=== PATIENT | female | born 1935 | race Caucasian/White ===

== ENCOUNTER → 2017-10-12 19:10 | Outpatient (REF) | payer MEDICARE, OTHER, SELFPAY | LOC: LAB 19:10 | PROVIDERS: Family Provider Family Medicine; PCP Family Medicine; Visit Provider Dermatology MOHS-Micrographic Surgery | DX: Z48.817 Encounter for surgical aftercare following surgery on the skin and subcutaneous tissue (principal) | CPT/HCPCS: 87070; 87075; 87077; 87147; 87186; 87205 ==

== ENCOUNTER 2017-10-25 18:10 | Emergency (ER) | payer MEDICARE, OTHER, SELFPAY ==
--- NOTE | 2017-10-25 18:13 | DI.RAD.S_ITS ---
PROCEDURE: XR CHEST 1V INDICATIONS: chest pain TECHNIQUE: One view of the chest was acquired. COMPARISON: [facility], CHEST 1 VIEW, 07/30/2017, 18:30. [facility], CHEST 1 VIEW, 07/03/2017, 9:40. FINDINGS: Surgical changes and devices: None. Lungs and pleura: No pleural effusions or pneumothorax. Lungs are clear. Mediastinum: Mediastinal contours appear normal. Heart size is normal. Bones and chest wall: No suspicious bony lesions. Overlying soft tissues appear unremarkable. IMPRESSION: No radiographic evidence of acute cardiopulmonary pathology. Dictated by: Burak Posey M.D. on 10/25/2017 at 18:32 Approved by: Burak Posey M.D. on 10/25/2017 at 18:33
[2017-10-25 18:16] VITALS: BP 207/81; PULSE 68; RESP 18; TEMP 36.6; O2SAT 96
[2017-10-25 18:20] VITALS: BP 193/100; PULSE 70; RESP 14; O2SAT 96
[2017-10-25 18:25] LABS: Add Manual Diff / Slide Review NO; Eosinophils Percent Auto 3.4 % (2-4); Lymphocytes Percent Auto 28.8 % (25-40); Mean Corpuscular HGB Conc 33.2 % (30-36); Mean Corpuscular Hemoglobin 30.2 PG (26-34); Mean Corpuscular Volume 90.8 fL (80-100); Monocytes Percent Auto 8.4 % (3-14); Neutrophils Absolute Auto 4400 /uL (3000-5900); Neutrophils Percent Auto 58.4 % (50-75); Platelet Count 254 X10^3/uL (150-400); Red Blood Cell Count 4.63 X10^6/uL (4.0-5.2); Red Cell Distribution Width 14.5 % (11.6-14.8); White Blood Cell Count 7.6 X10^3/uL (4.5-11.0)
[2017-10-25 18:26] LABS: INR 1.6 (0.9-1.3); Prothrombin Time 17.8 SECONDS (10.1-12.7)
[2017-10-25 18:29] LABS: PTT Partial Thromboplastin Tim 35 SECONDS (26.4-36.2)
[2017-10-25 18:30] LABS: Alanine Aminotransferase 36 IU/L (9-52); Albumin 4.2 g/dL (3.5-5.0); Albumin Globulin Ratio 1.2 (1.0-2.8); Alkaline Phosphatase 71 U/L (38-126); Aspartate Aminotransferase 39 IU/L (14-36); Bilirubin Total 0.4 mg/dL (0.2-1.3); Blood Urea Nitrogen 33 mg/dL (7-17); Calcium 8.8 mg/dL (8.4-10.2); Carbon Dioxide 27 mmol/L (22-32); Creatine Kinase 88 U/L (30-135); Estimated Glomerular Filt Rate 33.4 mL/min (>60); Globulin 3.6 g/dL (1.7-4.1); Glucose 106 mg/dL (80-110); HEMOLYSIS 42 (0-50); Lipase 135 U/L (23-300); Total Protein 7.8 g/dL (6.3-8.2)
--- NOTE | 2017-10-25 18:37 | ED.CHESTPAIN ---
HPI - Chest Pain General Chief Complaint: Chest Pain Stated Complaint: Chest Pain Time Seen by Provider: 10/25/17 18:20 Source: patient Mode of arrival: ambulatory Limitations: no limitations History of Present Illness HPI narrative: About 1 hr prior to arrival the patient developed very severe midsternal chest pain. She had associated dyspnea. The pain did not radiate. She felt no weakness or dizziness. She has no history of CAD or DC. She describes what may be an event of Broken Heart Syndrome. She is treated for hypertension and hyperlipidemia. She has no diabetes. She has never been a smoker. She is not actually been treated for any kind of cardiac conditions. She has no recent respiratory illness. Symptoms resolved after 20 min, she is now asymptomatic other than a bit anxious. Related Data Home Medications Medication Instructions Recorded Confirmed acetaminophen [Tylenol Extra 500 mg PO PRN PRN #0 04/19/16 10/25/17 Strength] amiodarone 200 mg PO QDAY #0 01/03/17 10/25/17 diphenhydramine HCl [Benadryl 1 tab PO BEDTIME PRN #0 02/15/17 10/25/17 Allergy] lisinopril 10 mg PO BID #0 04/15/17 10/25/17 sertraline 50 mg PO QDAY #0 04/15/17 10/25/17 Previous Rx's Medication Instructions Recorded metoprolol succinate [Toprol XL] 1.5 tab PO QDAY #270 ter 08/02/17 warfarin 2 mg tablet 2 mg PO SEE INSTRUCTIONS #90 tab 10/19/17 Allergies Allergy/AdvReac Type Severity Reaction Status Date / Time latex Allergy Severe THROAT Verified 10/25/17 18:14 SWELLING prednisone [PREDNISONE] Allergy Intermediate rash Verified 10/25/17 18:14 amoxicillin Allergy Mild ITCH Verified 10/25/17 18:14 ciprofloxacin Allergy Mild ITCH Verified 10/25/17 18:14 clavulanic acid Allergy Mild RASH Verified 10/25/17 18:14 hydromorphone Allergy Mild ITCHING Verified 10/25/17 18:14 nitrofurantoin Allergy Mild ABD Verified 10/25/17 18:14 PAIN/SEVERE ITCHING oxycodone Allergy Mild ITCH Verified 10/25/17 18:14 Penicillins Allergy Mild BLISTERS Verified 10/25/17 18:14 Sulfa (Sulfonamide Allergy Mild ITCH Verified 10/25/17 18:14 Antibiotics) levofloxacin [From LEVAQUIN] AdvReac Severe DISTURBING Verified 10/25/17 18:14 HALLUCINATIONS lorazepam [From ATIVAN] AdvReac Intermediate Verified 10/25/17 18:14 morphine AdvReac Mild HALLUCINATI Verified 10/25/17 18:14 ONS Review of Systems Review of Systems All systems reviewed & are unremarkable except as noted in HPI and below Constitutional Denies chills, Denies fever(s), Denies lethargy and Denies weakness ENT Ears, Nose, Mouth, and Throat: Denies change in voice, Denies neck pain and Denies sore throat Cardiovascular Reports as per HPI, Reports chest pain, Denies irregular heart rhythm, Denies lightheadedness, Denies palpitations, Reports dyspnea and Denies orthopnea Respiratory Denies chest congestion, Denies cough and Reports dyspnea Gastrointestinal Gastrointestinal: Denies abdominal pain, Denies change in bowel habits, Denies diarrhea, Denies nausea and Denies vomiting Genitourinary Denies hematuria, Denies flank pain, Denies urinary incontinence and Denies urinary urgency Musculoskeletal Denies neck pain Integumentary/Breasts Denies pruritus, Denies erythema, Denies rash and Denies wounds Neurologic Denies weakness Endocrine Denies palpitations PFSH Medical History Hyperlipidemia (Acute) Hypertension (Acute) Surgical History History of nephrectomy History of spinal fusion Status post hysterectomy with oophorectomy Family History Brother CAD (coronary artery disease) Hyperlipidemia High cholesterol Brother Cancer High cholesterol Father Colon cancer CAD (coronary artery disease) High cholesterol Mother CVA (cerebral vascular accident) Hyperlipidemia Sister Age: 82 CAD (coronary artery disease) Hyperlipidemia Ulcer Essential hypertension High cholesterol Social History Smoking Status: Never smoker Exam Initial Vital Signs Initial Vital Signs: Vital Signs Temperature 97.8 F 10/25/17 18:16 Pulse Rate 68 10/25/17 18:16 Respiratory Rate 18 10/25/17 18:16 Blood Pressure 207/81 H 10/25/17 18:16 Pulse Oximetry 96 10/25/17 18:16 Const General: cooperative and well developed Nutritional Appearance: well nourished Orientation: alert, awake, oriented x3 and not confused HENNC Head: normocephalic and atraumatic Ears: external ears normal and TM's normal bilaterally Nose: external nose normal and No nasal discharge Face and sinus: sinuses nontender, face symmetric, no sinus tenderness and No dry mucous membranes Mouth: oral mucosae normal and moist mucous membranes Teeth and gingiva: dentition normal Throat: tonsils normal and uvula midline Eyes General: appearance normal, both eyes and all related structures Eyelids: eyelids normal Conjunctivae: conjunctivae normal Sclera: sclerae normal Pupils: PERRL EOM: EOM intact bilaterally Neck Neck: normal visual inspection, No lymphadenopathy and No JVD Lymphatic: No lymphedema Resp Effort & Inspection: normal respiratory effort, able to speak in complete sentences, no respiratory distress and no use of accessory muscles Auscultation: clear to auscultation bilaterally, no rales, no rhonchi and no wheezes Cardio Rate: regular rate Rhythm: regular rhythm Heart Sounds: no click, no gallops, no murmurs and no rubs Pulses: normal peripheral pulses GI Inspection: non-distended Palpation: soft, no hepatosplenomegaly, No guarding, No pulsatile mass and No tender Auscultation: normal bowel sounds Back/Spine/Pelvis Back: No CVA tenderness Cervical Spine: cervical ROM normal and No pain with cervical ROM Thoracic/Lumbar Spine: thoracic and lumbar spine normal to inspection Skin General: no rashes or lesions noted and No petechiae Neuro General: alert, oriented x3, gait normal and no focal motor deficits Speech: speech normal Extrem General: full ROM, no clubbing, cyanosis or edema, no pedal edema and no calf tenderness Course Hospital Course: The patient has been asymptomatic since prior to arrival. Symptoms are concerning, but the ER evaluation is benign. She has been asymptomatic since arrival here. She will be referred to her PCM with warnings to return if symptoms return. Orders Ordered: ED Orders 10/25/17 18:13 XR chest 1V Stat EKG-12 Lead Stat 10/25/17 18:16 Complete Blood Count AUTO DIFF Stat Comprehensive Metabolic Panel Stat Lipase Stat Partial Thromboplastin Time Stat Prothrombin Time INR Stat Troponin with CK Cardiac Panel Stat Discontinued Medications Aspirin (Aspirin Chew) 324 mg PO NOW ONE Stop: 10/25/17 18:41 Last Admin: 10/25/17 18:53 Dose: 324 mg Vital Signs - 8 hr 10/25/17 18:16 10/25/17 18:20 10/25/17 18:57 Temperature 97.8 F Pulse Rate 68 70 75 Respiratory Rate 18 14 14 Blood Pressure 207/81 H Blood Pressure [Left Arm] 193/100 H 154/60 H Pulse Oximetry 96 96 MDM - Chest Pain Medical Records Data Attestation: I reviewed the patient's medical records. Lab Data Attestation: I reviewed the patient's lab results. Result diagrams: 10/25/17 18:16 10/25/17 18:16 Lab Results 10/25/17 10/25/17 10/25/17 Range/Units 18:16 18:16 18:16 WBC 7.6 (4.5-11.0) X10^3/uL RBC 4.63 (4.0-5.2) X10^6/uL Hgb 14.0 (12.0-16.0) g/dL Hct 42.0 (36-46) % MCV 90.8 (80-100) fL MCH 30.2 (26-34) PG MCHC 33.2 (30-36) % RDW 14.5 (11.6-14.8) % Plt Count 254 (150-400) X10^3/uL Neut % (Auto) 58.4 (50-75) % Lymph % (Auto) 28.8 (25-40) % Crawford % (Auto) 8.4 (3-14) % Eos % (Auto) 3.4 (2-4) % Baso % (Auto) 1.0 (0-2) % Neut # (Auto) 4400 (5968-0453) /uL PT 17.8 H (10.1-12.7) SECONDS INR 1.6 H (0.9-1.3) APTT 35 (26.4-36.2) SECONDS Sodium 140 (137-145) mmol/L Potassium 4.5 (3.4-5.1) mmol/L Chloride 102 (98-107) mmol/L Carbon Dioxide 27 (22-32) mmol/L BUN 33 H (7-17) mg/dL Creatinine 1.50 H (0.52-1.04) mg/dL Estimated GFR 33.4 L (>60) mL/min BUN/Creatinine Ratio 22.0 (6-22) Glucose 106 (80-110) mg/dL Calcium 8.8 (8.4-10.2) mg/dL Total Bilirubin 0.4 (0.2-1.3) mg/dL AST 39 H (14-36) IU/L ALT 36 (9-52) IU/L Alkaline Phosphatase 71 (38-126) U/L Total Creatine Kinase 88 (30-135) U/L CK-MB (CK-2) TNP Troponin I < 0.012 (0.01-0.034) ng/mL Total Protein 7.8 (6.3-8.2) g/dL Albumin 4.2 (3.5-5.0) g/dL Globulin 3.6 (1.7-4.1) g/dL Albumin/Globulin Ratio 1.2 (1.0-2.8) Lipase 135 (23-300) U/L Imaging Data Chest x-ray: Radiologist's impression: Normal ECG Data Attestation: I personally reviewed and interpreted this ECG as follows: (Normal sinus rhythm rate [address] T wave changes. No acute ST elevations. PVCs. Normal intervals.) Discharge Plan Departure Patient Disposition: Home, Self-Care Clinical Impression: Chest pain Discharge Date/Time: 10/25/17 19:55 Interventions: ED Discharge Assessment Last Done: 10/25/17 19:55 Instructions: DI for Chest Pain Activity Restrictions/Additional Instructions: Continue your current medications. Call your doctor tomorrow to arrange followup, return here or go directly to the nearest ER if the pain returns. Prescriptions: No Action acetaminophen [Tylenol Extra Strength] 500 MG tablet 500 mg PO PRN PRN (Reason: Pain, Mild) Qty: 0 RF: 0 amiodarone 200 MG tablet 200 mg PO QDAY Qty: 0 RF: 0 diphenhydramine HCl [Benadryl Allergy] 25 MG tablet 1 tab PO BEDTIME PRN (Reason: Insomnia) Qty: 0 RF: 0 lisinopril 10 MG tablet 10 mg PO BID Qty: 0 RF: 0 sertraline 50 MG tablet 50 mg PO QDAY Qty: 0 RF: 0 metoprolol succinate [Toprol XL] 25 MG tablet extended release 24 hr 1.5 tab PO QDAY Qty: 270 RF: 3 warfarin [Coumadin] 2 mg tablet 2 mg PO SEE INSTRUCTIONS Qty: 90 RF: 3
[2017-10-25 18:41] LABS: Chloride 102 mmol/L (98-107); Potassium 4.5 mmol/L (3.4-5.1); Sodium 140 mmol/L (137-145)
[2017-10-25 18:46] LABS: Troponin I < 0.012 ng/mL (0.01-0.034)
[2017-10-25] MEDS: ASPIRIN 81 MG TAB 324 MG PO (18:53)
[2017-10-25 18:57] VITALS: BP 154/60; PULSE 75; RESP 14
== END 2017-10-25 19:55 | disposition home or self-care (01) ==
PROVIDERS: Emergency Provider Emergency Medicine; Family Provider Family Medicine; PCP Family Medicine
DX: R07.9 Chest pain, unspecified (principal)
CPT/HCPCS: 36591; 71045; 80053; 82550; 83690; 84484; 85025; 85610; 85730; 93005; 99283; 99285

== ENCOUNTER → 2017-11-16 14:03 | Outpatient (CLI) | payer MEDICARE, OTHER, SELFPAY ==
[2017-11-16 16:05] LABS: Thyroid Stimulating Hormone 0.63 uIU/mL (0.47-4.68)
== END ==
PROVIDERS: Family Provider Family Medicine; PCP Family Medicine; Visit Provider Physician Assistant
DX: I48.0 Paroxysmal atrial fibrillation (principal); I10 Essential (primary) hypertension
CPT/HCPCS: 36415; 84443

== ENCOUNTER → 2017-12-25 11:26 | Outpatient (CLI) | payer MEDICARE, OTHER, SELFPAY ==
[2017-12-25 12:46] LABS: Hemoglobin A1C% w Est Avg Glu 5.6 % (4.0-6.0)
[2017-12-25 13:58] LABS: Alanine Aminotransferase 30 IU/L (9-52); Albumin 3.7 g/dL (3.5-5.0); Albumin Globulin Ratio 1.2 (1.0-2.8); Alkaline Phosphatase 65 U/L (38-126); Aspartate Aminotransferase 28 IU/L (14-36); BUN Creatinine Ratio 24.6 (6-22); Bilirubin Total 0.5 mg/dL (0.2-1.3); Blood Urea Nitrogen 32 mg/dL (7-17); Carbon Dioxide 25 mmol/L (22-32); Chloride 106 mmol/L (98-107); Cholesterol 243 mg/dL (140-199); Estimated Glomerular Filt Rate 39.4 mL/min (>60); Globulin 3.2 g/dL (1.7-4.1); Glucose 98 mg/dL (80-110); HDL Cholesterol 66 mg/dL (40-60); HEMOLYSIS < 15 (0-50); LDL Cholesterol Calculated 156 mg/dL (<100); Potassium 4.9 mmol/L (3.4-5.1); Sodium 139 mmol/L (137-145); Total Protein 6.9 g/dL (6.3-8.2); Triglycerides 104 mg/dL (35-150)
== END ==
PROVIDERS: Visit Provider Specialist
DX: I10 Essential (primary) hypertension (principal); E78.2 Mixed hyperlipidemia; R73.09 Other abnormal glucose; I48.0 Paroxysmal atrial fibrillation
CPT/HCPCS: 36415; 80053; 80061; 83036; 83735

== ENCOUNTER 2018-01-10 18:28 | Emergency (ER) | payer MEDICARE, OTHER, SELFPAY ==
[2018-01-10] VITALS (8 sets, daily range): BP systolic 155–199; BP diastolic 73–82; PULSE 68–78; RESP 17–23; TEMP 37; O2SAT 95–99; BMI 26.5
--- NOTE | 2018-01-10 18:47 | ED.FALL ---
HPI - Fall General Chief Complaint: Fall Stated Complaint: FALL Time Seen by Provider: 01/10/18 18:46 Source: patient and family Mode of arrival: ambulatory Limitations: no limitations History of Present Illness HPI Narrative: 82-year-old female with history of hypertension presents to the emergency department for evaluation of a fall in which she struck her head and injured her chest with the fall. She denies loss of consciousness nor nausea or vomiting. She denies any focal neurologic findings. She does have anterior chest pain which is worse with motion and breathing. She denies any shortness of breath or hemoptysis. She does take Coumadin. She was activated as a modified trauma given her fall with head injury on Coumadin complaint: fall Onset (ago): minute(s) Fall from: standing Fall witnessed: yes, by family Place fall occurred: home Loss of consciousness: none Symptoms prior to fall: none Context: tripped/slipped Location of injury: head Severity: moderate Related Data Home Medications Medication Instructions Recorded Confirmed acetaminophen [Tylenol Extra 500 mg PO PRN PRN #0 04/19/16 10/25/17 Strength] amiodarone 200 mg PO QDAY #0 01/03/17 10/25/17 diphenhydramine HCl [Benadryl 1 tab PO BEDTIME PRN #0 02/15/17 10/25/17 Allergy] lisinopril 10 mg PO BID #0 04/15/17 10/25/17 sertraline 50 mg PO QDAY #0 04/15/17 10/25/17 Previous Rx's Medication Instructions Recorded metoprolol succinate [Toprol XL] 1.5 tab PO QDAY #270 ter 08/02/17 warfarin 2 mg tablet 2 mg PO SEE INSTRUCTIONS #90 tab 10/19/17 acetaminophen-codeine 1 tab PO Q4-6H PRN #14 tab 01/10/18 [Tylenol-Codeine #3] Allergies Allergy/AdvReac Type Severity Reaction Status Date / Time latex Allergy Severe THROAT Verified 10/25/17 18:14 SWELLING prednisone [PREDNISONE] Allergy Intermediate rash Verified 10/25/17 18:14 amoxicillin Allergy Mild ITCH Verified 10/25/17 18:14 ciprofloxacin Allergy Mild ITCH Verified 10/25/17 18:14 clavulanic acid Allergy Mild RASH Verified 10/25/17 18:14 hydromorphone Allergy Mild ITCHING Verified 10/25/17 18:14 nitrofurantoin Allergy Mild ABD Verified 10/25/17 18:14 PAIN/SEVERE ITCHING oxycodone Allergy Mild ITCH Verified 10/25/17 18:14 Penicillins Allergy Mild BLISTERS Verified 10/25/17 18:14 Sulfa (Sulfonamide Allergy Mild ITCH Verified 10/25/17 18:14 Antibiotics) levofloxacin [From LEVAQUIN] AdvReac Severe DISTURBING Verified 10/25/17 18:14 HALLUCINATIONS lorazepam [From ATIVAN] AdvReac Intermediate Verified 10/25/17 18:14 morphine AdvReac Mild HALLUCINATI Verified 10/25/17 18:14 ONS Review of Systems Review of Systems All systems reviewed & are unremarkable except as noted in HPI and below Constitutional Denies chills, Denies fever(s), Denies lethargy and Denies weakness Eyes Denies change in vision, Denies eye discharge, Denies irritation and Denies loss of vision ENT Ears, Nose, Mouth, and Throat: Denies change in voice, Denies neck pain and Denies sore throat Cardiovascular Reports chest pain, Denies irregular heart rhythm, Denies lightheadedness, Denies palpitations, Denies dyspnea, Denies dyspnea on exertion and Denies orthopnea Respiratory Denies cough, Denies dyspnea, Denies dyspnea on exertion and Denies wheezing Gastrointestinal Gastrointestinal: Denies abdominal pain, Denies change in bowel habits, Denies diarrhea, Denies nausea and Denies vomiting Genitourinary Denies hematuria, Denies flank pain, Denies urinary incontinence and Denies urinary urgency Musculoskeletal Denies neck pain Integumentary/Breasts Denies pruritus, Denies erythema, Denies rash and Denies wounds Neurologic Denies confusion, Denies loss of vision and Denies weakness Psychiatric Denies anxiety, Denies confusion, Denies depression, Denies homicidal ideation and Denies suicidal ideation Endocrine Denies palpitations Hematologic/Lymphatic Denies easy bruising Allergic/Immunologic Denies wheezing Exam Narrative Exam Narrative: 82-year-old female in mild distress, complaining of anterior chest pain Initial Vital Signs Initial Vital Signs: Vital Signs Temperature 98.6 F 01/10/18 18:41 Pulse Rate 78 01/10/18 18:41 Respiratory Rate 20 01/10/18 18:41 Blood Pressure 155/82 H 01/10/18 18:41 Pulse Oximetry 95 01/10/18 18:41 Const General: cooperative, well developed and in distress Nutritional Appearance: well nourished Orientation: alert, awake, oriented x3 and not confused [facility] Head: contusion (Over left brow) Ears: external ears normal and TM's normal bilaterally Nose: external nose normal and No nasal discharge Face and sinus: sinuses nontender, face symmetric, no sinus tenderness and No dry mucous membranes Mouth: oral mucosae normal and moist mucous membranes Teeth and gingiva: dentition normal Throat: tonsils normal and uvula midline Eyes General: appearance normal, both eyes and all related structures Eyelids: eyelids normal Conjunctivae: conjunctivae normal Sclera: sclerae normal Pupils: PERRL EOM: EOM intact bilaterally Neck Neck: normal visual inspection, trachea midline, No lymphadenopathy, No midline deformity and No JVD Lymphatic: No lymphedema Chest Chest: abnormal inspection of the chest and tenderness (Anterior chest tender to palpation, no crepitance no hematoma) Resp Effort & Inspection: normal respiratory effort, able to speak in complete sentences, no respiratory distress and no use of accessory muscles Auscultation: clear to auscultation bilaterally, no rales, no rhonchi and no wheezes Cardio Rate: regular rate Rhythm: regular rhythm Heart Sounds: no click, no gallops, no murmurs and no rubs Pulses: normal peripheral pulses GI Inspection: non-distended Palpation: soft, no hepatosplenomegaly, No guarding, No pulsatile mass and No tender Auscultation: normal bowel sounds Back/Spine/Pelvis Back: No CVA tenderness Cervical Spine: cervical ROM normal and No pain with cervical ROM Thoracic/Lumbar Spine: thoracic and lumbar spine normal to inspection Skin General: no rashes or lesions noted, No jaundice and No petechiae Neuro General: alert, oriented x3, gait normal and no focal motor deficits Speech: speech normal [facility] Medical History Hyperlipidemia (Acute) Hypertension (Acute) Surgical History History of nephrectomy History of spinal fusion Status post hysterectomy with oophorectomy Family History Brother CAD (coronary artery disease) Hyperlipidemia High cholesterol Brother Cancer High cholesterol Father Colon cancer CAD (coronary artery disease) High cholesterol Mother CVA (cerebral vascular accident) Hyperlipidemia Sister Age: 82 CAD (coronary artery disease) Hyperlipidemia Ulcer Essential hypertension High cholesterol Social History Smoking Status: Never smoker Course Orders Ordered: ED Orders 01/10/18 18:50 CT head/brain wo con Stat 01/10/18 19:19 EKG-12 Lead Stat 01/10/18 19:23 XR chest 2V Stat 01/10/18 19:32 BMP [Basic Metabolic Panel] Stat Complete Blood Count AUTO DIFF Stat Prothrombin Time INR Stat Troponin I Stat 01/10/18 20:20 CT chest w con Stat Discontinued Medications Acetaminophen (Tylenol) 650 mg PO NOW ONE Stop: 01/10/18 20:26 Last Admin: 01/10/18 20:52 Dose: 650 mg Acetaminophen/Codeine Phosphate (Tylenol #3 Prepack) 1 bottle MISC SEEINSTR ONE Stop: 01/10/18 22:01 Last Admin: 01/10/18 22:03 Dose: 1 bottle Vital Signs - 8 hr 01/10/18 19:30 01/10/18 19:35 01/10/18 20:05 Pulse Rate 72 70 Respiratory Rate 17 17 Blood Pressure Blood Pressure [Left Arm] 199/76 H 188/73 H Pulse Oximetry 98 99 01/10/18 20:35 01/10/18 21:16 01/10/18 21:42 Pulse Rate 71 68 Respiratory Rate 20 21 Blood Pressure Blood Pressure [Left Arm] 199/74 H 192/78 H 195/82 H Pulse Oximetry 95 96 01/10/18 22:15 Pulse Rate 75 Respiratory Rate 23 Blood Pressure 195/82 H Blood Pressure [Left Arm] Pulse Oximetry 96 MDM - Fall Lab Data Result diagrams: 01/10/18 19:32 01/10/18 19:32 Lab Results 01/10/18 01/10/18 01/10/18 Range/Units 19:32 19:32 19:32 WBC 8.1 (4.5-11.0) X10^3/uL RBC 4.13 (4.0-5.2) X10^6/uL Hgb 12.4 (12.0-16.0) g/dL Hct 36.9 (36-46) % MCV 89.2 (80-100) fL MCH 30.0 (26-34) PG MCHC 33.6 (30-36) % RDW 13.9 (11.6-14.8) % Plt Count 231 (150-400) X10^3/uL Neut % (Auto) 65.4 (50-75) % Lymph % (Auto) 22.3 L (25-40) % [place] % (Auto) 9.4 (3-14) % Eos % (Auto) 1.9 L (2-4) % Baso % (Auto) 1.0 (0-2) % Neut # (Auto) 5300 (1379-4683) /uL PT 24.3 H (10.1-12.7) SECONDS INR 2.2 H (0.9-1.3) Sodium (137-145) mmol/L Potassium (3.4-5.1) mmol/L Chloride (98-107) mmol/L Carbon Dioxide (22-32) mmol/L BUN (7-17) mg/dL Creatinine (0.52-1.04) mg/dL Estimated GFR (>60) mL/min BUN/Creatinine Ratio (6-22) Glucose (80-110) mg/dL Calcium (8.4-10.2) mg/dL Troponin I < 0.012 (0.01-0.034) ng/mL 01/10/18 Range/Units 19:32 WBC (4.5-11.0) X10^3/uL RBC (4.0-5.2) X10^6/uL Hgb (12.0-16.0) g/dL Hct (36-46) % MCV (80-100) fL MCH (26-34) PG MCHC (30-36) % RDW (11.6-14.8) % Plt Count (150-400) X10^3/uL Neut % (Auto) (50-75) % Lymph % (Auto) (25-40) % [place] % (Auto) (3-14) % Eos % (Auto) (2-4) % Baso % (Auto) (0-2) % Neut # (Auto) (5693-5572) /uL PT (10.1-12.7) SECONDS INR (0.9-1.3) Sodium 141 (137-145) mmol/L Potassium 4.8 (3.4-5.1) mmol/L Chloride 104 (98-107) mmol/L Carbon Dioxide 30 (22-32) mmol/L BUN 37 H (7-17) mg/dL Creatinine 1.70 H (0.52-1.04) mg/dL Estimated GFR 28.9 L (>60) mL/min BUN/Creatinine Ratio 21.8 (6-22) Glucose 104 (80-110) mg/dL Calcium 9.0 (8.4-10.2) mg/dL Troponin I (0.01-0.034) ng/mL Imaging Data CT scan - chest: Radiologist's impression: [address] [address] [address] Scan Report Signed Patient: Valery Yeh EMR#: [id number] : 8Acct:[id number] Age/Sex: 82 / FDate of Service: 01/10/18 Loc: ED Accession Number: [id number] Procedure: CT chest w con Ordering Provider: Dave Marie D.O. PROCEDURE: CT CHEST W CON INDICATIONS: severe chest wall pain TECHNIQUE: After the administration of intravenous contrast, 5 mm thick sections acquired from the pulmonary apices to the posterior costophrenic angles. 7 mm thick coronal and sagittal MIP reformats were acquired. For radiation dose reduction, the following was used: automated exposure control, adjustment of mA and/or kV according to patient size. COMPARISON: [facility], CT, ABDOMEN/PELVIS WITH CONTRAST, 01/29/2016, 10:12. [facility], CT, ABDOMEN/PELVIS WITH CONTRAST, 11/05/2016, 11:17. [facility], CT, PE STUDY (CTA CHEST), 06/26/2012, 13:18. [facility], CR, XR CHEST 1V, 10/25/2017, 18:18. [facility], CR, XR CHEST 2V, 01/10/2018, 19:00. FINDINGS: Image quality: Excellent. Lungs and pleura: No acute consolidation. Within the posterior right lower lobe in the costophrenic angle, there is a small bony nodule measuring up to approximately 7 mm with irregular margins. This appears new compared to the prior studies. Mild dependent atelectasis is demonstrated bilaterally. No pleural effusions or pneumothorax. Central and peripheral airways are patent and normal in caliber. Mediastinum: Heart size is mildly enlarged with prominent left atrial enlargement. No pericardial effusion. No mediastinal or hilar adenopathy by size criteria. There is mild enlargement of the pulmonary arteries suggestive of pulmonary arterial hypertension. Thoracic aorta is normal in size. Esophagus is normal in caliber. There is a small to moderate sized hiatal hernia. Bones and chest wall: No suspicious bony lesions. No rib fractures identified. No vertebral body compression fractures. No axillary or supraclavicular adenopathy by size criteria. Abdomen: Visualized upper abdomen demonstrates mild fatty atrophy of the visualized pancreas. No pancreatic duct dilatation visualized. The gallbladder is surgically absent. IMPRESSION: 1. No rib fractures identified. 2. Small subpleural irregular nodule posteriorly in the right lower lobe measuring up to 7 mm. Recommend followup in 6-12 months to demonstrate stability if clinically indicated. 3. Small to moderate-sized hiatal hernia. Dictated by: Surya Carpenter M.D. on 01/10/2018 at 21:13 Approved by: Surya Carpenter M.D. on 01/10/2018 at 21:19 CT scan - head: Radiologist's impression: [place] [address] CT Scan Report Signed Patient: Valery Yeh EMR#: [id number] : 8Acct:[id number] Age/Sex: 82 / FDate of Service: 01/10/18 Loc: ED Accession Number: [id number] Procedure: CT head/brain wo con Ordering Provider: Dave Marie D.O. PROCEDURE: CT HEAD/BRAIN WO CON INDICATIONS: FELL ON COUMADIN TECHNIQUE: Noncontrast 4.5 mm thick angled axial sections acquired from the foramen magnum to the vertex, with coronal and sagittal reformats. For radiation dose reduction, the following was used: automated exposure control, adjustment of mA and/or kV according to patient size. COMPARISON: [facility], CT, HEAD WITHOUT CONTRAST, 07/30/2017, 18:43. FINDINGS: Image quality: Excellent. CSF spaces: Basal cisterns are patent. No extra-axial fluid collections. The ventricles are symmetric in size and shape. There is mild cerebral volume loss, with resultant ventricular and sulcal prominence. Brain: No intracranial hemorrhage, mass, or mass effect. There are subcortical, periventricular and deep white matter hypodensities consistent with c mild hronic small vessel ischemic changes. There is intracranial internal carotid artery atherosclerosis. Skull and face: Calvarium and visualized facial bones appear intact, without suspicious lesions. Sinuses: Visualized sinuses and mastoids are clear. IMPRESSION: 1. No acute intracranial abnormality. 2. Mild chronic white matter small vessel ischemic changes and cerebral volume loss. Dictated by: Surya Carpenter M.D. on 01/10/2018 at 19:20 Approved by: Surya Carpenter M.D. on 01/10/2018 at 19:21 Discharge Plan Departure Patient Disposition: Home Clinical Impression: Contusion of face, Chest wall contusion Discharge Date/Time: 01/10/18 22:17 Interventions: ED Discharge Assessment Last Done: 01/10/18 22:15 Instructions: DI for Contusion Activity Restrictions/Additional Instructions: *You have been diagnosed with [ facial contusion, chest wall contusion ] *What to do: *Continue to take medications as directed *Follow up with your primary care provider in 2-3 days, call for an appointment. Let them know you were seen in the Emergency Department and that we ask that you be seen in follow up *Return to ER if you should have any new, worsening or concerning symptoms Prescriptions: New acetaminophen-codeine [Tylenol-Codeine #3] 300-30 mg tablet 1 tab PO Q4-6H PRN (Reason: pain) Qty: 14 RF: 0 No Action acetaminophen [Tylenol Extra Strength] 500 MG tablet 500 mg PO PRN PRN (Reason: Pain, Mild) Qty: 0 RF: 0 amiodarone 200 MG tablet 200 mg PO QDAY Qty: 0 RF: 0 diphenhydramine HCl [Benadryl Allergy] 25 MG tablet 1 tab PO BEDTIME PRN (Reason: Insomnia) Qty: 0 RF: 0 lisinopril 10 MG tablet 10 mg PO BID Qty: 0 RF: 0 sertraline 50 MG tablet 50 mg PO QDAY Qty: 0 RF: 0 metoprolol succinate [Toprol XL] 25 MG tablet extended release 24 hr 1.5 tab PO QDAY Qty: 270 RF: 3 warfarin [Coumadin] 2 mg tablet 2 mg PO SEE INSTRUCTIONS Qty: 90 RF: 3 Referrals: Cousins,Shannon, MD [Primary Care Provider] -
--- NOTE | 2018-01-10 18:50 | DI.CT.S_ITS ---
PROCEDURE: CT HEAD/BRAIN WO CON INDICATIONS: FELL ON COUMADIN TECHNIQUE: Noncontrast 4.5 mm thick angled axial sections acquired from the foramen magnum to the vertex, with coronal and sagittal reformats. For radiation dose reduction, the following was used: automated exposure control, adjustment of mA and/or kV according to patient size. COMPARISON: [facility], CT, HEAD WITHOUT CONTRAST, 07/30/2017, 18:43. FINDINGS: Image quality: Excellent. CSF spaces: Basal cisterns are patent. No extra-axial fluid collections. The ventricles are symmetric in size and shape. There is mild cerebral volume loss, with resultant ventricular and sulcal prominence. Brain: No intracranial hemorrhage, mass, or mass effect. There are subcortical, periventricular and deep white matter hypodensities consistent with c mild hronic small vessel ischemic changes. There is intracranial internal carotid artery atherosclerosis. Skull and face: Calvarium and visualized facial bones appear intact, without suspicious lesions. Sinuses: Visualized sinuses and mastoids are clear. IMPRESSION: 1. No acute intracranial abnormality. 2. Mild chronic white matter small vessel ischemic changes and cerebral volume loss. Dictated by: Surya Carpenter M.D. on 01/10/2018 at 19:20 Approved by: Surya Carpenter M.D. on 01/10/2018 at 19:21
--- NOTE | 2018-01-10 19:01 | PC.NURSE ---
Patient to CT and returned to room after completion.
--- NOTE | 2018-01-10 19:23 | DI.RAD.S_ITS ---
PROCEDURE: XR CHEST 2V INDICATIONS: shortness of breath with upper left side pain TECHNIQUE: 2 views of the chest were acquired. COMPARISON: [facility], CR, XR CHEST 1V, 10/25/2017, 18:18. FINDINGS: Surgical changes and devices: There is an external device suggestive of a pacemaker redemonstrated. Lungs and pleura: No pleural effusions or pneumothorax. There is hyperinflation of the lungs with flattening of the hemidiaphragms compatible with COPD. no acute consolidation. Mediastinum: Mediastinal contours are normal. Heart size is normal. Bones and chest wall: No suspicious bony abnormalities. Soft tissues appear unremarkable. IMPRESSION: 1. Findings suggestive of COPD. 2. No definite acute cardiopulmonary disease. Dictated by: Surya Carpenter M.D. on 01/10/2018 at 19:46 Approved by: Surya Carpenter M.D. on 01/10/2018 at 19:54
[2018-01-10 19:38] LABS: Add Manual Diff / Slide Review NO; Eosinophils Percent Auto 1.9 % (2-4); Hematocrit 36.9 % (36-46); Hemoglobin 12.4 g/dL (12.0-16.0); Lymphocytes Percent Auto 22.3 % (25-40); Mean Corpuscular HGB Conc 33.6 % (30-36); Mean Corpuscular Volume 89.2 fL (80-100); Monocytes Percent Auto 9.4 % (3-14); Neutrophils Absolute Auto 5300 /uL (3000-5900); Neutrophils Percent Auto 65.4 % (50-75); Platelet Count 231 X10^3/uL (150-400); Red Blood Cell Count 4.13 X10^6/uL (4.0-5.2); Red Cell Distribution Width 13.9 % (11.6-14.8); White Blood Cell Count 8.1 X10^3/uL (4.5-11.0)
[2018-01-10 19:44] LABS: INR 2.2 (0.9-1.3); Prothrombin Time 24.3 SECONDS (10.1-12.7)
[2018-01-10 20:15] LABS: Troponin I < 0.012 ng/mL (0.01-0.034)
--- NOTE | 2018-01-10 20:20 | DI.CT.S_ITS ---
PROCEDURE: CT CHEST W CON INDICATIONS: severe chest wall pain TECHNIQUE: After the administration of intravenous contrast, 5 mm thick sections acquired from the pulmonary apices to the posterior costophrenic angles. 7 mm thick coronal and sagittal MIP reformats were acquired. For radiation dose reduction, the following was used: automated exposure control, adjustment of mA and/or kV according to patient size. COMPARISON: [facility], CT, ABDOMEN/PELVIS WITH CONTRAST, 01/29/2016, 10:12. [facility], CT, ABDOMEN/PELVIS WITH CONTRAST, 11/05/2016, 11:17. [facility], CT, PE STUDY (CTA CHEST), 06/26/2012, 13:18. [facility], CR, XR CHEST 1V, 10/25/2017, 18:18. [facility], CR, XR CHEST 2V, 01/10/2018, 19:00. FINDINGS: Image quality: Excellent. Lungs and pleura: No acute consolidation. Within the posterior right lower lobe in the costophrenic angle, there is a small bony nodule measuring up to approximately 7 mm with irregular margins. This appears new compared to the prior studies. Mild dependent atelectasis is demonstrated bilaterally. No pleural effusions or pneumothorax. Central and peripheral airways are patent and normal in caliber. Mediastinum: Heart size is mildly enlarged with prominent left atrial enlargement. No pericardial effusion. No mediastinal or hilar adenopathy by size criteria. There is mild enlargement of the pulmonary arteries suggestive of pulmonary arterial hypertension. Thoracic aorta is normal in size. Esophagus is normal in caliber. There is a small to moderate sized hiatal hernia. Bones and chest wall: No suspicious bony lesions. No rib fractures identified. No vertebral body compression fractures. No axillary or supraclavicular adenopathy by size criteria. Abdomen: Visualized upper abdomen demonstrates mild fatty atrophy of the visualized pancreas. No pancreatic duct dilatation visualized. The gallbladder is surgically absent. IMPRESSION: 1. No rib fractures identified. 2. Small subpleural irregular nodule posteriorly in the right lower lobe measuring up to 7 mm. Recommend followup in 6-12 months to demonstrate stability if clinically indicated. 3. Small to moderate-sized hiatal hernia. Dictated by: Surya Carpenter M.D. on 01/10/2018 at 21:13 Approved by: Surya Carpenter M.D. on 01/10/2018 at 21:19
[2018-01-10 20:41] LABS: BUN Creatinine Ratio 21.8 (6-22); Blood Urea Nitrogen 37 mg/dL (7-17); Carbon Dioxide 30 mmol/L (22-32); Chloride 104 mmol/L (98-107); Estimated Glomerular Filt Rate 28.9 mL/min (>60); Glucose 104 mg/dL (80-110); HEMOLYSIS < 15 (0-50); Potassium 4.8 mmol/L (3.4-5.1); Sodium 141 mmol/L (137-145)
--- NOTE | 2018-01-10 20:47 | PC.NURSE ---
Patient appears flushed. Reports ice is helping her facial pain. To CT at this time with the civil geotechnical engineer.
[2018-01-10] MEDS: ACETAMINOPHEN 325 MG TABLET 650 MG PO (20:52)
[2018-01-10] MEDS: CODEINE/APAP 30/300 PREPACK 1 BOTTLE MISC (22:03)
--- NOTE | 2018-01-11 03:28 | ED_ITS ---
HPI - Fall General Chief Complaint: Fall Stated Complaint: FALL Time Seen by Provider: 01/10/18 18:46 Source: patient and family Mode of arrival: ambulatory Limitations: no limitations History of Present Illness HPI Narrative: 82-year-old female with history of hypertension presents to the emergency department for evaluation of a fall in which she struck her head and injured her chest with the fall. She denies loss of consciousness nor nausea or vomiting. She denies any focal neurologic findings. She does have anterior chest pain which is worse with motion and breathing. She denies any shortness of breath or hemoptysis. She does take Coumadin. She was activated as a modified trauma given her fall with head injury on Coumadin complaint: fall Onset (ago): minute(s) Fall from: standing Fall witnessed: yes, by family Place fall occurred: home Loss of consciousness: none Symptoms prior to fall: none Context: tripped/slipped Location of injury: head Severity: moderate Related Data Home Medications Medication Instructions Recorded Confirmed acetaminophen [Tylenol Extra 500 mg PO PRN PRN #0 04/19/16 10/25/17 Strength] amiodarone 200 mg PO QDAY #0 01/03/17 10/25/17 diphenhydramine HCl [Benadryl 1 tab PO BEDTIME PRN #0 02/15/17 10/25/17 Allergy] lisinopril 10 mg PO BID #0 04/15/17 10/25/17 sertraline 50 mg PO QDAY #0 04/15/17 10/25/17 Previous Rx's Medication Instructions Recorded metoprolol succinate [Toprol XL] 1.5 tab PO QDAY #270 ter 08/02/17 warfarin 2 mg tablet 2 mg PO SEE INSTRUCTIONS #90 tab 10/19/17 acetaminophen-codeine 1 tab PO Q4-6H PRN #14 tab 01/10/18 [Tylenol-Codeine #3] Allergies Allergy/AdvReac Type Severity Reaction Status Date / Time latex Allergy Severe THROAT Verified 10/25/17 18:14 SWELLING prednisone [PREDNISONE] Allergy Intermediate rash Verified 10/25/17 18:14 amoxicillin Allergy Mild ITCH Verified 10/25/17 18:14 ciprofloxacin Allergy Mild ITCH Verified 10/25/17 18:14 clavulanic acid Allergy Mild RASH Verified 10/25/17 18:14 hydromorphone Allergy Mild ITCHING Verified 10/25/17 18:14 nitrofurantoin Allergy Mild ABD Verified 10/25/17 18:14 PAIN/SEVERE ITCHING oxycodone Allergy Mild ITCH Verified 10/25/17 18:14 Penicillins Allergy Mild BLISTERS Verified 10/25/17 18:14 Sulfa (Sulfonamide Allergy Mild ITCH Verified 10/25/17 18:14 Antibiotics) levofloxacin [From LEVAQUIN] AdvReac Severe DISTURBING Verified 10/25/17 18:14 HALLUCINATIONS lorazepam [From ATIVAN] AdvReac Intermediate Verified 10/25/17 18:14 morphine AdvReac Mild HALLUCINATI Verified 10/25/17 18:14 ONS Review of Systems Review of Systems All systems reviewed & are unremarkable except as noted in HPI and below Constitutional Denies chills, Denies fever(s), Denies lethargy and Denies weakness Eyes Denies change in vision, Denies eye discharge, Denies irritation and Denies loss of vision ENT Ears, Nose, Mouth, and Throat: Denies change in voice, Denies neck pain and Denies sore throat Cardiovascular Reports chest pain, Denies irregular heart rhythm, Denies lightheadedness, Denies palpitations, Denies dyspnea, Denies dyspnea on exertion and Denies orthopnea Respiratory Denies cough, Denies dyspnea, Denies dyspnea on exertion and Denies wheezing Gastrointestinal Gastrointestinal: Denies abdominal pain, Denies change in bowel habits, Denies diarrhea, Denies nausea and Denies vomiting Genitourinary Denies hematuria, Denies flank pain, Denies urinary incontinence and Denies urinary urgency Musculoskeletal Denies neck pain Integumentary/Breasts Denies pruritus, Denies erythema, Denies rash and Denies wounds Neurologic Denies confusion, Denies loss of vision and Denies weakness Psychiatric Denies anxiety, Denies confusion, Denies depression, Denies homicidal ideation and Denies suicidal ideation Endocrine Denies palpitations Hematologic/Lymphatic Denies easy bruising Allergic/Immunologic Denies wheezing Exam Narrative Exam Narrative: 82-year-old female in mild distress, complaining of anterior chest pain Initial Vital Signs Initial Vital Signs: Vital Signs Temperature 98.6 F 01/10/18 18:41 Pulse Rate 78 01/10/18 18:41 Respiratory Rate 20 01/10/18 18:41 Blood Pressure 155/82 H 01/10/18 18:41 Pulse Oximetry 95 01/10/18 18:41 Const General: cooperative, well developed and in distress Nutritional Appearance: well nourished Orientation: alert, awake, oriented x3 and not confused [facility] Head: contusion (Over left brow) Ears: external ears normal and TM's normal bilaterally Nose: external nose normal and No nasal discharge Face and sinus: sinuses nontender, face symmetric, no sinus tenderness and No dry mucous membranes Mouth: oral mucosae normal and moist mucous membranes Teeth and gingiva: dentition normal Throat: tonsils normal and uvula midline Eyes General: appearance normal, both eyes and all related structures Eyelids: eyelids normal Conjunctivae: conjunctivae normal Sclera: sclerae normal Pupils: PERRL EOM: EOM intact bilaterally Neck Neck: normal visual inspection, trachea midline, No lymphadenopathy, No midline deformity and No JVD Lymphatic: No lymphedema Chest Chest: abnormal inspection of the chest and tenderness (Anterior chest tender to palpation, no crepitance no hematoma) Resp Effort & Inspection: normal respiratory effort, able to speak in complete sentences, no respiratory distress and no use of accessory muscles Auscultation: clear to auscultation bilaterally, no rales, no rhonchi and no wheezes Cardio Rate: regular rate Rhythm: regular rhythm Heart Sounds: no click, no gallops, no murmurs and no rubs Pulses: normal peripheral pulses GI Inspection: non-distended Palpation: soft, no hepatosplenomegaly, No guarding, No pulsatile mass and No tender Auscultation: normal bowel sounds Back/Spine/Pelvis Back: No CVA tenderness Cervical Spine: cervical ROM normal and No pain with cervical ROM Thoracic/Lumbar Spine: thoracic and lumbar spine normal to inspection Skin General: no rashes or lesions noted, No jaundice and No petechiae Neuro General: alert, oriented x3, gait normal and no focal motor deficits Speech: speech normal [facility] Medical History Hyperlipidemia (Acute) Hypertension (Acute) Surgical History History of nephrectomy History of spinal fusion Status post hysterectomy with oophorectomy Family History Brother CAD (coronary artery disease) Hyperlipidemia High cholesterol Brother Cancer High cholesterol Father Colon cancer CAD (coronary artery disease) High cholesterol Mother CVA (cerebral vascular accident) Hyperlipidemia Sister Age: 82 CAD (coronary artery disease) Hyperlipidemia Ulcer Essential hypertension High cholesterol Social History Smoking Status: Never smoker Course Orders Ordered: ED Orders 01/10/18 18:50 CT head/brain wo con Stat 01/10/18 19:19 EKG-12 Lead Stat 01/10/18 19:23 XR chest 2V Stat 01/10/18 19:32 BMP [Basic Metabolic Panel] Stat Complete Blood Count AUTO DIFF Stat Prothrombin Time INR Stat Troponin I Stat 01/10/18 20:20 CT chest w con Stat Discontinued Medications Acetaminophen (Tylenol) 650 mg PO NOW ONE Stop: 01/10/18 20:26 Last Admin: 01/10/18 20:52 Dose: 650 mg Acetaminophen/Codeine Phosphate (Tylenol #3 Prepack) 1 bottle MISC SEEINSTR ONE Stop: 01/10/18 22:01 Last Admin: 01/10/18 22:03 Dose: 1 bottle Vital Signs - 8 hr 01/10/18 19:30 01/10/18 19:35 01/10/18 20:05 Pulse Rate 72 70 Respiratory Rate 17 17 Blood Pressure Blood Pressure [Left Arm] 199/76 H 188/73 H Pulse Oximetry 98 99 01/10/18 20:35 01/10/18 21:16 01/10/18 21:42 Pulse Rate 71 68 Respiratory Rate 20 21 Blood Pressure Blood Pressure [Left Arm] 199/74 H 192/78 H 195/82 H Pulse Oximetry 95 96 01/10/18 22:15 Pulse Rate 75 Respiratory Rate 23 Blood Pressure 195/82 H Blood Pressure [Left Arm] Pulse Oximetry 96 MDM - Fall Lab Data Result diagrams: 01/10/18 19:32 01/10/18 19:32 Lab Results 01/10/18 01/10/18 01/10/18 Range/Units 19:32 19:32 19:32 WBC 8.1 (4.5-11.0) X10^3/uL RBC 4.13 (4.0-5.2) X10^6/uL Hgb 12.4 (12.0-16.0) g/dL Hct 36.9 (36-46) % MCV 89.2 (80-100) fL MCH 30.0 (26-34) PG MCHC 33.6 (30-36) % RDW 13.9 (11.6-14.8) % Plt Count 231 (150-400) X10^3/uL Neut % (Auto) 65.4 (50-75) % Lymph % (Auto) 22.3 L (25-40) % Luce % (Auto) 9.4 (3-14) % Eos % (Auto) 1.9 L (2-4) % Baso % (Auto) 1.0 (0-2) % Neut # (Auto) 5300 (6061-6060) /uL PT 24.3 H (10.1-12.7) SECONDS INR 2.2 H (0.9-1.3) Sodium (137-145) mmol/L Potassium (3.4-5.1) mmol/L Chloride (98-107) mmol/L Carbon Dioxide (22-32) mmol/L BUN (7-17) mg/dL Creatinine (0.52-1.04) mg/dL Estimated GFR (>60) mL/min BUN/Creatinine Ratio (6-22) Glucose (80-110) mg/dL Calcium (8.4-10.2) mg/dL Troponin I < 0.012 (0.01-0.034) ng/mL 01/10/18 Range/Units 19:32 WBC (4.5-11.0) X10^3/uL RBC (4.0-5.2) X10^6/uL Hgb (12.0-16.0) g/dL Hct (36-46) % MCV (80-100) fL MCH (26-34) PG MCHC (30-36) % RDW (11.6-14.8) % Plt Count (150-400) X10^3/uL Neut % (Auto) (50-75) % Lymph % (Auto) (25-40) % Luce % (Auto) (3-14) % Eos % (Auto) (2-4) % Baso % (Auto) (0-2) % Neut # (Auto) (0779-4831) /uL PT (10.1-12.7) SECONDS INR (0.9-1.3) Sodium 141 (137-145) mmol/L Potassium 4.8 (3.4-5.1) mmol/L Chloride 104 (98-107) mmol/L Carbon Dioxide 30 (22-32) mmol/L BUN 37 H (7-17) mg/dL Creatinine 1.70 H (0.52-1.04) mg/dL Estimated GFR 28.9 L (>60) mL/min BUN/Creatinine Ratio 21.8 (6-22) Glucose 104 (80-110) mg/dL Calcium 9.0 (8.4-10.2) mg/dL Troponin I (0.01-0.034) ng/mL Imaging Data CT scan - chest: Radiologist's impression: [address] [address] [address] Scan Report Signed Patient: Valery Yeh EMR#: [id number] : 8Acct:[id number] Age/Sex: 82 / FDate of Service: 01/10/18 Loc: ED Accession Number: [id number] Procedure: CT chest w con Ordering Provider: Dave Marie D.O. PROCEDURE: CT CHEST W CON INDICATIONS: severe chest wall pain TECHNIQUE: After the administration of intravenous contrast, 5 mm thick sections acquired from the pulmonary apices to the posterior costophrenic angles. 7 mm thick coronal and sagittal MIP reformats were acquired. For radiation dose reduction, the following was used: automated exposure control, adjustment of mA and/or kV according to patient size. COMPARISON: [facility], CT, ABDOMEN/PELVIS WITH CONTRAST, 01/29/2016, 10: 12. [facility], CT, ABDOMEN/PELVIS WITH CONTRAST, 11/05/2016, 11:17. [facility], CT, PE STUDY (CTA CHEST), 06/26/2012, 13:18. [facility], CR, XR CHEST 1V, 2017, 18:18. [facility], CR, XR CHEST 2V, 01/10/2018, 19:00. FINDINGS: Image quality: Excellent. Lungs and pleura: No acute consolidation. Within the posterior right lower lobe in the costophrenic angle, there is a small bony nodule measuring up to approximately 7 mm with irregular margins. This appears new compared to the prior studies. Mild dependent atelectasis is demonstrated bilaterally. No pleural effusions or pneumothorax. Central and peripheral airways are patent and normal in caliber. Mediastinum: Heart size is mildly enlarged with prominent left atrial enlargement. No pericardial effusion. No mediastinal or hilar adenopathy by size criteria. There is mild enlargement of the pulmonary arteries suggestive of pulmonary arterial hypertension. Thoracic aorta is normal in size. Esophagus is normal in caliber. There is a small to moderate sized hiatal hernia. Bones and chest wall: No suspicious bony lesions. No rib fractures identified. No vertebral body compression fractures. No axillary or supraclavicular adenopathy by size criteria. Abdomen: Visualized upper abdomen demonstrates mild fatty atrophy of the visualized pancreas. No pancreatic duct dilatation visualized. The gallbladder is surgically absent. IMPRESSION: 1. No rib fractures identified. 2. Small subpleural irregular nodule posteriorly in the right lower lobe measuring up to 7 mm. Recommend followup in 6-12 months to demonstrate stability if clinically indicated. 3. Small to moderate-sized hiatal hernia. Dictated by: Surya Carpenter M.D. on 01/10/2018 at 21:13 Approved by: Surya Carpenter M.D. on 01/10/2018 at 21:19 CT scan - head: Radiologist's impression: [place] [address] CT Scan Report Signed Patient: Valery Yeh EMR#: [id number] : 8Acct:[id number] Age/Sex: 82 / FDate of Service: 01/10/18 Loc: ED Accession Number: [id number] Procedure: CT head/brain wo con Ordering Provider: Dave Marie D.O. PROCEDURE: CT HEAD/BRAIN WO CON INDICATIONS: FELL ON COUMADIN TECHNIQUE: Noncontrast 4.5 mm thick angled axial sections acquired from the foramen magnum to the vertex, with coronal and sagittal reformats. For radiation dose reduction, the following was used: automated exposure control, adjustment of mA and/or kV according to patient size. COMPARISON: [facility], CT, HEAD WITHOUT CONTRAST, 07/30/2017, 18:43. FINDINGS: Image quality: Excellent. CSF spaces: Basal cisterns are patent. No extra-axial fluid collections. The ventricles are symmetric in size and shape. There is mild cerebral volume loss , with resultant ventricular and sulcal prominence. Brain: No intracranial hemorrhage, mass, or mass effect. There are subcortical , periventricular and deep white matter hypodensities consistent with c mild hronic small vessel ischemic changes. There is intracranial internal carotid artery atherosclerosis. Skull and face: Calvarium and visualized facial bones appear intact, without suspicious lesions. Sinuses: Visualized sinuses and mastoids are clear. IMPRESSION: 1. No acute intracranial abnormality. 2. Mild chronic white matter small vessel ischemic changes and cerebral volume loss. Dictated by: Surya Carpenter M.D. on 01/10/2018 at 19:20 Approved by: Surya Carpenter M.D. on 01/10/2018 at 19:21 Discharge Plan Departure Patient Disposition: Home Clinical Impression: Contusion of face, Chest wall contusion Discharge Date/Time: 01/10/18 22:17 Interventions: ED Discharge Assessment Last Done: 01/10/18 22:15 Instructions: DI for Contusion Activity Restrictions/Additional Instructions: *You have been diagnosed with [ facial contusion, chest wall contusion ] *What to do: *Continue to take medications as directed *Follow up with your primary care provider in 2-3 days, call for an appointment. Let them know you were seen in the Emergency Department and that we ask that you be seen in follow up *Return to ER if you should have any new, worsening or concerning symptoms Prescriptions: New acetaminophen-codeine [Tylenol-Codeine #3] 300-30 mg tablet 1 tab PO Q4-6H PRN (Reason: pain) Qty: 14 RF: 0 No Action acetaminophen [Tylenol Extra Strength] 500 MG tablet 500 mg PO PRN PRN (Reason: Pain, Mild) Qty: 0 RF: 0 amiodarone 200 MG tablet 200 mg PO QDAY Qty: 0 RF: 0 diphenhydramine HCl [Benadryl Allergy] 25 MG tablet 1 tab PO BEDTIME PRN (Reason: Insomnia) Qty: 0 RF: 0 lisinopril 10 MG tablet 10 mg PO BID Qty: 0 RF: 0 sertraline 50 MG tablet 50 mg PO QDAY Qty: 0 RF: 0 metoprolol succinate [Toprol XL] 25 MG tablet extended release 24 hr 1.5 tab PO QDAY Qty: 270 RF: 3 warfarin [Coumadin] 2 mg tablet 2 mg PO SEE INSTRUCTIONS Qty: 90 RF: 3 Referrals: Cousins,Shannon, MD [Primary Care Provider] -
== END 2018-01-10 22:17 | disposition home or self-care (01) ==
PROVIDERS: Emergency Provider Emergency Medicine; Family Provider Family Medicine; PCP Family Medicine
DX: S00.83XA Contusion of other part of head, initial encounter (principal); S20.219A Contusion of unspecified front wall of thorax, initial encounter; W18.30XA Fall on same level, unspecified, initial encounter; I10 Essential (primary) hypertension; R73.9 Hyperglycemia, unspecified
CPT/HCPCS: 36415; 70450; 71046; 71260; 80048; 84484; 85025; 85610; 93005; 93010; 99283; 99285; Q9967

== ENCOUNTER 2018-01-13 09:37 | Observation (INO) | payer MEDICARE, OTHER, SELFPAY ==
[2018-01-13] VITALS (16 sets, daily range): BP systolic 129–226; BP diastolic 57–122; PULSE 59–119; RESP 12–94; TEMP 36.3–37.7; O2SAT 94–96; BMI 28.0
--- NOTE | 2018-01-13 09:49 | DI.CT.S_ITS ---
PROCEDURE: CT HEAD/BRAIN WO CON INDICATIONS: fall on coumadin 3 days ago, leans to the left now TECHNIQUE: Noncontrast 4.5 mm thick angled axial sections acquired from the foramen magnum to the vertex, with coronal and sagittal reformats. For radiation dose reduction, the following was used: automated exposure control, adjustment of mA and/or kV according to patient size. COMPARISON: [facility], CT, CT HEAD/BRAIN WO CON, 01/10/2018, 18:51. FINDINGS: Image quality: Excellent. CSF spaces: Basal cisterns are patent. No extra-axial fluid collections. The ventricles are symmetric in size and shape. Brain: No intracranial bleeds or masses. There is moderate cerebral volume loss for age, with resultant ventricular and sulcal prominence. There are periventricular and deep white matter chronic small vessel ischemic changes. There is intracranial internal carotid artery atherosclerosis. Skull and face: Calvarium and visualized facial bones appear intact, without suspicious lesions. Sinuses: Visualized sinuses and mastoids are clear. IMPRESSION: 1. No acute intracranial findings. 2. Findings likely associated with chronic microvascular ischemic change. Dictated by: Kathryn Coronado M.D. on 01/13/2018 at 10:01 Approved by: Kathryn Coronado M.D. on 01/13/2018 at 10:04
[2018-01-13 09:56] LABS: Add Manual Diff / Slide Review NO; Basophils Percent Auto 1.1 % (0-2); Eosinophils Percent Auto 2.4 % (2-4); Hematocrit 39.8 % (36-46); Hemoglobin 13.4 g/dL (12.0-16.0); Mean Corpuscular HGB Conc 33.6 % (30-36); Mean Corpuscular Hemoglobin 30.1 PG (26-34); Mean Corpuscular Volume 89.6 fL (80-100); Monocytes Percent Auto 7.5 % (3-14); Neutrophils Absolute Auto 5300 /uL (3000-5900); Platelet Count 230 X10^3/uL (150-400); Red Blood Cell Count 4.44 X10^6/uL (4.0-5.2); Red Cell Distribution Width 13.8 % (11.6-14.8); White Blood Cell Count 7.6 X10^3/uL (4.5-11.0)
[2018-01-13 10:02] LABS: INR 1.9 (0.9-1.3); Prothrombin Time 20.5 SECONDS (10.1-12.7)
[2018-01-13 10:04] LABS: PTT Partial Thromboplastin Tim 36 SECONDS (26.4-36.2)
[2018-01-13 10:06] LABS: Alanine Aminotransferase 34 IU/L (9-52); Albumin 4.1 g/dL (3.5-5.0); Albumin Globulin Ratio 1.2 (1.0-2.8); Alkaline Phosphatase 75 U/L (38-126); Aspartate Aminotransferase 31 IU/L (14-36); BUN Creatinine Ratio 24.6 (6-22); Bilirubin Total 0.5 mg/dL (0.2-1.3); Blood Urea Nitrogen 32 mg/dL (7-17); Calcium 9.2 mg/dL (8.4-10.2); Carbon Dioxide 29 mmol/L (22-32); Chloride 106 mmol/L (98-107); Creatine Kinase 69 U/L (30-135); Estimated Glomerular Filt Rate 39.4 mL/min (>60); Globulin 3.4 g/dL (1.7-4.1); Glucose 122 mg/dL (80-110); HEMOLYSIS < 15 (0-50); Potassium 4.6 mmol/L (3.4-5.1); Sodium 144 mmol/L (137-145); Total Protein 7.5 g/dL (6.3-8.2)
[2018-01-13 10:20] LABS: Troponin I < 0.012 ng/mL (0.01-0.034)
--- NOTE | 2018-01-13 11:48 | ED.NEUROSD ---
HPI - Neuro Symptoms/Deficit General Chief Complaint: Neuro Symptoms/Deficit Stated Complaint: thinks having a stroke Time Seen by Provider: 01/13/18 09:49 Source: patient Mode of arrival: ambulatory Limitations: no limitations History of Present Illness HPI Narrative: Patient is an 82-year-old female who presents with left-sided facial numbness and difficulty walking knee or the left. She actually fell 3 days ago and is on Coumadin. She had a workup done at that time a negative head CT. Discharged home. She has been feeling well last evening she noticed some numbness in her face. She has not had any slurring of speech facial drooping or weakness. When she walks she is noted to walk towards the left. Related Data Home Medications Medication Instructions Recorded Confirmed acetaminophen [Tylenol Extra 500 mg PO PRN PRN #0 04/19/16 01/13/18 Strength] amiodarone 100 mg PO QDAY #0 01/03/17 01/13/18 diphenhydramine HCl [Benadryl 1 tab PO BEDTIME PRN #0 02/15/17 01/13/18 Allergy] sertraline 50 mg PO QDAY #0 04/15/17 01/13/18 lisinopril 5 mg PO BID 01/13/18 01/13/18 Previous Rx's Medication Instructions Recorded warfarin 2 mg tablet 2 mg PO SEE INSTRUCTIONS #90 tab 10/19/17 Allergies Allergy/AdvReac Type Severity Reaction Status Date / Time latex Allergy Severe THROAT Verified 01/13/18 14:05 SWELLING prednisone [PREDNISONE] Allergy Intermediate rash Verified 01/13/18 14:05 amoxicillin Allergy Mild ITCH Verified 01/13/18 14:05 ciprofloxacin Allergy Mild ITCH Verified 01/13/18 14:05 clavulanic acid Allergy Mild RASH Verified 01/13/18 14:05 hydromorphone Allergy Mild ITCHING Verified 01/13/18 14:05 nitrofurantoin Allergy Mild ABD Verified 01/13/18 14:05 PAIN/SEVERE ITCHING oxycodone Allergy Mild ITCH Verified 01/13/18 14:05 Penicillins Allergy Mild BLISTERS Verified 01/13/18 14:05 Sulfa (Sulfonamide Allergy Mild ITCH Verified 01/13/18 14:05 Antibiotics) levofloxacin [From LEVAQUIN] AdvReac Severe DISTURBING Verified 01/13/18 14:05 HALLUCINATIONS lorazepam [From ATIVAN] AdvReac Intermediate Verified 01/13/18 14:05 morphine AdvReac Mild HALLUCINATI Verified 01/13/18 14:05 ONS Review of Systems Review of Systems All systems reviewed & are unremarkable except as noted in HPI and below Constitutional Denies chills, Denies fever(s), Denies lethargy and Denies weakness Cardiovascular Denies chest pain, Denies irregular heart rhythm, Denies lightheadedness, Denies palpitations, Denies dyspnea, Denies dyspnea on exertion and Denies orthopnea Respiratory Denies cough, Denies dyspnea, Denies dyspnea on exertion and Denies wheezing Gastrointestinal Gastrointestinal: Denies abdominal pain, Denies change in bowel habits, Denies diarrhea, Denies nausea and Denies vomiting Genitourinary Denies hematuria, Denies flank pain, Denies urinary incontinence and Denies urinary urgency Musculoskeletal Denies back pain, Denies muscle weakness, Denies numbness and Denies tingling Integumentary/Breasts Denies pruritus, Denies erythema, Denies rash and Denies wounds Neurologic Denies numbness, Denies tingling and Denies weakness Endocrine Denies palpitations Allergic/Immunologic Denies wheezing [facility] Medical History Paroxysmal atrial fibrillation (Chronic 04/19/16) Essential hypertension (Chronic) Cerebral microvascular disease (Chronic) Anxiety (Chronic 12/08/15) 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) Second degree AV block, Mobitz type I (Chronic) Osteoporosis, unspecified (Chronic 03/22/11) Diverticulosis of colon (Inactive 03/22/11) Atypical chest pain (Chronic) History of PSVT (paroxysmal supraventricular tachycardia) (Inactive) Hyperlipidemia (Chronic) Surgical History History of nephrectomy History of spinal fusion Status post hysterectomy with oophorectomy Family History: Reviewed 01/13/18 by Carols Monzon MD Social History household members: spouse Smoking Status: Never smoker Exam Initial Vital Signs Initial Vital Signs: Vital Signs Pulse Rate 64 01/13/18 10:05 Respiratory Rate 15 01/13/18 10:05 Blood Pressure 226/83 H 01/13/18 10:05 Pulse Oximetry 95 01/13/18 10:05 GENERAL: Well-appearing, well-nourished and in no acute distress. HEENT: Head atraumatic,EOMI, pupils reactive, face symmetric CARDIOVASCULAR: Regular rate and rhythm without murmurs, rubs or gallops. RESPIRATORY: Breath sounds equal bilaterally, no wheezes rales or rhonchi. ABDOMEN: Soft, nontender. Normoactive bowel sounds all 4 quadrants. No guarding or rebound. EXTREMITIES: Normal range of motion, no clubbing or edema. Neurovascularly intact NEUROLOGICAL: Alert and oriented x4.Normal gait and speech. Cranial nerves II through XII grossly intact. Good [id number], good [id number], strength equal bilaterally, no dysarthria or aphasia, sensation in tact to soft touch bilaterally, no visual changes, no facial droop SKIN: Warm, dry, no laceration, no petechiae, no rashes or lesions. Scores NIH Stroke Scale Level of Conciousness: Alert, keenly responsive Ask month/age: Answers both questions correctly. Open/close eyes, close hand: Performs both tasks correctly Best gaze horizontal: Normal Visual alas: No visual loss Facial palsy: Normal symetrical movement Left arm drift: No drift for full 10 sec Right arm drift: No drift for full 10 sec Left leg drift: No drift for full 10 sec Right leg drift: No drift for full 10 sec Limb ataxia: Absent Sensory on face/arms/legs: Normal, no sensory loss Best language: No aphasia, normal Dysarthria: Normal Extinction or inattention: No abnormality Total NIH Stroke scale score: 0 Course Orders Ordered: ED Orders 01/13/18 09:48 Complete Blood Count AUTO DIFF Stat Comprehensive Metabolic Panel Stat Partial Thromboplastin Time Stat Prothrombin Time INR Stat Troponin & CK Cardiac Panel Stat 01/13/18 09:49 CT head/brain wo con Stat 01/13/18 14:42 Consult to Discharge Planning Routine Consult to Occupational Therapy Evaluate & Treat Consult to Physical Therapy Evaluate & Treat US carotid doppler BI Urgent Education, smoking cessation ONGOING Education, smoking cessation ONGOING 01/14/18 05:00 Basic Metabolic Panel Routine Prothrombin Time INR Routine Acetaminophen (Tylenol) 650 mg PO Q6HR PRN PRN Reason: As Needed for Fever/Mild Pain Hydrocodone Bitart/Acetaminophen ([place] 5/325) 1 tab PO Q4HR PRN PRN Reason: Pain, Moderate (4-6) Amiodarone HCl (Cordarone) 200 mg PO DAILY [facility] Last Admin: 01/13/18 15:54 Dose: 200 mg Atorvastatin Calcium (Lipitor) 20 mg PO BEDTIME [facility] Diphenhydramine HCl (Benadryl) 25 mg PO BEDTIME PRN PRN Reason: Insomnia Lisinopril (Zestril) 10 mg PO BID [facility] Lorazepam (Ativan) 1 mg IV Q4HR PRN PRN Reason: Anxiety Magnesium Hydroxide (Milk Of Magnesia) 30 ml PO DAILY PRN PRN Reason: Constipation Nitroglycerin (Nitro-Bid) 1 inch TOP Q4H [facility] Last Admin: 01/13/18 17:16 Dose: 1 inch Admin: 01/13/18 15:57 Dose: Pantoprazole Sodium (Protonix) 20 mg PO 0700,2100 [facility] Sertraline HCl (Zoloft) 50 mg PO DAILY [facility] Last Admin: 01/13/18 15:54 Dose: 50 mg Warfarin Sodium (Coumadin) 1 mg PO 1700 [facility] Warfarin Sodium (Coumadin) 2 mg PO NOW ONE Stop: 01/13/18 17:30 Discontinued Medications Acetaminophen (Tylenol) 650 mg PO NOW ONE Stop: 01/13/18 14:33 Last Admin: 01/13/18 14:37 Dose: 650 mg Labetalol HCl (Normodyne) 10 mg IV NOW ONE Stop: 01/13/18 13:23 Lisinopril (Zestril) 20 mg PO BID [facility] Metoprolol Succinate (Toprol Xl) 37.5 mg PO DAILY [facility] Last Admin: 01/13/18 15:55 Dose: 37.5 mg Vital Signs - 8 hr 01/13/18 10:05 01/13/18 11:14 01/13/18 12:00 Temperature Pulse Rate 64 62 65 Respiratory Rate 15 15 18 Blood Pressure Blood Pressure [Right Arm] 226/83 H 187/79 H 162/79 H Pulse Oximetry 95 94 94 01/13/18 12:30 01/13/18 12:59 01/13/18 13:32 Temperature Pulse Rate 69 70 67 Respiratory Rate 19 14 12 Blood Pressure Blood Pressure [Right Arm] 184/78 H 209/84 H 144/96 H Pulse Oximetry 95 96 09/01/18 14:30 01/13/18 15:05 01/13/18 15:55 Temperature 97.9 F Pulse Rate 72 65 Respiratory Rate 16 Blood Pressure 159/122 H 186/77 H Blood Pressure [Right Arm] Pulse Oximetry 96 96 01/13/18 16:11 01/13/18 17:12 01/13/18 17:16 Temperature 97.4 F L Pulse Rate 67 62 62 Respiratory Rate 16 Blood Pressure 190/77 H 193/105 H 193/105 H Blood Pressure [Right Arm] Pulse Oximetry 95 MDM - Neuro Symptoms/Deficit Medical Records Attestation: I reviewed the patient's medical records. Lab Data Attestation: I reviewed the patient's lab results. Result diagrams: 01/13/18 09:48 01/13/18 09:48 Lab Results 01/13/18 01/13/18 01/13/18 Range/Units 09:48 09:48 09:48 WBC 7.6 (4.5-11.0) X10^3/uL RBC 4.44 (4.0-5.2) X10^6/uL Hgb 13.4 (12.0-16.0) g/dL Hct 39.8 (36-46) % MCV 89.6 (80-100) fL MCH 30.1 (26-34) PG MCHC 33.6 (30-36) % RDW 13.8 (11.6-14.8) % Plt Count 230 (150-400) X10^3/uL Neut % (Auto) 69.0 (50-75) % Lymph % (Auto) 20.0 L (25-40) % [place] % (Auto) 7.5 (3-14) % Eos % (Auto) 2.4 (2-4) % Baso % (Auto) 1.1 (0-2) % Neut # (Auto) 5300 (7983-2068) /uL PT 20.5 H (10.1-12.7) SECONDS INR 1.9 H (0.9-1.3) APTT 36 (26.4-36.2) SECONDS Sodium 144 (137-145) mmol/L Potassium 4.6 (3.4-5.1) mmol/L Chloride 106 (98-107) mmol/L Carbon Dioxide 29 (22-32) mmol/L BUN 32 H (7-17) mg/dL Creatinine 1.30 H (0.52-1.04) mg/dL Estimated GFR 39.4 L (>60) mL/min BUN/Creatinine Ratio 24.6 H (6-22) Glucose 122 H (80-110) mg/dL Calcium 9.2 (8.4-10.2) mg/dL Total Bilirubin 0.5 (0.2-1.3) mg/dL AST 31 (14-36) IU/L ALT 34 (9-52) IU/L Alkaline Phosphatase 75 (38-126) U/L Total Creatine Kinase 69 (30-135) U/L Troponin I < 0.012 (0.01-0.034) ng/mL Total Protein 7.5 (6.3-8.2) g/dL Albumin 4.1 (3.5-5.0) g/dL Globulin 3.4 (1.7-4.1) g/dL Albumin/Globulin Ratio 1.2 (1.0-2.8) Point of Care Testing Glucose POC 142 Urine Dip Bedside Urine Glucose Negative Bedside Urine Bilirubin - Negative Bedside Urine Ketone - Negative Urine Specific [place] 1.015 Bedside Urine Occult Blood - Negative Bedside Urine pH 7.0 Bedside Urine Protein - Negative Bedside Urine Urobilinogen - Negative Bedside Urine Nitrite - Negative Bedside Urine Leukocytes - Negative Esterase Imaging Data CT scan - head: Radiologist's impression: PROCEDURE: CT HEAD/BRAIN WO CON INDICATIONS: fall on coumadin 3 days ago, leans to the left now TECHNIQUE: Noncontrast 4.5 mm thick angled axial sections acquired from the foramen magnum to the vertex, with coronal and sagittal reformats. For radiation dose reduction, the following was used: automated exposure control, adjustment of mA and/or kV according to patient size. COMPARISON: [facility], CT, CT HEAD/BRAIN WO CON, 01/10/2018, 18:51. FINDINGS: Image quality: Excellent. CSF spaces: Basal cisterns are patent. No extra-axial fluid collections. The ventricles are symmetric in size and shape. Brain: No intracranial bleeds or masses. There is moderate cerebral volume loss for age, with resultant ventricular and sulcal prominence. There are periventricular and deep white matter chronic small vessel ischemic changes. There is intracranial internal carotid artery atherosclerosis. Skull and face: Calvarium and visualized facial bones appear intact, without suspicious lesions. Sinuses: Visualized sinuses and mastoids are clear. IMPRESSION: 1. No acute intracranial findings. 2. Findings likely associated with chronic microvascular ischemic change. Dictated by: Kathryn Coronado M.D. on 01/13/2018 at 10:01 Approved by: Kathryn Coronado M.D. on 01/13/2018 at 10:04 ECG Data Attestation: I personally reviewed and interpreted this ECG as follows: Prior ECG tracings: available for review Interpretation: Normal sinus rhythm rate [address] changes no T-wave inversion MDM Narrative Medical decision making narrative: Patient continues to have numbness on the left side of her face but her face is symmetric. She says that she really a left total walking. Ambulation trial did show that she was still not walking quite right. Head CT is negative. Discussed case with Dr. Monzon who happily accepts for observation. Discharge Plan Departure Patient Disposition: Admitted as Observation Clinical Impression: Brain TIA Discharge Date/Time: 01/13/18 14:17 Interventions: ED Discharge Assessment Last Done: 01/13/18 14:14 Admit Date/Time: 01/13/18 13:26 Admit Provider: Carlos Monzon
--- NOTE | 2018-01-13 11:51 | ED_ITS ---
HPI - Neuro Symptoms/Deficit General Chief Complaint: Neuro Symptoms/Deficit Stated Complaint: thinks having a stroke Time Seen by Provider: 01/13/18 09:49 Source: patient Mode of arrival: ambulatory Limitations: no limitations History of Present Illness HPI Narrative: Patient is an 82-year-old female who presents with left-sided facial numbness and difficulty walking knee or the left. She actually fell 3 days ago and is on Coumadin. She had a workup done at that time a negative head CT. Discharged home. She has been feeling well last evening she noticed some numbness in her face. She has not had any slurring of speech facial drooping or weakness. When she walks she is noted to walk towards the left. Related Data Home Medications Medication Instructions Recorded Confirmed acetaminophen [Tylenol Extra 500 mg PO PRN PRN #0 04/19/16 01/13/18 Strength] amiodarone 100 mg PO QDAY #0 01/03/17 01/13/18 diphenhydramine HCl [Benadryl 1 tab PO BEDTIME PRN #0 02/15/17 01/13/18 Allergy] sertraline 50 mg PO QDAY #0 04/15/17 01/13/18 lisinopril 5 mg PO BID 01/13/18 01/13/18 Previous Rx's Medication Instructions Recorded warfarin 2 mg tablet 2 mg PO SEE INSTRUCTIONS #90 tab 10/19/17 Allergies Allergy/AdvReac Type Severity Reaction Status Date / Time latex Allergy Severe THROAT Verified 01/13/18 14:05 SWELLING prednisone [PREDNISONE] Allergy Intermediate rash Verified 01/13/18 14:05 amoxicillin Allergy Mild ITCH Verified 01/13/18 14:05 ciprofloxacin Allergy Mild ITCH Verified 01/13/18 14:05 clavulanic acid Allergy Mild RASH Verified 01/13/18 14:05 hydromorphone Allergy Mild ITCHING Verified 01/13/18 14:05 nitrofurantoin Allergy Mild ABD Verified 01/13/18 14:05 PAIN/SEVERE ITCHING oxycodone Allergy Mild ITCH Verified 01/13/18 14:05 Penicillins Allergy Mild BLISTERS Verified 01/13/18 14:05 Sulfa (Sulfonamide Allergy Mild ITCH Verified 01/13/18 14:05 Antibiotics) levofloxacin [From LEVAQUIN] AdvReac Severe DISTURBING Verified 01/13/18 14:05 HALLUCINATIONS lorazepam [From ATIVAN] AdvReac Intermediate Verified 01/13/18 14:05 morphine AdvReac Mild HALLUCINATI Verified 01/13/18 14:05 ONS Review of Systems Review of Systems All systems reviewed & are unremarkable except as noted in HPI and below Constitutional Denies chills, Denies fever(s), Denies lethargy and Denies weakness Cardiovascular Denies chest pain, Denies irregular heart rhythm, Denies lightheadedness, Denies palpitations, Denies dyspnea, Denies dyspnea on exertion and Denies orthopnea Respiratory Denies cough, Denies dyspnea, Denies dyspnea on exertion and Denies wheezing Gastrointestinal Gastrointestinal: Denies abdominal pain, Denies change in bowel habits, Denies diarrhea, Denies nausea and Denies vomiting Genitourinary Denies hematuria, Denies flank pain, Denies urinary incontinence and Denies urinary urgency Musculoskeletal Denies back pain, Denies muscle weakness, Denies numbness and Denies tingling Integumentary/Breasts Denies pruritus, Denies erythema, Denies rash and Denies wounds Neurologic Denies numbness, Denies tingling and Denies weakness Endocrine Denies palpitations Allergic/Immunologic Denies wheezing [facility] Medical History Paroxysmal atrial fibrillation (Chronic 04/19/16) Essential hypertension (Chronic) Cerebral microvascular disease (Chronic) Anxiety (Chronic 12/08/15) 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) Second degree AV block, Mobitz type I (Chronic) Osteoporosis, unspecified (Chronic 03/22/11) Diverticulosis of colon (Inactive 03/22/11) Atypical chest pain (Chronic) History of PSVT (paroxysmal supraventricular tachycardia) (Inactive) Hyperlipidemia (Chronic) Surgical History History of nephrectomy History of spinal fusion Status post hysterectomy with oophorectomy Family History: Reviewed 01/13/18 by Carlos Monzon MD Social History household members: spouse Smoking Status: Never smoker Exam Initial Vital Signs Initial Vital Signs: Vital Signs Pulse Rate 64 01/13/18 10:05 Respiratory Rate 15 01/13/18 10:05 Blood Pressure 226/83 H 01/13/18 10:05 Pulse Oximetry 95 01/13/18 10:05 GENERAL: Well-appearing, well-nourished and in no acute distress. HEENT: Head atraumatic,EOMI, pupils reactive, face symmetric CARDIOVASCULAR: Regular rate and rhythm without murmurs, rubs or gallops. RESPIRATORY: Breath sounds equal bilaterally, no wheezes rales or rhonchi. ABDOMEN: Soft, nontender. Normoactive bowel sounds all 4 quadrants. No guarding or rebound. EXTREMITIES: Normal range of motion, no clubbing or edema. Neurovascularly intact NEUROLOGICAL: Alert and oriented x4.Normal gait and speech. Cranial nerves II through XII grossly intact. Good [id number], good [id number], strength equal bilaterally, no dysarthria or aphasia, sensation in tact to soft touch bilaterally, no visual changes, no facial droop SKIN: Warm, dry, no laceration, no petechiae, no rashes or lesions. Scores NIH Stroke Scale Level of Conciousness: Alert, keenly responsive Ask month/age: Answers both questions correctly. Open/close eyes, close hand: Performs both tasks correctly Best gaze horizontal: Normal Visual alas: No visual loss Facial palsy: Normal symetrical movement Left arm drift: No drift for full 10 sec Right arm drift: No drift for full 10 sec Left leg drift: No drift for full 10 sec Right leg drift: No drift for full 10 sec Limb ataxia: Absent Sensory on face/arms/legs: Normal, no sensory loss Best language: No aphasia, normal Dysarthria: Normal Extinction or inattention: No abnormality Total NIH Stroke scale score: 0 Course Orders Ordered: ED Orders 01/13/18 09:48 Complete Blood Count AUTO DIFF Stat Comprehensive Metabolic Panel Stat Partial Thromboplastin Time Stat Prothrombin Time INR Stat Troponin & CK Cardiac Panel Stat 01/13/18 09:49 CT head/brain wo con Stat 01/13/18 14:42 Consult to Discharge Planning Routine Consult to Occupational Therapy Evaluate & Treat Consult to Physical Therapy Evaluate & Treat US carotid doppler BI Urgent Education, smoking cessation ONGOING Education, smoking cessation ONGOING 01/14/18 05:00 Basic Metabolic Panel Routine Prothrombin Time INR Routine Acetaminophen (Tylenol) 650 mg PO Q6HR PRN PRN Reason: As Needed for Fever/Mild Pain Hydrocodone Bitart/Acetaminophen ([place] 5/325) 1 tab PO Q4HR PRN PRN Reason: Pain, Moderate (4-6) Amiodarone HCl (Cordarone) 200 mg PO DAILY [facility] Last Admin: 01/13/18 15:54 Dose: 200 mg Atorvastatin Calcium (Lipitor) 20 mg PO BEDTIME [facility] Diphenhydramine HCl (Benadryl) 25 mg PO BEDTIME PRN PRN Reason: Insomnia Lisinopril (Zestril) 10 mg PO BID [facility] Lorazepam (Ativan) 1 mg IV Q4HR PRN PRN Reason: Anxiety Magnesium Hydroxide (Milk Of Magnesia) 30 ml PO DAILY PRN PRN Reason: Constipation Nitroglycerin (Nitro-Bid) 1 inch TOP Q4H [facility] Last Admin: 01/13/18 17:16 Dose: 1 inch Admin: 01/13/18 15:57 Dose: Pantoprazole Sodium (Protonix) 20 mg PO 0700,2100 [facility] Sertraline HCl (Zoloft) 50 mg PO DAILY [facility] Last Admin: 01/13/18 15:54 Dose: 50 mg Warfarin Sodium (Coumadin) 1 mg PO 1700 [facility] Warfarin Sodium (Coumadin) 2 mg PO NOW ONE Stop: 01/13/18 17:30 Discontinued Medications Acetaminophen (Tylenol) 650 mg PO NOW ONE Stop: 01/13/18 14:33 Last Admin: 01/13/18 14:37 Dose: 650 mg Labetalol HCl (Normodyne) 10 mg IV NOW ONE Stop: 01/13/18 13:23 Lisinopril (Zestril) 20 mg PO BID [facility] Metoprolol Succinate (Toprol Xl) 37.5 mg PO DAILY [facility] Last Admin: 01/13/18 15:55 Dose: 37.5 mg Vital Signs - 8 hr 01/13/18 10:05 01/13/18 11:14 01/13/18 12:00 Temperature Pulse Rate 64 62 65 Respiratory Rate 15 15 18 Blood Pressure Blood Pressure [Right Arm] 226/83 H 187/79 H 162/79 H Pulse Oximetry 95 94 94 01/13/18 12:30 01/13/18 12:59 01/13/18 13:32 Temperature Pulse Rate 69 70 67 Respiratory Rate 19 14 12 Blood Pressure Blood Pressure [Right Arm] 184/78 H 209/84 H 144/96 H Pulse Oximetry 95 96 09/01/18 14:30 01/13/18 15:05 01/13/18 15:55 Temperature 97.9 F Pulse Rate 72 65 Respiratory Rate 16 Blood Pressure 159/122 H 186/77 H Blood Pressure [Right Arm] Pulse Oximetry 96 96 01/13/18 16:11 01/13/18 17:12 01/13/18 17:16 Temperature 97.4 F L Pulse Rate 67 62 62 Respiratory Rate 16 Blood Pressure 190/77 H 193/105 H 193/105 H Blood Pressure [Right Arm] Pulse Oximetry 95 MDM - Neuro Symptoms/Deficit Medical Records Attestation: I reviewed the patient's medical records. Lab Data Attestation: I reviewed the patient's lab results. Result diagrams: 01/13/18 09:48 01/13/18 09:48 Lab Results 01/13/18 01/13/18 01/13/18 Range/Units 09:48 09:48 09:48 WBC 7.6 (4.5-11.0) X10^3/uL RBC 4.44 (4.0-5.2) X10^6/uL Hgb 13.4 (12.0-16.0) g/dL Hct 39.8 (36-46) % MCV 89.6 (80-100) fL MCH 30.1 (26-34) PG MCHC 33.6 (30-36) % RDW 13.8 (11.6-14.8) % Plt Count 230 (150-400) X10^3/uL Neut % (Auto) 69.0 (50-75) % Lymph % (Auto) 20.0 L (25-40) % [place] % (Auto) 7.5 (3-14) % Eos % (Auto) 2.4 (2-4) % Baso % (Auto) 1.1 (0-2) % Neut # (Auto) 5300 (4413-5036) /uL PT 20.5 H (10.1-12.7) SECONDS INR 1.9 H (0.9-1.3) APTT 36 (26.4-36.2) SECONDS Sodium 144 (137-145) mmol/L Potassium 4.6 (3.4-5.1) mmol/L Chloride 106 (98-107) mmol/L Carbon Dioxide 29 (22-32) mmol/L BUN 32 H (7-17) mg/dL Creatinine 1.30 H (0.52-1.04) mg/dL Estimated GFR 39.4 L (>60) mL/min BUN/Creatinine Ratio 24.6 H (6-22) Glucose 122 H (80-110) mg/dL Calcium 9.2 (8.4-10.2) mg/dL Total Bilirubin 0.5 (0.2-1.3) mg/dL AST 31 (14-36) IU/L ALT 34 (9-52) IU/L Alkaline Phosphatase 75 (38-126) U/L Total Creatine Kinase 69 (30-135) U/L Troponin I < 0.012 (0.01-0.034) ng/mL Total Protein 7.5 (6.3-8.2) g/dL Albumin 4.1 (3.5-5.0) g/dL Globulin 3.4 (1.7-4.1) g/dL Albumin/Globulin Ratio 1.2 (1.0-2.8) Point of Care Testing Glucose POC 142 Urine Dip Bedside Urine Glucose Negative Bedside Urine Bilirubin - Negative Bedside Urine Ketone - Negative Urine Specific [place] 1.015 Bedside Urine Occult Blood - Negative Bedside Urine pH 7.0 Bedside Urine Protein - Negative Bedside Urine Urobilinogen - Negative Bedside Urine Nitrite - Negative Bedside Urine Leukocytes - Negative Esterase Imaging Data CT scan - head: Radiologist's impression: PROCEDURE: CT HEAD/BRAIN WO CON INDICATIONS: fall on coumadin 3 days ago, leans to the left now TECHNIQUE: Noncontrast 4.5 mm thick angled axial sections acquired from the foramen magnum to the vertex, with coronal and sagittal reformats. For radiation dose reduction, the following was used: automated exposure control, adjustment of mA and/or kV according to patient size. COMPARISON: [facility], CT, CT HEAD/BRAIN WO CON, 01/10/2018, 18:51. FINDINGS: Image quality: Excellent. CSF spaces: Basal cisterns are patent. No extra-axial fluid collections. The ventricles are symmetric in size and shape. Brain: No intracranial bleeds or masses. There is moderate cerebral volume loss for age, with resultant ventricular and sulcal prominence. There are periventricular and deep white matter chronic small vessel ischemic changes. There is intracranial internal carotid artery atherosclerosis. Skull and face: Calvarium and visualized facial bones appear intact, without suspicious lesions. Sinuses: Visualized sinuses and mastoids are clear. IMPRESSION: 1. No acute intracranial findings. 2. Findings likely associated with chronic microvascular ischemic change. Dictated by: Kathryn Coronado M.D. on 01/13/2018 at 10:01 Approved by: Kathryn Coronado M.D. on 01/13/2018 at 10:04 ECG Data Attestation: I personally reviewed and interpreted this ECG as follows: Prior ECG tracings: available for review Interpretation: Normal sinus rhythm rate [address] changes no T-wave inversion MDM Narrative Medical decision making narrative: Patient continues to have numbness on the left side of her face but her face is symmetric. She says that she really a left total walking. Ambulation trial did show that she was still not walking quite right. Head CT is negative. Discussed case with Dr. Monzon who happily accepts for observation. Discharge Plan Departure Patient Disposition: Admitted as Observation Clinical Impression: Brain TIA Discharge Date/Time: 01/13/18 14:17 Interventions: ED Discharge Assessment Last Done: 01/13/18 14:14 Admit Date/Time: 01/13/18 13:26 Admit Provider: Carlos Monzon
--- NOTE | 2018-01-13 13:35 | PC.NURSE ---
upon assessment of patient blood pressure prior to administration of labetalol blood pressure significantly lower. Provider Judy aware, holding labetalol at this time.
--- NOTE | 2018-01-13 13:47 | P.HP_ITS ---
History of Present Illness Date Patient Seen: 01/13/18 Time Patient Seen: 16:36 Chief complaint: thinks having a stroke Narrative: Patient presented to the [facility] Emergency Department on day of admission with symptoms of left-sided facial numbness and difficulty walking. She actually fell 3 days ago was seen in the emergency department after that as she is on warfarin I was concerned about some inter cerebral issues. Nothing was found that she was discharged home. She actually began with what she calls dizziness the night before admission. She does have chronic dizziness but said this was somewhat different in that it did not resolve overnight like he usually does and she was finding it difficult to walk in a straight line she always seem to drift off to the left. She checked her blood pressure which was much higher than usual and finally decided to come to the hospital since she was not improving. She had been feeling better after her fall that resulted in her other ER visit until the onset of the dizziness as above. Her ER workup on day of admission was equally unremarkable although she did seem to show some unsteadiness on her feet when she was attempting to ambulate. She was also quite hypertensive. Patient with a history of severe and labile hypertension thought to be secondary to anxiety as well as known chronic hypertension. Her antihypertensives have been increased and decreased and then increased and then decreased again over and over again because of documented hypotension with symptoms as well as documented severe hypertension similar to today's numbers. Patient is admitted for further evaluation and monitoring. She also has a history of paroxysmal atrial fibrillation is chronically anticoagulated because of that. Her INR upon admission was 1.9. In addition she has a history of PSVT and other ventricular dysrhythmias. She has an implanted loop recorder which has been helpful in sorting out her various cardiac dysrhythmias eventually helping with the diagnosis of the paroxysmal atrial fibrillation. She is followed closely and carefully by Dr. 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) Second degree AV block, Mobitz type I (Chronic) Osteoporosis, unspecified (Chronic 03/22/11) Diverticulosis of colon (Inactive 03/22/11) Atypical chest pain (Chronic) History of PSVT (paroxysmal supraventricular tachycardia) (Inactive) Hyperlipidemia (Chronic) Surgical History History of nephrectomy History of spinal fusion Status post hysterectomy with oophorectomy Family & Social History Family History: Reviewed 01/13/18 by Carlos Monzon MD Tobacco & Substance use: Smoking Status Never smoker Meds Home Medications Medication Instructions Recorded Confirmed Type acetaminophen [Tylenol Extra 500 mg PO PRN PRN #0 04/19/16 01/13/18 History Strength] amiodarone 100 mg PO QDAY #0 01/03/17 01/13/18 History diphenhydramine HCl [Benadryl 1 tab PO BEDTIME PRN #0 02/15/17 01/13/18 History Allergy] sertraline 50 mg PO QDAY #0 04/15/17 01/13/18 History warfarin 2 mg tablet 2 mg PO SEE INSTRUCTIONS #90 tab 10/19/17 01/13/18 Rx lisinopril 5 mg PO BID 01/13/18 01/13/18 History Allergies Allergy/AdvReac Type Severity Reaction Status Date / Time latex Allergy Severe THROAT Verified 01/13/18 14:05 SWELLING prednisone [PREDNISONE] Allergy Intermediate rash Verified 01/13/18 14:05 amoxicillin Allergy Mild ITCH Verified 01/13/18 14:05 ciprofloxacin Allergy Mild ITCH Verified 01/13/18 14:05 clavulanic acid Allergy Mild RASH Verified 01/13/18 14:05 hydromorphone Allergy Mild ITCHING Verified 01/13/18 14:05 nitrofurantoin Allergy Mild ABD Verified 01/13/18 14:05 PAIN/SEVERE ITCHING oxycodone Allergy Mild ITCH Verified 01/13/18 14:05 Penicillins Allergy Mild BLISTERS Verified 01/13/18 14:05 Sulfa (Sulfonamide Allergy Mild ITCH Verified 01/13/18 14:05 Antibiotics) levofloxacin [From LEVAQUIN] AdvReac Severe DISTURBING Verified 01/13/18 14:05 HALLUCINATIONS lorazepam [From ATIVAN] AdvReac Intermediate Verified 01/13/18 14:05 morphine AdvReac Mild HALLUCINATI Verified 01/13/18 14:05 ONS Review of Systems Constitutional Constitutional: Denies excessive sweating, Denies fever(s), Denies headache(s), Denies weakness, Denies weight gain and Denies weight loss Eyes Eyes: Denies change in vision, Denies itchy eyes, Denies loss of vision and Denies other visual disturbances ENT Ears, Nose, Mouth, and Throat: No difficulty swallowing, No headache(s) and No neck pain Cardiovascular Cardiovascular: Denies chest pain, Denies fainting, Denies fast heart rate, Denies irregular heart rhythm, Denies rapid, pounding, or irregular heartbeat, Denies shortness of breath, Denies shortness of breath with activity and Denies slow heart rate Respiratory Respiratory: Denies dyspnea and Denies dyspnea on exertion Gastrointestinal Gastrointestinal: Denies abdominal pain, Denies bloating, Denies change in bowel habits, Denies change in stool character, Denies dysphagia, Denies nausea , Denies vomiting and Denies hematemesis Genitourinary Genitourinary: Denies hematuria, Denies urinary frequency and Denies difficulty voiding Musculoskeletal Musculoskeletal: Reports abnormal gait (Leads to left), Denies myalgias, Denies arthralgias, Denies limited range of motion and Denies neck pain Integumentary/Breasts Skin/Breast: Denies bleeding lesions, Denies change in pigmentation, Denies changing lesions, Denies new lesions, Denies rash, Denies skin swelling, Denies sores and Denies jaundice Neurologic Neurologic: Reports abnormal gait (Leads to left), Denies behavioral changes, Denies confusion, Denies syncope, Denies headache(s), Denies loss of vision, Denies memory loss and Denies weakness Psychiatric Psychiatric: Denies behavioral changes, Denies change in appetite, Denies confusion, Denies difficulty concentrating, Denies auditory hallucinations, Denies memory loss, Denies mood swings and Denies suicidal ideation Endocrine Endocrine: Denies excessive sweating and Denies palpitations Hematologic/Lymphatic Hematologic/Lymphatic: Denies easy bleeding, Denies easy bruising and Denies lymphadenopathy Allergic/Immunologic Allergic/Immunologic: Denies itchy eyes Exam Vital Signs (past 8 hours): - 01/13/18 10:05 01/13/18 11:14 01/13/18 12:59 Pulse Rate 64 62 70 Respiratory Rate 15 15 14 Blood Pressure [Right Arm] 226/83 H 187/79 H 209/84 H Pulse Oximetry 95 94 96 01/13/18 13:32 Pulse Rate 67 Respiratory Rate 12 Blood Pressure [Right Arm] 144/96 H Pulse Oximetry Oxygen Delivery Method Room Air Const General: cooperative, healthy appearing, comfortable, well developed and well groomed Nutritional Appearance: well nourished Orientation: alert, awake and oriented x3 [facility] Head: normocephalic, atraumatic, No cyanosis of lips/distal nose, No raccoon eyes and No periorbital ecchymosis Ears: hearing grossly normal bilaterally and external ears normal Nose: external nose normal and nares normal Face and sinus: normal facial exam and face symmetric Mouth: oral mucosae normal, lip normal and tongue normal Eyes Alignment and Position: alignment normal Periorbital: periorbital findings normal Eyelids: eyelids normal Conjunctivae: conjunctivae normal Sclera: sclerae normal Cornea: corneas normal Pupils: PERRL EOM: EOM intact bilaterally Neck Neck: normal visual inspection, full ROM, trachea midline and No anterior neck swelling Thyroid: not diffusely enlarged Carotids: normal carotid upstroke Lymphatic: No lymphadenopathy Chest Chest: normal inspection of the chest, No crepitus and No tenderness Breast inspection: normal inspection of the breasts Resp Effort & Inspection: normal respiratory effort, able to speak in complete sentences, no audible wheezes, no cough, no retractions and not tachypneic Auscultation: clear to auscultation bilaterally, no rales, no rhonchi, no wheezes and no rubs Percussion: percussion normal Tactile Fremitus: tactile fremitus absent Cardio Palpation: normal PMI Rate: regular rate Rhythm: regular rhythm Heart Sounds: S1 normal, S2 normal and normal, physiologic split S2 Bruits: no carotid bruits Pulses: brachial pulses present and radial pulses present GI Inspection: normal to inspection Palpation: soft and no hepatosplenomegaly Percussion: normal to percussion Auscultation: normal bowel sounds Back/Spine/Pelvis Back: No CVA tenderness Cervical Spine: normal cervical lordosis Thoracic/Lumbar Spine: thoracic and lumbar spine normal to inspection Skin General: no rashes or lesions noted, No excoriations, No induration, No jaundice , No mottling and No petechiae Lesions: no lesions (no worrisome/abl lesions) Rashes: no rashes Trauma: no lacerations or abrasions Wounds: no wounds Hair: normal Neuro General: alert, awake, oriented x3, tone normal and normal light touch, pain and propioception Cranial Nerves: CN's II-XI intact bilaterally Cognition: normal cognition Speech: speech normal Motor: muscle tone normal throughout Sensory Exam: no sensory deficits noted DTR's: Rt Biceps: 2+, Lt Biceps: 2+, Rt Brachioradialis: 2+, Lt Brachioradialis : 2+, Rt Patellar: 2+ and Lt Patellar: 2+ Other: Gait not tested Extrem General: normal to inspection, no clubbing, cyanosis or edema and No calf tenderness Right upper extremity: normal to inspection Left upper extremity: normal to inspection Right lower extremity: normal to inspection Left lower extremity: normal to inspection Psych Appearance: grossly normal Mental Status: mental status grossly normal Speech and Movement: speech and movement normal and speech clear Mood: congruent mood Affect: normal affect Attitude: cooperative Thought Process: normal Thought Content: normal Judgment: judgment good Objective Labs Result Diagrams: 01/13/18 09:48 01/13/18 09:48 Labs: Laboratory Results - last 24 hr 01/13/18 01/13/18 01/13/18 09:48 09:48 09:48 WBC 7.6 RBC 4.44 Hgb 13.4 Hct 39.8 MCV 89.6 MCH 30.1 MCHC 33.6 RDW 13.8 Plt Count 230 Neut % (Auto) 69.0 Lymph % (Auto) 20.0 L [place] % (Auto) 7.5 Eos % (Auto) 2.4 Baso % (Auto) 1.1 Neut # (Auto) 5300 PT 20.5 H INR 1.9 H APTT 36 Sodium 144 Potassium 4.6 Chloride 106 Carbon Dioxide 29 BUN 32 H Creatinine 1.30 H Estimated GFR 39.4 L BUN/Creatinine Ratio 24.6 H Glucose 122 H Calcium 9.2 Total Bilirubin 0.5 AST 31 ALT 34 Alkaline Phosphatase 75 Total Creatine Kinase 69 Troponin I < 0.012 Total Protein 7.5 Albumin 4.1 Globulin 3.4 Albumin/Globulin Ratio 1.2 Assessment & Plan Plan: Assessment/Plan Narrative: 1. Neurologic symptoms with altered gait and maybe numbness of the face. Patient also quite hypertensive. Patient is chronically anticoagulated and therapeutic. I doubt very much whether this is a large vessel vascular issue. If this is truly some new neurologic finding or presentation most likely related to small vessel disease and/or her hypertension. Patient has an implanted loop recorder because of her issue with various cardiac dysrhythmias. This will make an MRI inappropriate and in addition is not likely to provide meaningful results given the above. I will check a carotid ultrasound however. Will need to be seen by Physical therapy and Occupational therapy for evaluation of her status and ability to return to her previous living environment For now will try and bring blood pressure down slightly although certainly do not want to cause hypotension which has been a significant issue in this particular patient 2. History atrial fibrillation-currently in sinus rhythm. Continue on monitor for now. She recently had amiodarone dose reduced will watch carefully. Continue usual warfarin dosing. 3. Hypertension-patient with severe hypertension. Her pattern has been severe hypertension likely at least contributed to by anxiety. She also been clearly demonstrable E hypotensive with symptoms at times. I have upped her lisinopril dose from the 5 mg twice daily a was and will make it 10 mg twice daily for now. Continue to monitor carefully. I have added topical nitrates to help control blood pressure which can be quickly discontinued if hypotension were to develop. Aiming for systolic blood pressure between 170 and 190. 4. Anxiety-patient was severe and significant anxiety. Clearly will need to be medicated prior to MRI and would be helpful to have medication available if need be in an effort to help prevent severe spikes of hypertension which she is certainly shown her ability to do in the past. 5. Code status-patient would want to have CPR and cardioversion if necessary but had her brother on a ventilator for a long time and is clear that she would not want to be intubated or be on a ventilator herself even if it was felt to be reversible and or she would without that.
[2018-01-13] MEDS: ACETAMINOPHEN 325 MG TABLET 650 MG PO ×2 (14:37→22:32)
--- NOTE | 2018-01-13 15:25 | PC.NURSE ---
ER ARRIVAL - via [facility], able stand outside room, with assist from ER nurse ambul to br and voided, noted some unsteadiness with gait, denies dizziness, does have headache discomfort and was given 650mg tylenol by ER nurse just prior to transfer, speech is clear and answers questions appropriately, no facial droop hr 84, ra 97%, ret bed w/bed alarm set.
[2018-01-13] MEDS: AMIODARONE 200 MG TABLET PO (15:54)
[2018-01-13] MEDS: SERTRALINE 50 MG TABLET PO (15:54)
[2018-01-13] MEDS: METOPROLOL ER 25 MG TABLET 37.5 MG PO (15:55)
--- NOTE | 2018-01-13 16:45 | PT.IIE ---
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) Second degree AV block, Mobitz type I (Chronic) Osteoporosis, unspecified (Chronic 03/22/11) Diverticulosis of colon (Inactive 03/22/11) Atypical chest pain (Chronic) History of PSVT (paroxysmal supraventricular tachycardia) (Inactive) Hyperlipidemia (Chronic) Physical Therapy Inpatient Evaluation/Re-Eval M1 PT/OT-IP Prior Functional Status Start: 01/13/18 17:14 Freq: Status: Active Protocol: Document 01/13/18 16:45 [facility] (Rec: 01/13/18 17:33 [facility] [id number]) Medical Review Prior Functional Status Medical History Reviewed Yes Diet/Fluid Consistency Regular Communication WNL Mobility and Gait indep. community gait without device Activities of Daily Living and IADL's indep. 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 Social History Household Members spouse Living Arrangements House Number of Floors (Floors) One Floor Number of Stairs To Enter/Railing? 1 SE no rail Additional Social History Comment does not use or own an assistive device for herself. She does not know who can assist her long-term if she is not able to. Pt with L facial numbness and difficulty walking, fell 3 days ago (presented to ER and CT was negative so d/c home). Again, noticed numbness in face last evening 01/12/18, presented back to the ER today . M2 PT-IP Current Condition Start: 01/13/18 17:14 Freq: Status: Active Protocol: Document 01/13/18 16:45 [facility] (Rec: 01/13/18 17:33 [facility] [id number]) Physical Therapy Current Condition Current Condition Evaluation Date 01/13/18 Treatment Diagnosis possible stroke, impaired gait and strength Onset Date 01/13/18 M3 PT-IP Subjective Start: 01/13/18 17:14 Freq: Status: Active Protocol: Document 01/13/18 16:45 [facility] (Rec: 01/13/18 17:33 [facility] [id number]) Subjective Physical Therapy Visit Type Type Initial Evaluation Visit Start Time 16:15 Visit Stop Time 16:45 Total Visit Minutes 30 Number of CRIMINAL INVE[employer]IGATOR [employer]UST[employer] Visits 0 Physical Therapy Visit Comments Patient Comments Pt notes that her L leg feels weak, buckling with gait. Short Term Goals figure out what is going on. M4 PT-IP Mobility and Gait Start: 01/13/18 17:14 Freq: Status: Active Protocol: Document 01/13/18 16:45 [facility] (Rec: 01/13/18 17:33 [facility] [id number]) PT-Bed Mobility Assessment Supine to Sit Supine to Sit Standby Assistance Sit to Supine Sit to Supine Contact Guard Assistance Scooting Scooting to Edge of Bed Standby Assistance Scooting Up and Down in Bed Minimal Assistance PT-Transfer Assessment Sit to and From Stand Sit to and from Stand Standby Assistance Equipment Transfer Assistive Device Gait Belt Front Wheeled Walker Transfers Transfer Destination Bed Transfer Technique Stand Step Pivot Transfer Ability Level of Assist Contact Guard Assistance Comments Mobility Comments Mild buckling LLE. Gait Assessment Gait Gait Assistance Required: Contact Guard Assist Distance (Feet) (feet) 100 Assistive Devices Assistive Device Gait Belt Front Wheeled Walker Gait Deviations General Gait Pattern Decreased Stride Length Decreased Feet Clearance Factors Limiting Gait Function Factors Limiting Gait Function Decreased Activity Tolerance Decreased Sensation Decreased Strength Incoordination Poor Balance Comments Gait Comments LLE mild buckling occasionally with gait, able to use UE on FWW to maintain balance. BP supoine 186/77, sitting 190 /98, standing 151/103, after gait 207/95 (RN notified of high BP) PT-Balance Assessment Sitting Balance and Reactions Static Sitting Balance Ability Good Dynamic Sitting Balance Ability Good Standing Balance and Reactions Static Standing Balance Ability Good Dynamic Standing Balance Ability Fair Device Used FWW M5 PT-IP Objective Assessments Start: 01/13/18 17:14 Freq: Status: Active Protocol: Document 01/13/18 16:45 [facility] (Rec: 01/13/18 17:33 [facility] [id number]) Orientation Orientation/Cognition Level of Alertness Alert Orientation Name Age Birthday Month Date Year Day of Week Place Situation Gross Range of Motion Upper Extremity ROM Assessment Within Functional Limits Lower Extremity ROM Assessment Within Functional Limits Strength Upper Extremity Strength Assessment Left Impaired Shoulder flex 3+/5 L 4/5 R, ER 3+/5 L and 4/5 R Elbow flex and extension 4/5 Lower Extremity Strength Assessment Left Impaired Hip flexion 3+/5 L and 4/5 R Knee flexion 3+/5 L and 5/5 R, extension 4/5 L and 5/5 R Ankle DF 4/5 L and 5/5 R Coordination Assessment Gross Coordination Gross Coordination Impaired Assessment Finger to Nose Test Moderate Impairment Pronation/Supination Test Normal Performance Heel on Alfaro Test Moderate Impairment Coordination Comments L UE and LE incoordination Sensation Assessment Sensation Gross Sensation Left UE Impaired Comments Sensation Comments impaired light touch @ L1, L2, L3, L4 dermatomes on the LLE M6 PT-IP Treatment Start: 01/13/18 17:14 Freq: Status: Active Protocol: Document 01/13/18 16:45 [facility] (Rec: 01/13/18 17:33 [facility] [id number]) Physical Therapy Treatment Education Education Provided Precautions Safety M7 PT-IP Assessment and Plan Start: 01/13/18 17:14 Freq: Status: Active Protocol: Document 01/13/18 16:45 [facility] (Rec: 01/13/18 17:33 [facility] [id number]) PT Summary Assessment and Plan Potential Rehabilitation Potential Good Status of Condition at Evaluation Evolving Summary Impairments Strength Balance Sensation Bed Mobility Transfers Gait Activity Tolerance Assessment Summary Pt presents with LUE and LE weakness, impaired sensation L1-4 dermatome on the L, and incoordination of the L UE and LE. Pt with mild L knee buckling with gait, but able to manage using increased UE assistance on FWW. Pt significantly hypertensive, RN notified. No c/o dizziness. Overall, pt presents with neurological signs and symptoms, and translates to impaired gait and safety with mobility. Pt is not safe to return home at this time, and would not be able to care for her or perform her normal ADLs. Pt is not safe to return home at this point, and if neurological impairments do not improve she may benefit from inpatient rehabilitation vs. SNF rehabilitation depending on activity tolerance as this episode of care continues. Goals Bed Mobility Goal Independent Transfer Goal Independent Gait Goal Independent Cane Gait Distance 150 Other Goals up/down 1 step with SPC and CGA Days to Meet Goals 3 Frequency of Treatment Frequency Of Treatment Once a Day Treatment Plan Physical Therapy Treatment Plan Transfer Training Gait Training Therapeutic Exercise Balance Retraining Discharge Planning Neuromuscular Re-ed Recommendations To Nursing Amount of Assist Needed 1 Person Assist Discharge Recommendations PT Discharge Recommendations SNF Rehab Acute Rehab Other Discharge Recommendations inpatient rehab vs. SNF
[2018-01-13] MEDS: NITROGLYCERIN OINT 1 INCH/GM OINT...G. TOP ×2 (17:16→20:50)
[2018-01-13] MEDS: WARFARIN 2 MG TABLET PO (18:44)
[2018-01-13] MEDS: LISINOPRIL 20 MG TABLET 10 MG PO (20:48)
[2018-01-13] MEDS: PANTOPRAZOLE 20 MG TABLET PO (20:48)
[2018-01-13] MEDS: ATORVASTATIN 20 MG TABLET PO (20:57)
[2018-01-13] MEDS: HYDROCODONE/ACET 5/325 TABLET 1 TAB PO (23:56)
[2018-01-14] VITALS (9 sets, daily range): BP systolic 120–192; BP diastolic 60–91; PULSE 59–63; RESP 16; TEMP 36.6–36.7; O2SAT 94–95
[2018-01-14 06:39] LABS: INR 2.3 (0.9-1.3); Prothrombin Time 25.4 SECONDS (10.1-12.7)
[2018-01-14 06:46] LABS: BUN Creatinine Ratio 22.3 (6-22); Blood Urea Nitrogen 29 mg/dL (7-17); Calcium 8.8 mg/dL (8.4-10.2); Carbon Dioxide 30 mmol/L (22-32); Chloride 106 mmol/L (98-107); Estimated Glomerular Filt Rate 39.4 mL/min (>60); Glucose 85 mg/dL (80-110); HEMOLYSIS < 15 (0-50); Potassium 4.4 mmol/L (3.4-5.1); Sodium 141 mmol/L (137-145)
[2018-01-14] MEDS: PANTOPRAZOLE 20 MG TABLET PO (06:49)
[2018-01-14] MEDS: LISINOPRIL 10 MG TABLET PO (09:35)
[2018-01-14] MEDS: AMIODARONE 200 MG TABLET PO (09:36)
[2018-01-14] MEDS: SERTRALINE 50 MG TABLET PO (09:36)
--- NOTE | 2018-01-14 10:39 | PC.NURSE ---
Addendum entered by Melba Mcdowell R.N. 01/14/18 13:16: dc - pt remains anxious to dc and iv heplock dc'd, tele dc'd, Kamryn from in to speak to pt prior to her leaving hospital, reviewed the dc instructions, per scripts sent electronically to her pharmacy, belongings gathered, including black handbag, wallet, cell phone and tablet, no city distribution clerk, cleaning and washing equipment operator assisted with clothing and tsf to wc and escorted pt to er entrance. 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
--- NOTE | 2018-01-14 11:01 | P.DS_ITS ---
History of Present Illness Date Patient Seen: 01/14/18 Time Patient Seen: 10:54 Chief complaint: thinks having a stroke Narrative: Patient presented to the [facility] Emergency Department on day of admission with symptoms of left-sided facial numbness and difficulty walking. She actually fell 3 days ago was seen in the emergency department after that as she is on warfarin I was concerned about some inter cerebral issues. Nothing was found that she was discharged home. She actually began with what she calls dizziness the night before admission. She does have chronic dizziness but said this was somewhat different in that it did not resolve overnight like he usually does and she was finding it difficult to walk in a straight line she always seem to drift off to the left. She checked her blood pressure which was much higher than usual and finally decided to come to the hospital since she was not improving. She had been feeling better after her fall that resulted in her other ER visit until the onset of the dizziness as above. Her ER workup on day of admission was equally unremarkable although she did seem to show some unsteadiness on her feet when she was attempting to ambulate. She was also quite hypertensive. Patient with a history of severe and labile hypertension thought to be secondary to anxiety as well as known chronic hypertension. Her antihypertensives have been increased and decreased and then increased and then decreased again over and over again because of documented hypotension with symptoms as well as documented severe hypertension similar to today's numbers. Patient is admitted for further evaluation and monitoring. She also has a history of paroxysmal atrial fibrillation is chronically anticoagulated because of that. Her INR upon admission was 1.9. In addition she has a history of PSVT and other ventricular dysrhythmias. She has an implanted loop recorder which has been helpful in sorting out her various cardiac dysrhythmias eventually helping with the diagnosis of the paroxysmal atrial fibrillation. She is followed closely and carefully by Dr. Juan Villarreal of [facility] Discharge Providers Date of admission: 01/13/18 13:26 Primary care physician: Shannon Bee MD Consults: 01/13/18 14:42 Consult to Discharge Planning Routine Comment: Discharge provider: Carlos Monzon MD Discharge Date: 01/14/18 Summary Discharge Diagnosis: 1. Hypertensive urgency 2. Hypertension 3. Paresthesia face 4. Possible TIA 5. Anxiety 6. Gait disorder/imbalance 7. Cerebral microvascular disease 8. Paroxysmal atrial fibrillation 9. Contusion of chest wall 10. Contusion of face Hospital Course: Patient presented to the [facility] Emergency room with symptoms of imbalance on her feet which she has had previously although this episode was not resolving like previous episodes. She was also noted to be severely hypertensive both at home and in the emergency department. She also reported a day or more of altered sensation on the left side of her face. She was felt to have either a TIA or potential hypertensive urgency/emergency ongoing. She was admitted for further evaluation monitoring. She was placed on topical nitrates and had her doses of antihypertensives increased because of her severe hypertension. This brought her blood pressure down into much more normal range and with this patient felt improved. The numbness on the face did not change but her balance on her feet she said was much better. She was up in the room with a walker able to ambulate to restroom facility and within the room without any real difficulty Patient had been set to have carotid ultrasound and formal physical and occupational therapy evaluations but she was very anxious about returning home. Her has end-stage Alzheimer's and there issues with his care at home and she basically said she needed to leave him be with him and was going to do so 1 way or another. Therefore given her marked improvement with the reduction of blood pressure (even though she had not yet returned to baseline) it is felt as though she more likely than not was okay to be discharged home. She will need to continue on a higher dose of her lisinopril for blood pressure control. I discussed with her at great length the possibility that if she goes home and has further difficulty with her gait and falls again (she had fallen once) and actually break something such as a fractured hip she will definitely need to be in the hospital and in a senior care facility for an extended period of time which will make the social issues with care of her with Alzheimer's much more complicated. She has a walker at home she will be using, and at this point this seems like the best option for care this patient is to discharge her from the hospital with the presumption that she will be using walker at home and extraordinarily cautious. Otherwise she will go home without additional support etc. In ideal situation I would certainly keep her here and complete the evaluation and testing as originally outlined but that does not seem to be possible in this case for reasons as above. Patient's protime was a bit subtherapeutic upon admission and her overall weekly dose was increased slightly and should be followed carefully as an outpatient Patient also started on a statin given her presentation with possible neurologic event in an effort to reduce risk of future events, even though I do not feel like this was a large vessel vascular presentation. Patient will need to be seen in the outpatient clinic at [facility] within the next week or 10 days. Her primary care provider Dr. Bee has left the area and she will need to be seeking a new PCP. We should be able to get her in to see either Dr. Fregoso who is covering for Dr. Bee temporarily and or 1 of the nurse practitioners at [facility]. Status at Discharge Cognitive/behavioral status at discharge: Normal Functional status at discharge: uses cane/walker Overall status at discharge: patient is not back to baseline Time Spent with Patient Greater than 30 minutes Exam Vital Signs (past 8 hours): - 01/14/18 03:31 01/14/18 06:34 01/14/18 06:49 Temperature 97.9 F Pulse Rate 60 59 L Respiratory Rate 16 Blood Pressure 155/66 H 120/60 120/60 Pulse Oximetry 94 01/14/18 08:33 Temperature 98.1 F Pulse Rate 63 Respiratory Rate 16 Blood Pressure 148/84 H Pulse Oximetry 95 Oxygen Delivery Method Room Air Const General: cooperative, comfortable, well developed and well hydrated Nutritional Appearance: well nourished Orientation: alert, awake and oriented x3 HENMT Head: normal to inspection Ears: hearing grossly normal bilaterally Nose: external nose normal Eyes General: appearance normal, both eyes and all related structures Neck Neck: normal visual inspection Chest Chest: normal inspection of the chest Breast inspection: normal inspection of the breasts Resp Effort & Inspection: normal respiratory effort, able to speak in complete sentences and symmetric chest movement Auscultation: clear to auscultation bilaterally and no rubs Percussion: percussion normal Tactile Fremitus: tactile fremitus absent Cardio Palpation: normal PMI Rate: regular rate Rhythm: regular rhythm Heart Sounds: S1 normal and S2 normal Pulses: brachial pulses present GI Inspection: normal to inspection Palpation: soft and no hepatosplenomegaly Percussion: normal to percussion Auscultation: normal bowel sounds Neuro General: alert, awake, oriented x3, gait normal, tone normal, moves all extremities, normal light touch, pain and propioception and no focal motor deficits Cranial Nerves: CN's II-XI intact bilaterally Other: Gait not tested by myself Extrem General: normal to inspection Psych Appearance: grossly normal Mental Status: mental status grossly normal Speech and Movement: speech and movement normal Mood: congruent mood Affect: normal affect Attitude: cooperative Thought Process: normal Thought Content: normal Judgment: judgment good Objective Labs Result Diagrams: 01/13/18 09:48 01/14/18 06:02 Labs: Laboratory Results - last 24 hr 01/14/18 01/14/18 06:02 06:02 PT 25.4 H INR 2.3 H Sodium 141 Potassium 4.4 Chloride 106 Carbon Dioxide 30 BUN 29 H Creatinine 1.30 H Estimated GFR 39.4 L BUN/Creatinine Ratio 22.3 H Glucose 85 Calcium 8.8 Discharge Plan Discharge Plan Patient Disposition: Home Discharge comment: PATIENT ESSENTIALLY DEMANDING TO LEAVE, ISSUES AT HOME WITH SPOUSE SHE NEEDS TO DEAL WITH, WILL GO AMA IF NOT DISCHARGED Provider Discharge Instructions Diet: Diet as Tolerated Discharge Data Primary Care Provider: Shannon Bee Attending Provider: Carlos Monzon Admit Date/Time: 01/13/18 13:26 Quality VTE Deep Vein Thrombosis/Pulmonary Embolism Present on Admission: No
== END 2018-01-14 13:00 | disposition home or self-care (01) ==
LOC: ED 13:22 → AC 13:28
PROVIDERS: Admitting Provider Internal Medicine; Emergency Provider Emergency Medicine; PCP Family Medicine; Visit Provider Internal Medicine
DX: R20.0 Anesthesia of skin (principal); R26.2 Difficulty in walking, not elsewhere classified; I48.0 Paroxysmal atrial fibrillation; Z79.01 Long term (current) use of anticoagulants; I10 Essential (primary) hypertension; F41.9 Anxiety disorder, unspecified; R26.81 Unsteadiness on feet
CPT/HCPCS: 36415; 36591; 70450; 80048; 80053; 81003; 82550; 82553; 82962; 84484; 85025; 85610; 85730; 93005; 93010; 97162; 99217; 99219; 99282; 99285; G0378

== ENCOUNTER 2018-02-07 07:33 | Emergency (ER) | payer MEDICARE, OTHER, SELFPAY ==
[2018-01-13 14:43] VITALS: BMI 28.0
[2018-02-07] VITALS (9 sets, daily range): BP systolic 159–202; BP diastolic 53–72; PULSE 67–75; RESP 13–21; TEMP 36.9; O2SAT 92–97; BMI 27.2
--- NOTE | 2018-02-07 07:37 | ED.DIZZY ---
HPI - Dizziness General Chief Complaint: Dizziness Stated Complaint: Nausea/Dizziness Time Seen by Provider: 02/07/18 07:33 Source: patient Mode of arrival: EMS Limitations: no limitations History of Present Illness HPI Narrative: Patient is an 82-year-old female here for evaluation of headache, dizziness, vomiting. Patient states that she woke this morning at approximately 6:45. She states she was sitting on her chair when she states that she started to feel like she was dizzy. She describes it as a unsteady feeling. She states she felt like she was falling off to her left. Patient started to stand up and shortly afterwards developed a headache and blurry vision and also multiple episodes of vomiting. She states she has never had anything like this before. No numbness or tingling in arms and legs. No weakness or arms and legs. No falls. No headache. Related Data Home Medications Medication Instructions Recorded Confirmed acetaminophen [Tylenol Extra 500 mg PO PRN PRN #0 04/19/16 02/07/18 Strength] amiodarone 200 mg PO QDAY #0 01/03/17 02/07/18 lisinopril 5 mg PO BID 02/07/18 02/07/18 sertraline 100 mg PO DAILY 02/07/18 02/07/18 warfarin 1 mg PO SUMOWEFRSA 02/07/18 02/07/18 warfarin 1 tab PO TUTH 02/07/18 02/07/18 Previous Rx's Medication Instructions Recorded meclizine 25 mg PO BID-TID PRN #10 tab 02/07/18 Allergies Allergy/AdvReac Type Severity Reaction Status Date / Time latex Allergy Severe THROAT Verified 02/07/18 07:38 SWELLING prednisone [PREDNISONE] Allergy Intermediate rash Verified 02/07/18 07:38 amoxicillin Allergy Mild ITCH Verified 02/07/18 07:38 ciprofloxacin Allergy Mild ITCH Verified 02/07/18 07:38 clavulanic acid Allergy Mild RASH Verified 02/07/18 07:38 hydromorphone Allergy Mild ITCHING Verified 02/07/18 07:38 nitrofurantoin Allergy Mild ABD Verified 02/07/18 07:38 PAIN/SEVERE ITCHING oxycodone Allergy Mild ITCH Verified 02/07/18 07:38 Penicillins Allergy Mild BLISTERS Verified 02/07/18 07:38 Sulfa (Sulfonamide Allergy Mild ITCH Verified 02/07/18 07:38 Antibiotics) levofloxacin [From LEVAQUIN] AdvReac Severe DISTURBING Verified 02/07/18 07:38 HALLUCINATIONS lorazepam [From ATIVAN] AdvReac Intermediate Verified 02/07/18 07:38 morphine AdvReac Mild HALLUCINATI Verified 02/07/18 07:38 ONS Review of Systems Constitutional Denies fatigue, Denies fever(s), Reports headache(s) and Denies malaise Eyes Reports blurry vision, Reports change in vision, Denies diplopia, Denies loss of vision and Reports photophobia ENT Ears, Nose, Mouth, and Throat: Reports vertigo, Reports dizziness, Reports headache(s) and Reports disequilibrium Cardiovascular Denies chest pain, Denies syncope and Denies dyspnea Respiratory Denies dyspnea Gastrointestinal Gastrointestinal: Denies abdominal pain, Denies change in bowel habits, Reports nausea and Reports vomiting Musculoskeletal Denies myalgias, Denies arthralgias and Denies tingling Integumentary/Breasts Denies rash and Denies wounds Neurologic Denies behavioral changes, Denies confusion, Reports vertigo, Reports dizziness, Denies syncope, Reports headache(s), Denies lack of coordination, Denies focal weakness, Denies loss of vision, Denies convulsions, Denies seizure-like activity, Denies sensory deficit, Denies tingling, Denies paresthesias and Reports disequilibrium Psychiatric Denies behavioral changes and Denies confusion Endocrine Denies fatigue Hematologic/Lymphatic Denies easy bleeding and Denies easy bruising [facility] Medical History Paroxysmal atrial fibrillation (Chronic ~2013) Essential hypertension (Chronic) Cerebral microvascular disease (Chronic) Anxiety (Chronic 12/08/15) 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 difficile colitis (Resolved 07/2015) C. difficile colitis (Resolved 11/2011) Chicken pox (Resolved ~1939) Measles (Resolved ~1939) Mumps (Resolved ~1939) Paraesophageal hernia (Resolved) Skin cancer (Resolved 2009) History of PSVT (paroxysmal supraventricular tachycardia) (Inactive) Surgical History Anesthesia (Resolved) History of bladder surgery (Resolved ~1967) History of cholecystectomy (Resolved) History of nephrectomy (Resolved) History of spinal fusion (Resolved 2005) S/P repair of paraesophageal hernia (Resolved) Status post hysterectomy with oophorectomy (Resolved) Family History Brother CAD (coronary artery disease) Hyperlipidemia High cholesterol Lung cancer Colon cancer Brother Cancer High cholesterol Lung disease Father Colon cancer CAD (coronary artery disease) High cholesterol Mother CVA (cerebral vascular accident) Hyperlipidemia Sister Age: 82 CAD (coronary artery disease) Hyperlipidemia Ulcer Essential hypertension High cholesterol Heart attack Grandfather Throat cancer Grandmother Heart disease Family/Other Lung disease Social History household members: spouse Smoking Status: Never smoker Exam Initial Vital Signs Initial Vital Signs: Vital Signs Pulse Rate 72 02/07/18 07:30 Respiratory Rate 15 02/07/18 07:30 Blood Pressure 202/72 H 02/07/18 07:30 Pulse Oximetry 93 02/07/18 07:30 Const General: cooperative, No comfortable (Uncomfortable appearing), well developed, well groomed and No acute distress Orientation: alert, awake and oriented x3 HENMT Head: normal to inspection and normocephalic Nose: external nose normal Face and sinus: normal facial exam Resp Effort & Inspection: normal respiratory effort Auscultation: clear to auscultation bilaterally Cardio Rate: regular rate Rhythm: regular rhythm Pulses: radial pulses present GI Inspection: normal to inspection, abdominal wall ecchymosis and non-distended Palpation: soft Skin Lesions: no lesions Rashes: no rashes Neuro General: alert, awake and oriented x3 Cranial Nerves: CN's II-XI intact bilaterally Cognition: normal cognition Speech: speech normal Motor: muscle tone normal throughout Sensory Exam: no sensory deficits noted Extrem General: normal to inspection and capillary refill normal Psych Appearance: grossly normal and well kempt Course Orders Ordered: Discontinued Medications Diphenhydramine HCl (Benadryl) 25 mg IV NOW ONE Stop: 02/07/18 07:56 Last Admin: 02/07/18 08:01 Dose: 25 mg Sodium Chloride (Normal Saline 0.9%) 1,000 mls @ 500 mls/hr IV BOLUS ONE Stop: 02/07/18 09:54 Last Infusion: 02/07/18 12:59 Dose: 0 mls/hr Admin: 02/07/18 08:01 Dose: 500 mls/hr Meclizine HCl (Antivert) 25 mg PO NOW ONE Stop: 02/07/18 10:13 Last Admin: 02/07/18 10:13 Dose: 25 mg Metoclopramide HCl (Reglan) 10 mg IV NOW ONE Stop: 02/07/18 07:56 Last Admin: 02/07/18 08:01 Dose: 10 mg Vital Signs - 8 hr 02/07/18 11:27 02/07/18 11:30 Pulse Rate 75 71 Respiratory Rate 15 21 Blood Pressure [Left Arm] 162/66 H 163/70 H Pulse Oximetry 97 94 MDM - Dizziness Lab Data Attestation: I reviewed the patient's lab results. Result diagrams: 02/07/18 07:40 02/07/18 07:40 Lab Results 02/07/18 02/07/18 02/07/18 Range/Units 07:40 07:40 07:40 WBC 7.5 (4.5-11.0) X10^3/uL RBC 4.16 (4.0-5.2) X10^6/uL Hgb 12.2 (12.0-16.0) g/dL Hct 36.6 (36-46) % MCV 88.1 (80-100) fL MCH 29.2 (26-34) PG MCHC 33.2 (30-36) % RDW 14.2 (11.6-14.8) % Plt Count 270 (150-400) X10^3/uL Neut % (Auto) 60.3 (50-75) % Lymph % (Auto) 28.2 (25-40) % [place] % (Auto) 8.3 (3-14) % Eos % (Auto) 2.3 (2-4) % Baso % (Auto) 0.9 (0-2) % Neut # (Auto) 4500 (8569-2163) /uL PT 20.8 H (10.1-12.7) SECONDS INR 1.9 H (0.9-1.3) APTT 32 D (26.4-36.2) SECONDS Sodium 142 (137-145) mmol/L Potassium 4.7 (3.4-5.1) mmol/L Chloride 105 (98-107) mmol/L Carbon Dioxide 29 (22-32) mmol/L BUN 38 H (7-17) mg/dL Creatinine 1.40 H (0.52-1.04) mg/dL Estimated GFR 36.2 L (>60) mL/min BUN/Creatinine Ratio 27.1 H (6-22) Glucose 131 H (80-110) mg/dL Calcium 8.9 (8.4-10.2) mg/dL Total Bilirubin 0.5 (0.2-1.3) mg/dL AST 27 (14-36) IU/L ALT 27 (9-52) IU/L Alkaline Phosphatase 93 (38-126) U/L Troponin I < 0.012 (0.01-0.034) ng/mL Total Protein 7.0 (6.3-8.2) g/dL Albumin 3.8 (3.5-5.0) g/dL Globulin 3.2 (1.7-4.1) g/dL Albumin/Globulin Ratio 1.2 (1.0-2.8) Lipase 80 (23-300) U/L Imaging Data CT scan - head: Radiologist's impression: PROCEDURE: CT HEAD/BRAIN WO CON INDICATIONS: headache, vertigo on anticoagulation TECHNIQUE: Noncontrast 4.5 mm thick angled axial sections acquired from the foramen magnum to the vertex, with coronal and sagittal reformats. For radiation dose reduction, the following was used: automated exposure control, adjustment of mA and/or kV according to patient size. COMPARISON: [facility], CT, CT HEAD/BRAIN WO CON, 01/13/2018, 9:47. [facility], CT, CT HEAD/BRAIN WO CON, 01/10/2018, 18:51. [facility], CT, HEAD WITHOUT CONTRAST, 07/30/2017, 18:43. FINDINGS: Image quality: Excellent. CSF spaces: Basal cisterns are patent. No extra-axial fluid collections. The ventricles are symmetric in size and shape. Brain: No intracranial bleeds or masses. There is cerebral volume loss for age, with resultant ventricular and sulcal prominence. There are periventricular and deep white matter chronic small vessel ischemic changes. There is intracranial internal carotid artery atherosclerosis. Skull and face: Calvarium and visualized facial bones appear intact, without suspicious lesions. Sinuses: Visualized sinuses and mastoids are clear. IMPRESSION: No acute intracranial abnormality. Dictated by: Sheri De Leon M.D. on 02/07/2018 at 8:25 Approved by: Sheri De Leon M.D. on 02/07/2018 at 8:25 ECG Data Attestation: I personally reviewed and interpreted this ECG as follows: Prior ECG tracings: not available for review Interpretation: Sinus rhythm Ventricular rate is 71 Normal axis Normal QRS Normal QTC No ST T wave changes MDM Narrative Medical decision making narrative: Patient arrived with a headache and history of physical exam that is consistent with vertigo. She had a normal neurologic exam otherwise. Her headache almost completely resolved with Reglan and Benadryl. Her head CT was unremarkable. Her EKG was unremarkable. She does have a history of atrial fibrillation however it does not seem like that was the cause of her symptoms today. She did get much better after her headache improved. She did somewhat feel like she was falling to the left however was able to sit at the edge of the bed and able to stand. She was given meclizine which she states improved her symptoms even more. She was able to ambulate however did need some help with nursing staff patient's daughter was at bedside. She states that the patient has been under lot of stress recently she lost her within the past couple days and there is a scheduled for this weekend. The daughter thinks that the patient is ?just exhausted ?we did discuss other possibilities such as subarachnoid hemorrhage. The head CT was completed within 6 hr of the onset of the pain was unremarkable however we did discuss the possibility of a lumbar puncture. She is on Coumadin which does raise the risk of complications such as bleeding. After this discussion the patient and the daughter both opted not to have the lumbar puncture. We also discussed other etiologies such as stroke. I did offer to admit the patient to the hospital for further evaluation and also an MRI however the patient was concerned that since it would most likely be under an observation status that her insurance would not pay for it and so she did not want to be admitted to the hospital. She also states she did not want to miss her 's . We discussed the risks of being discharged home to include falling and injury sustained from that. Both the daughter and the patient expressed understanding of this. The patient to get stated that she did not want to be admitted to the hospital. The daughter agreed with this. The patient was given return precautions. They were instructed they could come back to the emergency department at any point they felt like they needed to. They both expressed understanding and agreement with plan. Discharge Plan Departure Patient Disposition: Home Clinical Impression: Vertigo, Nausea & vomiting, Headache Discharge Date/Time: 02/07/18 13:00 Interventions: ED Discharge Assessment Last Done: 02/07/18 12:59 Instructions: Vertigo (Alternative Therapy), Vertigo Activity Restrictions/Additional Instructions: Recommend that you keep all of your scheduled medical appointments. Take the anti vertigo medication that you were given a prescription for here in the emergency department as directed. Return to the emergency department for any new or worsening symptoms Prescriptions: New meclizine 25 mg tablet 25 mg PO BID-TID PRN (Reason: motion sickness) Qty: 10 RF: 0 No Action acetaminophen [Tylenol Extra Strength] 500 MG tablet 500 mg PO PRN PRN (Reason: Pain, Mild) Qty: 0 RF: 0 amiodarone 200 MG tablet 200 mg PO QDAY Qty: 0 RF: 0 sertraline 100 mg tablet 100 mg PO DAILY RF: 0 warfarin 2 mg tablet 1 mg PO SUMOWEFRSA RF: 0 warfarin 2 mg tablet 1 tab PO TUTH RF: 0 lisinopril 5 mg tablet 5 mg PO BID RF: 0
[2018-02-07 07:59] LABS: Add Manual Diff / Slide Review NO; Basophils Percent Auto 0.9 % (0-2); Eosinophils Percent Auto 2.3 % (2-4); HEMOLYSIS < 15 (0-50); Hematocrit 36.6 % (36-46); Hemoglobin 12.2 g/dL (12.0-16.0); Lymphocytes Percent Auto 28.2 % (25-40); Mean Corpuscular HGB Conc 33.2 % (30-36); Mean Corpuscular Hemoglobin 29.2 PG (26-34); Mean Corpuscular Volume 88.1 fL (80-100); Monocytes Percent Auto 8.3 % (3-14); Neutrophils Absolute Auto 4500 /uL (3000-5900); Neutrophils Percent Auto 60.3 % (50-75); Platelet Count 270 X10^3/uL (150-400); Red Blood Cell Count 4.16 X10^6/uL (4.0-5.2); Red Cell Distribution Width 14.2 % (11.6-14.8); White Blood Cell Count 7.5 X10^3/uL (4.5-11.0)
[2018-02-07 08:00] LABS: INR 1.9 (0.9-1.3); Prothrombin Time 20.8 SECONDS (10.1-12.7)
[2018-02-07] MEDS: METOCLOPRAMIDE 10 MG/2 ML INJ IV (08:01)
[2018-02-07] MEDS: SODIUM CHLORIDE 0.9% 1,000 ML 500 ML IV (08:01)
[2018-02-07] MEDS: diphenhydrAMINE 50 MG/ML VIAL 25 MG IV (08:01)
[2018-02-07 08:03] LABS: PTT Partial Thromboplastin Tim 32 SECONDS (26.4-36.2)
[2018-02-07 08:05] LABS: Alanine Aminotransferase 27 IU/L (9-52); Albumin 3.8 g/dL (3.5-5.0); Albumin Globulin Ratio 1.2 (1.0-2.8); Alkaline Phosphatase 93 U/L (38-126); Aspartate Aminotransferase 27 IU/L (14-36); BUN Creatinine Ratio 27.1 (6-22); Bilirubin Total 0.5 mg/dL (0.2-1.3); Blood Urea Nitrogen 38 mg/dL (7-17); Calcium 8.9 mg/dL (8.4-10.2); Carbon Dioxide 29 mmol/L (22-32); Chloride 105 mmol/L (98-107); Estimated Glomerular Filt Rate 36.2 mL/min (>60); Globulin 3.2 g/dL (1.7-4.1); Glucose 131 mg/dL (80-110); Lipase 80 U/L (23-300); Potassium 4.7 mmol/L (3.4-5.1); Sodium 142 mmol/L (137-145)
--- NOTE | 2018-02-07 08:14 | DI.CT.S_ITS ---
PROCEDURE: CT HEAD/BRAIN WO CON INDICATIONS: headache, vertigo on anticoagulation TECHNIQUE: Noncontrast 4.5 mm thick angled axial sections acquired from the foramen magnum to the vertex, with coronal and sagittal reformats. For radiation dose reduction, the following was used: automated exposure control, adjustment of mA and/or kV according to patient size. COMPARISON: [facility], CT, CT HEAD/BRAIN WO CON, 01/13/2018, 9:47. [facility], CT, CT HEAD/BRAIN WO CON, 01/10/2018, 18:51. [facility], CT, HEAD WITHOUT CONTRAST, 07/30/2017, 18:43. FINDINGS: Image quality: Excellent. CSF spaces: Basal cisterns are patent. No extra-axial fluid collections. The ventricles are symmetric in size and shape. Brain: No intracranial bleeds or masses. There is cerebral volume loss for age, with resultant ventricular and sulcal prominence. There are periventricular and deep white matter chronic small vessel ischemic changes. There is intracranial internal carotid artery atherosclerosis. Skull and face: Calvarium and visualized facial bones appear intact, without suspicious lesions. Sinuses: Visualized sinuses and mastoids are clear. IMPRESSION: No acute intracranial abnormality. Dictated by: Sheri De Leon M.D. on 02/07/2018 at 8:25 Approved by: Sheri De Leon M.D. on 02/07/2018 at 8:25
[2018-02-07 08:18] LABS: Troponin I < 0.012 ng/mL (0.01-0.034)
[2018-02-07] MEDS: MECLIZINE HCL 12.5 MG TABLET 25 MG PO (10:13)
--- NOTE | 2018-02-07 11:59 | PC.NURSE ---
pt requires stand by assist. is able to walk without assist, leaning to the left. does feel comfortable to go home, daughter will be there for assistance.
== END 2018-02-07 13:00 | disposition home or self-care (01) ==
PROVIDERS: Emergency Provider Emergency Medicine; PCP Family Medicine
DX: R42 Dizziness and giddiness (principal); R11.2 Nausea with vomiting, unspecified; R51 Headache
CPT/HCPCS: 36591; 70450; 80053; 83690; 84484; 85025; 85610; 85730; 93005; 96361; 96374; 96375; 99283; 99285; J1200; J2765

== ENCOUNTER → 2018-03-01 10:40 | Outpatient (CLI) | payer MEDICARE, OTHER, SELFPAY ==
[2018-01-13 14:43] VITALS: BMI 28.0
[2018-02-19 14:03] VITALS: BMI 28.0
--- NOTE | 2018-03-01 10:42 | DI.US.S_ITS ---
PROCEDURE: US CAROTID DOPPLER BI INDICATIONS: TRANSIENT CEREBRAL ISCHEMIA TECHNIQUE: Color and pulse Doppler interrogation was performed of both carotid systems, with image documentation and velocity measurements. COMPARISON: [facility], US, US CAROTID DPLX DOPPLER BILAT, 02/05/2015, 16:58. FINDINGS: Stenosis calculations are based on SRU (Society of Radiologists in Ultrasound) criteria. Right side: Brachial blood pressure: 141/72 mm Hg. Common carotid artery peak systolic velocity: 1:30 cm/sec. Internal carotid artery peak systolic velocity: 90 cm/sec. Internal carotid artery end diastolic velocity: 26 cm/sec. External carotid artery peak systolic velocity: 108 cm/sec. ICA/CCA peak systolic ratio: 0.7. Estrada scale imaging description: Mild scattered plaque. Percent internal carotid artery stenosis: Less than 50%. Vertebral artery: Flow direction is antegrade. Left side: Brachial blood pressure: 140/75 mm Hg. Common carotid artery peak systolic velocity: 103 cm/sec. Internal carotid artery peak systolic velocity: 58 cm/sec. Internal carotid artery end diastolic velocity: 16 cm/sec. External carotid artery peak systolic velocity: 81 cm/sec. ICA/CCA peak systolic ratio: 0.6. Estrada scale imaging description: Minimal scattered plaque Percent internal carotid artery stenosis: Less than 50%. Vertebral artery: Flow direction is antegrade. IMPRESSION: Stable less than 50% bilateral internal carotid artery stenosis. Dictated by: Aditya Giron [facility] Interpreted: Rochelle Wilson MD on 03/01/2018 at 13:10 Approved by: Rochelle Wilson MD, PhD on 03/01/2018 at 16:38
== END ==
PROVIDERS: PCP Internal Medicine; Visit Provider Internal Medicine
DX: G45.9 Transient cerebral ischemic attack, unspecified (principal)
CPT/HCPCS: 93880

== ENCOUNTER → 2018-03-10 11:45 | Outpatient (CLI) | payer MEDICARE, OTHER, SELFPAY ==
[2018-02-19 14:03] VITALS: BMI 28.0
--- NOTE | 2018-03-10 | DI.MG.S_ITS ---
BILATERAL DIGITAL SCREENING MAMMOGRAM 3D/2D WITH CAD: 03/10/2018 CLINICAL: Routine screening. Comparison is made to exams dated: 01/27/2017 mammogram, 01/15/2016 mammogram, and 11/18/2014 mammogram - [facility]. The tissue of both breasts is heterogeneously dense. This may lower the sensitivity of mammography. Current study was also evaluated with a Computer Aided Detection (CAD) system. No significant masses, calcifications, or other findings are seen in either breast. There has been no significant interval change. IMPRESSION: NEGATIVE There is no mammographic evidence of malignancy. A 1 year screening mammogram is recommended. NOTE: For mammograms, a report in lay terms will be sent to the patient. Approximately 15% of breast malignancies will not be visualized mammographically. In the management of a palpable breast mass, a negative mammogram must not discourage biopsy of a clinically suspicious lesion. Electronically Signed By: Surya fuller/jayshree:03/12/2018 15:30:14 letter sent: Normal Exam ACR BI-RADS Category 1: Negative [id number]
== END ==
PROVIDERS: PCP Internal Medicine; Visit Provider Student in an Organized Health Care Education/Training Program
DX: Z12.31 Encounter for screening mammogram for malignant neoplasm of breast (principal)
CPT/HCPCS: 77063; 77067

== ENCOUNTER → 2018-05-02 13:29 | Outpatient (CLI) | payer MEDICARE, OTHER, SELFPAY ==
[2018-02-19 14:03] VITALS: BMI 28.0
[2018-05-02 14:38] LABS: BUN Creatinine Ratio 25.8 (6-22); Blood Urea Nitrogen 49 mg/dL (7-17); Estimated Glomerular Filt Rate 25.4 mL/min (>60)
== END ==
PROVIDERS: PCP Student in an Organized Health Care Education/Training Program; Visit Provider Student in an Organized Health Care Education/Training Program
DX: I67.9 Cerebrovascular disease, unspecified (principal)
CPT/HCPCS: 36415; 82565; 84520

== ENCOUNTER → 2018-05-22 08:19 | Outpatient (CLI) | payer MEDICARE, OTHER, SELFPAY ==
[2018-02-19 14:03] VITALS: BMI 28.0
--- NOTE | 2018-05-22 | DI.ECHO.S_ITS ---
[facility] +---------+ [facility] +---------+ : : [address] : : : : [id number] : : : : Phone: [phone] Echocardiogram Report + + :Name: PARVEEN CABALLERO Study Date: 05/22/2018 Height: 62 in : :[facility] Exam Location: [facility] Weight: 145 lb : : Gender: Female BSA: 1.7 m2 : :: 1935 Age: 82 yrs BP: 118/64 mmHg: :Reason For Study: Mitral Valve Insufficiency : :Ordering Physician: Juan : :Phil Performed By: Delma Wong : :Referring: Juan Villarreal : + + Interpretation Summary Left ventricular systolic function is normal without focal wall motion abnormalities with the ejection fraction visually estimated to be 60-65% and appears more dynamic compared to the previous study. There is mild concentric left ventricular hypertrophy that is more prominent compared to the previous study. Diastolic parameters suggest probable normal left ventricular diastolic function and normal filling pressures. The right ventricle is mildly dilated and right ventricular systolic function is normal and appears unchanged compared to the previous study. The right ventricular systolic pressure is estimated to be at least 40 mmHg based on an estimated right atrial pressure of 3 mm Hg, and is likely lower compared to the previous study. The left atrium is severely dilated and unchanged compared to the previous study. Right atrial size is normal and measures significantly smaller compared to the previous study. There is mild mitral regurgitation and mild tricuspid regurgitation. Both are less prominent compared to the previous study. The aortic valve is slightly calcified with mild aortic regurgitation that is unchanged compared to the previous study. There is no other significant valvular heart disease. The ascending aorta and aortic arch are mildly enlarged but unchanged compared to the previous study. Procedure: A two-dimensional transthoracic echocardiogram with color flow and Doppler was performed. The study quality was technically adequate. Comparison is made with the echocardiogram of 09/19/2016. The patient was in normal sinus rhythm during the exam. Left Ventricle: The left ventricle is normal in size. There is mild concentric left ventricular hypertrophy. This is more prominent compared to the previous study. Left ventricular systolic function is normal without focal wall motion abnormalities. The ejection fraction is estimated to be 60-65%. This is more dynamic compared to the previous study. Diastolic parameters suggest probable normal left ventricular diastolic function and normal filling pressures. Right Ventricle: The right ventricle is mildly dilated. The right ventricular systolic function is normal. This is unchanged compared to the previous study. Atria: The left atrium is severely dilated. This is unchanged compared to the previous study. Right atrial size is normal. This is significantly smaller compared to the previous study. Mitral Valve: The mitral valve leaflets appear mildly thickened, but open well. There is mild mitral regurgitation. This is less prominent compared to the previous study. Aortic Valve: The aortic valve is trileaflet. The aortic valve is slightly calcified. The aortic valve opens well. There is mild aortic regurgitation. This is unchanged compared to the previous study. Tricuspid Valve: The tricuspid valve is normal in structure and function. There is mild tricuspid regurgitation. This is less prominent compared to the previous study. The right ventricular systolic pressure is estimated to be at least 40 mmHg based on an estimated right atrial pressure of 3 mm Hg. This is likely lower compared to the previous study. Pulmonic Valve: The pulmonic valve is normal in structure and function. There is trace pulmonic regurgitation. There is no other significant valvular heart disease. Great Vessels: The ascending aorta is mildly enlarged. The aortic arch is mildly enlarged. This is unchanged compared to the previous study. The IVC is of normal diameter and collapses greater than 50% with a sniff. This suggests a low right atrial pressure of 3 mm Hg. Pericardium/ Pleura There is no pericardial effusion. There is no pleural effusion. MMode/2D Measurements & Calculations LVIDd: 4.4 cm LVOT diam: 2.2 cm LVIDs: 3.0 cm asc Aorta Diam: 3.6 cm FS: 31.5 % Ao Arch Diam (Prox Trans): 3.5 cm EPSS: 0.64 cm IVSd: 1.1 cm LVPWd: 1.2 cm LV green. diameter/BSA (cm/m^2): 2.6 LV sys. diameter/BSA (cm/m^2): 1.8 LA A2 area: 27.5 cm2 RA long axis: 4.1 cm LA A4 area: 26.1 cm2 RA area: 14.7 cm2 LA length (vol): 5.5 cm RA vol: 45.0 ml LA vol: 110.8 ml RA : 27.0 ml/m2 LA vol index: 66.4 ml/m2 RVD1 (basal): 4.3 cm TAPSE: 2.3 cm Doppler Measurements & Calculations Ao V2 max: 130.2 cm/sec LVOT Max Trevin: 72.5 cm/sec Ao V2 mean: 91.0 cm/sec LV V1 max P.1 mmHg Ao max P.8 mmHg LV V1 VTI: 16.6 cm Ao mean P.6 mmHg JACKLYN(I,D): 2.1 cm2 Ao V2 VTI: 29.8 cm JACKLYN(V,D): 2.1 cm2 sev ratio: 0.56 JACKLYN indexed to BSA (cm^2/m^2): 1.3 AI P1/2t: 612.8 msec AI dec slope: 218.3 cm/sec2 MV E max trevin: 74.7 cm/sec TR max trevin: 305.3 cm/sec MV A max trevin: 53.0 cm/sec TR max P.3 mmHg MV E/A: 1.4 Med Peak E' Trevin: 4.1 cm/sec E/E' med: 18.2 Lat Peak E' Trevin: 7.5 cm/sec E/E' lat: 10.0 E/e' average: 14.1 MV dec time: 0.14 sec SV(LVOT): 63.1 ml Reading Physician:PM
== END ==
PROVIDERS: PCP Student in an Organized Health Care Education/Training Program; Visit Provider Physician Assistant Medical
DX: I08.3 Combined rheumatic disorders of mitral, aortic and tricuspid valves (principal)
CPT/HCPCS: 93306

== ENCOUNTER → 2018-05-22 10:05 | Outpatient (CLI) | payer MEDICARE, OTHER, SELFPAY ==
[2018-02-19 14:03] VITALS: BMI 28.0
[2018-05-22 11:13] LABS: BUN Creatinine Ratio 18.8 (6-22); Blood Urea Nitrogen 32 mg/dL (7-17); Estimated Glomerular Filt Rate 28.9 mL/min (>60)
[2018-05-22 12:16] LABS: Thyroid Stimulating Hormone 1.11 uIU/mL (0.47-4.68)
== END ==
PROVIDERS: Specialist; PCP Student in an Organized Health Care Education/Training Program; Visit Provider Internal Medicine
DX: N14.1 Nephropathy induced by other drugs, medicaments and biological substances (principal); T50.8X5A Adverse effect of diagnostic agents, initial encounter; Z79.899 Other long term (current) drug therapy
CPT/HCPCS: 36415; 82565; 84443; 84520

== ENCOUNTER 2018-05-24 05:44 | Emergency (ER) | payer MEDICARE, OTHER, SELFPAY ==
[2018-02-19 14:03] VITALS: BMI 28.0
[2018-05-24 05:53] VITALS: BP 227/92; PULSE 76; RESP 18; TEMP 36.7; O2SAT 100; BMI 25.6
[2018-05-24 05:55] VITALS: BP 227/92; PULSE 70; RESP 18; TEMP 37; O2SAT 99
[2018-05-24 06:00] VITALS: BP 124/68; PULSE 66; RESP 18; O2SAT 97
--- NOTE | 2018-05-24 06:12 | PC.NURSE ---
Pt states left facial numbness onset 0515, pt noticed when awoke to use bathroom. Reports MRI scheduled for this week for hx of intermittent unsteady gait. Pt speaking in clear full sentences, able to ambulate and transfer self independently to stretcher. Hx Afib, on Coumadin.
[2018-05-24 06:54] VITALS: BP 182/150; PULSE 66; RESP 15; O2SAT 100
--- NOTE | 2018-05-24 07:21 | ED.NEUROSD ---
HPI - Neuro Symptoms/Deficit General Chief Complaint: Neuro Symptoms/Deficit Stated Complaint: possible stroke, numbness on left side Time Seen by Provider: 05/24/18 06:12 Source: patient Mode of arrival: ambulatory Limitations: no limitations History of Present Illness HPI Narrative: Patient presents the emergency department complaining of left face still numbness that started around 5:00 a.m. this morning. Patient states she awoke and noticed some palpitations checked her blood pressure, which she found to be elevated at approximately 200/100. She states that she began to feel the left facial numbness and also, felt somewhat off balance, as though she was listing to the left. Patient states she has had multiple episodes like this over the last several months, especially since her of 65 years in January. She states that she has seen her environmental emergencies planner, Dr. Villarreal, for this and she has had both carotid Doppler and an echocardiogram very recently. Patient states that she has a headache this time, which has happened with other episodes, as well, but does not happen every time. She has not had any nausea or vomiting. No chest pain or shortness breath. She denies focal weakness. She states she has a burning sensation in her left leg, which she has been noticing on and off for the past several months, as well. Patient states that prior to this episode she has been well, although she does note that she is still in the throes of grief over her , and that she has also had some other life stresses recently. Patient's daughter is here from [place], staying with her. Patient and daughter note that her environmental emergencies planner had recommended neurology follow-up, but that the primary care physician wanted to postpone this and have the patient get an MR study of the head and neck 1st. It is not clear whether this will be just an MRI or will include an MRA also. On Anticoagulants: Yes Related Data Home Medications Medication Instructions Recorded Confirmed acetaminophen [Tylenol Extra 500 mg PO PRN PRN #0 04/19/16 03/15/18 Strength] lisinopril 5 mg PO BID 02/07/18 03/15/18 warfarin 1 mg PO SUMOWEFRSA 02/07/18 03/15/18 warfarin 1 tab PO TUTH 02/07/18 03/15/18 amiodarone 200 mg tablet 100 mg PO QDAY #0 tab 03/15/18 03/15/18 sertraline 100 mg tablet 50 mg PO DAILY tab 03/15/18 03/15/18 Allergies Allergy/AdvReac Type Severity Reaction Status Date / Time latex Allergy Severe THROAT Verified 03/15/18 14:39 SWELLING prednisone [PREDNISONE] Allergy Intermediate rash Verified 03/15/18 14:39 amoxicillin Allergy Mild ITCH Verified 03/15/18 14:39 ciprofloxacin Allergy Mild ITCH Verified 03/15/18 14:39 clavulanic acid Allergy Mild RASH Verified 03/15/18 14:39 hydromorphone Allergy Mild ITCHING Verified 03/15/18 14:39 nitrofurantoin Allergy Mild ABD Verified 03/15/18 14:39 PAIN/SEVERE ITCHING oxycodone Allergy Mild ITCH Verified 03/15/18 14:39 Penicillins Allergy Mild BLISTERS Verified 03/15/18 14:39 Sulfa (Sulfonamide Allergy Mild ITCH Verified 03/15/18 14:39 Antibiotics) levofloxacin [From LEVAQUIN] AdvReac Severe DISTURBING Verified 03/15/18 14:39 HALLUCINATIONS lorazepam [From ATIVAN] AdvReac Intermediate Verified 03/15/18 14:39 morphine AdvReac Mild HALLUCINATI Verified 03/15/18 14:39 ONS Review of Systems Constitutional Denies chills, Denies fever(s), Denies lethargy and Denies weakness Eyes Denies change in vision, Denies eye discharge, Denies irritation and Denies loss of vision ENT Ears, Nose, Mouth, and Throat: Denies change in voice, Denies neck pain and Denies sore throat Cardiovascular Denies chest pain, Denies irregular heart rhythm, Denies lightheadedness, Reports palpitations, Denies dyspnea, Denies dyspnea on exertion and Denies orthopnea Respiratory Denies cough, Denies dyspnea, Denies dyspnea on exertion and Denies wheezing Gastrointestinal Gastrointestinal: Denies abdominal pain, Denies change in bowel habits, Denies diarrhea, Denies nausea and Denies vomiting Genitourinary Denies hematuria, Denies flank pain, Denies urinary incontinence and Denies urinary urgency Musculoskeletal Denies neck pain Integumentary/Breasts Denies pruritus, Denies erythema, Denies rash and Denies wounds Neurologic Denies confusion, Denies loss of vision, Reports paresthesias and Denies weakness Psychiatric Denies anxiety, Denies confusion, Denies depression, Denies homicidal ideation and Denies suicidal ideation Endocrine Reports palpitations Hematologic/Lymphatic Denies easy bruising Allergic/Immunologic Denies wheezing [facility] Medical History Paroxysmal atrial fibrillation (Chronic ~2013) Essential hypertension (Chronic) Cerebral microvascular disease (Chronic) Anxiety (Chronic 12/08/15) 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 difficile colitis (Resolved 07/2015) C. difficile colitis (Resolved 11/2011) Chicken pox (Resolved ~1940) Measles (Resolved ~194) Mumps (Resolved ~194) Paraesophageal hernia (Resolved) Skin cancer (Resolved 2009) History of PSVT (paroxysmal supraventricular tachycardia) (Inactive) Surgical History Anesthesia (Resolved) History of bladder surgery (Resolved ~1967) History of cholecystectomy (Resolved) History of nephrectomy (Resolved) History of spinal fusion (Resolved 2005) S/P repair of paraesophageal hernia (Resolved) Status post hysterectomy with oophorectomy (Resolved) Family History Brother CAD (coronary artery disease) Hyperlipidemia High cholesterol Lung cancer Colon cancer Brother Cancer High cholesterol Lung disease Father Colon cancer CAD (coronary artery disease) High cholesterol Mother CVA (cerebral vascular accident) Hyperlipidemia Sister Age: 83 CAD (coronary artery disease) Hyperlipidemia Ulcer Essential hypertension High cholesterol Heart attack Grandfather Throat cancer Grandmother Heart disease Family/Other Lung disease Social History household members: spouse Smoking Status: Never smoker Exam Initial Vital Signs Initial Vital Signs: Vital Signs Temperature 98.1 F 05/24/18 05:53 Pulse Rate 76 05/24/18 05:53 Respiratory Rate 18 05/24/18 05:53 Blood Pressure 227/92 H 05/24/18 05:53 Pulse Oximetry 100 05/24/18 05:53 Const General: cooperative and well developed Nutritional Appearance: well nourished Orientation: alert, awake, oriented x3 and not confused [facility] Head: normocephalic and atraumatic Ears: external ears normal and TM's normal bilaterally Nose: external nose normal and No nasal discharge Face and sinus: sinuses nontender, face symmetric, no sinus tenderness and No dry mucous membranes Mouth: oral mucosae normal and moist mucous membranes Teeth and gingiva: dentition normal Throat: tonsils normal and uvula midline Eyes General: appearance normal, both eyes and all related structures Eyelids: eyelids normal Conjunctivae: conjunctivae normal Sclera: sclerae normal Pupils: PERRL EOM: EOM intact bilaterally Neck Neck: normal visual inspection, trachea midline, No lymphadenopathy, No midline deformity and No JVD Lymphatic: No lymphedema Chest Chest: normal inspection of the chest Resp Effort & Inspection: normal respiratory effort, able to speak in complete sentences, no respiratory distress and no use of accessory muscles Auscultation: clear to auscultation bilaterally, no rales, no rhonchi and no wheezes Cardio Rate: regular rate Rhythm: regular rhythm Heart Sounds: no click, no gallops, no murmurs and no rubs Pulses: normal peripheral pulses GI Inspection: non-distended Palpation: soft, no hepatosplenomegaly, No guarding, No pulsatile mass and No tender Auscultation: normal bowel sounds Back/Spine/Pelvis Back: No CVA tenderness Cervical Spine: cervical ROM normal and No pain with cervical ROM Thoracic/Lumbar Spine: thoracic and lumbar spine normal to inspection Skin General: no rashes or lesions noted, No jaundice and No petechiae Neuro General: alert, oriented x3, gait normal and no focal motor deficits Cranial Nerves: CN's II-XI intact bilaterally Speech: speech normal Motor: muscle tone normal throughout and strength 5/5 throughout Sensory Exam: other (Patient has intact and equal sensation to both sharp and light touch on her face. She has slightly decreased sharp and light touch sensation on the left lower extremity versus the right. The upper extremities are equal.) Extrem General: full ROM, no clubbing, cyanosis or edema, no pedal edema and no calf tenderness Psych Appearance: well kempt Mental Status: mental status grossly normal Attitude: cooperative Thought Content: normal and suicidality Judgment: judgment good Course Course Narrative: I reviewed the patient's carotid Doppler, which was performed in February, and her echocardiogram, which was performed 2 days ago. Both studies are reassuring at this point, though patient was found to have less than 50% stenosis of her bilateral carotid arteries. I have discussed at quite a length with the patient and her daughter that the patient symptoms may be due to TIA or may not represent cerebral ischemia. At this point, she has had the follow-up studies for TIA, as noted above, and she is also anticoagulated. We will check her INR today. EKG has been performed, and is normal. She is scheduled for an MR study tomorrow of her head and neck, which has been ordered by her primary doctor, and she is also planning to follow up with Neurology. The patient is signed out to Dr. Flor Coburn, pending her INR results. Orders Ordered: ED Orders 05/24/18 EKG-12 Lead Routine 05/24/18 07:12 Prothrombin Time INR Stat Vital Signs - 8 hr 05/24/18 05:53 05/24/18 05:55 05/24/18 06:00 Temperature 98.1 F 98.6 F Pulse Rate 76 70 66 Respiratory Rate 18 18 18 Blood Pressure 227/92 H Blood Pressure [Right Arm] 227/92 H 124/68 Pulse Oximetry 100 99 97 05/24/18 06:54 Temperature Pulse Rate 66 Respiratory Rate 15 Blood Pressure Blood Pressure [Right Arm] 182/150 H Pulse Oximetry 100 Discharge Plan Departure Prescriptions: No Action acetaminophen [Tylenol Extra Strength] 500 MG tablet 500 mg PO PRN PRN (Reason: Pain, Mild) Qty: 0 RF: 0 amiodarone 200 mg tablet 100 mg PO QDAY Qty: 0 RF: 0 warfarin 2 mg tablet 1 mg PO SUMOWEFRSA RF: 0 warfarin 2 mg tablet 1 tab PO TUTH RF: 0 lisinopril 5 mg tablet 5 mg PO BID RF: 0 sertraline 100 mg tablet 50 mg PO DAILY RF: 0 ED Cosign/Signout Sign Out Provider Sign Out Attestation: Pending INR. On Coumadin for paroxysmal a. fib. C/o facial numbness, listing to left and HBP. Exam essentially normal.
[2018-05-24 07:24] LABS: INR 1.3 (0.9-1.3); Prothrombin Time 14.7 SECONDS (10.1-12.7)
[2018-05-24 08:51] VITALS: BP 155/61; PULSE 64; RESP 18; O2SAT 96
== END 2018-05-24 09:13 | disposition home or self-care (01) ==
PROVIDERS: Emergency Medicine; Emergency Provider Emergency Medicine; PCP Student in an Organized Health Care Education/Training Program
DX: I48.91 Unspecified atrial fibrillation (principal)
CPT/HCPCS: 85610; 93005; 99283

== ENCOUNTER → 2018-05-25 15:46 | Outpatient (CLI) | payer MEDICARE, OTHER, SELFPAY ==
[2018-02-19 14:03] VITALS: BMI 28.0
--- NOTE | 2018-05-25 15:47 | DI.MRI.S_ITS ---
PROCEDURE: MR ANGIO NECK W CON INDICATIONS: uncoordinated movements; f/u previous aneurysm TECHNIQUE: Axial and sagittal TruFISP through the neck. Coronal dynamic MRA after the administration of contrast in the arterial and venous phases, with rotating 3-dimensional maximum intensity projection (MIP) reformats constructed from subtraction images. COMPARISON: [facility], MR, STROKE PROTOCOL, 12/02/2014, 13:04. [facility], MR, MR ANGIO HEAD WO CON, 05/25/2018, 16:02. FINDINGS: Image quality: Excellent. Carotid system: Great vessels demonstrate a conventional anatomy as they arise from the aortic arch. The origins of the common carotid arteries appear normal. The calibers of the common carotid arteries are likewise normal. The proximal common carotid arteries are tortuous. The carotid bifurcations demonstrate atherosclerotic irregularity. There is an approximately 50% stenosis involving the left proximal internal carotid artery. No definite stenosis can be seen on the left. Posterior circulation: The origins of the vertebral arteries are unremarkable. The more superior portions of the vertebral arteries demonstrate normal caliber. The vertebral arteries are relatively tortuous. The vertebral arteries join to form a normal appearing basilar artery. Miscellaneous: Subclavian arteries are patent throughout. Pre-contrast images through the neck demonstrate no soft tissue abnormalities. IMPRESSION: Approximately 50% stenosis involving the right proximal internal carotid artery. Tortuous proximal common carotid arteries and tortuous vertebral arteries incidentally noted. Any quantitative measurements of stenosis were performed using NASCET criteria. Dictated by: Santi Lerma M.D. on 05/25/2018 at 16:15 Approved by: Santi Lerma M.D. on 05/25/2018 at 16:17
--- NOTE | 2018-05-25 15:47 | DI.MRI.S_ITS ---
PROCEDURE: MR ANGIO HEAD WO CON INDICATIONS: uncoordinated movements: f/u previous aneurysm TECHNIQUE: Noncontrast axial 3-D [id number] MR angiogram, with 3-dimensional maximum intensity projection (MIP) reformats of the internal carotid arteries and posterior circulation then performed. COMPARISON: [facility], MR, STROKE PROTOCOL, 12/02/2014, 13:04. [facility], CT, CT HEAD/BRAIN WO CON, 02/07/2018, 8:05. [facility], MR, MR ANGIO NECK W CON, 05/25/2018, 16:13. FINDINGS: Image quality: Excellent. Anterior circulation: Intracranial internal carotid arteries demonstrate normal size and intraluminal flow signal. The flow within the paired anterior cerebral arteries is normal and symmetric. The flow within the middle cerebral arteries is normal and symmetric. Along the left aspect of the anterior communicating artery, there is an apparent aneurysm seen. No stenoses or occlusions. Posterior circulation: Visualized portions of the vertebral arteries demonstrate normal caliber, and join to form a normal appearing basilar artery. There is a prominent right posterior communicating artery seen, with an accompanying diminutive right P1 segment. This is attributed to a type origin of the right posterior cerebral artery, which is considered to be a normal developmental variant of typically no clinical consequence. The flow within the posterior cerebral arteries is normal and symmetric. No stenoses, occlusions, or aneurysms. 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 Please correlate with known patient history and any relevant outside imaging. Dictated by: Santi Lerma M.D. on 05/25/2018 at 16:11 Approved by: Santi Lerma M.D. on 05/25/2018 at 16:15
== END ==
PROVIDERS: PCP Student in an Organized Health Care Education/Training Program; Visit Provider Student in an Organized Health Care Education/Training Program
DX: I72.8 Aneurysm of other specified arteries (principal); I65.21 Occlusion and stenosis of right carotid artery; I67.9 Cerebrovascular disease, unspecified
CPT/HCPCS: 70544; 70548; A9579

== ENCOUNTER → 2018-06-11 12:59 | Outpatient (CLI) | payer MEDICARE, OTHER, SELFPAY ==
[2018-02-19 14:03] VITALS: BMI 28.0
[2018-06-11 14:06] LABS: INR 1.6 (0.9-1.3); Prothrombin Time 18.7 SECONDS (10.1-12.7)
== END ==
PROVIDERS: PCP Student in an Organized Health Care Education/Training Program; Visit Provider Student in an Organized Health Care Education/Training Program
DX: I48.0 Paroxysmal atrial fibrillation (principal); Z79.01 Long term (current) use of anticoagulants; Z51.81 Encounter for therapeutic drug level monitoring
CPT/HCPCS: 36415; 85610

== ENCOUNTER → 2018-06-15 10:38 | Outpatient (CLI) | payer MEDICARE, OTHER, SELFPAY ==
[2018-02-19 14:03] VITALS: BMI 28.0
[2018-06-15 11:15] LABS: Lactate (Lactic Acid) 0.6 mmol/L (0.7-2.1)
[2018-06-15 11:40] LABS: Add Manual Diff / Slide Review NO; Basophils Absolute Auto 0 /uL (0-100); Basophils Percent Auto 0.9 % (0-2); Eosinophils Absolute Auto 100 /uL (0-450); Hematocrit 36.1 % (36-46); Hemoglobin 11.3 g/dL (12.0-16.0); Lymphocytes Absolute Auto 1500 /uL (1100-4500); Lymphocytes Percent Auto 26.9 % (25-40); Mean Corpuscular HGB Conc 31.4 % (30-36); Mean Corpuscular Hemoglobin 25.4 PG (26-34); Mean Corpuscular Volume 80.7 fL (80-100); Monocytes Absolute Auto 400 /uL (0-900); Monocytes Percent Auto 7.3 % (3-14); Neutrophils Absolute Auto 3500 /uL (1500-7000); Neutrophils Percent Auto 62.9 % (50-75); Platelet Count 277 X10^3/uL (150-400); Red Blood Cell Count 4.47 X10^6/uL (4.0-5.2); White Blood Cell Count 5.5 X10^3/uL (4.5-11.0)
[2018-06-15 12:09] LABS: Erythrocyte Sedimentation Rate 20 MM/HR (0-20)
[2018-06-15 12:13] LABS: Alanine Aminotransferase 28 IU/L (9-52); Albumin Globulin Ratio 1.2 (1.0-2.8); Alkaline Phosphatase 69 U/L (38-126); Aspartate Aminotransferase 32 IU/L (14-36); Bilirubin Direct 0.2 mg/dL (0.0-0.4); Bilirubin Total 0.4 mg/dL (0.2-1.3); Blood Urea Nitrogen 30 mg/dL (7-17); Carbon Dioxide 27 mmol/L (22-32); Chloride 104 mmol/L (98-107); Estimated Glomerular Filt Rate 33.4 mL/min (>60); Gamma Glutamyl Transpeptidase 16 U/L (12-43); Globulin 3.4 g/dL (1.7-4.1); Glucose 116 mg/dL (80-110); HEMOLYSIS < 15 (0-50); Potassium 4.5 mmol/L (3.4-5.1); Sodium 138 mmol/L (137-145); Total Protein 7.4 g/dL (6.3-8.2)
== END ==
PROVIDERS: PCP Student in an Organized Health Care Education/Training Program; Visit Provider Student in an Organized Health Care Education/Training Program
DX: K92.1 Melena (principal); R10.9 Unspecified abdominal pain
CPT/HCPCS: 36415; 80053; 82248; 82977; 83605; 85025; 85651

== ENCOUNTER → 2018-06-19 12:01 | Outpatient (CLI) | payer MEDICARE, OTHER, SELFPAY ==
[2018-02-19 14:03] VITALS: BMI 28.0
--- NOTE | 2018-06-19 12:17 | DI.CT.S_ITS ---
PROCEDURE: CT ABDOMEN PELVIS WO CON INDICATIONS: Abdominal pain TECHNIQUE: After the administration of oral contrast, 5 mm thick sections acquired from the diaphragms to the symphysis. 5 mm coronal and sagittal reformats were performed. For radiation dose reduction, the following was used: automated exposure control, adjustment of mA and/or kV according to patient size. COMPARISON: [facility], CT, ABDOMEN/PELVIS WITH CONTRAST, 11/05/2016, 11:17. [facility], CT, ABDOMEN/PELVIS WITH CONTRAST, 01/29/2016, 10:12. [facility], CT, ABDOMEN/PELVIS WITH CONTRAST, 10/04/2013, 10:25. FINDINGS: Image quality: Diagnostic. ABDOMEN: Lung bases: Lung bases are clear. Heart size is normal. Solid organs: The patient has had a prior cholecystectomy. The liver is otherwise unremarkable. The spleen is unremarkable.. There is prominent atrophy of the pancreas. Patient is status post right nephrectomy and apparent adrenalectomy. The left adrenal and left kidney are within normal limits. There is no left-sided hydronephrosis. No renal or ureteral calculi are evident. Peritoneum and bowel: There is a [id number] sized hiatal hernia. Mild prominence of the wall of the stomach is not well characterized. There is also slight prominence of the wall of the duodenum. The small bowel loops are nondilated. Moderate residual stool is identified within the colon. Distal colonic diverticulosis is noted. There is soft tissue prominence identified at the ileocecal valve involving the cecum, which is not well characterized. No mesenteric inflammation is appreciated. There is no free fluid or loculated fluid collection. No free air is evident. Nodes and vessels: No retroperitoneal or mesenteric adenopathy by size criteria. Aorta and inferior vena cava are normal in size. Bones: No displaced fractures or dislocations are evident. No suspicious osseous lesions are identified. Postoperative changes are present related to an L4-5 laminectomy and fusion. Hardware is intact and the alignment through this region is well-maintained. Moderate multilevel degenerative changes of the lumbar spine have not significantly progressed in the interim.. PELVIS: Genitourinary: Bladder wall thickness is normal. The uterus is surgically absent. There appears to be a prominent vein adjacent to the right lateral wall of the urinary bladder, which which tracks to the level of the confluence between the internal and external iliac veins. Miscellaneous: No inguinal hernias or adenopathy. No free fluid or loculated fluid collection is appreciated. Bones: No suspicious bony lesions. No acute pelvic fractures are evident. No degenerative changes of the sacroiliac joints and pubis symphysis are present. There is slight joint space narrowing of the bilateral hips. IMPRESSION: 1. Mild prominence of the wall of the stomach and duodenum may represent gastroduodenitis and clinical correlation is recommended. 2. Soft tissue prominence of the colon at the level of the ileocecal valve is nonspecific. The adherent stool or potentially a colonic polyp/neoplasm is difficult to exclude. Colonoscopy would be helpful for better characterization. 3. Distal colonic diverticulosis without diverticulitis. 4. Status post right nephrectomy and adrenalectomy. There is no hydronephrosis of the left kidney. Dictated by: Clay Crenshaw M.D. on 06/19/2018 at 15:15 Approved by: Clay Crenshaw M.D. on 06/19/2018 at 15:22
== END ==
PROVIDERS: PCP Student in an Organized Health Care Education/Training Program; Visit Provider Student in an Organized Health Care Education/Training Program
DX: R10.9 Unspecified abdominal pain (principal); K92.1 Melena; K57.90 Diverticulosis of intestine, part unspecified, without perforation or abscess without bleeding; Z90.5 Acquired absence of kidney
CPT/HCPCS: 74176

== ENCOUNTER → 2018-06-27 13:03 | Outpatient (CLI) | payer MEDICARE, OTHER, SELFPAY ==
[2018-02-19 14:03] VITALS: BMI 28.0
[2018-06-27 14:25] LABS: Alanine Aminotransferase 33 IU/L (9-52); Albumin Globulin Ratio 1.3 (1.0-2.8); Alkaline Phosphatase 61 U/L (38-126); Aspartate Aminotransferase 28 IU/L (14-36); Bilirubin Total 0.3 mg/dL (0.2-1.3); Blood Urea Nitrogen 34 mg/dL (7-17); Calcium 8.8 mg/dL (8.4-10.2); Carbon Dioxide 26 mmol/L (22-32); Chloride 103 mmol/L (98-107); Cholesterol 258 mg/dL (140-199); Estimated Glomerular Filt Rate 28.9 mL/min (>60); Globulin 3.1 g/dL (1.7-4.1); Glucose 91 mg/dL (80-110); HDL Cholesterol 68 mg/dL (40-60); HEMOLYSIS < 15 (0-50); LDL Cholesterol Calculated 162 mg/dL (<100); Magnesium 2.2 mg/dL (1.6-2.3); Potassium 4.6 mmol/L (3.4-5.1); Sodium 138 mmol/L (137-145); Total Protein 7.1 g/dL (6.3-8.2); Triglycerides 138 mg/dL (35-150)
[2018-06-27 14:54] LABS: Thyroid Stimulating Hormone 0.87 uIU/mL (0.47-4.68)
== END ==
PROVIDERS: PCP Student in an Organized Health Care Education/Training Program; Visit Provider Physician Assistant Medical
DX: E78.2 Mixed hyperlipidemia (principal); I48.0 Paroxysmal atrial fibrillation; Z79.899 Other long term (current) drug therapy
CPT/HCPCS: 36415; 80053; 80061; 83735; 84443

== ENCOUNTER → 2018-07-03 16:26 | Outpatient (CLI) | payer MEDICARE, OTHER, SELFPAY ==
[2018-07-03 15:42] VITALS: BMI 28.0
--- NOTE | 2018-07-03 17:07 | DI.RAD.S_ITS ---
PROCEDURE: XR CHEST 2V INDICATIONS: Cough TECHNIQUE: 2 views of the chest were acquired. COMPARISON: [facility], CR, XR CHEST 1V, 10/25/2017, 18:18. [facility], CR, XR CHEST 2V, 01/10/2018, 19:00. FINDINGS: Surgical changes and devices: Lead-less pacer again noted Lungs and pleura: No acute consolidation however a 5 mm nodular opacity projects in the right midlung. No pleural effusions or pneumothorax. Mediastinum: Mediastinal contours are normal. Heart size is normal. Bones and chest wall: No suspicious bony abnormalities. Scoliosis and multilevel spondylosis Soft tissues appear unremarkable. IMPRESSION: No acute disease. 5 mm nodular opacity projecting in the right midlung. Technically, metastatic or early malignant pulmonary nodule cannot be excluded. Recommend PA and lateral chest radiographs in 6 months for further assessment. Dictated by: Lorenzo Paul M.D. on 07/03/2018 at 17:31 Approved by: Lorenzo Paul M.D. on 07/03/2018 at 17:45
== END ==
PROVIDERS: PCP Student in an Organized Health Care Education/Training Program; Visit Provider Physician Assistant
DX: R05 Cough (principal); R91.1 Solitary pulmonary nodule; M41.9 Scoliosis, unspecified; Z95.0 Presence of cardiac pacemaker
CPT/HCPCS: 71046

== ENCOUNTER 2018-07-04 14:09 | Outpatient (RCR) | payer MEDICARE, OTHER, SELFPAY ==
[2018-07-03 15:42] VITALS: BMI 28.0
--- NOTE | 2018-07-04 17:41 | PT.OIE ---
Current Diagnoses Pain in right shoulder (07/04/18) Stiffness of right shoulder, not elsewhere classified (07/04/18) Unspecified rotator cuff tear or rupture of unspecified shoulder, not specified as traumatic (07/04/18) Other abnormalities of gait and mobility (07/04/18) Strain of muscle(s) and tendon(s) of the rotator cuff of right shoulder, subsequent encounter (07/04/18) Past Medical History (Last Reviewed 05/24/18 @ 07:30 by Delores Stevenson MD) Paroxysmal atrial fibrillation (Chronic ~2013) Essential hypertension (Chronic) Cerebral microvascular disease (Chronic) Anxiety (Chronic 12/08/15) 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 difficile colitis (Resolved 07/2015) C. difficile colitis (Resolved 11/2011) Chicken pox (Resolved ~1940) Measles (Resolved ~1940) Mumps (Resolved ~1940) Paraesophageal hernia (Resolved) Skin cancer (Resolved 2009) History of PSVT (paroxysmal supraventricular tachycardia) (Inactive) Past Surgical History (Last Reviewed 05/24/18 @ 07:30 by Delores Stevenson MD) Anesthesia (Resolved) History of bladder surgery (Resolved ~1967) History of cholecystectomy (Resolved) History of nephrectomy (Resolved) History of spinal fusion (Resolved 2005) S/P repair of paraesophageal hernia (Resolved) Status post hysterectomy with oophorectomy (Resolved) Provider Visit Care Team Role Provider Type Scooter Salgado MD Attending Provider Physician Primary Care Provider Specialty: Internal Medicine Address: [address] [place] [address], [facility] Email: Physical Therapy Initial Evaluation PT-OP-A Visit Information Start: 07/04/18 16:17 Freq: Status: Active Protocol: Document 07/04/18 14:30 DCW (Rec: 07/04/18 17:40 [facility] [id number]) Out-Patient Physical Therapy Visit Information Visit Information Visit Type Initial Evaluation Visit Start Time 14:30 Visit Stop Time 15:15 Total Visit Minutes 45 Visit Number 1 Number of PRINTER HELPER Visits 0 Evaluation Information Evaluation Date 07/04/18 PT-OP-B Current Condition Start: 07/04/18 16:17 Freq: Status: Active Protocol: Document 07/04/18 14:30 DCW (Rec: 07/04/18 17:40 [facility] [id number]) Current Condition History of Current Condition Onset Date 3 months Current Complaints R shoulder pain/decreased ROM, ?functional mobility, occasional imbalance History of Current Condition Pt reports that she began having a sudden, insidious onset of right shoulder pain in March. Shortly thereafter, she left the state for a month, and upon her return, opened her door, felt a pop in her shoulder, and had a sudden and severe increase in pain. Since that time, she has not been able to move her shoulder much, and has had constant, limiting pain. Pt reports she has recently been unable to do things like carry groceries, pour herself coffee, or reach above waist height. Pt reports that she was diagnosed with a probable R/C tear. Additionally, pt was referred to skilled therapy for recent balance issues, however at this time, pt is much more concerned and limited by her shoulder, and would like to hold off on the balance for now to focus on her shoulder. Treatment Goals Patient/Caregiver Goals I just want to be able to use my arm again. I'm right handed, so I can barely do anything. PT-OP-C Subjective Start: 07/04/18 16:17 Freq: Status: Active Protocol: Document 07/04/18 14:30 DCW (Rec: 07/04/18 17:40 [facility] [id number]) OP-PT Subjective Patient Comments Patient Comments I've kind of been trying not to even use it. Patient Reported Progress Same Patient Questionnaires Quick Dash- Upper Extremity Quick Dash UE Score 59.09% Quick Dash UE Impairment 40 to 59% Impaired (Score 40- 59) OP-PT Pain Assessment Pain Assessment Grid Paper Pain Assessment Grid Completed Yes Location Right Shoulder Pain Location Details Superior shoulder down lateral upper arm Intensity 6 Scale Used Numeric (1 - 10) Description Sharp Spasm Stabbing PT-OP-E Functional Tests Start: 07/04/18 16:17 Freq: Status: Active Protocol: Document 07/04/18 14:30 DCW (Rec: 07/04/18 17:40 [facility] [id number]) Functional Tests Apley's Scratch Test Action 1: The subject is instructed to touch the opposite shoulder with his/her hand. This motion checks Glenohumeral adduction, internal rotation , horizontal adduction and scapular protraction Action 2: The subject is instructed to place his/her arm overhead and reach behind the neck to touch his/her upper back. This motion checks Glenohumeral abduction, external rotation and scapular upward rotation and elevation. Action 3: The subject puts his/her hand on the lower back and reaches upward as far as possible. This motion checks glenohumeral adduction, internal rotation and scapular retraction with downward rotation Action 1- Left Anterior opposite shoulder Action 2- Left Unable to reach head Action 3- Left T8 PT-OP-F Manual Assessment Start: 07/04/18 16:17 Freq: Status: Active Protocol: Document 07/04/18 14:30 DCW (Rec: 07/04/18 17:40 [facility] [id number]) Manual Assessments Soft Tissue Assessment Soft Tissue Mobility Assessment Moderate tone and tenderness to palpation 3/4 - Wincing and withdraw along Supraspinatus muscle body. PT-OP-K Range of Motion Start: 07/04/18 16:17 Freq: Status: Active Protocol: Document 07/04/18 14:30 DCW (Rec: 07/04/18 17:40 [facility] [id number]) Shoulder Goniometric Range of Motion Shoulder Measured in Degrees Right Passive Flexion 120 Abduction 92 Right Active Flexion 35 Abduction 28 Shoulder ROM Limitations Shoulder ROM Limitations Muscle Weakness Pain PT-OP-L Special Tests Start: 07/04/18 16:17 Freq: Status: Active Protocol: Document 07/04/18 14:30 DCW (Rec: 07/04/18 17:40 [facility] [id number]) Special Tests Shoulder Special Tests Painful Arc Test Results Positive Empty Can Test Results Positive Lift-Off Rotator Cuff Test Results Negative Passive ER Rotator Cuff Test Results Negative Drop Arm Rotator Cuff Test Results Positive Belly Press Test Results Negative PT-OP-M Strength Start: 07/04/18 16:17 Freq: Status: Active Protocol: Document 07/04/18 14:30 DCW (Rec: 07/04/18 17:40 [facility] [id number]) Shoulder Strength Shoulder Manual Muscle Testing Right Flexion 2 Poor Abduction (C5) 2 Poor Adduction 4- Good- External Rotation 4 Good Internal Rotation 4 Good PT-OP-Q Treatments Start: 07/04/18 16:17 Freq: Status: Active Protocol: Document 07/04/18 14:30 DCW (Rec: 07/04/18 17:40 [facility] [id number]) Therapeutic Exercises Sitting Exercises Table Slides Sitting Exercise Name Table slides - Flexion and Abduction Side right Standing Exercises Pendulums Standing Exercise Name Pendulums Side right PT-OP-T Assessment and Plan Start: 07/04/18 16:17 Freq: Status: Active Protocol: Document 07/04/18 14:30 DCW (Rec: 07/04/18 17:40 [facility] [id number]) Physical Therapy Assessment Rehab Potential Rehabilitation Potential Good Evaluation Complexity Number of Personal Factors/Comorbidities 1-2 Number of Body Systems Impaired 3 Clinical Presentation at Evaluation Unstable Impairments Impairments Functional Activities Functional Mobility Pain Posture ROM Soft Tissue Mobility Strength Other Impairments Imbalance, Hx skin Ca on face and R hand Goals Four Impairment Positive special tests Nursing Home Goal (LTG) Drop arm and painful arc tests negative LTG Duration 09/01/18 Three Impairment Limited ROM Short Term Goal (STG) Active right shoulder flexion to 90? Active right shoulder abduction to 90? STG Duration 08/01/18 [employer] Goal (LTG) Active right shoulder flexion to 120? Active right shoulder abduction to 120? LTG Duration 09/01/18 Two Impairment Pt unable to perform normal functional activities Short Term Goal (STG) Pt to pour coffee using right hand with no increased pain STG Duration 08/01/18 Nursing Home Goal (LTG) Pt to carry groceries from car with no increased symptoms LTG Duration 09/01/18 One Impairment Pt does not have an appropriate home exercise program Short Term Goal (STG) Pt to be independent and complaint with an appropriate HEP STG Duration 08/01/18 Assessment Summary Assessment Pt presents with signs and symptoms of a moderate supraspinatus tear. Drop arm and painful arc tests are both indicitive of supraspinatus involvement, and other R/C muscles do not seem to involved, as at this time, she has normal function and mobility with internal and external rotation. Pt should benefit from skilled therapy focusing on generalized strengthening, ROM/flexibility to decrease likelihood of adhesive capsulitis, e-stim for pain-control, and training to decrease over-compensation of upper trap as shoulder heals. If pt does not demonstrate improvement over the course of rehab, she may benefit from an MRI to determine full extent of injury. Pt's reports of imbalance will be assessed at a later date, after her shoulder pain has been better controlled. Physical Therapy Plan Frequency and Duration Frequency of Treatment 2x/Week Duration of Treatment 3 months Plan of Care Start Date 07/04/18 Plan of Care End Date 10/01/18 Therapeutic Interventions Therapeutic Interventions Aquatic Therapy Balance Training Home Exercise Program Joint Mobilizations Manual Therapy Patient/Caregiver Education Self-Care/Home Management Soft Tissue Mobilization Therapeutic Activities Therapeutic Exercises Modalities Cold Pack/Ice Massage Electric Stimulation Hot Packs Next Visit Focus/Plan Next Note Type Treatment Note Next Visit Plan Shoulder ROM, STM, gentle strengthening
--- NOTE | 2018-09-04 13:54 | PT.OPDS ---
Current Diagnoses Pain in right shoulder (07/04/18) Stiffness of right shoulder, not elsewhere classified (07/04/18) Unspecified rotator cuff tear or rupture of unspecified shoulder, not specified as traumatic (07/04/18) Other abnormalities of gait and mobility (07/04/18) Strain of muscle(s) and tendon(s) of the rotator cuff of right shoulder, subsequent encounter (07/04/18) Provider Visit Care Team Role Provider Type Scooter Salgado MD Attending Provider Physician Primary Care Provider Specialty: Internal Medicine Address: [address] [place] [address] Email: Visit Number Visit Number 1 Discharge Summary PT-OP-B Current Condition Start: 07/04/18 16:17 Freq: Status: Active Protocol: Document 07/04/18 14:30 DCW (Rec: 07/04/18 17:40 DCW [id number]) Current Condition History of Current Condition Onset Date 3 months Current Complaints R shoulder pain/decreased ROM, ?functional mobility, occasional imbalance History of Current Condition Pt reports that she began having a sudden, insidious onset of right shoulder pain in March. Shortly thereafter, she left the state for a month, and upon her return, opened her door, felt a pop in her shoulder, and had a sudden and severe increase in pain. Since that time, she has not been able to move her shoulder much, and has had constant, limiting pain. Pt reports she has recently been unable to do things like carry groceries, pour herself coffee, or reach above waist height. Pt reports that she was diagnosed with a probable R/C tear. Additionally, pt was referred to skilled therapy for recent balance issues, however at this time, pt is much more concerned and limited by her shoulder, and would like to hold off on the balance for now to focus on her shoulder. Treatment Goals Patient/Caregiver Goals I just want to be able to use my arm again. I'm right handed, so I can barely do anything. PT-OP-C Subjective Start: 07/04/18 16:17 Freq: Status: Active Protocol: Document 07/04/18 14:30 DCW (Rec: 07/04/18 17:40 DCW [id number]) OP-PT Subjective Patient Comments Patient Comments I've kind of been trying not to even use it. Patient Reported Progress Same Patient Questionnaires Quick Dash- Upper Extremity Quick Dash UE Score 59.09% Quick Dash UE Impairment 40 to 59% Impaired (Score 40- 59) OP-PT Pain Assessment Pain Assessment Grid Paper Pain Assessment Grid Completed Yes Location Right Shoulder Pain Location Details Superior shoulder down lateral upper arm Intensity 6 Scale Used Numeric (1 - 10) Description Sharp Spasm Stabbing PT-OP-E Functional Tests Start: 07/04/18 16:17 Freq: Status: Active Protocol: Document 07/04/18 14:30 DCW (Rec: 07/04/18 17:40 DCW [id number]) Functional Tests Apley's Scratch Test Action 1: The subject is instructed to touch the opposite shoulder with his/her hand. This motion checks Glenohumeral adduction, internal rotation , horizontal adduction and scapular protraction Action 2: The subject is instructed to place his/her arm overhead and reach behind the neck to touch his/her upper back. This motion checks Glenohumeral abduction, external rotation and scapular upward rotation and elevation. Action 3: The subject puts his/her hand on the lower back and reaches upward as far as possible. This motion checks glenohumeral adduction, internal rotation and scapular retraction with downward rotation Action 1- Left Anterior opposite shoulder Action 2- Left Unable to reach head Action 3- Left T8 PT-OP-F Manual Assessment Start: 07/04/18 16:17 Freq: Status: Active Protocol: Document 07/04/18 14:30 DCW (Rec: 07/04/18 17:40 DCW [id number]) Manual Assessments Soft Tissue Assessment Soft Tissue Mobility Assessment Moderate tone and tenderness to palpation 3/4 - Wincing and withdraw along Supraspinatus muscle body. PT-OP-K Range of Motion Start: 07/04/18 16:17 Freq: Status: Active Protocol: Document 07/04/18 14:30 DCW (Rec: 07/04/18 17:40 DCW [id number]) Shoulder Goniometric Range of Motion Shoulder Measured in Degrees Right Passive Flexion 120 Abduction 92 Right Active Flexion 35 Abduction 28 Shoulder ROM Limitations Shoulder ROM Limitations Muscle Weakness Pain PT-OP-L Special Tests Start: 02/20/19 16:17 Freq: Status: Active Protocol: Document 07/04/18 14:30 DCW (Rec: 07/04/18 17:40 DCW [id number]) Special Tests Shoulder Special Tests Painful Arc Test Results Positive Empty Can Test Results Positive Lift-Off Rotator Cuff Test Results Negative Passive ER Rotator Cuff Test Results Negative Drop Arm Rotator Cuff Test Results Positive Belly Press Test Results Negative PT-OP-M Strength Start: 07/04/18 16:17 Freq: Status: Active Protocol: Document 07/04/18 14:30 DCW (Rec: 07/04/18 17:40 DCW [id number]) Shoulder Strength Shoulder Manual Muscle Testing Right Flexion 2 Poor Abduction (C5) 2 Poor Adduction 4- Good- External Rotation 4 Good Internal Rotation 4 Good PT-OP-T Assessment and Plan Start: 07/04/18 16:17 Freq: Status: Active Protocol: Document 09/04/18 13:53 DCW (Rec: 09/04/18 13:54 DCW [id number]) Physical Therapy Assessment Goals Four Impairment Positive special tests Nursing Home Goal (LTG) Drop arm and painful arc tests negative LTG Duration 09/01/18 Three Impairment Limited ROM Short Term Goal (STG) Active right shoulder flexion to 90? Active right shoulder abduction to 90? STG Duration 08/01/18 Nursing Home Goal (LTG) Active right shoulder flexion to 120? Active right shoulder abduction to 120? 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 Pt has now not been seen in two months, and has not further visits. Pt will be discharged from skilled therapy at this time, and will require a new referral in order to return. Physical Therapy Plan Discharge Physical Therapy Discharge Reasons No Longer Attending PT Next Visit Focus/Plan Next Note Type Discharge Summary
== END 2018-07-04 16:38 ==
LOC: PHYS 14:09
PROVIDERS: PCP Student in an Organized Health Care Education/Training Program; Visit Provider Student in an Organized Health Care Education/Training Program
DX: R26.89 Other abnormalities of gait and mobility (principal); M75.100 Unspecified rotator cuff tear or rupture of unspecified shoulder, not specified as traumatic; M25.511 Pain in right shoulder; M25.611 Stiffness of right shoulder, not elsewhere classified
CPT/HCPCS: 97110; 97162

== ENCOUNTER → 2018-07-20 16:54 | Outpatient (CLI) | payer MEDICARE, OTHER, SELFPAY ==
[2018-07-03 15:42] VITALS: BMI 28.0
--- NOTE | 2018-07-27 14:51 | PM.PFT.1 ---
Pulmonary Function Test Referral & Results Date Patient Seen: 07/20/18 Requesting provider: Scooter Salgado Indication: Lung nodule Results: The spirometry demonstrates an FVC of 1.70 L which is 71% of predicted. The FEV1 was measured at 1.29 L which is 73% of predicted. The FEV1/FVC ratio was 76 which is 100 to percent of predicted. Following the administration of bronchodilator there was no appreciable change. Lung volumes show an SVC of 1.60 L which is 63% of predicted. The diffusing capacity was measured at 11.64 which is 52% of predicted. No hemoglobin value was provided, so no correction for potential anemia could be made, if appropriate. The maximum voluntary ventilation was reduced Interpretation: This study demonstrates mild obstructive lung disease without evidence of benefit following bronchodilator, based on reduction FEV1 There is moderate reduction in lung volumes suggesting moderate restrictive lung disease There is also more significant reduction in diffusing capacity suggesting disease of the capillary alveolar level Compared to PFTs performed in July 2012, current study shows slight decline in FEV1 but stability compared to age matched controls. Lung volumes have also decreased Diffusing capacity is also slightly decreased
== END ==
PROVIDERS: PCP Student in an Organized Health Care Education/Training Program; Visit Provider Student in an Organized Health Care Education/Training Program
DX: R91.1 Solitary pulmonary nodule (principal)
CPT/HCPCS: 94060; 94726; 94729

== ENCOUNTER 2018-08-27 07:49 | Emergency (ER) | payer MEDICARE, OTHER, SELFPAY ==
[2018-07-03 15:42] VITALS: BMI 28.0
[2018-08-27 08:01] VITALS: BP 217/87; PULSE 82; RESP 20; TEMP 36.7; O2SAT 98; BMI 25.5
--- NOTE | 2018-08-27 08:19 | ED.GENADULT ---
HPI - General Adult General Chief complaint: Hypertension Stated complaint: high bp, can hardly walk Time Seen by Provider: 08/27/18 08:19 Source: patient, family () and old records reviewed Mode of arrival: ambulatory Limitations: no limitations History of Present Illness HPI narrative: An 83-year-old female who states that she woke up about midnight with vertigo symptoms. She states she went back to sleep when she woke up this morning and had increased. She states that she does have a headache this morning. She has had vertigo in the past and she states this is her typical sort of pattern of symptoms. She did use to be on warfarin but they stopped that because she has been having some suspected rectal or GI bleeding and is set up to follow up with Gastroenterology on Monday to get scoped. She states that she does not have any meclizine at she did not take any today. She denies any chest pain or pressure, no shortness of breath, she has had some nausea but no vomiting. she denies any new GI symptoms currently or any black or bloody stools. She has had some frequency with urination she states she also felt like she could hear the pulsing in her ear a lot easier. She tried some Tylenol at home without any improvement. She has a history of atrial fibrillation, possible MS, she had a small bowel obstruction as well as C diff in the past and is treated for hypertension. She did not take her usual blood pressure medications this morning which include lisinopril and amiodarone. She denies any tobacco or alcohol. Related Data Home Medications Medication Instructions Recorded Confirmed acetaminophen [Tylenol Extra 500 mg PO PRN PRN #0 04/19/16 07/03/18 Strength] lisinopril 5 mg PO BID 02/07/18 08/27/18 amiodarone 200 mg tablet 200 mg PO DAILY #0 tab 03/15/18 08/27/18 rosuvastatin 5 mg PO DAILY 08/27/18 08/27/18 warfarin 08/27/18 Previous Rx's Medication Instructions Recorded sertraline 100 mg tablet 50 mg PO DAILY #90 tab 06/13/18 fosfomycin tromethamine 1 packet PO .once #1 each 08/27/18 meclizine 50 mg PO TID-QID PRN #14 tab 08/27/18 Allergies Allergy/AdvReac Type Severity Reaction Status Date / Time latex Allergy Severe THROAT Verified 07/03/18 16:31 SWELLING prednisone [PREDNISONE] Allergy Intermediate rash Verified 07/03/18 16:31 amoxicillin Allergy Mild ITCH Verified 07/03/18 16:31 ciprofloxacin Allergy Mild ITCH Verified 07/03/18 16:31 clavulanic acid Allergy Mild RASH Verified 07/03/18 16:31 hydromorphone Allergy Mild ITCHING Verified 07/03/18 16:31 nitrofurantoin Allergy Mild ABD Verified 07/03/18 16:31 PAIN/SEVERE ITCHING oxycodone Allergy Mild ITCH Verified 07/03/18 16:31 Penicillins Allergy Mild BLISTERS Verified 07/03/18 16:31 Sulfa (Sulfonamide Allergy Mild ITCH Verified 07/03/18 16:31 Antibiotics) levofloxacin [From LEVAQUIN] AdvReac Severe DISTURBING Verified 07/03/18 16:31 HALLUCINATIONS lorazepam [From ATIVAN] AdvReac Intermediate Verified 07/03/18 16:31 morphine AdvReac Mild HALLUCINATI Verified 07/03/18 16:31 ONS Review of Systems Review of Systems ROS Unobtainable: All systems reviewed & are unremarkable except as noted in HPI and below Constitutional Denies chills, Denies fever(s), Reports headache(s), Denies lethargy and Denies weakness Eyes Denies blurry vision and Denies change in vision ENT Ears, Nose, Mouth, and Throat: Reports vertigo, Denies ear discharge, Denies otalgia, Reports headache(s), Denies hearing loss, Denies nasal congestion, Denies neck pain and Denies other (Facial droop) Cardiovascular Denies chest pain, Denies diaphoresis, Denies syncope, Denies rapid heart rate, Denies edema, Denies irregular heart rhythm, Denies leg edema, Denies radiating jaw, neck or arm pain, Denies palpitations, Denies dyspnea and Denies dyspnea on exertion Respiratory Denies change in phlegm color, Denies chest congestion, Denies cough, Denies dyspnea, Denies dyspnea on exertion and Denies wheezing Gastrointestinal Gastrointestinal: Denies abdominal pain, Denies melena, Denies hematochezia, Denies change in bowel habits, Denies diarrhea, Denies nausea, Denies vomiting and Reports other (Suspected GI bleed) Genitourinary Denies hematuria, Reports urinary frequency, Denies dysuria, Denies flank pain, Denies urinary incontinence and Denies urinary urgency Musculoskeletal Denies neck pain Neurologic Denies abnormal movements, Denies abnormal speech, Reports vertigo, Denies syncope, Reports headache(s), Denies focal weakness, Denies sensory deficit and Denies weakness Endocrine Denies palpitations Allergic/Immunologic Denies wheezing FORMERLY [facility], 1928–1983 Medical History Paroxysmal atrial fibrillation (Chronic ~2013) Essential hypertension (Chronic) Cerebral microvascular disease (Chronic) Anxiety (Chronic 12/08/15) 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 difficile colitis (Resolved 07/2015) C. difficile colitis (Resolved 11/2011) Chicken pox (Resolved ~1940) Measles (Resolved ~194) Mumps (Resolved ~194) Paraesophageal hernia (Resolved) Skin cancer (Resolved 2009) History of PSVT (paroxysmal supraventricular tachycardia) (Inactive) Surgical History Anesthesia (Resolved) History of bladder surgery (Resolved ~1967) History of cholecystectomy (Resolved) History of nephrectomy (Resolved) History of spinal fusion (Resolved 2005) S/P repair of paraesophageal hernia (Resolved) Status post hysterectomy with oophorectomy (Resolved) Family History Brother CAD (coronary artery disease) Hyperlipidemia High cholesterol Lung cancer Colon cancer Brother Cancer High cholesterol Lung disease Father Colon cancer CAD (coronary artery disease) High cholesterol Mother CVA (cerebral vascular accident) Hyperlipidemia Sister Age: 83 CAD (coronary artery disease) Hyperlipidemia Ulcer Essential hypertension High cholesterol Heart attack Grandfather Throat cancer Grandmother Heart disease Family/Other Lung disease Social History household members: spouse Smoking Status: Never smoker Family History Brother CAD (coronary artery disease) Hyperlipidemia High cholesterol Lung cancer Colon cancer Brother Cancer High cholesterol Lung disease Father Colon cancer CAD (coronary artery disease) High cholesterol Mother CVA (cerebral vascular accident) Hyperlipidemia Sister Age: 83 CAD (coronary artery disease) Hyperlipidemia Ulcer Essential hypertension High cholesterol Heart attack Grandfather Throat cancer Grandmother Heart disease Family/Other Lung disease Social History household members: spouse Smoking Status: Never smoker Exam Narrative Exam Narrative: GEN: well nourished, well appearing female, alert and oriented x 3, patient appears to be in mild distress. HEENT: Atraumatic, pupils are equal round reactive to light, extraocular movements are intact, no nystagmus, nares are clear, TMs are clear, with scant fluid right greater than left, there is no erythema, there is some slight bulge but light reflex is intact., there is no conjunctival pallor. Throat is clear without any exudates, erythema, tonsillar enlargement or uvular deviation HEART: Regular rate and rhythm without murmur, clicks, rubs. pulses equal in upper and lower extremities. LUNGS:Lungs clear to auscultation, no wheezes, rales, crackles, chest moves symmetrically ABD:bowel sounds normal, soft, non-tender, no guarding, rebound, rigidity, no masses noted, no hepatosplenomegaly CVA;: No flank tenderness. MSCL: Non-tender, no muscle atrophy, muscles strength 5/5 upper and lower extremities, full range of motion, normal gait NEURO:CN 2-12 intact, sensation normal. finger nose finger test normal, heel hudson test normal Initial Vital Signs Initial Vital Signs: Vital Signs Temperature 98.1 F 08/27/18 08:01 Pulse Rate 82 08/27/18 08:01 Respiratory Rate 20 08/27/18 08:01 Blood Pressure 217/87 H 08/27/18 08:01 Pulse Oximetry 98 08/27/18 08:01 Scores NIH Stroke Scale Level of Conciousness: Alert, keenly responsive Ask month/age: Answers both questions correctly. Open/close eyes, close hand: Performs both tasks correctly Best gaze horizontal: Normal Facial palsy: Normal symetrical movement Left arm drift: No drift for full 10 sec Right arm drift: No drift for full 10 sec Left leg drift: No drift for full 10 sec Right leg drift: No drift for full 10 sec Limb ataxia: Absent Sensory on face/arms/legs: Normal, no sensory loss Best language: No aphasia, normal Dysarthria: Normal Extinction or inattention: No abnormality Course Orders Ordered: Discontinued Medications Amiodarone HCl (Cordarone) 200 mg PO NOW ONE Stop: 08/27/18 08:38 Last Admin: 08/27/18 08:50 Dose: 200 mg Sodium Chloride (Normal Saline 0.9%) 1,000 mls @ 150 mls/hr IV CONT ROME Last Admin: 08/27/18 10:26 Dose: Not Given Sodium Chloride (Normal Saline 0.9%) 1,000 mls @ 1,000 mls/hr IV BOLUS ONE Stop: 08/27/18 09:35 Last Infusion: 08/27/18 09:30 Dose: 0 mls/hr Admin: 08/27/18 08:40 Dose: 1,000 mls/hr Lisinopril (Zestril) 5 mg PO NOW ONE Stop: 08/27/18 08:38 Last Admin: 08/27/18 08:50 Dose: 5 mg Meclizine HCl (Antivert) 25 mg PO NOW ONE Stop: 08/27/18 08:37 Last Admin: 08/27/18 08:41 Dose: 25 mg Metoclopramide HCl (Reglan) 10 mg IV NOW ONE Stop: 08/27/18 08:37 Last Admin: 08/27/18 08:40 Dose: 10 mg Vital Signs - 8 hr 08/27/18 08:01 08/27/18 08:50 Temperature 98.1 F Pulse Rate 82 63 Respiratory Rate 20 Blood Pressure 217/87 H 179/144 H Pulse Oximetry 98 Medical Decision Making Lab Data Lab results reviewed: Yes I reviewed the patient's lab results. Result diagrams: 08/27/18 08:08 08/27/18 08:08 Lab Results 08/27/18 08/27/18 08/27/18 Range/Units 08:08 08:08 08:37 WBC 6.0 (4.5-11.0) X10^3/uL RBC 3.94 L (4.0-5.2) X10^6/uL Hgb 10.3 L (12.0-16.0) g/dL Hct 31.3 L (36-46) % MCV 79.5 L (80-100) fL MCH 26.2 (26-34) PG MCHC 32.9 (30-36) % RDW 16.2 H (11.6-14.8) % Plt Count 234 (150-400) X10^3/uL Neut % (Auto) 57.7 (50-75) % Lymph % (Auto) 30.9 (25-40) % Beaver % (Auto) 8.9 (3-14) % Eos % (Auto) 2.3 (2-4) % Baso % (Auto) 0.2 (0-2) % Neut # (Auto) 3500 (8076-3674) /uL Lymph # (Auto) 1900 (1850-0546) /uL Beaver # (Auto) 500 (0-900) /uL Eos # (Auto) 100 (0-450) /uL Baso # (Auto) 0 (0-100) /uL Sodium 142 Cancelled (137-145) mmol/L Potassium 4.5 Cancelled (3.4-5.1) mmol/L Chloride 108 H Cancelled (98-107) mmol/L Carbon Dioxide 29 Cancelled (22-32) mmol/L BUN 31 H Cancelled (7-17) mg/dL Creatinine 1.40 H Cancelled (0.52-1.04) mg/dL Estimated GFR 36.1 L Cancelled (>60) mL/min BUN/Creatinine Ratio 22.1 H Cancelled (6-22) Glucose 101 Cancelled (80-110) mg/dL Calcium 8.9 Cancelled (8.4-10.2) mg/dL Total Bilirubin 0.2 Cancelled (0.2-1.3) mg/dL AST 24 Cancelled (14-36) IU/L ALT 25 Cancelled (9-52) IU/L Alkaline Phosphatase 60 Cancelled (38-126) U/L Troponin I < 0.012 (0.01-0.034) ng/mL Total Protein 6.9 Cancelled (6.3-8.2) g/dL Albumin 3.7 Cancelled (3.5-5.0) g/dL Globulin 3.2 Cancelled (1.7-4.1) g/dL Albumin/Globulin Ratio 1.2 Cancelled (1.0-2.8) Urine RBC (0-5/HPF) Urine WBC (0-5/HPF) Urine Bacteria (None) Ur Culture Indicated? 08/27/18 Range/Units 09:35 WBC (4.5-11.0) X10^3/uL RBC (4.0-5.2) X10^6/uL Hgb (12.0-16.0) g/dL Hct (36-46) % MCV (80-100) fL MCH (26-34) PG MCHC (30-36) % RDW (11.6-14.8) % Plt Count (150-400) X10^3/uL Neut % (Auto) (50-75) % Lymph % (Auto) (25-40) % Beaver % (Auto) (3-14) % Eos % (Auto) (2-4) % Baso % (Auto) (0-2) % Neut # (Auto) (8010-2704) /uL Lymph # (Auto) (8676-0728) /uL Beaver # (Auto) (0-900) /uL Eos # (Auto) (0-450) /uL Baso # (Auto) (0-100) /uL Sodium (137-145) mmol/L Potassium (3.4-5.1) mmol/L Chloride (98-107) mmol/L Carbon Dioxide (22-32) mmol/L BUN (7-17) mg/dL Creatinine (0.52-1.04) mg/dL Estimated GFR (>60) mL/min BUN/Creatinine Ratio (6-22) Glucose (80-110) mg/dL Calcium (8.4-10.2) mg/dL Total Bilirubin (0.2-1.3) mg/dL AST (14-36) IU/L ALT (9-52) IU/L Alkaline Phosphatase (38-126) U/L Troponin I (0.01-0.034) ng/mL Total Protein (6.3-8.2) g/dL Albumin (3.5-5.0) g/dL Globulin (1.7-4.1) g/dL Albumin/Globulin Ratio (1.0-2.8) Urine RBC None seen (0-5/HPF) Urine WBC 5-10/hpf H (0-5/HPF) Urine Bacteria Many (>30) H (None) Ur Culture Indicated? Specimen cultured Point of Care Testing Glucose POC 98 Urine Dip Bedside Urine Glucose Negative Bedside Urine Bilirubin - Negative Bedside Urine Ketone - Negative Urine Specific Clayton 1.020 Bedside Urine pH 7.5 Bedside Urine Protein +/- 15 Bedside Urine Urobilinogen +/- 1mg Bedside Urine Nitrite + Positive Bedside Urine Leukocytes +/- 15 Esterase Point of care testing: Point of Care Testing Glucose POC 98 Urine Dip Bedside Urine Glucose Negative Bedside Urine Bilirubin - Negative Bedside Urine Ketone - Negative Urine Specific Clayton 1.020 Bedside Urine pH 7.5 Bedside Urine Protein +/- 15 Bedside Urine Urobilinogen +/- 1mg Bedside Urine Nitrite + Positive Bedside Urine Leukocytes +/- [address] scan - head: Radiologist's impression: Chart Viewer Diagnostics DATE TYPE STATUS AUTHOR Hx 08/27/18 08:36 Brian Hernandez 08/27/18 08:36 Rochelle Wilson 07/03/18 17:07 Lorenzo Paul 06/19/18 12:17 Clay Crenshaw 05/25/18 15:47 [place] sam[place] 05/25/18 15:47 [place],Santi 05/24/18 05:44 05/22/18 00:00 Juan Villarreal 03/10/18 00:00 Surya Carpenter 03/01/18 10:42 Rochelle Wilson 02/07/18 08:14 Sheri De Leon 01/13/18 13:26 01/13/18 09:49 Kathryn Coronado 01/10/18 20:20 CarpenterSurya woody 01/10/18 19:23 Pauline,Surya 01/10/18 18:50 Carpenter,Surya 10/25/17 18:13 Ronald Posey Doris E 83, F0 1935 REG ER, ED.LOC - Main ED: R12 158.75cm 64.41kg BMI: 25.6kg/m? Hypertension Search Chart THROAT SWELLING rash ITCH ITCH RASH ITCHING ABD PAIN/SEVERE ITCHING ITCH BLISTERS ITCH DISTURBING HALLUCINATIONS HALLUCINATIONS ONSET ~201312/08/15 12/08/15 08/31/16 03/22/11 03/22/11 Today 08:50 Valery Yeh 83 F [address] [address] [address] Scan Report Signed Patient: Valery Yeh EMR#: [id number] : [id number]:[id number] Age/Sex: 83 / FDate of Service: 08/27/18 Loc: ED Accession Number: [id number] Procedure: CT head/brain wo con Ordering Provider: Flor Coburn D.O. PROCEDURE: CT HEAD/BRAIN WO CON INDICATIONS: vertigo TECHNIQUE: Noncontrast 4.5 mm thick angled axial sections acquired from the foramen magnum to the vertex, with coronal and sagittal reformats. For radiation dose reduction, the following was used: automated exposure control, adjustment of mA and/or kV according to patient size. COMPARISON: None. FINDINGS: Image quality: Excellent. CSF spaces: Basal cisterns are patent. No extra-axial fluid collections. The ventricles are symmetric in size and shape. Brain: No intracranial bleeds or masses. There is cerebral volume loss for age, with resultant ventricular and sulcal prominence. There are periventricular and deep white matter chronic small vessel ischemic changes. There is intracranial internal carotid artery and vertebral artery atherosclerosis. Skull and face: Calvarium and visualized facial bones appear intact, without suspicious lesions. Sinuses: Visualized sinuses and mastoids are clear. IMPRESSION: No acute intracranial disease process. Dictated by: Rochelle Wilson MD, PhD on 08/27/2018 at 8:58 Approved by: Rochelle Wilson MD, PhD on 08/27/2018 at 9:01 Chest x-ray: Radiologist's impression: Valery Yeh 83 F [address] [address] XRay Report Signed Patient: Valery Yeh EMR#: [id number] : [id number]:[id number] Age/Sex: 83 / FDate of Service: 08/27/18 Loc: Accession Number: [id number] Procedure: XR chest 1V Ordering Provider: Flor Coburn D.O. PROCEDURE: XR CHEST 1V INDICATIONS: vertigo TECHNIQUE: One view of the chest was acquired. COMPARISON: [facility], CT, CT CHEST W CON, 01/10/2018, 20:21. [facility], CR, XR CHEST 2V, 07/03/2018, 17:15. [facility], CR, XR CHEST 2V, 01/10/2018, 19:00. [facility], CR, XR CHEST 1V, 10/25/2017, 18:18. [facility], CR, CHEST 1 VIEW, 07/30/2017, 18:30. FINDINGS: Surgical changes and devices: An electronic device consistent with a leadless pacer projects over the cardiac silhouette. Surgical clips projecting over the right upper quadrant abdomen, most consistent with prior cholecystectomy. Lungs and pleura: There is increased prominence of the pulmonary vasculature bilaterally. There are diffuse bilateral reticular pulmonary opacities. There are mild bibasilar hazy pulmonary opacities most consistent with atelectasis. No pneumothorax or pleural effusion. Previously noted 5 mm nodular opacity projecting over the right midlung field is again identified but less well-seen when compared with prior exam of 07/03/18. Mediastinum: There is increased prominence of the pulmonary vasculature bilaterally. There is increased prominence of the azygos vein. Mediastinal silhouette is otherwise within normal limits. Cardiac silhouette is within normal limits for size. Bones and chest wall: No acute osseous abnormality identified. IMPRESSION: 1. Findings suggestive of increased volume status/mild pulmonary edema. Mild bibasilar hazy opacities are most consistent with atelectasis, with infection thought unlikely. 2. Previously noted 5 mm nodular opacity projecting over the right midlung field is again identified but less well-seen when compared with prior exam of 07/03/18. This may correlate with the right lower lobe pulmonary nodule seen on comparison CT of the chest of 01/10/2018. The followup recommendations on the prior comparison CT of the chest of 01/10/[address]/recommended (for a followup CT of the chest between late August and February of 2019). Dictated by: Brian Hernandez M.D. on 08/27/2018 at 9:21 Approved by: Brian Hernandez M.D. on 08/27/2018 at 9:31 ECG Data Attestation: I personally reviewed and interpreted this ECG as follows: Interpretation: Sinus rhythm rate of 66 QRS of 101, P are 174 and QTC of 415. Patient has some ST depression although not consistent in the 456 I suspect this is artifact. I do not appreciate any significant elevation MDM Narrative Medical decision making narrative: Patient comes in with complaint of vertigo like symptoms. patient has had these in the past as well. She states her blood pressure is also elevated. Patient's symptoms improved including her headache and vertigo symptoms after some Reglan, fluids and some meclizine. Patient was also had her amiodarone and lisinopril dose ordered and her pressure was slowly improving here in the department. Patient is feeling much better and feels that she can return home. Head CT did not show any acute findings, NIH does not show any concerning findings for stroke, patient lab work shows slightly elevated renal function which is at baseline. She has a little bit anemic with a hemoglobin of 10 down from and June. She is supposed to be seen Monday with gastroenterology. Troponin is negative. Urine did show nitrates and shows 5-10 WBCs with many bacteria patient was started on antibiotic she has multiple antibiotic allergies so was given fosfomycin single dose in prescription form as well as meclizine. We did discuss reasons to return and signs and symptoms to watch for. Discharge Plan Departure Patient Disposition: Home Clinical Impression: Vertigo, Acute UTI, Pulmonary nodule Discharge Date/Time: 08/27/18 10:56 Interventions: ED Discharge Assessment Last Done: 08/27/18 10:55 Instructions: DI for Vertigo Activity Restrictions/Additional Instructions: Follow-up with your physician in the next week for recheck and to make sure your UTI has resolved. Follow up at your GI appointment on Monday. Your hemoglobin is slightly decreased from your last check, make sure this gets rechecked in the next 1-2 weeks. Have a nodule on the right lung which is seen on prior imaging. Recommended for repeat CT in late August to February of 2019 for comparison and follow-up. You may take meclizine 1-2 tablets every 6-8 hours as needed for vertigo symptoms. Take antibiotic as prescribed. Your prescriptionsd were sent to [facility] in [place]. Continue home medications as prescribed. Return to the emergency department for fevers greater than 100.4, worsening symptoms, increasing vertigo, sudden severe headaches, vision changes, difficulty with speech, movement, no abdominal or back pain, persistent vomiting, recurrent black or bloody stools or other new or concerning symptoms. Prescriptions: New fosfomycin tromethamine 3 gram packet 1 packet PO .once Qty: 1 RF: 0 meclizine 25 mg tablet,chewable 50 mg PO TID-QID PRN (Reason: motion sickness) Qty: 14 RF: 0 No Action acetaminophen [Tylenol Extra Strength] 500 MG tablet 500 mg PO PRN PRN (Reason: Pain, Mild) Qty: 0 RF: 0 amiodarone 200 mg tablet 200 mg PO DAILY Qty: 0 RF: 0 sertraline 100 mg tablet 50 mg PO DAILY Qty: 90 RF: 3 lisinopril 5 mg tablet 5 mg PO BID RF: 0 warfarin 2 mg tablet RF: 0 rosuvastatin 5 mg tablet 5 mg PO DAILY RF: 0 Referrals: Scooter Salgado MD [Primary Care Provider] -
[2018-08-27 08:21] LABS: Add Manual Diff / Slide Review NO; Basophils Absolute Auto 0 /uL (0-100); Basophils Percent Auto 0.2 % (0-2); Eosinophils Absolute Auto 100 /uL (0-450); Eosinophils Percent Auto 2.3 % (2-4); Hematocrit 31.3 % (36-46); Hemoglobin 10.3 g/dL (12.0-16.0); Lymphocytes Absolute Auto 1900 /uL (1100-4500); Lymphocytes Percent Auto 30.9 % (25-40); Mean Corpuscular HGB Conc 32.9 % (30-36); Mean Corpuscular Hemoglobin 26.2 PG (26-34); Mean Corpuscular Volume 79.5 fL (80-100); Monocytes Absolute Auto 500 /uL (0-900); Monocytes Percent Auto 8.9 % (3-14); Neutrophils Absolute Auto 3500 /uL (1500-7000); Neutrophils Percent Auto 57.7 % (50-75); Platelet Count 234 X10^3/uL (150-400); Red Blood Cell Count 3.94 X10^6/uL (4.0-5.2); Red Cell Distribution Width 16.2 % (11.6-14.8)
--- NOTE | 2018-08-27 08:36 | DI.RAD.S_ITS ---
PROCEDURE: XR CHEST 1V INDICATIONS: vertigo TECHNIQUE: One view of the chest was acquired. COMPARISON: [facility], CT, CT CHEST W CON, 01/10/2018, 20:21. [facility], CR, XR CHEST 2V, 07/03/2018, 17:15. [facility], CR, XR CHEST 2V, 01/10/2018, 19:00. [facility], CR, XR CHEST 1V, 10/25/2017, 18:18. [facility], CR, CHEST 1 VIEW, 07/30/2017, 18:30. FINDINGS: Surgical changes and devices: An electronic device consistent with a leadless pacer projects over the cardiac silhouette. Surgical clips projecting over the right upper quadrant abdomen, most consistent with prior cholecystectomy. Lungs and pleura: There is increased prominence of the pulmonary vasculature bilaterally. There are diffuse bilateral reticular pulmonary opacities. There are mild bibasilar hazy pulmonary opacities most consistent with atelectasis. No pneumothorax or pleural effusion. Previously noted 5 mm nodular opacity projecting over the right midlung field is again identified but less well-seen when compared with prior exam of 07/03/18. Mediastinum: There is increased prominence of the pulmonary vasculature bilaterally. There is increased prominence of the azygos vein. Mediastinal silhouette is otherwise within normal limits. Cardiac silhouette is within normal limits for size. Bones and chest wall: No acute osseous abnormality identified. IMPRESSION: 1. Findings suggestive of increased volume status/mild pulmonary edema. Mild bibasilar hazy opacities are most consistent with atelectasis, with infection thought unlikely. 2. Previously noted 5 mm nodular opacity projecting over the right midlung field is again identified but less well-seen when compared with prior exam of 07/03/18. This may correlate with the right lower lobe pulmonary nodule seen on comparison CT of the chest of 01/10/2018. The followup recommendations on the prior comparison CT of the chest of 01/10/[address]/recommended (for a followup CT of the chest between late August and February of 2019). Dictated by: Brian Hernandez M.D. on 08/27/2018 at 9:21 Approved by: Brian Hernandez M.D. on 08/27/2018 at 9:31
--- NOTE | 2018-08-27 08:36 | DI.CT.S_ITS ---
PROCEDURE: CT HEAD/BRAIN WO CON INDICATIONS: vertigo TECHNIQUE: Noncontrast 4.5 mm thick angled axial sections acquired from the foramen magnum to the vertex, with coronal and sagittal reformats. For radiation dose reduction, the following was used: automated exposure control, adjustment of mA and/or kV according to patient size. COMPARISON: None. FINDINGS: Image quality: Excellent. CSF spaces: Basal cisterns are patent. No extra-axial fluid collections. The ventricles are symmetric in size and shape. Brain: No intracranial bleeds or masses. There is cerebral volume loss for age, with resultant ventricular and sulcal prominence. There are periventricular and deep white matter chronic small vessel ischemic changes. There is intracranial internal carotid artery and vertebral artery atherosclerosis. Skull and face: Calvarium and visualized facial bones appear intact, without suspicious lesions. Sinuses: Visualized sinuses and mastoids are clear. IMPRESSION: No acute intracranial disease process. Dictated by: Rochelle Wilson MD, PhD on 08/27/2018 at 8:58 Approved by: Rochelle Wilson MD, PhD on 08/27/2018 at 9:01
[2018-08-27 08:38] LABS: BUN Creatinine Ratio 22.1 (6-22); Blood Urea Nitrogen 31 mg/dL (7-17); Calcium 8.9 mg/dL (8.4-10.2); Carbon Dioxide 29 mmol/L (22-32); Chloride 108 mmol/L (98-107); Estimated Glomerular Filt Rate 36.1 mL/min (>60); Glucose 101 mg/dL (80-110); HEMOLYSIS < 15 (0-50); Potassium 4.5 mmol/L (3.4-5.1); Sodium 142 mmol/L (137-145)
[2018-08-27] MEDS: SODIUM CHLORIDE 0.9% 1,000 ML 1000 ML IV (08:40)
[2018-08-27] MEDS: METOCLOPRAMIDE 10 MG/2 ML INJ IV (08:40)
[2018-08-27] MEDS: MECLIZINE HCL 12.5 MG TABLET 25 MG PO (08:41)
[2018-08-27 08:48] LABS: Troponin I < 0.012 ng/mL (0.01-0.034)
[2018-08-27 08:50] VITALS: BP 179/144; PULSE 63
[2018-08-27] MEDS: AMIODARONE 200 MG TABLET PO (08:50)
[2018-08-27] MEDS: LISINOPRIL 5 MG TABLET PO (08:50)
[2018-08-27 09:02] LABS: Alanine Aminotransferase 25 IU/L (9-52); Alkaline Phosphatase 60 U/L (38-126); Aspartate Aminotransferase 24 IU/L (14-36); Bilirubin Total 0.2 mg/dL (0.2-1.3)
[2018-08-27 09:03] LABS: Albumin 3.7 g/dL (3.5-5.0); Albumin Globulin Ratio 1.2 (1.0-2.8); Globulin 3.2 g/dL (1.7-4.1); Total Protein 6.9 g/dL (6.3-8.2)
[2018-08-27 10:12] LABS: RBC Urine None Seen (0-5/HPF)
[2018-08-27 10:44] LABS: Bacteria Urine Many (>30); WBC Urine 5-10/HPF (0-5/HPF)
[2018-08-27 10:45] LABS: Culture Indicated Urine Specimen Cultured
[2018-08-27 10:55] VITALS: BP 185/70; PULSE 66; RESP 17; O2SAT 94
== END 2018-08-27 10:56 | disposition home or self-care (01) ==
PROVIDERS: Emergency Provider Emergency Medicine; PCP Student in an Organized Health Care Education/Training Program
DX: R42 Dizziness and giddiness (principal); N39.0 Urinary tract infection, site not specified; R91.1 Solitary pulmonary nodule; R51 Headache; R11.0 Nausea; R03.0 Elevated blood-pressure reading, without diagnosis of hypertension
CPT/HCPCS: 36591; 70450; 71045; 80053; 81003; 81015; 82962; 84484; 85025; 87077; 87086; 87186; 93005; 93010; 96361; 96374; 99283; 99285; J2765

== ENCOUNTER → 2018-09-17 16:36 | Outpatient (CLI) | payer MEDICARE, OTHER, SELFPAY ==
[2018-07-03 15:42] VITALS: BMI 28.0
[2018-09-17 18:02] LABS: Add Manual Diff / Slide Review NO; Basophils Absolute Auto 100 /uL (0-100); Basophils Percent Auto 0.8 % (0-2); Eosinophils Absolute Auto 100 /uL (0-450); Eosinophils Percent Auto 0.8 % (2-4); Hematocrit 34.3 % (36-46); Hemoglobin 10.8 g/dL (12.0-16.0); Lymphocytes Absolute Auto 1700 /uL (1100-4500); Lymphocytes Percent Auto 23.5 % (25-40); Mean Corpuscular HGB Conc 31.5 % (30-36); Mean Corpuscular Hemoglobin 25.3 PG (26-34); Mean Corpuscular Volume 80.2 fL (80-100); Monocytes Absolute Auto 600 /uL (0-900); Monocytes Percent Auto 8.8 % (3-14); Neutrophils Absolute Auto 4800 /uL (1500-7000); Neutrophils Percent Auto 66.1 % (50-75); Platelet Count 226 X10^3/uL (150-400); Red Blood Cell Count 4.27 X10^6/uL (4.0-5.2); White Blood Cell Count 7.3 X10^3/uL (4.5-11.0)
[2018-09-17 18:18] LABS: Alanine Aminotransferase 25 IU/L (9-52); Albumin Globulin Ratio 1.2 (1.0-2.8); Alkaline Phosphatase 65 U/L (38-126); Aspartate Aminotransferase 30 IU/L (14-36); BUN Creatinine Ratio 22.9 (6-22); Bilirubin Total 0.2 mg/dL (0.2-1.3); Blood Urea Nitrogen 39 mg/dL (7-17); Calcium 8.7 mg/dL (8.4-10.2); Carbon Dioxide 21 mmol/L (22-32); Chloride 106 mmol/L (98-107); Estimated Glomerular Filt Rate 28.8 mL/min (>60); Globulin 3.3 g/dL (1.7-4.1); Glucose 97 mg/dL (80-110); HEMOLYSIS 19 (0-50); Potassium 4.6 mmol/L (3.4-5.1); Sodium 138 mmol/L (137-145); Total Protein 7.3 g/dL (6.3-8.2)
[2018-09-17 19:07] LABS: Vitamin B12 309 pg/mL (239-931)
== END ==
PROVIDERS: Family Provider Student in an Organized Health Care Education/Training Program; PCP Student in an Organized Health Care Education/Training Program; Visit Provider Nurse Practitioner
DX: Z12.11 Encounter for screening for malignant neoplasm of colon (principal); R53.83 Other fatigue
CPT/HCPCS: 36415; 80053; 82607; 85025

== ENCOUNTER → 2018-09-19 10:17 | Outpatient (CLI) | payer MEDICARE, OTHER, SELFPAY ==
[2018-07-03 15:42] VITALS: BMI 28.0
[2018-09-19 10:58] LABS: Occult Blood 1 Negative (Negative); Occult Blood 2 Negative (Negative); Occult Blood 3 Negative (Negative)
== END ==
PROVIDERS: Family Provider Student in an Organized Health Care Education/Training Program; PCP Student in an Organized Health Care Education/Training Program; Visit Provider Nurse Practitioner
DX: Z12.11 Encounter for screening for malignant neoplasm of colon (principal)
CPT/HCPCS: 82270

== ENCOUNTER → 2018-09-20 12:05 | Outpatient (CLI) | payer MEDICARE, OTHER, SELFPAY ==
[2018-07-03 15:42] VITALS: BMI 28.0
--- NOTE | 2018-09-20 12:06 | DI.US.S_ITS ---
PROCEDURE: US RENAL COMPLETE INDICATIONS: DECREASING RENAL FUNCTION TECHNIQUE: Real-time scanning was performed of the kidneys and bladder, with image documentation. COMPARISON: [facility], , RENAL COMPLETE, 11/03/2016, 16:56. FINDINGS: Kidneys: Right kidney surgically absent. Left kidney measures 10.8 cm in length. Left renal cortex measures 1.7 cm in thickness. No hydronephrosis. No urolithiasis. Bladder: Bladder is decompressed at the time the study Miscellaneous: No free pelvic fluid. IMPRESSION: Status post right nephrectomy. Unremarkable appearance of the left kidney. No hydronephrosis. Dictated by: Lorenzo Paul M.D. on 09/20/2018 at 14:40 Approved by: Lorenzo Paul M.D. on 09/20/2018 at 14:42
== END ==
PROVIDERS: Family Provider Student in an Organized Health Care Education/Training Program; PCP Student in an Organized Health Care Education/Training Program; Visit Provider Nurse Practitioner
DX: N17.9 Acute kidney failure, unspecified (principal); N18.9 Chronic kidney disease, unspecified; R53.83 Other fatigue; Z90.5 Acquired absence of kidney
CPT/HCPCS: 76770

== ENCOUNTER → 2018-09-27 13:17 | Outpatient (CLI) | payer MEDICARE, OTHER, SELFPAY ==
[2018-07-03 15:42] VITALS: BMI 28.0
[2018-09-27 14:15] LABS: Alanine Aminotransferase 18 IU/L (9-52); Albumin 4.5 g/dL (3.5-5.0); Albumin Globulin Ratio 1.3 (1.0-2.8); Alkaline Phosphatase 69 U/L (38-126); Aspartate Aminotransferase 29 IU/L (14-36); BUN Creatinine Ratio 15.8 (6-22); Bilirubin Total 0.4 mg/dL (0.2-1.3); Blood Urea Nitrogen 30 mg/dL (7-17); Calcium 9.1 mg/dL (8.4-10.2); Carbon Dioxide 26 mmol/L (22-32); Chloride 99 mmol/L (98-107); Estimated Glomerular Filt Rate 25.4 mL/min (>60); Globulin 3.5 g/dL (1.7-4.1); Glucose 143 mg/dL (80-110); HEMOLYSIS < 15 (0-50); Potassium 4.7 mmol/L (3.4-5.1); Sodium 136 mmol/L (137-145)
== END ==
PROVIDERS: PCP Student in an Organized Health Care Education/Training Program; Visit Provider Student in an Organized Health Care Education/Training Program
DX: R17 Unspecified jaundice (principal)
CPT/HCPCS: 36415; 80053

== ENCOUNTER → 2018-10-03 11:42 | Outpatient (CLI) | payer MEDICARE, OTHER, SELFPAY ==
[2018-07-03 15:42] VITALS: BMI 28.0
[2018-10-03 15:57] LABS: Creatinine Urine Random 125.9 mg/dL; Protein (Total) Urine Random 10 mg/dL (0-12); Protein Creatinine Ratio Urine 0.07 GRAM/24H
== END ==
PROVIDERS: Family Provider Student in an Organized Health Care Education/Training Program; PCP Student in an Organized Health Care Education/Training Program; Visit Provider Student in an Organized Health Care Education/Training Program
DX: R80.9 Proteinuria, unspecified (principal)
CPT/HCPCS: 82570; 84156

== ENCOUNTER → 2018-10-15 11:39 | Outpatient (CLI) | payer MEDICARE, OTHER, SELFPAY ==
[2018-07-03 15:42] VITALS: BMI 28.0
[2018-10-15 12:51] LABS: BUN Creatinine Ratio 18.8 (6-22); Blood Urea Nitrogen 30 mg/dL (7-17); Calcium 8.9 mg/dL (8.4-10.2); Carbon Dioxide 30 mmol/L (22-32); Chloride 103 mmol/L (98-107); Estimated Glomerular Filt Rate 30.9 mL/min (>60); Glucose 97 mg/dL (80-110); HEMOLYSIS < 15 (0-50); Potassium 4.9 mmol/L (3.4-5.1); Sodium 138 mmol/L (137-145)
== END ==
PROVIDERS: Family Provider Student in an Organized Health Care Education/Training Program; PCP Student in an Organized Health Care Education/Training Program; Visit Provider Student in an Organized Health Care Education/Training Program
DX: N05.9 Unspecified nephritic syndrome with unspecified morphologic changes (principal)
CPT/HCPCS: 36415; 80048

== ENCOUNTER → 2018-10-25 13:34 | Outpatient (CLI) | payer MEDICARE, OTHER, SELFPAY ==
[2018-07-03 15:42] VITALS: BMI 28.0
[2018-10-25 13:52] LABS: Appearance Urine UA CLOUDY; Bilirubin Urine UA NEGATIVE (NEGATIVE); Color Urine UA YELLOW; Glucose Urine UA NEGATIVE (Negative); Ketones Urine UA NEGATIVE (NEGATIVE); Leukocyte Esterase Urine UA 2+ (NEGATIVE); Nitrite Urine UA NEGATIVE (Negative); Occult Blood Urine UA TRACE-INTACT (Negative); Protein Urine UA 1+ (Negative); Specific Gravity Urine UA 1.025 (1.000-1.035); Urobilinogen Urine UA 0.2 E.U./dL (0.2); pH Urine UA 5.5 (4.5-8.0)
[2018-10-25 14:00] LABS: RBC Urine 0-1/HPF (0-5/HPF)
[2018-10-25 14:01] LABS: Amorphous Sediment Urine 1+; Bacteria Urine Many (>30); Culture Indicated Urine Specimen Cultured; Mucus Urine 1+ (Negative); Squamous Epithelial Cell Urine 0-1 /HPF (0-5/HPF); WBC Urine 30-100/HPF (0-5/HPF)
== END ==
PROVIDERS: PCP Student in an Organized Health Care Education/Training Program; Visit Provider Student in an Organized Health Care Education/Training Program
DX: R39.89 Other symptoms and signs involving the genitourinary system (principal)
CPT/HCPCS: 81001; 87086

== ENCOUNTER 2018-10-25 18:31 | Emergency (ER) | payer MEDICARE, OTHER, SELFPAY ==
[2018-07-03 15:42] VITALS: BMI 28.0
[2018-10-25 18:41] VITALS: BP 156/65; PULSE 79; RESP 14; TEMP 36.9; O2SAT 95; BMI 25.6
[2018-10-25 18:54] LABS: Add Manual Diff / Slide Review NO; Basophils Absolute Auto 100 /uL (0-100); Basophils Percent Auto 0.8 % (0-2); Eosinophils Absolute Auto 100 /uL (0-450); Eosinophils Percent Auto 0.7 % (2-4); Hematocrit 32.6 % (36-46); Hemoglobin 10.3 g/dL (12.0-16.0); Lymphocytes Absolute Auto 1700 /uL (1100-4500); Lymphocytes Percent Auto 17.2 % (25-40); Mean Corpuscular HGB Conc 31.7 % (30-36); Mean Corpuscular Hemoglobin 24.8 PG (26-34); Mean Corpuscular Volume 78.2 fL (80-100); Monocytes Absolute Auto 700 /uL (0-900); Neutrophils Absolute Auto 7300 /uL (1500-7000); Neutrophils Percent Auto 74.3 % (50-75); Platelet Count 298 X10^3/uL (150-400); Red Blood Cell Count 4.17 X10^6/uL (4.0-5.2); Red Cell Distribution Width 17.1 % (11.6-14.8); White Blood Cell Count 9.9 X10^3/uL (4.5-11.0)
--- NOTE | 2018-10-25 18:59 | ED.FEMALEGU ---
HPI - Female Genitourinary <Viri Whaley, SEWAGE DISPOSAL WORKER - Last Filed: 10/25/18 20:49> General Chief complaint: Urogenital-Female Stated complaint: Kidney problems Time Seen by Provider: 10/25/18 18:36 Source: patient Mode of arrival: ambulatory Limitations: no limitations History of Present Illness HPI Narrative: 83-year-old female with a history of having only left kidney and past pyelonephritis, presents emergency department complaining of 3/10 dull aching left flank pain for the past 3 days that has worsened over the past day. Pain is worse with movement, better with rest. States she vomited once today, but no longer feels nauseated, also complains of foul-smelling urine. Patient provided a sample to slab earlier in the day after calling her primary care provider. Results came back as a positive UTI and she was sent here to rule out renal failure which happened in the past. MD Complaint: other Onset (ago): day(s) Female Urogenital Radiation: L Flank Severity: moderate Severity scale (1-10): 3 Quality: Aching Duration: constant Relieving factors: movement Urinary symptoms: Flank Pain Patient : No Related Data Home Medications Medication Instructions Recorded Confirmed acetaminophen [Tylenol Extra 500 mg PO PRN PRN #0 04/19/16 09/17/18 Strength] amiodarone 200 mg tablet 200 mg PO DAILY #0 tab 03/15/18 09/17/18 warfarin 08/27/18 09/17/18 lisinopril 5 mg tablet 5 mg PO DAILY 10/02/18 Previous Rx's Medication Instructions Recorded sertraline 100 mg tablet 50 mg PO DAILY #90 tab 06/13/18 meclizine 50 mg PO TID-QID PRN #14 tab 08/27/18 cephalexin 500 mg PO TID #42 cap 10/25/18 Allergies Allergy/AdvReac Type Severity Reaction Status Date / Time latex Allergy Severe THROAT Verified 10/25/18 18:41 SWELLING prednisone [PREDNISONE] Allergy Intermediate rash Verified 10/25/18 18:41 amoxicillin Allergy Mild ITCH Verified 10/25/18 18:41 ciprofloxacin Allergy Mild ITCH Verified 10/25/18 18:41 clavulanic acid Allergy Mild RASH Verified 10/25/18 18:41 hydromorphone Allergy Mild ITCHING Verified 06/13/19 18:41 nitrofurantoin Allergy Mild ABD Verified 10/25/18 18:41 PAIN/SEVERE ITCHING oxycodone Allergy Mild ITCH Verified 10/25/18 18:41 Penicillins Allergy Mild BLISTERS Verified 10/25/18 18:41 Sulfa (Sulfonamide Allergy Mild ITCH Verified 10/25/18 18:41 Antibiotics) levofloxacin [From LEVAQUIN] AdvReac Severe DISTURBING Verified 10/25/18 18:41 HALLUCINATIONS lorazepam [From ATIVAN] AdvReac Intermediate Verified 10/25/18 18:41 morphine AdvReac Mild HALLUCINATI Verified 10/25/18 18:41 ONS Review of Systems <ROSETTA Epstein - Last Filed: 10/25/18 20:49> Review of Systems REVIEW OF SYSTEMS: GENERAL: See HPI. Denies weight loss or malaise. HENT: No head trauma, sore throat, or dysphagia. EYES: No loss of vision, double vision, eye pain, or irritation. CARDIOVASCULAR: No chest pain, palpitations, edema, syncope, or orthopnea. RESPIRATORY: No shortness of breath, or wheeze. GASTROINTESTINAL: See HPI, reports vomiting. GENITOURINARY: See HPI a, reports left flank pain.. MUSCULOSKELETAL: No pain, weakness, or deformities. INTEGUMENTARY: No rash, lesions, or pruritus. NEURO: No numbness, tingling, memory loss, confusion, or headaches. PSYCH: No behavior or mood changes. ENDOCRINOLOGY: No hair loss of temperature intolerance. HEMATOLOGY: No easy bruising. LYMPHATIC: No lymphadenopathy. 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 difficile colitis (Resolved 07/2015) C. difficile colitis (Resolved 11/2011) Chicken pox (Resolved ~1939) Measles (Resolved ~194) Mumps (Resolved ~194) Paraesophageal hernia (Resolved) Skin cancer (Resolved 2009) History of PSVT (paroxysmal supraventricular tachycardia) (Inactive) Surgical History Anesthesia (Resolved) History of bladder surgery (Resolved ~1967) History of cholecystectomy (Resolved) History of nephrectomy (Resolved) History of spinal fusion (Resolved 2005) S/P repair of paraesophageal hernia (Resolved) Status post hysterectomy with oophorectomy (Resolved) Family History Brother CAD (coronary artery disease) Hyperlipidemia High cholesterol Lung cancer Colon cancer Brother Cancer High cholesterol Lung disease Father Colon cancer CAD (coronary artery disease) High cholesterol Mother CVA (cerebral vascular accident) Hyperlipidemia Sister Age: 83 CAD (coronary artery disease) Hyperlipidemia Ulcer Essential hypertension High cholesterol Heart attack Grandfather Throat cancer Grandmother Heart disease Family/Other Lung disease Social History household members: spouse Smoking Status: Never smoker Family History Brother CAD (coronary artery disease) Hyperlipidemia High cholesterol Lung cancer Colon cancer Brother Cancer High cholesterol Lung disease Father Colon cancer CAD (coronary artery disease) High cholesterol Mother CVA (cerebral vascular accident) Hyperlipidemia Sister Age: 83 CAD (coronary artery disease) Hyperlipidemia Ulcer Essential hypertension High cholesterol Heart attack Grandfather Throat cancer Grandmother Heart disease Family/Other Lung disease Social History household members: spouse Smoking Status: Never smoker Exam <ROSETTA Epstein - Last Filed: 10/25/18 20:49> Initial Vital Signs Initial Vital Signs: Vital Signs Temperature 98.4 F 10/25/18 18:41 Pulse Rate 79 10/25/18 18:41 Respiratory Rate 14 10/25/18 18:41 Blood Pressure 156/65 H 10/25/18 18:41 Pulse Oximetry 95 10/25/18 18:41 PHYSICAL EXAMINATION: GENERAL: Well groomed, alert, and cooperative Answers questions promptly and appropriately. Vital signs noted. HENT: Normocephalic, atraumatic. Pharynx without erythema. EYES: Conjunctiva pink, sclera white, no periorbital swelling. NECK: Full range of motion, nontender. LYMPH: No lymphadenopathy. CHEST: Normal to inspection and without deformities. CARDIOVASCULAR: S1 and S2 sounds normal. Regular rate and rhythm, no murmurs, clicks, or bruits. No pedal edema. RESPIRATORY: Normal respiratory rate, trachea midline, airway patent. No stridor, nasal flaring or accessory muscle use. Lungs are clear in all alas without wheeze, rhonchi, or crackles. GASTROINTESTINAL: Bowel sounds normoactive. Abdomen is soft and non-tender. No organomegaly. MUSCULOSKELETAL: Normal gait and coordination. Equal tone and mass bilaterally. No spinal tenderness or deformities. EXTREMITIES: CMS intact. Full range of motion and 5/5 strength to upper and lower extremities SKIN: Warm, dry, soft, appropriate color for ethnicity. No lesions, rashes, or wounds. NEURO: Alert and Oriented X 3. Good coordination. No ataxia, or sensory deficits, or cognitive issues. PSYCH: Appropriate affect and mood. <Dave Marie DO - Last Filed: 10/26/18 01:05> Initial Vital Signs Initial Vital Signs: Vital Signs Temperature 98.4 F 10/25/18 18:41 Pulse Rate 79 10/25/18 18:41 Respiratory Rate 14 10/25/18 18:41 Blood Pressure 156/65 H 10/25/18 18:41 Pulse Oximetry 95 10/25/18 18:41 Course <ROSETTA Epstein - Last Filed: 10/25/18 20:49> Orders Ordered: ED Orders 10/25/18 18:45 Complete Blood Count AUTO DIFF Stat Comprehensive Metabolic Panel Stat Discontinued Medications Cephalexin HCl (Keflex) 500 mg PO NOW ONE Stop: 10/25/18 19:56 Last Admin: 10/25/18 20:11 Dose: 500 mg Sodium Chloride (Normal Saline 0.9%) 1,000 mls @ 500 mls/hr IV BOLUS ONE Stop: 10/25/18 20:55 Last Infusion: 10/25/18 20:47 Dose: 500 mls/hr Admin: 10/25/18 19:25 Dose: 500 mls/hr Vital Signs - 8 hr 10/25/18 18:41 10/25/18 20:48 Temperature 98.4 F Pulse Rate 79 71 Respiratory Rate 14 15 Blood Pressure 156/65 H 155/69 H Pulse Oximetry 95 97 <Dave Marie DO - Last Filed: 10/26/18 01:05> Orders Ordered: ED Orders 10/25/18 18:45 Complete Blood Count AUTO DIFF Stat Comprehensive Metabolic Panel Stat Discontinued Medications Cephalexin HCl (Keflex) 500 mg PO NOW ONE Stop: 10/25/18 19:56 Last Admin: 10/25/18 20:11 Dose: 500 mg Sodium Chloride (Normal Saline 0.9%) 1,000 mls @ 500 mls/hr IV BOLUS ONE Stop: 10/25/18 20:55 Last Infusion: 10/25/18 20:47 Dose: 500 mls/hr Admin: 10/25/18 19:25 Dose: 500 mls/hr Vital Signs - 8 hr 10/25/18 18:41 10/25/18 20:48 Temperature 98.4 F Pulse Rate 79 71 Respiratory Rate 14 15 Blood Pressure 156/65 H 155/69 H Pulse Oximetry 95 97 MDM - Female Genitourinary <ROSETTA Epstein - Last Filed: 10/25/18 20:49> Medical Records Attestation: I reviewed the patient's medical records. Lab Data Attestation: I reviewed the patient's lab results. Result diagrams: 10/25/18 18:45 10/25/18 18:45 Lab Results 10/25/18 10/25/18 Range/Units 18:45 18:45 WBC 9.9 (4.5-11.0) X10^3/uL RBC 4.17 (4.0-5.2) X10^6/uL Hgb 10.3 L (12.0-16.0) g/dL Hct 32.6 L (36-46) % MCV 78.2 L (80-100) fL MCH 24.8 L (26-34) PG MCHC 31.7 (30-36) % RDW 17.1 H (11.6-14.8) % Plt Count 298 (150-400) X10^3/uL Neut % (Auto) 74.3 (50-75) % Lymph % (Auto) 17.2 L (25-40) % Meeker % (Auto) 7.0 (3-14) % Eos % (Auto) 0.7 L (2-4) % Baso % (Auto) 0.8 (0-2) % Neut # (Auto) 7300 H (1485-8721) /uL Lymph # (Auto) 1700 (9270-3249) /uL Meeker # (Auto) 700 (0-900) /uL Eos # (Auto) 100 (0-450) /uL Baso # (Auto) 100 (0-100) /uL Sodium 138 (137-145) mmol/L Potassium 4.4 (3.4-5.1) mmol/L Chloride 105 (98-107) mmol/L Carbon Dioxide 24 (22-32) mmol/L BUN 30 H (7-17) mg/dL Creatinine 1.90 H (0.52-1.04) mg/dL Estimated GFR 25.4 L (>60) mL/min BUN/Creatinine Ratio 15.8 (6-22) Glucose 141 H (80-110) mg/dL Calcium 8.8 (8.4-10.2) mg/dL Total Bilirubin 0.3 (0.2-1.3) mg/dL AST 28 (14-36) IU/L ALT 15 (9-52) IU/L Alkaline Phosphatase 68 (38-126) U/L Total Protein 7.4 (6.3-8.2) g/dL Albumin 4.0 (3.5-5.0) g/dL Globulin 3.4 (1.7-4.1) g/dL Albumin/Globulin Ratio 1.2 (1.0-2.8) MDM Narrative Medical decision making narrative: Patient's left flank pain is most likely by pyelonephritis as indicated by UTI (see records), left flank pain, and history of pyelonephritis. Patient's renal function is low, however, it is fairly consistent with her past labs. She is able to tolerate pills and fluids at this time, therefore she is a candidate for outpatient treatment. Patient's last culture showed positive for Klebsiella pneumonia for which cephalexin was sensitive, as patient has multiple allergies this was prescribed for treatment. Less likely musculoskeletal due to lack trauma, less likely cardiac due to absence of other symptoms and negative exam, less likely sepsis due to lack of white blood count and fever. Strict return precautions discussed and follow instructions given. <Dave Marie DO - Last Filed: 10/26/18 01:05> Lab Data Lab Results 10/25/18 10/25/18 Range/Units 18:45 18:45 WBC 9.9 (4.5-11.0) X10^3/uL RBC 4.17 (4.0-5.2) X10^6/uL Hgb 10.3 L (12.0-16.0) g/dL Hct 32.6 L (36-46) % MCV 78.2 L (80-100) fL MCH 24.8 L (26-34) PG MCHC 31.7 (30-36) % RDW 17.1 H (11.6-14.8) % Plt Count 298 (150-400) X10^3/uL Neut % (Auto) 74.3 (50-75) % Lymph % (Auto) 17.2 L (25-40) % Meeker % (Auto) 7.0 (3-14) % Eos % (Auto) 0.7 L (2-4) % Baso % (Auto) 0.8 (0-2) % Neut # (Auto) 7300 H (8573-1940) /uL Lymph # (Auto) 1700 (8303-4171) /uL Meeker # (Auto) 700 (0-900) /uL Eos # (Auto) 100 (0-450) /uL Baso # (Auto) 100 (0-100) /uL Sodium 138 (137-145) mmol/L Potassium 4.4 (3.4-5.1) mmol/L Chloride 105 (98-107) mmol/L Carbon Dioxide 24 (22-32) mmol/L BUN 30 H (7-17) mg/dL Creatinine 1.90 H (0.52-1.04) mg/dL Estimated GFR 25.4 L (>60) mL/min BUN/Creatinine Ratio 15.8 (6-22) Glucose 141 H (80-110) mg/dL Calcium 8.8 (8.4-10.2) mg/dL Total Bilirubin 0.3 (0.2-1.3) mg/dL AST 28 (14-36) IU/L ALT 15 (9-52) IU/L Alkaline Phosphatase 68 (38-126) U/L Total Protein 7.4 (6.3-8.2) g/dL Albumin 4.0 (3.5-5.0) g/dL Globulin 3.4 (1.7-4.1) g/dL Albumin/Globulin Ratio 1.2 (1.0-2.8) Discharge Plan Departure Patient Disposition: Home Clinical Impression: Acute pyelonephritis Discharge Date/Time: 10/25/18 20:49 Interventions: ED Discharge Assessment Last Done: 10/25/18 20:48 Instructions: DI for Kidney Infection, DI for Urinary Tract Infection (UTI) Activity Restrictions/Additional Instructions: Thank you for entrusting me with your care today. As discussed, you have a kidney infection. Your kidney function is slightly decreased from her baseline. Prescribed you antibiotics, please take as directed. Follow up with their primary care provider in the next day or so. If you have worsening symptoms such as fevers, syncope, nausea, vomiting, chest pain, or shortness of breath please return to the emergency department. Prescriptions: New cephalexin 500 mg capsule 500 mg PO TID Qty: 42 RF: 0 No Action acetaminophen [Tylenol Extra Strength] 500 MG tablet 500 mg PO PRN PRN (Reason: Pain, Mild) Qty: 0 RF: 0 amiodarone 200 mg tablet 200 mg PO DAILY Qty: 0 RF: 0 sertraline 100 mg tablet 50 mg PO DAILY Qty: 90 RF: 3 lisinopril 5 mg tablet 5 mg PO DAILY RF: 0 warfarin 2 mg tablet RF: 0 meclizine 25 mg tablet,chewable 50 mg PO TID-QID PRN (Reason: motion sickness) Qty: 14 RF: 0 Referrals: Scooter Salgado MD [Primary Care Provider] - <Dave Marie DO - Last Filed: 10/26/18 01:05> [facility] Attestation: I was immediately available in the department for consultation. Documentation has been reviewed. I agree with assessment and plan.
[2018-10-25 19:07] LABS: Alanine Aminotransferase 15 IU/L (9-52); Albumin Globulin Ratio 1.2 (1.0-2.8); Alkaline Phosphatase 68 U/L (38-126); Aspartate Aminotransferase 28 IU/L (14-36); BUN Creatinine Ratio 15.8 (6-22); Bilirubin Total 0.3 mg/dL (0.2-1.3); Blood Urea Nitrogen 30 mg/dL (7-17); Calcium 8.8 mg/dL (8.4-10.2); Carbon Dioxide 24 mmol/L (22-32); Chloride 105 mmol/L (98-107); Estimated Glomerular Filt Rate 25.4 mL/min (>60); Globulin 3.4 g/dL (1.7-4.1); Glucose 141 mg/dL (80-110); HEMOLYSIS < 15 (0-50); Potassium 4.4 mmol/L (3.4-5.1); Sodium 138 mmol/L (137-145); Total Protein 7.4 g/dL (6.3-8.2)
[2018-10-25] MEDS: SODIUM CHLORIDE 0.9% 1,000 ML 500 ML IV (19:25)
[2018-10-25] MEDS: cephALEXin 250 MG CAPSULE 500 MG PO (20:11)
[2018-10-25 20:48] VITALS: BP 155/69; PULSE 71; RESP 15; O2SAT 97
== END 2018-10-25 20:49 | disposition home or self-care (01) ==
PROVIDERS: Emergency Provider Nurse Practitioner; PCP Student in an Organized Health Care Education/Training Program
DX: N10 Acute pyelonephritis (principal); R39.89 Other symptoms and signs involving the genitourinary system
CPT/HCPCS: 36591; 80053; 81001; 85025; 87077; 87086; 87186; 96360; 99283

== ENCOUNTER → 2018-11-02 13:28 | Outpatient (CLI) | payer MEDICARE, OTHER, SELFPAY ==
[2018-07-03 15:42] VITALS: BMI 28.0
[2018-11-02 13:36] LABS: Bacteria Urine None Seen; RBC Urine None Seen (0-5/HPF); WBC Urine None Seen (0-5/HPF)
[2018-11-02 14:08] LABS: Hematocrit 33.3 % (36-46); Hemoglobin 10.5 g/dL (12.0-16.0)
[2018-11-02 14:16] LABS: Appearance Urine UA CLEAR; Bilirubin Urine UA NEGATIVE (NEGATIVE); Color Urine UA YELLOW; Glucose Urine UA NEGATIVE (Negative); Ketones Urine UA NEGATIVE (NEGATIVE); Leukocyte Esterase Urine UA NEGATIVE (NEGATIVE); Nitrite Urine UA NEGATIVE (Negative); Occult Blood Urine UA NEGATIVE (Negative); Protein Urine UA NEGATIVE (Negative); Urobilinogen Urine UA 0.2 E.U./dL (0.2); pH Urine UA 5.5 (4.5-8.0)
[2018-11-02 14:27] LABS: BUN Creatinine Ratio 17.5 (6-22); Blood Urea Nitrogen 28 mg/dL (7-17); Calcium 8.7 mg/dL (8.4-10.2); Carbon Dioxide 27 mmol/L (22-32); Chloride 104 mmol/L (98-107); Estimated Glomerular Filt Rate 30.9 mL/min (>60); Glucose 104 mg/dL (80-110); HEMOLYSIS < 15 (0-50); Phosphorous 3.9 mg/dL (2.8-4.1); Potassium 4.7 mmol/L (3.4-5.1); Sodium 138 mmol/L (137-145)
[2018-11-02 14:38] LABS: Culture Indicated Urine Cult Not Indicated; Urine Comments Microscopic Normal
[2018-11-02 15:40] LABS: Creatinine Urine Random 164.2 mg/dL; Protein (Total) Urine Random 11 mg/dL (0-12); Protein Creatinine Ratio Urine 0.06 GRAM/24H
[2018-11-06 15:40] LABS: Parathyroid Hormone Int 197 pg/mL (14-64)
== END ==
PROVIDERS: Student in an Organized Health Care Education/Training Program; PCP Student in an Organized Health Care Education/Training Program; Visit Provider Internal Medicine Nephrology
DX: N05.9 Unspecified nephritic syndrome with unspecified morphologic changes (principal); D64.9 Anemia, unspecified; E83.30 Disorder of phosphorus metabolism, unspecified; N30.00 Acute cystitis without hematuria; R80.9 Proteinuria, unspecified
CPT/HCPCS: 36415; 80048; 81001; 82570; 83970; 84100; 84156; 85014; 85018

== ENCOUNTER → 2018-11-19 12:15 | Outpatient (CLI) | payer MEDICARE, OTHER, SELFPAY ==
[2018-07-03 15:42] VITALS: BMI 28.0
[2018-11-19 12:32] LABS: RBC Urine None Seen (0-5/HPF)
[2018-11-19 13:04] LABS: Add Manual Diff / Slide Review NO; Basophils Absolute Auto 100 /uL (0-100); Eosinophils Absolute Auto 100 /uL (0-450); Eosinophils Percent Auto 0.9 % (2-4); Hematocrit 28.9 % (36-46); Hemoglobin 9.4 g/dL (12.0-16.0); Lymphocytes Absolute Auto 1200 /uL (1100-4500); Lymphocytes Percent Auto 20.5 % (25-40); Mean Corpuscular HGB Conc 32.4 % (30-36); Mean Corpuscular Hemoglobin 24.8 PG (26-34); Mean Corpuscular Volume 76.6 fL (80-100); Monocytes Absolute Auto 500 /uL (0-900); Monocytes Percent Auto 9.2 % (3-14); Neutrophils Absolute Auto 4100 /uL (1500-7000); Neutrophils Percent Auto 68.4 % (50-75); Platelet Count 289 X10^3/uL (150-400); Red Blood Cell Count 3.77 X10^6/uL (4.0-5.2); White Blood Cell Count 5.9 X10^3/uL (4.5-11.0)
[2018-11-19 13:07] LABS: Appearance Urine UA CLEAR; Bilirubin Urine UA NEGATIVE (NEGATIVE); Color Urine UA YELLOW; Glucose Urine UA NEGATIVE (Negative); Ketones Urine UA TRACE (NEGATIVE); Leukocyte Esterase Urine UA TRACE (NEGATIVE); Nitrite Urine UA NEGATIVE (Negative); Occult Blood Urine UA NEGATIVE (Negative); Protein Urine UA NEGATIVE (Negative); Specific Gravity Urine UA 1.025 (1.000-1.035); Urobilinogen Urine UA 0.2 E.U./dL (0.2)
[2018-11-19 13:15] LABS: Alanine Aminotransferase 26 IU/L (9-52); Albumin Globulin Ratio 1.2 (1.0-2.8); Alkaline Phosphatase 75 U/L (38-126); Aspartate Aminotransferase 37 IU/L (14-36); BUN Creatinine Ratio 17.1 (6-22); Bilirubin Total 0.5 mg/dL (0.2-1.3); Blood Urea Nitrogen 29 mg/dL (7-17); Calcium 8.8 mg/dL (8.4-10.2); Carbon Dioxide 28 mmol/L (22-32); Chloride 104 mmol/L (98-107); Estimated Glomerular Filt Rate 28.8 mL/min (>60); Globulin 3.3 g/dL (1.7-4.1); Glucose 95 mg/dL (80-110); HEMOLYSIS < 15 (0-50); Potassium 4.8 mmol/L (3.4-5.1); Sodium 141 mmol/L (137-145); Total Protein 7.3 g/dL (6.3-8.2)
[2018-11-19 13:41] LABS: Squamous Epithelial Cell Urine 1-5 /HPF (0-5/HPF); WBC Urine 1-5/HPF (0-5/HPF)
[2018-11-19 13:42] LABS: Amorphous Sediment Urine 1+; Bacteria Urine Few (2-10); Culture Indicated Urine Specimen Cultured; Hyaline Casts Urine 1-5/LPF; Mucus Urine 1+ (Negative)
== END ==
PROVIDERS: PCP Student in an Organized Health Care Education/Training Program; Visit Provider Student in an Organized Health Care Education/Training Program
DX: K62.5 Hemorrhage of anus and rectum (principal); R30.0 Dysuria; R53.1 Weakness; R53.81 Other malaise
CPT/HCPCS: 36415; 80053; 81001; 85025; 87086

== ENCOUNTER → 2018-11-20 06:48 | Outpatient (CLI) | payer MEDICARE, OTHER, SELFPAY ==
[2018-07-03 15:42] VITALS: BMI 28.0
[2018-11-20 07:19] LABS: HEMOLYSIS < 15 (0-50); Iron 42 ug/dL (37-170)
[2018-11-20 07:30] LABS: Percent Iron Saturation 9 % (15-50); Total Iron Binding Capacity 471 ug/dL (265-497); Transferrin 371 mg/dL (206-381)
== END ==
PROVIDERS: PCP Student in an Organized Health Care Education/Training Program; Visit Provider Student in an Organized Health Care Education/Training Program
DX: D64.9 Anemia, unspecified (principal)
CPT/HCPCS: 83540; 83550

== ENCOUNTER → 2018-11-26 14:08 | Outpatient (CLI) | payer MEDICARE, OTHER, SELFPAY ==
[2018-07-03 15:42] VITALS: BMI 28.0
[2018-11-26 16:17] LABS: Alanine Aminotransferase 26 IU/L (9-52); Albumin Globulin Ratio 1.3 (1.0-2.8); Alkaline Phosphatase 75 U/L (38-126); Aspartate Aminotransferase 28 IU/L (14-36); BUN Creatinine Ratio 23.5 (6-22); Bilirubin Total 0.4 mg/dL (0.2-1.3); Blood Urea Nitrogen 40 mg/dL (7-17); Calcium 9.6 mg/dL (8.4-10.2); Carbon Dioxide 26 mmol/L (22-32); Chloride 104 mmol/L (98-107); Estimated Glomerular Filt Rate 28.8 mL/min (>60); Globulin 3.2 g/dL (1.7-4.1); Glucose 103 mg/dL (80-110); HEMOLYSIS < 15 (0-50); Magnesium 2.1 mg/dL (1.6-2.3); Potassium 4.7 mmol/L (3.4-5.1); Sodium 140 mmol/L (137-145); Total Protein 7.2 g/dL (6.3-8.2)
[2018-11-26 16:46] LABS: Thyroid Stimulating Hormone 0.76 uIU/mL (0.47-4.68)
[2018-11-28 10:26] LABS: Lipoprofile NMR SEE SEPARATE REPORTS
== END ==
PROVIDERS: PCP Student in an Organized Health Care Education/Training Program; Visit Provider Specialist
DX: Z79.899 Other long term (current) drug therapy (principal); I48.0 Paroxysmal atrial fibrillation; E78.2 Mixed hyperlipidemia
CPT/HCPCS: 36415; 80053; 83704; 83735; 84443

== ENCOUNTER 2018-12-03 15:45 | Emergency (ER) | payer MEDICARE, OTHER, SELFPAY ==
[2018-07-03 15:42] VITALS: BMI 28.0
[2018-12-03 15:45] VITALS: BP 172/80; PULSE 79; RESP 18; TEMP 37.1; O2SAT 94
--- NOTE | 2018-12-03 15:52 | DI.RAD.S_ITS ---
PROCEDURE: XR ACUTE ABDOMEN SERIES INDICATIONS: Abdominal pain TECHNIQUE: One view chest and two views of the abdomen were acquired. COMPARISON: [facility], CT, CT ABDOMEN PELVIS WO CON, 06/19/2018, 12:20. FINDINGS: Surgical changes and devices: Surgical clips are seen within the right upper quadrant, suggesting a previous cholecystectomy. Postoperative changes of the lower lumbar spine are present. A cardiac pacer/defibrillator with wires is seen overlying the left chest. Chest: Lungs are clear. Heart size is normal. There is aortic atherosclerosis. No pleural effusions. No pneumoperitoneum. Abdomen: Bowel gas pattern is normal. No air-filled distended small bowel loops are evident demonstrating air-fluid levels. No suspicious calcifications. Visualized solid organ contours appear normal. Bones: No suspicious bony lesions. Moderate degenerative changes of the spine are present. The bone mineralization appears to be decreased. IMPRESSION: 1. No bowel obstruction. 2. No acute cardiopulmonary process is evident. Dictated by: Clay Crenshaw M.D. on 12/03/2018 at 15:20 Approved by: Clay Crenshaw M.D. on 12/03/2018 at 15:25
[2018-12-03] MEDS: ONDANSETRON 4 MG/2 ML INJ IV (16:03)
[2018-12-03] MEDS: PANTOPRAZOLE 40 MG VIAL 80 MG IV (16:03)
[2018-12-03 16:06] LABS: Add Manual Diff / Slide Review NO; Basophils Absolute Auto 100 /uL (0-100); Basophils Percent Auto 0.6 % (0-2); Eosinophils Absolute Auto 0 /uL (0-450); Eosinophils Percent Auto 0.4 % (2-4); Hematocrit 34.7 % (36-46); Hemoglobin 11.3 g/dL (12.0-16.0); Lymphocytes Absolute Auto 1200 /uL (1100-4500); Lymphocytes Percent Auto 11.2 % (25-40); Mean Corpuscular HGB Conc 32.5 % (30-36); Mean Corpuscular Hemoglobin 25.4 PG (26-34); Mean Corpuscular Volume 78.2 fL (80-100); Monocytes Absolute Auto 800 /uL (0-900); Monocytes Percent Auto 7.3 % (3-14); Neutrophils Absolute Auto 8400 /uL (1500-7000); Neutrophils Percent Auto 80.5 % (50-75); Platelet Count 293 X10^3/uL (150-400); Red Blood Cell Count 4.44 X10^6/uL (4.0-5.2); Red Cell Distribution Width 18.6 % (11.6-14.8); White Blood Cell Count 10.5 X10^3/uL (4.5-11.0)
[2018-12-03 16:13] LABS: INR 0.9 (0.9-1.3); Prothrombin Time 10.6 SECONDS (10.1-12.7)
[2018-12-03 16:15] LABS: PTT Partial Thromboplastin Tim 28 SECONDS (26.4-36.2)
[2018-12-03 16:17] LABS: Alanine Aminotransferase 27 IU/L (9-52); Albumin 4.1 g/dL (3.5-5.0); Albumin Globulin Ratio 1.1 (1.0-2.8); Alkaline Phosphatase 86 U/L (38-126); Aspartate Aminotransferase 31 IU/L (14-36); BUN Creatinine Ratio 16.5 (6-22); Bilirubin Total 0.5 mg/dL (0.2-1.3); Blood Urea Nitrogen 28 mg/dL (7-17); Calcium 9.2 mg/dL (8.4-10.2); Carbon Dioxide 25 mmol/L (22-32); Chloride 105 mmol/L (98-107); Estimated Glomerular Filt Rate 28.8 mL/min (>60); Globulin 3.6 g/dL (1.7-4.1); Glucose 99 mg/dL (80-110); HEMOLYSIS < 15 (0-50); Potassium 4.5 mmol/L (3.4-5.1); Sodium 138 mmol/L (137-145); Total Protein 7.7 g/dL (6.3-8.2)
--- NOTE | 2018-12-03 16:40 | ED.GIBLEED ---
HPI - GI Bleed General Chief complaint: GI Bleed Stated complaint: stomach and back pain Time Seen by Provider: 12/03/18 15:47 Source: patient Mode of arrival: ambulatory Limitations: no limitations History of Present Illness HPI Narrative: 83-year-old female nonsmoker with history of hypertension and renal failure presents with generalized abdominal pain, worse in her lower abdomen with radiation to the back since yesterday. She states it feels like prior episodes of bowel obstruction. Additionally she states she had a bowel movement earlier today and it was black with some red streaks on her underwear and states that she received a transfusion due to an unknown anemia last week. She has a scheduled colonoscopy coming up. She does not take any blood thinners and denies any use of NSAIDs. She had been on warfarin until relatively recently given her diagnosis of atrial fibrillation but was removed when she became symptomatic from her anemia. Last week when she was transfused her hemoglobin dropped to as low as 9.4. She has had iron deficiency anemia as well with an MCV ranging from 76-88 MD complaint: blood on toilet paper Onset (ago): hour(s) Pain Consistency: intermittent Severity: moderate Relieving factors: none Exacerbating factors: none Associated symptoms: abdominal pain Treatments Prior to Arrival: none Related Data Home Medications Medication Instructions Recorded Confirmed acetaminophen [Tylenol Extra 500 mg PO PRN PRN #0 04/19/16 09/17/18 Strength] amiodarone 200 mg tablet 200 mg PO DAILY #0 tab 03/15/18 09/17/18 lisinopril 5 mg tablet 5 mg PO DAILY 10/02/18 Previous Rx's Medication Instructions Recorded sertraline 100 mg tablet 50 mg PO DAILY #90 tab 06/13/18 meclizine 50 mg PO TID-QID PRN #14 tab 08/27/18 Allergies Allergy/AdvReac Type Severity Reaction Status Date / Time latex Allergy Severe THROAT Verified 11/20/18 14:42 SWELLING prednisone [PREDNISONE] Allergy Intermediate rash Verified 11/20/18 14:42 amoxicillin Allergy Mild ITCH Verified 11/20/18 14:42 ciprofloxacin Allergy Mild ITCH Verified 11/20/18 14:42 clavulanic acid Allergy Mild RASH Verified 11/20/18 14:42 hydromorphone Allergy Mild ITCHING Verified 11/20/18 14:42 nitrofurantoin Allergy Mild ABD Verified 11/20/18 14:42 PAIN/SEVERE ITCHING oxycodone Allergy Mild ITCH Verified 11/20/18 14:42 Penicillins Allergy Mild BLISTERS Verified 11/20/18 14:42 Sulfa (Sulfonamide Allergy Mild ITCH Verified 11/20/18 14:42 Antibiotics) levofloxacin [From LEVAQUIN] AdvReac Severe DISTURBING Verified 11/20/18 14:42 HALLUCINATIONS lorazepam [From ATIVAN] AdvReac Intermediate Verified 11/20/18 14:42 morphine AdvReac Mild HALLUCINATI Verified 11/20/18 14:42 ONS Review of Systems Constitutional Denies chills, Denies fever(s), Denies lethargy and Denies weakness Eyes Denies change in vision, Denies eye discharge, Denies irritation and Denies loss of vision ENT Ears, Nose, Mouth, and Throat: Denies change in voice, Denies neck pain and Denies sore throat Cardiovascular Denies chest pain, Denies irregular heart rhythm, Denies lightheadedness, Denies palpitations, Denies dyspnea, Denies dyspnea on exertion and Denies orthopnea Respiratory Denies cough, Denies dyspnea, Denies dyspnea on exertion and Denies wheezing Gastrointestinal Gastrointestinal: Denies abdominal pain, Denies change in bowel habits, Denies diarrhea, Denies nausea and Denies vomiting Genitourinary Denies hematuria, Denies flank pain, Denies urinary incontinence and Denies urinary urgency Musculoskeletal Denies neck pain Integumentary/Breasts Denies pruritus, Denies erythema, Denies rash and Denies wounds Neurologic Denies confusion, Denies loss of vision and Denies weakness Psychiatric Denies anxiety, Denies confusion, Denies depression, Denies homicidal ideation and Denies suicidal ideation Endocrine Denies palpitations Hematologic/Lymphatic Denies easy bruising Allergic/Immunologic Denies wheezing [facility] Medical History Paroxysmal atrial fibrillation (Chronic ~2013) Essential hypertension (Chronic) Cerebral microvascular disease (Chronic) Anxiety (Chronic 12/08/15) 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 difficile colitis (Resolved 07/2015) C. difficile colitis (Resolved 11/2011) Chicken pox (Resolved ~1940) Measles (Resolved ~1940) Mumps (Resolved ~1940) Paraesophageal hernia (Resolved) Skin cancer (Resolved 2009) History of PSVT (paroxysmal supraventricular tachycardia) (Inactive) Surgical History Anesthesia (Resolved) History of bladder surgery (Resolved ~1967) History of cholecystectomy (Resolved) History of nephrectomy (Resolved) History of spinal fusion (Resolved 2005) S/P repair of paraesophageal hernia (Resolved) Status post hysterectomy with oophorectomy (Resolved) Family History Brother CAD (coronary artery disease) Hyperlipidemia High cholesterol Lung cancer Colon cancer Brother Cancer High cholesterol Lung disease Father Colon cancer CAD (coronary artery disease) High cholesterol Mother CVA (cerebral vascular accident) Hyperlipidemia Sister Age: 83 CAD (coronary artery disease) Hyperlipidemia Ulcer Essential hypertension High cholesterol Heart attack Grandfather Throat cancer Grandmother Heart disease Family/Other Lung disease Social History household members: spouse Smoking Status: Never smoker Family History Brother CAD (coronary artery disease) Hyperlipidemia High cholesterol Lung cancer Colon cancer Brother Cancer High cholesterol Lung disease Father Colon cancer CAD (coronary artery disease) High cholesterol Mother CVA (cerebral vascular accident) Hyperlipidemia Sister Age: 83 CAD (coronary artery disease) Hyperlipidemia Ulcer Essential hypertension High cholesterol Heart attack Grandfather Throat cancer Grandmother Heart disease Family/Other Lung disease Social History household members: spouse Smoking Status: Never smoker Exam Narrative Exam Narrative: GENERAL: 83-year-old female appears younger than stated age and uncomfortable HEAD: Atraumatic. Normocephalic. No temporal or scalp tenderness. EYES: Pupils equal round and reactive. Extraocular motions intact. No scleral icterus. No injection or drainage. ENT: Nose without bleeding, purulent drainage or septal hematoma. Throat without erythema, tonsillar hypertrophy or exudate. Uvula midline. Airway patent. NECK: Trachea midline. No JVD or lymphadenopathy. Supple, nontender, no meningeal signs. CARDIOVASCULAR: Regular rate and rhythm without murmurs, gallops, or rubs. RESPIRATORY: Clear to auscultation. Breath sounds equal bilaterally. No wheezes, rales, or rhonchi. GASTROINTESTINAL: Abdomen soft, mild lower abdominal discomfort, nondistended. No hepato-splenomegaly, or palpable masses. No guarding. RECTAL: Performed with patient's permission and nursing press brake operator at the bedside, HEME NEG, no gross blood, no hemorrhoids EXTREMITIES: No clubbing, cyanosis, or edema. No joint tenderness, effusion, or edema noted. BACK: Nontender without deformity or crepitance. No flank tenderness. NEURO: AOx3. SKIN: No rash or erythema. Initial Vital Signs Initial Vital Signs: Vital Signs Temperature 98.8 F 12/03/18 15:45 Pulse Rate 79 12/03/18 15:45 Respiratory Rate 18 12/03/18 15:45 Blood Pressure 172/80 H 12/03/18 15:45 Pulse Oximetry 94 12/03/18 15:45 Course Orders Ordered: ED Orders 12/03/18 15:52 XR acute abdomen series Stat 12/03/18 15:55 Complete Blood Count AUTO DIFF Stat Comprehensive Metabolic Panel Stat Partial Thromboplastin Time Stat Prothrombin Time INR Stat Type and Screen Stat Discontinued Medications Ondansetron HCl (Zofran) 4 mg IV NOW ONE Stop: 12/03/18 15:51 Last Admin: 12/03/18 16:03 Dose: 4 mg Pantoprazole Sodium (Protonix) 80 mg IV NOW ONE Stop: 12/03/18 15:51 Last Admin: 12/03/18 16:03 Dose: 80 mg Vital Signs - 8 hr 12/03/18 15:45 12/03/18 17:00 12/03/18 17:26 Temperature 98.8 F Pulse Rate 79 74 75 Respiratory Rate 18 20 Blood Pressure 172/80 H 180/77 H Blood Pressure [Left Arm] 180/77 H Pulse Oximetry 94 96 96 MDM - GI Bleed Lab Data Result diagrams: 12/03/18 15:55 12/03/18 15:55 Lab Results 12/03/18 12/03/18 12/03/18 Range/Units 15:55 15:55 15:55 WBC 10.5 (4.5-11.0) X10^3/uL RBC 4.44 (4.0-5.2) X10^6/uL Hgb 11.3 L (12.0-16.0) g/dL Hct 34.7 L (36-46) % MCV 78.2 L (80-100) fL MCH 25.4 L (26-34) PG MCHC 32.5 (30-36) % RDW 18.6 H (11.6-14.8) % Plt Count 293 (150-400) X10^3/uL Neut % (Auto) 80.5 H (50-75) % Lymph % (Auto) 11.2 L (25-40) % [place] % (Auto) 7.3 (3-14) % Eos % (Auto) 0.4 L (2-4) % Baso % (Auto) 0.6 (0-2) % Neut # (Auto) 8400 H (0404-1197) /uL Lymph # (Auto) 1200 (5272-2999) /uL [place] # (Auto) 800 (0-900) /uL Eos # (Auto) 0 (0-450) /uL Baso # (Auto) 100 (0-100) /uL PT 10.6 (10.1-12.7) SECONDS INR 0.9 (0.9-1.3) APTT 28 D (26.4-36.2) SECONDS Sodium 138 (137-145) mmol/L Potassium 4.5 (3.4-5.1) mmol/L Chloride 105 (98-107) mmol/L Carbon Dioxide 25 (22-32) mmol/L BUN 28 H (7-17) mg/dL Creatinine 1.70 H (0.52-1.04) mg/dL Estimated GFR 28.8 L (>60) mL/min BUN/Creatinine Ratio 16.5 (6-22) Glucose 99 (80-110) mg/dL Calcium 9.2 (8.4-10.2) mg/dL Total Bilirubin 0.5 (0.2-1.3) mg/dL AST 31 (14-36) IU/L ALT 27 (9-52) IU/L Alkaline Phosphatase 86 (38-126) U/L Total Protein 7.7 (6.3-8.2) g/dL Albumin 4.1 (3.5-5.0) g/dL Globulin 3.6 (1.7-4.1) g/dL Albumin/Globulin Ratio 1.1 (1.0-2.8) Blood Type Antibody Screen 12/03/18 Range/Units 15:55 WBC (4.5-11.0) X10^3/uL RBC (4.0-5.2) X10^6/uL Hgb (12.0-16.0) g/dL Hct (36-46) % MCV (80-100) fL MCH (26-34) PG MCHC (30-36) % RDW (11.6-14.8) % Plt Count (150-400) X10^3/uL Neut % (Auto) (50-75) % Lymph % (Auto) (25-40) % [place] % (Auto) (3-14) % Eos % (Auto) (2-4) % Baso % (Auto) (0-2) % Neut # (Auto) (6923-9017) /uL Lymph # (Auto) (1849-2734) /uL [place] # (Auto) (0-900) /uL Eos # (Auto) (0-450) /uL Baso # (Auto) (0-100) /uL PT (10.1-12.7) SECONDS INR (0.9-1.3) APTT (26.4-36.2) SECONDS Sodium (137-145) mmol/L Potassium (3.4-5.1) mmol/L Chloride (98-107) mmol/L Carbon Dioxide (22-32) mmol/L BUN (7-17) mg/dL Creatinine (0.52-1.04) mg/dL Estimated GFR (>60) mL/min BUN/Creatinine Ratio (6-22) Glucose (80-110) mg/dL Calcium (8.4-10.2) mg/dL Total Bilirubin (0.2-1.3) mg/dL AST (14-36) IU/L ALT (9-52) IU/L Alkaline Phosphatase (38-126) U/L Total Protein (6.3-8.2) g/dL Albumin (3.5-5.0) g/dL Globulin (1.7-4.1) g/dL Albumin/Globulin Ratio (1.0-2.8) Blood Type AB Negative Antibody Screen Negative Imaging Data Abdominal x-ray: Radiologist's impression: [address] [address] XRay Report Signed Patient: Valery Yeh EMR#: [id number] : 1936Acct:[id number] Age/Sex: 83 / FDate of Service: 12/03/18 Loc: ED Accession Number: [id number] Procedure: XR acute abdomen series Ordering Provider: Dave Marie D.O. PROCEDURE: XR ACUTE ABDOMEN SERIES INDICATIONS: Abdominal pain TECHNIQUE: One view chest and two views of the abdomen were acquired. COMPARISON: [facility], CT, CT ABDOMEN PELVIS WO CON, 06/19/2018, 12:20. FINDINGS: Surgical changes and devices: Surgical clips are seen within the right upper quadrant, suggesting a previous cholecystectomy. Postoperative changes of the lower lumbar spine are present. A cardiac pacer/defibrillator with wires is seen overlying the left chest. Chest: Lungs are clear. Heart size is normal. There is aortic atherosclerosis. No pleural effusions. No pneumoperitoneum. Abdomen: Bowel gas pattern is normal. No air-filled distended small bowel loops are evident demonstrating air-fluid levels. No suspicious calcifications. Visualized solid organ contours appear normal. Bones: No suspicious bony lesions. Moderate degenerative changes of the spine are present. The bone mineralization appears to be decreased. IMPRESSION: 1. No bowel obstruction. 2. No acute cardiopulmonary process is evident. Dictated by: Clay Crenshaw M.D. on 12/03/2018 at 15:20 Approved by: Clay Crenshaw M.D. on 12/03/2018 at 15:25 MDM Narrative Medical decision making narrative: 83-year-old female presents with episodes of waxing and waning abdominal pain without provocation or palliation. Its location moves without any pattern. She currently is asymptomatic. She states this feels somewhat like prior episodes of bowel obstruction but not as severe. X-ray shows a nonobstructive pattern, abdomen is soft and nontender on exam. Additionally, patient admits to an episode of dark stools earlier and some bright red blood on her underwear. Rectal exam is heme-negative, no active bleeding, fissures, hemorrhoids. Patient has stable H&H, vital signs and has scheduled outpatient colonoscopy in a few days. Patient given significant return precautions and has had her questions answered to her apparent satisfaction, daughter is at the bedside, they both understand and agree with the plan. Discharge Plan Departure Patient Disposition: Home Clinical Impression: Abdominal pain Qualifiers: Abdominal location: generalized Qualified Code(s): R10.84 - Generalized abdominal pain Discharge Date/Time: 12/03/18 17:28 Interventions: ED Discharge Assessment Last Done: 12/03/18 17:26 Instructions: DI for Abdominal Pain-Adult Activity Restrictions/Additional Instructions: *You have been diagnosed with [abdominal pain and possibly rectal bleeding. Year x-ray demonstrates no obstruction. Furthermore, you have no current rectal bleeding and your blood counts and vital signs are stable. It is fortunate that you have a colonoscopy scheduled for later in the week to get a better idea of the cause of your rectal bleeding] *What to do: * continue to take medications as directed *Follow up with your primary care provider in 2-3 days, call for an appointment. Let them know you were seen in the Emergency Department and that we ask that you be seen in follow up *Return to ER if you should have any new, worsening or concerning symptoms, such as [increased passage of black stool, dizziness, weakness, lightheadedness, worsening abdominal pain, fever over 101, or other bothersome symptoms * considered [id number] stool softeners over the next day or to as your x-ray does suggest fair amount of stool low in your abdomen] Prescriptions: No Action acetaminophen [Tylenol Extra Strength] 500 MG tablet 500 mg PO PRN PRN (Reason: Pain, Mild) Qty: 0 RF: 0 amiodarone 200 mg tablet 200 mg PO DAILY Qty: 0 RF: 0 sertraline 100 mg tablet 50 mg PO DAILY Qty: 90 RF: 3 lisinopril 5 mg tablet 5 mg PO DAILY RF: 0 meclizine 25 mg tablet,chewable 50 mg PO TID-QID PRN (Reason: motion sickness) Qty: 14 RF: 0 Referrals: Scooter Salgado MD [Primary Care Provider] -
--- NOTE | 2018-12-03 16:44 | ED_ITS ---
HPI - GI Bleed General Chief complaint: GI Bleed Stated complaint: stomach and back pain Time Seen by Provider: 12/03/18 15:47 Source: patient Mode of arrival: ambulatory Limitations: no limitations History of Present Illness HPI Narrative: 83-year-old female nonsmoker with history of hypertension and renal failure presents with generalized abdominal pain, worse in her lower abdomen with radiation to the back since yesterday. She states it feels like prior episodes of bowel obstruction. Additionally she states she had a bowel movement earlier today and it was black with some red streaks on her underwear and states that she received a transfusion due to an unknown anemia last week. She has a scheduled colonoscopy coming up. She does not take any blood thinners and denies any use of NSAIDs. She had been on warfarin until relatively recently given her diagnosis of atrial fibrillation but was removed when she became symptomatic from her anemia. Last week when she was transfused her hemoglobin dropped to as low as 9.4. She has had iron deficiency anemia as well with an MCV ranging from 76-88 MD complaint: blood on toilet paper Onset (ago): hour(s) Pain Consistency: intermittent Severity: moderate Relieving factors: none Exacerbating factors: none Associated symptoms: abdominal pain Treatments Prior to Arrival: none Related Data Home Medications Medication Instructions Recorded Confirmed acetaminophen [Tylenol Extra 500 mg PO PRN PRN #0 04/19/16 09/17/18 Strength] amiodarone 200 mg tablet 200 mg PO DAILY #0 tab 03/15/18 09/17/18 lisinopril 5 mg tablet 5 mg PO DAILY 10/02/18 Previous Rx's Medication Instructions Recorded sertraline 100 mg tablet 50 mg PO DAILY #90 tab 06/13/18 meclizine 50 mg PO TID-QID PRN #14 tab 08/27/18 Allergies Allergy/AdvReac Type Severity Reaction Status Date / Time latex Allergy Severe THROAT Verified 11/20/18 14:42 SWELLING prednisone [PREDNISONE] Allergy Intermediate rash Verified 11/20/18 14:42 amoxicillin Allergy Mild ITCH Verified 11/20/18 14:42 ciprofloxacin Allergy Mild ITCH Verified 11/20/18 14:42 clavulanic acid Allergy Mild RASH Verified 11/20/18 14:42 hydromorphone Allergy Mild ITCHING Verified 11/20/18 14:42 nitrofurantoin Allergy Mild ABD Verified 11/20/18 14:42 PAIN/SEVERE ITCHING oxycodone Allergy Mild ITCH Verified 11/20/18 14:42 Penicillins Allergy Mild BLISTERS Verified 11/20/18 14:42 Sulfa (Sulfonamide Allergy Mild ITCH Verified 11/20/18 14:42 Antibiotics) levofloxacin [From LEVAQUIN] AdvReac Severe DISTURBING Verified 11/20/18 14:42 HALLUCINATIONS lorazepam [From ATIVAN] AdvReac Intermediate Verified 11/20/18 14:42 morphine AdvReac Mild HALLUCINATI Verified 11/20/18 14:42 ONS Review of Systems Constitutional Denies chills, Denies fever(s), Denies lethargy and Denies weakness Eyes Denies change in vision, Denies eye discharge, Denies irritation and Denies loss of vision ENT Ears, Nose, Mouth, and Throat: Denies change in voice, Denies neck pain and Denies sore throat Cardiovascular Denies chest pain, Denies irregular heart rhythm, Denies lightheadedness, Denies palpitations, Denies dyspnea, Denies dyspnea on exertion and Denies orthopnea Respiratory Denies cough, Denies dyspnea, Denies dyspnea on exertion and Denies wheezing Gastrointestinal Gastrointestinal: Denies abdominal pain, Denies change in bowel habits, Denies diarrhea, Denies nausea and Denies vomiting Genitourinary Denies hematuria, Denies flank pain, Denies urinary incontinence and Denies urinary urgency Musculoskeletal Denies neck pain Integumentary/Breasts Denies pruritus, Denies erythema, Denies rash and Denies wounds Neurologic Denies confusion, Denies loss of vision and Denies weakness Psychiatric Denies anxiety, Denies confusion, Denies depression, Denies homicidal ideation and Denies suicidal ideation Endocrine Denies palpitations Hematologic/Lymphatic Denies easy bruising Allergic/Immunologic Denies wheezing [facility] Medical History Paroxysmal atrial fibrillation (Chronic ~2013) Essential hypertension (Chronic) Cerebral microvascular disease (Chronic) Anxiety (Chronic 12/08/15) 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 difficile colitis (Resolved 07/2015) C. difficile colitis (Resolved 11/2011) Chicken pox (Resolved ~1940) Measles (Resolved ~1940) Mumps (Resolved ~1940) Paraesophageal hernia (Resolved) Skin cancer (Resolved 2009) History of PSVT (paroxysmal supraventricular tachycardia) (Inactive) Surgical History Anesthesia (Resolved) History of bladder surgery (Resolved ~1967) History of cholecystectomy (Resolved) History of nephrectomy (Resolved) History of spinal fusion (Resolved 2005) S/P repair of paraesophageal hernia (Resolved) Status post hysterectomy with oophorectomy (Resolved) Family History Brother CAD (coronary artery disease) Hyperlipidemia High cholesterol Lung cancer Colon cancer Brother Cancer High cholesterol Lung disease Father Colon cancer CAD (coronary artery disease) High cholesterol Mother CVA (cerebral vascular accident) Hyperlipidemia Sister Age: 83 CAD (coronary artery disease) Hyperlipidemia Ulcer Essential hypertension High cholesterol Heart attack Grandfather Throat cancer Grandmother Heart disease Family/Other Lung disease Social History household members: spouse Smoking Status: Never smoker Family History Brother CAD (coronary artery disease) Hyperlipidemia High cholesterol Lung cancer Colon cancer Brother Cancer High cholesterol Lung disease Father Colon cancer CAD (coronary artery disease) High cholesterol Mother CVA (cerebral vascular accident) Hyperlipidemia Sister Age: 83 CAD (coronary artery disease) Hyperlipidemia Ulcer Essential hypertension High cholesterol Heart attack Grandfather Throat cancer Grandmother Heart disease Family/Other Lung disease Social History household members: spouse Smoking Status: Never smoker Exam Narrative Exam Narrative: GENERAL: 83-year-old female appears younger than stated age and uncomfortable HEAD: Atraumatic. Normocephalic. No temporal or scalp tenderness. EYES: Pupils equal round and reactive. Extraocular motions intact. No scleral icterus. No injection or drainage. ENT: Nose without bleeding, purulent drainage or septal hematoma. Throat without erythema, tonsillar hypertrophy or exudate. Uvula midline. Airway patent. NECK: Trachea midline. No JVD or lymphadenopathy. Supple, nontender, no meningeal signs. CARDIOVASCULAR: Regular rate and rhythm without murmurs, gallops, or rubs. RESPIRATORY: Clear to auscultation. Breath sounds equal bilaterally. No wheezes, rales, or rhonchi. GASTROINTESTINAL: Abdomen soft, mild lower abdominal discomfort, nondistended. No hepato-splenomegaly, or palpable masses. No guarding. RECTAL: Performed with patient's permission and nursing morgue keeper at the bedside, HEME NEG, no gross blood, no hemorrhoids EXTREMITIES: No clubbing, cyanosis, or edema. No joint tenderness, effusion, or edema noted. BACK: Nontender without deformity or crepitance. No flank tenderness. NEURO: AOx3. SKIN: No rash or erythema. Initial Vital Signs Initial Vital Signs: Vital Signs Temperature 98.8 F 12/03/18 15:45 Pulse Rate 79 12/03/18 15:45 Respiratory Rate 18 12/03/18 15:45 Blood Pressure 172/80 H 12/03/18 15:45 Pulse Oximetry 94 12/03/18 15:45 Course Orders Ordered: ED Orders 12/03/18 15:52 XR acute abdomen series Stat 12/03/18 15:55 Complete Blood Count AUTO DIFF Stat Comprehensive Metabolic Panel Stat Partial Thromboplastin Time Stat Prothrombin Time INR Stat Type and Screen Stat Discontinued Medications Ondansetron HCl (Zofran) 4 mg IV NOW ONE Stop: 12/03/18 15:51 Last Admin: 12/03/18 16:03 Dose: 4 mg Pantoprazole Sodium (Protonix) 80 mg IV NOW ONE Stop: 12/03/18 15:51 Last Admin: 12/03/18 16:03 Dose: 80 mg Vital Signs - 8 hr 12/03/18 15:45 12/03/18 17:00 12/03/18 17:26 Temperature 98.8 F Pulse Rate 79 74 75 Respiratory Rate 18 20 Blood Pressure 172/80 H 180/77 H Blood Pressure [Left Arm] 180/77 H Pulse Oximetry 94 96 96 MDM - GI Bleed Lab Data Result diagrams: 12/03/18 15:55 12/03/18 15:55 Lab Results 12/03/18 12/03/18 12/03/18 Range/Units 15:55 15:55 15:55 WBC 10.5 (4.5-11.0) X10^3/uL RBC 4.44 (4.0-5.2) X10^6/uL Hgb 11.3 L (12.0-16.0) g/dL Hct 34.7 L (36-46) % MCV 78.2 L (80-100) fL MCH 25.4 L (26-34) PG MCHC 32.5 (30-36) % RDW 18.6 H (11.6-14.8) % Plt Count 293 (150-400) X10^3/uL Neut % (Auto) 80.5 H (50-75) % Lymph % (Auto) 11.2 L (25-40) % Caswell % (Auto) 7.3 (3-14) % Eos % (Auto) 0.4 L (2-4) % Baso % (Auto) 0.6 (0-2) % Neut # (Auto) 8400 H (7369-3264) /uL Lymph # (Auto) 1200 (1791-9607) /uL Caswell # (Auto) 800 (0-900) /uL Eos # (Auto) 0 (0-450) /uL Baso # (Auto) 100 (0-100) /uL PT 10.6 (10.1-12.7) SECONDS INR 0.9 (0.9-1.3) APTT 28 D (26.4-36.2) SECONDS Sodium 138 (137-145) mmol/L Potassium 4.5 (3.4-5.1) mmol/L Chloride 105 (98-107) mmol/L Carbon Dioxide 25 (22-32) mmol/L BUN 28 H (7-17) mg/dL Creatinine 1.70 H (0.52-1.04) mg/dL Estimated GFR 28.8 L (>60) mL/min BUN/Creatinine Ratio 16.5 (6-22) Glucose 99 (80-110) mg/dL Calcium 9.2 (8.4-10.2) mg/dL Total Bilirubin 0.5 (0.2-1.3) mg/dL AST 31 (14-36) IU/L ALT 27 (9-52) IU/L Alkaline Phosphatase 86 (38-126) U/L Total Protein 7.7 (6.3-8.2) g/dL Albumin 4.1 (3.5-5.0) g/dL Globulin 3.6 (1.7-4.1) g/dL Albumin/Globulin Ratio 1.1 (1.0-2.8) Blood Type Antibody Screen 12/03/18 Range/Units 15:55 WBC (4.5-11.0) X10^3/uL RBC (4.0-5.2) X10^6/uL Hgb (12.0-16.0) g/dL Hct (36-46) % MCV (80-100) fL MCH (26-34) PG MCHC (30-36) % RDW (11.6-14.8) % Plt Count (150-400) X10^3/uL Neut % (Auto) (50-75) % Lymph % (Auto) (25-40) % Caswell % (Auto) (3-14) % Eos % (Auto) (2-4) % Baso % (Auto) (0-2) % Neut # (Auto) (9800-2831) /uL Lymph # (Auto) (7819-0040) /uL Caswell # (Auto) (0-900) /uL Eos # (Auto) (0-450) /uL Baso # (Auto) (0-100) /uL PT (10.1-12.7) SECONDS INR (0.9-1.3) APTT (26.4-36.2) SECONDS Sodium (137-145) mmol/L Potassium (3.4-5.1) mmol/L Chloride (98-107) mmol/L Carbon Dioxide (22-32) mmol/L BUN (7-17) mg/dL Creatinine (0.52-1.04) mg/dL Estimated GFR (>60) mL/min BUN/Creatinine Ratio (6-22) Glucose (80-110) mg/dL Calcium (8.4-10.2) mg/dL Total Bilirubin (0.2-1.3) mg/dL AST (14-36) IU/L ALT (9-52) IU/L Alkaline Phosphatase (38-126) U/L Total Protein (6.3-8.2) g/dL Albumin (3.5-5.0) g/dL Globulin (1.7-4.1) g/dL Albumin/Globulin Ratio (1.0-2.8) Blood Type AB Negative Antibody Screen Negative Imaging Data Abdominal x-ray: Radiologist's impression: [address] [address] XRay Report Signed Patient: Valery Yeh EMR#: [id number] : 1936Acct:[id number] Age/Sex: 83 / FDate of Service: 12/03/18 Loc: ED Accession Number: [id number] Procedure: XR acute abdomen series Ordering Provider: Dave Marie D.O. PROCEDURE: XR ACUTE ABDOMEN SERIES INDICATIONS: Abdominal pain TECHNIQUE: One view chest and two views of the abdomen were acquired. COMPARISON: [facility], CT, CT ABDOMEN PELVIS WO CON, 06/19/2018, 12:20. FINDINGS: Surgical changes and devices: Surgical clips are seen within the right upper quadrant, suggesting a previous cholecystectomy. Postoperative changes of the lower lumbar spine are present. A cardiac pacer/defibrillator with wires is seen overlying the left chest. Chest: Lungs are clear. Heart size is normal. There is aortic a therosclerosis. No pleural effusions. No pneumoperitoneum. Abdomen: Bowel gas pattern is normal. No air-filled distended small bowel loops are evident demonstrating air-fluid levels. No suspicious calcifications. Visualized solid organ contours appear normal. Bones: No suspicious bony lesions. Moderate degenerative changes of the spine are present. The bone mineralization appears to be decreased. IMPRESSION: 1. No bowel obstruction. 2. No acute cardiopulmonary process is evident. Dictated by: Clay Crenshaw M.D. on 12/03/2018 at 15:20 Approved by: Clay Crenshaw M.D. on 12/03/2018 at 15:25 MDM Narrative Medical decision making narrative: 83-year-old female presents with episodes of waxing and waning abdominal pain without provocation or palliation. Its location moves without any pattern. She currently is asymptomatic. She states this feels somewhat like prior episodes of bowel obstruction but not as severe. X-ray shows a nonobstructive pattern, abdomen is soft and nontender on exam. Additionally, patient admits to an episode of dark stools earlier and some bright red blood on her underwear. Rectal exam is heme-negative, no active bleeding, fissures, hemorrhoids. Patient has stable H&H, vital signs and has scheduled outpatient colonoscopy in a few days. Patient given significant return precautions and has had her questions answered to her apparent satisfaction, daughter is at the bedside, they both understand and agree with the plan. Discharge Plan Departure Patient Disposition: Home Clinical Impression: Abdominal pain Qualifiers: Abdominal location: generalized Qualified Code(s): R10.84 - Generalized abdominal pain Discharge Date/Time: 12/03/18 17:28 Interventions: ED Discharge Assessment Last Done: 12/03/18 17:26 Instructions: DI for Abdominal Pain-Adult Activity Restrictions/Additional Instructions: *You have been diagnosed with [abdominal pain and possibly rectal bleeding. Year x-ray demonstrates no obstruction. Furthermore, you have no current rectal bleeding and your blood counts and vital signs are stable. It is fortunate that you have a colonoscopy scheduled for later in the week to get a better idea of the cause of your rectal bleeding] *What to do: * continue to take medications as directed *Follow up with your primary care provider in 2-3 days, call for an appointment. Let them know you were seen in the Emergency Department and that we ask that you be seen in follow up *Return to ER if you should have any new, worsening or concerning symptoms, such as [increased passage of black stool, dizziness, weakness, lightheadedness, worsening abdominal pain, fever over 101, or other bothersome symptoms * considered [id number] stool softeners over the next day or to as your x-ray does suggest fair amount of stool low in your abdomen] Prescriptions: No Action acetaminophen [Tylenol Extra Strength] 500 MG tablet 500 mg PO PRN PRN (Reason: Pain, Mild) Qty: 0 RF: 0 amiodarone 200 mg tablet 200 mg PO DAILY Qty: 0 RF: 0 sertraline 100 mg tablet 50 mg PO DAILY Qty: 90 RF: 3 lisinopril 5 mg tablet 5 mg PO DAILY RF: 0 meclizine 25 mg tablet,chewable 50 mg PO TID-QID PRN (Reason: motion sickness) Qty: 14 RF: 0 Referrals: Scooter Salgado MD [Primary Care Provider] -
[2018-12-03 17:00] VITALS: BP 180/77; PULSE 74; O2SAT 96
[2018-12-03 17:26] VITALS: BP 180/77; PULSE 75; RESP 20; O2SAT 96
== END 2018-12-03 17:28 | disposition home or self-care (01) ==
PROVIDERS: Emergency Provider Emergency Medicine; PCP Student in an Organized Health Care Education/Training Program
DX: R10.84 Generalized abdominal pain (principal)
CPT/HCPCS: 36591; 74022; 80053; 85025; 85610; 85730; 86850; 86900; 86901; 99283; C9113; J2405

== ENCOUNTER 2018-12-04 15:13 | Inpatient (IN) | payer MEDICARE, OTHER, SELFPAY ==
[2018-07-03 15:42] VITALS: BMI 28.0
[2018-12-04] VITALS (8 sets, daily range): BP systolic 128–182; BP diastolic 47–77; PULSE 72–82; RESP 14–21; TEMP 36.9–39.1; O2SAT 94–100; BMI 25.6
--- NOTE | 2018-12-04 16:16 | DI.RAD.S_ITS ---
PROCEDURE: XR CHEST 1V INDICATIONS: suspected sepsis TECHNIQUE: One view of the chest was acquired. COMPARISON: [facility], CR, XR CHEST 2V, 07/03/2018, 17:15. [facility], CR, XR CHEST 1V, 08/27/2018, 8:51. FINDINGS: Surgical changes and devices: There is a cardiac pacemaker. Lungs and pleura: Lungs are clear. No pleural effusions or pneumothorax. Mediastinum: Mediastinal contours appear normal. Heart size is normal. Bones and chest wall: No suspicious bony lesions. Overlying soft tissues appear unremarkable. Degenerative changes in the thoracic spine. IMPRESSION: No acute cardiopulmonary disease. Dictated by: Sherri Anaya M.D. on 12/04/2018 at 16:50 Approved by: Sherri Anaya M.D. on 12/04/2018 at 16:51
[2018-12-04 16:51] LABS: Add Manual Diff / Slide Review NO; Basophils Absolute Auto 100 /uL (0-100); Basophils Percent Auto 0.3 % (0-2); Eosinophils Absolute Auto 0 /uL (0-450); Hematocrit 33.4 % (36-46); Hemoglobin 10.6 g/dL (12.0-16.0); Lymphocytes Absolute Auto 400 /uL (1100-4500); Lymphocytes Percent Auto 2.1 % (25-40); Mean Corpuscular HGB Conc 31.8 % (30-36); Mean Corpuscular Hemoglobin 25.4 PG (26-34); Mean Corpuscular Volume 79.7 fL (80-100); Monocytes Absolute Auto 1600 /uL (0-900); Monocytes Percent Auto 7.6 % (3-14); Neutrophils Absolute Auto 18700 /uL (1500-7000); Platelet Count 238 X10^3/uL (150-400); Red Blood Cell Count 4.19 X10^6/uL (4.0-5.2); Red Cell Distribution Width 18.4 % (11.6-14.8); White Blood Cell Count 20.8 X10^3/uL (4.5-11.0)
[2018-12-04 17:01] LABS: Prothrombin Time 11.2 SECONDS (10.1-12.7)
[2018-12-04 17:04] LABS: PTT Partial Thromboplastin Tim 27 SECONDS (26.4-36.2)
[2018-12-04 17:05] LABS: Alanine Aminotransferase 23 IU/L (9-52); Albumin 3.8 g/dL (3.5-5.0); Albumin Globulin Ratio 1.1 (1.0-2.8); Alkaline Phosphatase 78 U/L (38-126); Aspartate Aminotransferase 28 IU/L (14-36); BUN Creatinine Ratio 16.5 (6-22); Bilirubin Total 0.7 mg/dL (0.2-1.3); Blood Urea Nitrogen 28 mg/dL (7-17); Calcium 8.8 mg/dL (8.4-10.2); Carbon Dioxide 27 mmol/L (22-32); Chloride 100 mmol/L (98-107); Estimated Glomerular Filt Rate 28.8 mL/min (>60); Globulin 3.4 g/dL (1.7-4.1); Glucose 172 mg/dL (80-110); HEMOLYSIS < 15 (0-50); Lipase 43 U/L (23-300); Sodium 135 mmol/L (137-145); Total Protein 7.2 g/dL (6.3-8.2)
[2018-12-04] MEDS: SODIUM CHLORIDE 0.9% 1,000 ML 1000 ML IV (17:14)
[2018-12-04 17:23] LABS: Procalcitonin 1.73 ng/mL (<0.5)
[2018-12-04] MEDS: ACETAMINOPHEN 325 MG TABLET 975 MG PO (17:33)
--- NOTE | 2018-12-04 18:03 | DI.CT.S_ITS ---
PROCEDURE: CT ABDOMEN PELVIS WO CON INDICATIONS: severe abdominal pain, fever TECHNIQUE: Noncontrast 5 mm thick sections acquired from the diaphragms to the symphysis. 5 mm coronal and sagittal reformats were then performed. For radiation dose reduction, the following was used: automated exposure control, adjustment of mA and/or kV according to patient size. COMPARISON: [facility], CT, CT ABDOMEN PELVIS WO CON, 06/19/2018, 12:20. FINDINGS: Image quality: Excellent. ABDOMEN: Lung bases: Lung bases are clear. No pleural effusion. Heart size is normal. Small hiatal hernia. Note: Evaluation of the solid organs is limited without IV contrast. Solid organs: Liver is normal in size. Gallbladder is surgically absent. Pancreas is diffusely atrophic, similar to prior exam. Spleen is normal in size. No adrenal nodules. Left kidney is normal in size. No hydronephrosis. No renal calculi. Right kidney is surgically absent. No mass in nephrectomy bed. Peritoneum and bowel: No bowel obstruction. Moderate prominently sigmoid colon diverticulosis. There is mild thickening of the sigmoid colon, (2/63). No acute inflammatory process identified. Suspected external hemorrhoids. No pneumoperitoneum. Nodes and vessels: No retroperitoneal or mesenteric adenopathy by size criteria. Aorta and inferior vena cava are normal in caliber. Miscellaneous: Small periumbilical hernia containing a a small portion of the transverse colon. No fluid collection. PELVIS: Genitourinary: Urinary bladder is decompressed. Uterus is surgically absent. Miscellaneous: No inguinal hernias or adenopathy. Bones: No suspicious bony lesions. L4-L5 pedicle screws. Moderate DDD most pronounced at the L2-L3 level. No vertebral body compression fractures. IMPRESSION: 1. No acute abnormality identified on this noncontrast examination. Mild thickening of the sigmoid colon and and moderate diverticulosis without fat stranding to suggest an acute inflammatory process. 2. No mass in the right nephrectomy bed. Dictated by: Deion Ibanez M.D. on 12/04/2018 at 18:50 Approved by: Deion Ibanez M.D. on 12/04/2018 at 18:59
--- NOTE | 2018-12-04 18:26 | ED.FEVER ---
HPI - Fever General Chief Complaint: Fever Stated Complaint: FEVER Time Seen by Provider: 12/04/18 18:01 Source: patient and family Mode of arrival: ambulatory Limitations: no limitations History of Present Illness HPI Narrative: 83-year-old female nonsmoker returns to the emergency department with her family in the chief complaint of a rapid change for the worse since we saw her yesterday. She complains now of significant left flank pain which is worse with motion and improves with rest. She has had fever as high as 102 and shaking chills with teeth chattering. She denies urinary complaints such as dysuria, frequency or urgency. She denies chest pain or shortness of breath. Yesterday she was seen and evaluated for generalized abdominal discomfort and an episode of dark stool. She was symptom free here and had a heme negative rectal exam. MD complaint: fever Onset (ago): hour(s) Temperature Source: oral Associated symptoms: chills, rigors, myalgias and nausea Relieving factors: rest Treatments prior to arrival fever: none Related Data Home Medications Medication Instructions Recorded Confirmed acetaminophen [Tylenol Extra 500 mg PO PRN PRN #0 04/19/16 09/17/18 Strength] amiodarone 200 mg tablet 200 mg PO DAILY #0 tab 03/15/18 09/17/18 lisinopril 5 mg tablet 5 mg PO DAILY 10/02/18 Previous Rx's Medication Instructions Recorded sertraline 100 mg tablet 50 mg PO DAILY #90 tab 06/13/18 meclizine 50 mg PO TID-QID PRN #14 tab 08/27/18 Allergies Allergy/AdvReac Type Severity Reaction Status Date / Time latex Allergy Severe THROAT Verified 11/20/18 14:42 SWELLING prednisone [PREDNISONE] Allergy Intermediate rash Verified 11/20/18 14:42 amoxicillin Allergy Mild ITCH Verified 11/20/18 14:42 ciprofloxacin Allergy Mild ITCH Verified 11/20/18 14:42 clavulanic acid Allergy Mild RASH Verified 11/20/18 14:42 hydromorphone Allergy Mild ITCHING Verified 11/20/18 14:42 nitrofurantoin Allergy Mild ABD Verified 11/20/18 14:42 PAIN/SEVERE ITCHING oxycodone Allergy Mild ITCH Verified 11/20/18 14:42 Penicillins Allergy Mild BLISTERS Verified 11/20/18 14:42 Sulfa (Sulfonamide Allergy Mild ITCH Verified 11/20/18 14:42 Antibiotics) levofloxacin [From LEVAQUIN] AdvReac Severe DISTURBING Verified 11/20/18 14:42 HALLUCINATIONS lorazepam [From ATIVAN] AdvReac Intermediate Verified 11/20/18 14:42 morphine AdvReac Mild HALLUCINATI Verified 11/20/18 14:42 ONS Review of Systems Constitutional Reports body ache(s), Reports chills, Reports fever(s), Denies lethargy and Denies weakness Eyes Denies change in vision, Denies eye discharge, Denies irritation and Denies loss of vision ENT Ears, Nose, Mouth, and Throat: Denies change in voice, Denies neck pain and Denies sore throat Cardiovascular Denies chest pain, Denies irregular heart rhythm, Denies lightheadedness, Denies palpitations, Denies dyspnea, Denies dyspnea on exertion and Denies orthopnea Respiratory Denies cough, Denies dyspnea, Denies dyspnea on exertion and Denies wheezing Gastrointestinal Gastrointestinal: Denies abdominal pain, Denies change in bowel habits, Denies diarrhea, Denies nausea and Denies vomiting Genitourinary Denies hematuria, Reports flank pain, Denies urinary incontinence and Denies urinary urgency Musculoskeletal Denies neck pain Integumentary/Breasts Denies pruritus, Denies erythema, Denies rash and Denies wounds Neurologic Denies confusion, Denies loss of vision and Denies weakness Psychiatric Denies anxiety, Denies confusion, Denies depression, Denies homicidal ideation and Denies suicidal ideation Endocrine Denies palpitations Hematologic/Lymphatic Denies easy bruising Allergic/Immunologic Denies wheezing [facility] Medical History Paroxysmal atrial fibrillation (Chronic ~2013) Essential hypertension (Chronic) Cerebral microvascular disease (Chronic) Anxiety (Chronic 12/08/15) 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 difficile colitis (Resolved 07/2015) C. difficile colitis (Resolved 11/2011) Chicken pox (Resolved ~194) Measles (Resolved ~194) Mumps (Resolved ~194) Paraesophageal hernia (Resolved) Skin cancer (Resolved 2009) History of PSVT (paroxysmal supraventricular tachycardia) (Inactive) Surgical History Anesthesia (Resolved) History of bladder surgery (Resolved ~1967) History of cholecystectomy (Resolved) History of nephrectomy (Resolved) History of spinal fusion (Resolved 2005) S/P repair of paraesophageal hernia (Resolved) Status post hysterectomy with oophorectomy (Resolved) Family History Brother CAD (coronary artery disease) Hyperlipidemia High cholesterol Lung cancer Colon cancer Brother Cancer High cholesterol Lung disease Father Colon cancer CAD (coronary artery disease) High cholesterol Mother CVA (cerebral vascular accident) Hyperlipidemia Sister Age: 83 CAD (coronary artery disease) Hyperlipidemia Ulcer Essential hypertension High cholesterol Heart attack Grandfather Throat cancer Grandmother Heart disease Family/Other Lung disease Social History household members: spouse Smoking Status: Never smoker Family History Brother CAD (coronary artery disease) Hyperlipidemia High cholesterol Lung cancer Colon cancer Brother Cancer High cholesterol Lung disease Father Colon cancer CAD (coronary artery disease) High cholesterol Mother CVA (cerebral vascular accident) Hyperlipidemia Sister Age: 83 CAD (coronary artery disease) Hyperlipidemia Ulcer Essential hypertension High cholesterol Heart attack Grandfather Throat cancer Grandmother Heart disease Family/Other Lung disease Social History household members: spouse Smoking Status: Never smoker Exam Narrative Exam Narrative: GENERAL: 83-year-old female, ill-appearing, drastic change from yesterday. HEAD: Atraumatic. Normocephalic. No temporal or scalp tenderness. EYES: Pupils equal round and reactive. Extraocular motions intact. No scleral icterus. No injection or drainage. ENT: Nose without bleeding, purulent drainage or septal hematoma. Throat without erythema, tonsillar hypertrophy or exudate. Uvula midline. Airway patent. NECK: Trachea midline. No JVD or lymphadenopathy. Supple, nontender, no meningeal signs. CARDIOVASCULAR: Regular rate and rhythm without murmurs, gallops, or rubs. RESPIRATORY: Clear to auscultation. Breath sounds equal bilaterally. No wheezes, rales, or rhonchi. GASTROINTESTINAL: Abdomen soft, non-tender, nondistended. No hepato-splenomegaly, or palpable masses. No guarding. EXTREMITIES: No clubbing, cyanosis, or edema. No joint tenderness, effusion, or edema noted. BACK: Left flank tender to palpation NEURO: AOx3. SKIN: No rash or erythema. Initial Vital Signs Initial Vital Signs: Vital Signs Temperature 101 F H 12/04/18 16:14 Pulse Rate 80 12/04/18 16:14 Respiratory Rate 14 12/04/18 16:14 Blood Pressure 128/65 12/04/18 16:14 Pulse Oximetry 100 12/04/18 16:14 Course Orders Ordered: ED Orders 12/04/18 16:16 XR chest 1V Stat RT Consult Eval and Treat Now 12/04/18 16:24 EKG-12 Lead Stat 12/04/18 16:35 Complete Blood Count AUTO DIFF Stat Comprehensive Metabolic Panel Stat Lactate (Lactic Acid) Stat Lipase Stat Partial Thromboplastin Time Stat Procalcitonin Stat Prothrombin Time INR Stat 12/04/18 16:55 Blood Culture Stat 12/04/18 18:03 CT abdomen pelvis wo con Stat Metronidazole (Flagyl) 500 mg in 100 mls @ 100 mls/hr IV NOW ONE Stop: 12/04/18 20:29 Discontinued Medications Acetaminophen (Tylenol) 975 mg PO NOW ONE Stop: 12/04/18 16:57 Last Admin: 12/04/18 17:33 Dose: 975 mg Sodium Chloride (Normal Saline 0.9%) 1,000 mls @ 1,000 mls/hr IV BOLUS ONE Stop: 12/04/18 17:15 Last Admin: 12/04/18 17:14 Dose: 1,000 mls/hr Consultations Consultation #1: hospitalist happy to accept Vital Signs - 8 hr 12/04/18 16:14 12/04/18 17:33 12/04/18 17:35 Temperature 101 F H 101 F H Pulse Rate 80 77 Respiratory Rate 14 21 Blood Pressure 128/65 Blood Pressure [Left Arm] 132/56 L Pulse Oximetry 100 95 12/04/18 18:06 Temperature Pulse Rate 76 Respiratory Rate 20 Blood Pressure Blood Pressure [Left Arm] 132/47 L Pulse Oximetry 96 MDM - Fever Lab Data Result diagrams: 12/04/18 16:35 12/04/18 16:35 Lab Results 12/04/18 12/04/18 12/04/18 Range/Units 16:35 16:35 16:35 WBC 20.8 H D (4.5-11.0) X10^3/uL RBC 4.19 (4.0-5.2) X10^6/uL Hgb 10.6 L (12.0-16.0) g/dL Hct 33.4 L (36-46) % MCV 79.7 L (80-100) fL MCH 25.4 L (26-34) PG MCHC 31.8 (30-36) % RDW 18.4 H (11.6-14.8) % Plt Count 238 (150-400) X10^3/uL Neut % (Auto) 90.0 H (50-75) % Lymph % (Auto) 2.1 L (25-40) % [place] % (Auto) 7.6 (3-14) % Eos % (Auto) 0.0 L (2-4) % Baso % (Auto) 0.3 (0-2) % Neut # (Auto) 38729 H (5626-2974) /uL Lymph # (Auto) 400 L (6537-0862) /uL [place] # (Auto) 1600 H (0-900) /uL Eos # (Auto) 0 (0-450) /uL Baso # (Auto) 100 (0-100) /uL PT 11.2 (10.1-12.7) SECONDS INR 1.0 (0.9-1.3) APTT 27 (26.4-36.2) SECONDS Sodium (137-145) mmol/L Potassium (3.4-5.1) mmol/L Chloride (98-107) mmol/L Carbon Dioxide (22-32) mmol/L BUN (7-17) mg/dL Creatinine (0.52-1.04) mg/dL Estimated GFR (>60) mL/min BUN/Creatinine Ratio (6-22) Glucose (80-110) mg/dL Lactate (0.7-2.1) mmol/L Calcium (8.4-10.2) mg/dL Total Bilirubin (0.2-1.3) mg/dL AST (14-36) IU/L ALT (9-52) IU/L Alkaline Phosphatase (38-126) U/L Total Protein (6.3-8.2) g/dL Albumin (3.5-5.0) g/dL Globulin (1.7-4.1) g/dL Albumin/Globulin Ratio (1.0-2.8) Lipase (23-300) U/L Procalcitonin 1.73 H (<0.5) ng/mL 12/04/18 12/04/18 Range/Units 16:35 16:35 WBC (4.5-11.0) X10^3/uL RBC (4.0-5.2) X10^6/uL Hgb (12.0-16.0) g/dL Hct (36-46) % MCV (80-100) fL MCH (26-34) PG MCHC (30-36) % RDW (11.6-14.8) % Plt Count (150-400) X10^3/uL Neut % (Auto) (50-75) % Lymph % (Auto) (25-40) % [place] % (Auto) (3-14) % Eos % (Auto) (2-4) % Baso % (Auto) (0-2) % Neut # (Auto) (6334-9386) /uL Lymph # (Auto) (2171-0636) /uL [place] # (Auto) (0-900) /uL Eos # (Auto) (0-450) /uL Baso # (Auto) (0-100) /uL PT (10.1-12.7) SECONDS INR (0.9-1.3) APTT (26.4-36.2) SECONDS Sodium 135 L (137-145) mmol/L Potassium 4.0 (3.4-5.1) mmol/L Chloride 100 (98-107) mmol/L Carbon Dioxide 27 (22-32) mmol/L BUN 28 H (7-17) mg/dL Creatinine 1.70 H (0.52-1.04) mg/dL Estimated GFR 28.8 L (>60) mL/min BUN/Creatinine Ratio 16.5 (6-22) Glucose 172 H (80-110) mg/dL Lactate 1.0 (0.7-2.1) mmol/L Calcium 8.8 (8.4-10.2) mg/dL Total Bilirubin 0.7 (0.2-1.3) mg/dL AST 28 (14-36) IU/L ALT 23 (9-52) IU/L Alkaline Phosphatase 78 (38-126) U/L Total Protein 7.2 (6.3-8.2) g/dL Albumin 3.8 (3.5-5.0) g/dL Globulin 3.4 (1.7-4.1) g/dL Albumin/Globulin Ratio 1.1 (1.0-2.8) Lipase 43 (23-300) U/L Procalcitonin (<0.5) ng/mL Urine Dip Bedside Urine Glucose Negative Bedside Urine Bilirubin - Negative Bedside Urine Ketone +/- 5 Urine Specific [place] 1.015 Bedside Urine Occult Blood + Bedside Urine pH 5.5 Bedside Urine Protein + 30 Bedside Urine Urobilinogen - Negative Bedside Urine Nitrite - Negative Bedside Urine Leukocytes +++ [address] scan - abdomen: Radiologist's impression: [place] [address] CT Scan Report Signed Patient: Valery Yeh EMR#: [id number] : 8Acct:[id number] Age/Sex: 83 / FDate of Service: 12/04/18 Loc: ED Accession Number: [id number] Procedure: CT abdomen pelvis wo con Ordering Provider: Dave Marie D.O. PROCEDURE: CT ABDOMEN PELVIS WO CON INDICATIONS: severe abdominal pain, fever TECHNIQUE: Noncontrast 5 mm thick sections acquired from the diaphragms to the symphysis. 5 mm coronal and sagittal reformats were then performed. For radiation dose reduction, the following was used: automated exposure control, adjustment of mA and/or kV according to patient size. COMPARISON: [facility], CT, CT ABDOMEN PELVIS WO CON, 06/19/2018, 12:20. FINDINGS: Image quality: Excellent. ABDOMEN: Lung bases: Lung bases are clear. No pleural effusion. Heart size is normal. Small hiatal hernia. Note: Evaluation of the solid organs is limited without IV contrast. Solid organs: Liver is normal in size. Gallbladder is surgically absent. Pancreas is diffusely atrophic, similar to prior exam. Spleen is normal in size. No adrenal nodules. Left kidney is normal in size. No hydronephrosis. No renal calculi. Right kidney is surgically absent. No mass in nephrectomy bed. Peritoneum and bowel: No bowel obstruction. Moderate prominently sigmoid colon diverticulosis. There is mild thickening of the sigmoid colon, (2/63). No acute inflammatory process identified. Suspected external hemorrhoids. No pneumoperitoneum. Nodes and vessels: No retroperitoneal or mesenteric adenopathy by size criteria. Aorta and inferior vena cava are normal in caliber. Miscellaneous: Small periumbilical hernia containing a a small portion of the transverse colon. No fluid collection. PELVIS: Genitourinary: Urinary bladder is decompressed. Uterus is surgically absent. Miscellaneous: No inguinal hernias or adenopathy. Bones: No suspicious bony lesions. L4-L5 pedicle screws. Moderate DDD most pronounced at the L2-L3 level. No vertebral body compression fractures. IMPRESSION: 1. No acute abnormality identified on this noncontrast examination. Mild thickening of the sigmoid colon and and moderate diverticulosis without fat stranding to suggest an acute inflammatory process. 2. No mass in the right nephrectomy bed. Dictated by: Deion Ibanez M.D. on 12/04/2018 at 18:50 Approved by: Deion Ibanez M.D. on 12/04/2018 at 18:59 Chest x-ray: Radiologist's impression: [address] [address] XRay Report Signed Patient: Valery Yeh EMR#: [id number] : 1936Acct:[id number] Age/Sex: 83 / FDate of Service: 12/04/18 Loc: ED Accession Number: [id number] Procedure: XR chest 1V Ordering Provider: Flor Coburn D.O. PROCEDURE: XR CHEST 1V INDICATIONS: suspected sepsis TECHNIQUE: One view of the chest was acquired. COMPARISON: [facility], CR, XR CHEST 2V, 07/03/2018, 17:15. [facility], CR, XR CHEST 1V, 08/27/2018, 8:51. FINDINGS: Surgical changes and devices: There is a cardiac pacemaker. Lungs and pleura: Lungs are clear. No pleural effusions or pneumothorax. Mediastinum: Mediastinal contours appear normal. Heart size is normal. Bones and chest wall: No suspicious bony lesions. Overlying soft tissues appear unremarkable. Degenerative changes in the thoracic spine. IMPRESSION: No acute cardiopulmonary disease. Dictated by: Sherri Anaya M.D. on 12/04/2018 at 16:50 Approved by: Sherri Anaya M.D. on 12/04/2018 at 16:51 [facility] Narrative Medical decision making narrative: 83-year-old female presents with fever, shaking chills and left flank pain. Temp as high as 102? with rigors, reproducible flank pain and significant findings on urine. CT suggests possibly an early colitis but otherwise no significant acute findings. She has had a rapid change in her presentation and will require hospitalization for antibiotics, fluids, and following cultures. CT ordered without IV contrast given chronic kidney disease with GFR of 28.8. Discussion with patient and she would strongly prefer not to have IV contrast. Discharge Plan Departure Patient Disposition: Admitted As Inpatient Clinical Impression: Colitis, Acute pyelonephritis
--- NOTE | 2018-12-04 19:48 | ED_ITS ---
HPI - Fever General Chief Complaint: Fever Stated Complaint: FEVER Time Seen by Provider: 12/04/18 18:01 Source: patient and family Mode of arrival: ambulatory Limitations: no limitations History of Present Illness HPI Narrative: 83-year-old female nonsmoker returns to the emergency department with her family in the chief complaint of a rapid change for the worse since we saw her yesterday. She complains now of significant left flank pain which is worse with motion and improves with rest. She has had fever as high as 102 and shaking chills with teeth chattering. She denies urinary complaints such as dysuria, frequency or urgency. She denies chest pain or shortness of breath. Yesterday she was seen and evaluated for generalized abdominal discomfort and an episode of dark stool. She was symptom free here and had a heme negative rectal exam. MD complaint: fever Onset (ago): hour(s) Temperature Source: oral Associated symptoms: chills, rigors, myalgias and nausea Relieving factors: rest Treatments prior to arrival fever: none Related Data Home Medications Medication Instructions Recorded Confirmed acetaminophen [Tylenol Extra 500 mg PO PRN PRN #0 04/19/16 09/17/18 Strength] amiodarone 200 mg tablet 200 mg PO DAILY #0 tab 03/15/18 09/17/18 lisinopril 5 mg tablet 5 mg PO DAILY 10/02/18 Previous Rx's Medication Instructions Recorded sertraline 100 mg tablet 50 mg PO DAILY #90 tab 06/13/18 meclizine 50 mg PO TID-QID PRN #14 tab 08/27/18 Allergies Allergy/AdvReac Type Severity Reaction Status Date / Time latex Allergy Severe THROAT Verified 11/20/18 14:42 SWELLING prednisone [PREDNISONE] Allergy Intermediate rash Verified 11/20/18 14:42 amoxicillin Allergy Mild ITCH Verified 11/20/18 14:42 ciprofloxacin Allergy Mild ITCH Verified 11/20/18 14:42 clavulanic acid Allergy Mild RASH Verified 11/20/18 14:42 hydromorphone Allergy Mild ITCHING Verified 11/20/18 14:42 nitrofurantoin Allergy Mild ABD Verified 11/20/18 14:42 PAIN/SEVERE ITCHING oxycodone Allergy Mild ITCH Verified 11/20/18 14:42 Penicillins Allergy Mild BLISTERS Verified 11/20/18 14:42 Sulfa (Sulfonamide Allergy Mild ITCH Verified 11/20/18 14:42 Antibiotics) levofloxacin [From LEVAQUIN] AdvReac Severe DISTURBING Verified 11/20/18 14:42 HALLUCINATIONS lorazepam [From ATIVAN] AdvReac Intermediate Verified 11/20/18 14:42 morphine AdvReac Mild HALLUCINATI Verified 11/20/18 14:42 ONS Review of Systems Constitutional Reports body ache(s), Reports chills, Reports fever(s), Denies lethargy and Denies weakness Eyes Denies change in vision, Denies eye discharge, Denies irritation and Denies loss of vision ENT Ears, Nose, Mouth, and Throat: Denies change in voice, Denies neck pain and Denies sore throat Cardiovascular Denies chest pain, Denies irregular heart rhythm, Denies lightheadedness, Denies palpitations, Denies dyspnea, Denies dyspnea on exertion and Denies orthopnea Respiratory Denies cough, Denies dyspnea, Denies dyspnea on exertion and Denies wheezing Gastrointestinal Gastrointestinal: Denies abdominal pain, Denies change in bowel habits, Denies diarrhea, Denies nausea and Denies vomiting Genitourinary Denies hematuria, Reports flank pain, Denies urinary incontinence and Denies urinary urgency Musculoskeletal Denies neck pain Integumentary/Breasts Denies pruritus, Denies erythema, Denies rash and Denies wounds Neurologic Denies confusion, Denies loss of vision and Denies weakness Psychiatric Denies anxiety, Denies confusion, Denies depression, Denies homicidal ideation and Denies suicidal ideation Endocrine Denies palpitations Hematologic/Lymphatic Denies easy bruising Allergic/Immunologic Denies wheezing [facility] Medical History Paroxysmal atrial fibrillation (Chronic ~2013) Essential hypertension (Chronic) Cerebral microvascular disease (Chronic) Anxiety (Chronic 12/08/15) 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 difficile colitis (Resolved 07/2015) C. difficile colitis (Resolved 11/2011) Chicken pox (Resolved ~194) Measles (Resolved ~194) Mumps (Resolved ~194) Paraesophageal hernia (Resolved) Skin cancer (Resolved 2009) History of PSVT (paroxysmal supraventricular tachycardia) (Inactive) Surgical History Anesthesia (Resolved) History of bladder surgery (Resolved ~1967) History of cholecystectomy (Resolved) History of nephrectomy (Resolved) History of spinal fusion (Resolved 2005) S/P repair of paraesophageal hernia (Resolved) Status post hysterectomy with oophorectomy (Resolved) Family History Brother CAD (coronary artery disease) Hyperlipidemia High cholesterol Lung cancer Colon cancer Brother Cancer High cholesterol Lung disease Father Colon cancer CAD (coronary artery disease) High cholesterol Mother CVA (cerebral vascular accident) Hyperlipidemia Sister Age: 83 CAD (coronary artery disease) Hyperlipidemia Ulcer Essential hypertension High cholesterol Heart attack Grandfather Throat cancer Grandmother Heart disease Family/Other Lung disease Social History household members: spouse Smoking Status: Never smoker Family History Brother CAD (coronary artery disease) Hyperlipidemia High cholesterol Lung cancer Colon cancer Brother Cancer High cholesterol Lung disease Father Colon cancer CAD (coronary artery disease) High cholesterol Mother CVA (cerebral vascular accident) Hyperlipidemia Sister Age: 83 CAD (coronary artery disease) Hyperlipidemia Ulcer Essential hypertension High cholesterol Heart attack Grandfather Throat cancer Grandmother Heart disease Family/Other Lung disease Social History household members: spouse Smoking Status: Never smoker Exam Narrative Exam Narrative: GENERAL: 83-year-old female, ill-appearing, drastic change from yesterday. HEAD: Atraumatic. Normocephalic. No temporal or scalp tenderness. EYES: Pupils equal round and reactive. Extraocular motions intact. No scleral icterus. No injection or drainage. ENT: Nose without bleeding, purulent drainage or septal hematoma. Throat without erythema, tonsillar hypertrophy or exudate. Uvula midline. Airway patent. NECK: Trachea midline. No JVD or lymphadenopathy. Supple, nontender, no meningeal signs. CARDIOVASCULAR: Regular rate and rhythm without murmurs, gallops, or rubs. RESPIRATORY: Clear to auscultation. Breath sounds equal bilaterally. No wheezes, rales, or rhonchi. GASTROINTESTINAL: Abdomen soft, non-tender, nondistended. No hepato- splenomegaly, or palpable masses. No guarding. EXTREMITIES: No clubbing, cyanosis, or edema. No joint tenderness, effusion, or edema noted. BACK: Left flank tender to palpation NEURO: AOx3. SKIN: No rash or erythema. Initial Vital Signs Initial Vital Signs: Vital Signs Temperature 101 F H 12/04/18 16:14 Pulse Rate 80 12/04/18 16:14 Respiratory Rate 14 12/04/18 16:14 Blood Pressure 128/65 12/04/18 16:14 Pulse Oximetry 100 12/04/18 16:14 Course Orders Ordered: ED Orders 12/04/18 16:16 XR chest 1V Stat RT Consult Eval and Treat Now 12/04/18 16:24 EKG-12 Lead Stat 12/04/18 16:35 Complete Blood Count AUTO DIFF Stat Comprehensive Metabolic Panel Stat Lactate (Lactic Acid) Stat Lipase Stat Partial Thromboplastin Time Stat Procalcitonin Stat Prothrombin Time INR Stat 12/04/18 16:55 Blood Culture Stat 12/04/18 18:03 CT abdomen pelvis wo con Stat Metronidazole (Flagyl) 500 mg in 100 mls @ 100 mls/hr IV NOW ONE Stop: 12/04/18 20:29 Discontinued Medications Acetaminophen (Tylenol) 975 mg PO NOW ONE Stop: 12/04/18 16:57 Last Admin: 12/04/18 17:33 Dose: 975 mg Sodium Chloride (Normal Saline 0.9%) 1,000 mls @ 1,000 mls/hr IV BOLUS ONE Stop: 12/04/18 17:15 Last Admin: 12/04/18 17:14 Dose: 1,000 mls/hr Consultations Consultation #1: hospitalist happy to accept Vital Signs - 8 hr 12/04/18 16:14 12/04/18 17:33 12/04/18 17:35 Temperature 101 F H 101 F H Pulse Rate 80 77 Respiratory Rate 14 21 Blood Pressure 128/65 Blood Pressure [Left Arm] 132/56 L Pulse Oximetry 100 95 12/04/18 18:06 Temperature Pulse Rate 76 Respiratory Rate 20 Blood Pressure Blood Pressure [Left Arm] 132/47 L Pulse Oximetry 96 MDM - Fever Lab Data Result diagrams: 12/04/18 16:35 12/04/18 16:35 Lab Results 12/04/18 12/04/18 12/04/18 Range/Units 16:35 16:35 16:35 WBC 20.8 H D (4.5-11.0) X10^3/uL RBC 4.19 (4.0-5.2) X10^6/uL Hgb 10.6 L (12.0-16.0) g/dL Hct 33.4 L (36-46) % MCV 79.7 L (80-100) fL MCH 25.4 L (26-34) PG MCHC 31.8 (30-36) % RDW 18.4 H (11.6-14.8) % Plt Count 238 (150-400) X10^3/uL Neut % (Auto) 90.0 H (50-75) % Lymph % (Auto) 2.1 L (25-40) % Geary % (Auto) 7.6 (3-14) % Eos % (Auto) 0.0 L (2-4) % Baso % (Auto) 0.3 (0-2) % Neut # (Auto) 99000 H (7344-7731) /uL Lymph # (Auto) 400 L (3649-2815) /uL Geary # (Auto) 1600 H (0-900) /uL Eos # (Auto) 0 (0-450) /uL Baso # (Auto) 100 (0-100) /uL PT 11.2 (10.1-12.7) SECONDS INR 1.0 (0.9-1.3) APTT 27 (26.4-36.2) SECONDS Sodium (137-145) mmol/L Potassium (3.4-5.1) mmol/L Chloride (98-107) mmol/L Carbon Dioxide (22-32) mmol/L BUN (7-17) mg/dL Creatinine (0.52-1.04) mg/dL Estimated GFR (>60) mL/min BUN/Creatinine Ratio (6-22) Glucose (80-110) mg/dL Lactate (0.7-2.1) mmol/L Calcium (8.4-10.2) mg/dL Total Bilirubin (0.2-1.3) mg/dL AST (14-36) IU/L ALT (9-52) IU/L Alkaline Phosphatase (38-126) U/L Total Protein (6.3-8.2) g/dL Albumin (3.5-5.0) g/dL Globulin (1.7-4.1) g/dL Albumin/Globulin Ratio (1.0-2.8) Lipase (23-300) U/L Procalcitonin 1.73 H (<0.5) ng/mL 12/04/18 12/04/18 Range/Units 16:35 16:35 WBC (4.5-11.0) X10^3/uL RBC (4.0-5.2) X10^6/uL Hgb (12.0-16.0) g/dL Hct (36-46) % MCV (80-100) fL MCH (26-34) PG MCHC (30-36) % RDW (11.6-14.8) % Plt Count (150-400) X10^3/uL Neut % (Auto) (50-75) % Lymph % (Auto) (25-40) % Geary % (Auto) (3-14) % Eos % (Auto) (2-4) % Baso % (Auto) (0-2) % Neut # (Auto) (7457-5418) /uL Lymph # (Auto) (8531-7553) /uL Geary # (Auto) (0-900) /uL Eos # (Auto) (0-450) /uL Baso # (Auto) (0-100) /uL PT (10.1-12.7) SECONDS INR (0.9-1.3) APTT (26.4-36.2) SECONDS Sodium 135 L (137-145) mmol/L Potassium 4.0 (3.4-5.1) mmol/L Chloride 100 (98-107) mmol/L Carbon Dioxide 27 (22-32) mmol/L BUN 28 H (7-17) mg/dL Creatinine 1.70 H (0.52-1.04) mg/dL Estimated GFR 28.8 L (>60) mL/min BUN/Creatinine Ratio 16.5 (6-22) Glucose 172 H (80-110) mg/dL Lactate 1.0 (0.7-2.1) mmol/L Calcium 8.8 (8.4-10.2) mg/dL Total Bilirubin 0.7 (0.2-1.3) mg/dL AST 28 (14-36) IU/L ALT 23 (9-52) IU/L Alkaline Phosphatase 78 (38-126) U/L Total Protein 7.2 (6.3-8.2) g/dL Albumin 3.8 (3.5-5.0) g/dL Globulin 3.4 (1.7-4.1) g/dL Albumin/Globulin Ratio 1.1 (1.0-2.8) Lipase 43 (23-300) U/L Procalcitonin (<0.5) ng/mL Urine Dip Bedside Urine Glucose Negative Bedside Urine Bilirubin - Negative Bedside Urine Ketone +/- 5 Urine Specific [place] 1.015 Bedside Urine Occult Blood + Bedside Urine pH 5.5 Bedside Urine Protein + 30 Bedside Urine Urobilinogen - Negative Bedside Urine Nitrite - Negative Bedside Urine Leukocytes +++ [address] scan - abdomen: Radiologist's impression: [place] [address] CT Scan Report Signed Patient: Valery Yeh EMR#: [id number] : 8Acct:[id number] Age/Sex: 83 / FDate of Service: 12/04/18 Loc: ED Accession Number: [id number] Procedure: CT abdomen pelvis wo con Ordering Provider: Dave Marie D.O. PROCEDURE: CT ABDOMEN PELVIS WO CON INDICATIONS: severe abdominal pain, fever TECHNIQUE: Noncontrast 5 mm thick sections acquired from the diaphragms to the symphysis. 5 mm coronal and sagittal reformats were then performed. For radiation dose reduction, the following was used: automated exposure control, adjustment of mA and/or kV according to patient size. COMPARISON: [facility], CT, CT ABDOMEN PELVIS WO CON, 06/19/2018, 12:20. FINDINGS: Image quality: Excellent. ABDOMEN: Lung bases: Lung bases are clear. No pleural effusion. Heart size is normal. Small hiatal hernia. Note: Evaluation of the solid organs is limited without IV contrast. Solid organs: Liver is normal in size. Gallbladder is surgically absent. Pancreas is diffusely atrophic, similar to prior exam. Spleen is normal in size. No adrenal nodules. Left kidney is normal in size. No hydronephrosis. No renal calculi. Right kidney is surgically absent. No mass in nephrectomy bed. Peritoneum and bowel: No bowel obstruction. Moderate prominently sigmoid colon diverticulosis. There is mild thickening of the sigmoid colon, (2/63). No acute inflammatory process identified. Suspected external hemorrhoids. No pneumoperitoneum. Nodes and vessels: No retroperitoneal or mesenteric adenopathy by size criteria. Aorta and inferior vena cava are normal in caliber. Miscellaneous: Small periumbilical hernia containing a a small portion of the transverse colon. No fluid collection. PELVIS: Genitourinary: Urinary bladder is decompressed. Uterus is surgically absent. Miscellaneous: No inguinal hernias or adenopathy. Bones: No suspicious bony lesions. L4-L5 pedicle screws. Moderate DDD most pronounced at the L2-L3 level. No vertebral body compression fractures. IMPRESSION: 1. No acute abnormality identified on this noncontrast examination. Mild thickening of the sigmoid colon and and moderate diverticulosis without fat stranding to suggest an acute inflammatory process. 2. No mass in the right nephrectomy bed. Dictated by: Deion Ibanez M.D. on 12/04/2018 at 18:50 Approved by: Deion Ibanez M.D. on 12/04/2018 at 18:59 Chest x-ray: Radiologist's impression: [address] [address] XRay Report Signed Patient: Valery Yeh EMR#: [id number] : 1936Acct:[id number] Age/Sex: 83 / FDate of Service: 12/04/18 Loc: ED Accession Number: [id number] Procedure: XR chest 1V Ordering Provider: Flor Coburn D.O. PROCEDURE: XR CHEST 1V INDICATIONS: suspected sepsis TECHNIQUE: One view of the chest was acquired. COMPARISON: [facility], CR, XR CHEST 2V, 07/03/2018, 17:15. [facility], CR, XR CHEST 1V, 08/27/2018, 8:51. FINDINGS: Surgical changes and devices: There is a cardiac pacemaker. Lungs and pleura: Lungs are clear. No pleural effusions or pneumothorax. Mediastinum: Mediastinal contours appear normal. Heart size is normal. Bones and chest wall: No suspicious bony lesions. Overlying soft tissues appear unremarkable. Degenerative changes in the thoracic spine. IMPRESSION: No acute cardiopulmonary disease. Dictated by: Sherri Anaya M.D. on 12/04/2018 at 16:50 Approved by: Sherri Anaya M.D. on 12/04/2018 at 16:51 [facility] Narrative Medical decision making narrative: 83-year-old female presents with fever, shaking chills and left flank pain. Temp as high as 102? with rigors, reproducible flank pain and significant findings on urine. CT suggests possibly an early colitis but otherwise no significant acute findings. She has had a rapid change in her presentation and will require hospitalization for antibiotics, fluids, and following cultures. CT ordered without IV contrast given chronic kidney disease with GFR of 28.8. Discussion with patient and she would strongly prefer not to have IV contrast. Discharge Plan Departure Patient Disposition: Admitted As Inpatient Clinical Impression: Colitis, Acute pyelonephritis
[2018-12-04] MEDS: metroNIDAZOLE 500 MG/100 ML PIGGYBACK 100 MG IV (19:49)
[2018-12-04] MEDS: ONDANSETRON 4 MG/2 ML INJ IV (23:57)
[2018-12-04] MEDS: SODIUM CHLORIDE 0.9% 1,000 ML 75 ML IV (23:58)
[2018-12-04] MEDS: ACETAMINOPHEN 325 MG TABLET 650 MG PO (23:59)
[2018-12-05] VITALS (9 sets, daily range): BP systolic 130–190; BP diastolic 51–80; PULSE 67–91; RESP 16–20; TEMP 36.7–38.3; O2SAT 94–96; BMI 25.9
[2018-12-05] MEDS: ERTAPENEM 0.5 GM in SODIUM CHLORIDE 0.9% 100 ML 200 ML IV ×2 (00:35→23:16)
[2018-12-05 01:12] LABS: Appearance Urine UA CLEAR; Bilirubin Urine UA NEGATIVE (NEGATIVE); Color Urine UA YELLOW; Glucose Urine UA NEGATIVE (Negative); Ketones Urine UA NEGATIVE (NEGATIVE); Leukocyte Esterase Urine UA 2+ (NEGATIVE); Nitrite Urine UA NEGATIVE (Negative); Occult Blood Urine UA 1+ (Negative); Protein Urine UA NEGATIVE (Negative); Urobilinogen Urine UA 0.2 E.U./dL (0.2)
--- NOTE | 2018-12-05 02:20 | P.HP_ITS ---
History of Present Illness Date Patient Seen: 12/04/18 Time Patient Seen: 22:47 Chief complaint: FEVER Narrative: Ms Valery Yeh is an 83-year-old female patient with history significant for chronic kidney disease, status post right nephrectomy, anemia status post transfusion 1 week ago, prior NC, paroxysmal atrial fibrillation, degenerative disc disease, singular pulmonary nodule and anxiety who presents to the hospital with worsening abdominal pain. [facility] with lower abdominal pain radiating to the back x1 day. The patient reports an episode of dark stool and blood on the toilet paper. The patient reports the pain was similar to a prior episode of small- bowel obstruction. She returns today with worsening pain fevers with pronounced left flank and back pain that is worsened with activity or movement. She describes the pain as sharp and stabbing, crampy in character She said associated rigors. She had nausea yesterday but none today. Patient denies chest pain or palpitations, she reports no shortness of breath cough or wheezing, describes no change in stooling frequency or consistency other than noted above. She describes frequent small urination but denies hematuria. She has chronic back pain but is fully independent in ADLs and requires no assistive devices. Upon arrival in the ER the patient is found to be febrile with temperature 101?, heart rate is 80, blood pressure is 128/65, respirations of 14 saturating 100% on room air. CT exam obtained in the ER finds an atrophic pancreas a surgically absent gallbladder uterus right kidney, no hydronephrosis, small mahad of a helical hernia with small portion of transverse colon mild thickening of the sigmoid with moderate diverticulosis without fat stranding. Chest x-ray reveals no acute cardiopulmonary disease. On laboratory analysis the patient has white count that is elevated at 20.8 from 10 yesterday, hemoglobin of 10.6, hematocrit of 33.4 and platelets of 238. Her coags are within normal limits in her electrolytes are within normal limits with a BUN of 28 and creatinine of 1.7 with an EGFR of 28.8. Her nonfasting glucose is 172. She has a procalcitonin of 1.73. The patient is admitted to the hospital for acute left pyelonephritis. 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 difficile colitis (Resolved 07/2015) C. difficile colitis (Resolved 11/2011) Chicken pox (Resolved ~1939) Measles (Resolved ~194) Mumps (Resolved ~194) Paraesophageal hernia (Resolved) Skin cancer (Resolved 2009) History of PSVT (paroxysmal supraventricular tachycardia) (Inactive) Surgical History Anesthesia (Resolved) History of bladder surgery (Resolved ~1967) History of cholecystectomy (Resolved) History of nephrectomy (Resolved) History of spinal fusion (Resolved 2005) S/P repair of paraesophageal hernia (Resolved) Status post hysterectomy with oophorectomy (Resolved) Family History Brother CAD (coronary artery disease) Hyperlipidemia High cholesterol Lung cancer Colon cancer Brother Cancer High cholesterol Lung disease Father Colon cancer CAD (coronary artery disease) High cholesterol Mother CVA (cerebral vascular accident) Hyperlipidemia Sister Age: 83 CAD (coronary artery disease) Hyperlipidemia Ulcer Essential hypertension High cholesterol Heart attack Grandfather Throat cancer Grandmother Heart disease Family/Other Lung disease Social History household members: spouse Smoking Status: Never smoker Family & Social History Family History Brother CAD (coronary artery disease) Hyperlipidemia High cholesterol Lung cancer Colon cancer Brother Cancer High cholesterol Lung disease Father Colon cancer CAD (coronary artery disease) High cholesterol Mother CVA (cerebral vascular accident) Hyperlipidemia Sister Age: 83 CAD (coronary artery disease) Hyperlipidemia Ulcer Essential hypertension High cholesterol Heart attack Grandfather Throat cancer Grandmother Heart disease Family/Other Lung disease Social History: household members spouse Prior Living Arrangements House Safety & Behavioral: Feels Safe in Current Yes Environment Been Physically Hurt or Yes Threatened By a Person Suicidal Ideation Description None Suicide Plan Description No Plan Tobacco & Substance use: Smoking Status Never smoker alcohol intake frequency holiday/special occasion Substance Use Type does not use Comment: The patient lives in a single family home on by herself. She is with her passing last January after being for 60 years. Smoking: The patient denies ever smoking Alcohol: The patient denies alcohol consumption Substance use: The patient denies use of herbal or cannabis products. Advanced directives: The patient initially states her questions to be DNR DNI however after further thought the patient request to remain full code until she speaks with her daughter Laya who is her surrogate decision maker. Meds Home Medications Medication Instructions Recorded Confirmed Type acetaminophen [Tylenol Extra 500 mg PO PRN PRN #0 04/19/16 12/04/18 History Strength] amiodarone 200 mg tablet 200 mg PO DAILY #0 tab 03/15/18 12/04/18 History sertraline 100 mg tablet 50 mg PO DAILY #90 tab 06/13/18 12/04/18 Rx lisinopril 5 mg tablet 5 mg PO DAILY 10/02/18 12/04/18 History cholecalciferol (vitamin D3) 5,000 unit PO DAILY 12/04/18 12/04/18 History [Vitamin D3] Allergies Allergy/AdvReac Type Severity Reaction Status Date / Time latex Allergy Severe THROAT Verified 11/20/18 14:42 SWELLING prednisone [PREDNISONE] Allergy Intermediate rash Verified 11/20/18 14:42 amoxicillin Allergy Mild ITCH Verified 11/20/18 14:42 ciprofloxacin Allergy Mild ITCH Verified 11/20/18 14:42 clavulanic acid Allergy Mild RASH Verified 11/20/18 14:42 hydromorphone Allergy Mild ITCHING Verified 11/20/18 14:42 nitrofurantoin Allergy Mild ABD Verified 11/20/18 14:42 PAIN/SEVERE ITCHING oxycodone Allergy Mild ITCH Verified 11/20/18 14:42 Penicillins Allergy Mild BLISTERS Verified 11/20/18 14:42 Sulfa (Sulfonamide Allergy Mild ITCH Verified 11/20/18 14:42 Antibiotics) levofloxacin [From LEVAQUIN] AdvReac Severe DISTURBING Verified 11/20/18 14:42 HALLUCINATIONS lorazepam [From ATIVAN] AdvReac Intermediate Verified 11/20/18 14:42 morphine AdvReac Mild HALLUCINATI Verified 11/20/18 14:42 ONS Review of Systems Review of Systems All systems reviewed & are unremarkable except as noted in HPI and below Exam Vital Signs (past 8 hours): - 12/04/18 20:44 12/04/18 20:46 12/04/18 22:02 Temperature 98.6 F 98.4 F 99.4 F Pulse Rate 72 74 Respiratory Rate 17 Blood Pressure 180/71 H Blood Pressure [Left Arm] 150/68 H Pulse Oximetry 96 94 12/04/18 23:30 Temperature 102.3 F H Pulse Rate 82 Respiratory Rate 19 Blood Pressure 182/77 H Blood Pressure [Left Arm] Pulse Oximetry 95 Oxygen Delivery Method Nasal Cannula Oxygen Flow Rate 2 Narrative Exam Narrative: GENERAL APPEARANCE: well developed, well nourished, BMI 26.3 who is acutely ill with rigors. HEAD: Normocephalic, atraumatic. EYES: pupils equal, round, reactive to light and accommodation, sclera non- icteric, extraocular movement intact without nystagmus. EARS: normal external structures, no ear pain NOSE: sinuses non tender to percussion, no rhinorrhea ORAL CAVITY: mucosa moist without lesions or exudate, palate normal, tongue in midline. THROAT: normal, no erythema, no exudate, posterior pharynx normal, uvula midline. NECK/THYROID: neck supple, no jugular venous distention, no carotid bruit, no thyromegaly, trachea midline. LYMPH NODES: no cervical or supraclavicular lymphadenopathy. SKIN: Hot and dry, no suspicious lesions, facial rosacea, good turgor. HEART: regular rate and rhythm, S1-S2, 1/6 systolic murmur, no rubs or gallops, brisk capillary refill, no edema LUNGS: clear to auscultation bilaterally, no coarseness crackles or wheezing, paroxysm of coughing on deep inspiration. CHEST: Symmetrical movement, no accessory muscle use, no pain to AP and lateral compression. ABDOMEN: Soft, no distention, left abdominal tenderness on palpation, no guarding or peritoneal signs, no organomegaly, marked left flank pain, active bowel tones. BACK: Normal curvature, nontender to palpation, acute pain on palpation over left kidney. EXTREMITIES: moves all extremities, strength is 5/5 and symmetrical, no deformities or joint effusions. NEUROLOGIC: AAO x4, no focal neurologic deficits, motor strength normal upper and lower extremities, sensory exam intact to light touch, hearing grossly normal to speech. PSYCH: alert, mildly anxious, cooperative, cognitively intact Objective Labs Result Diagrams: 12/04/18 16:35 12/04/18 16:35 Labs: Laboratory Results - last 24 hr 12/04/18 12/04/18 12/04/18 16:35 16:35 16:35 WBC 20.8 H D RBC 4.19 Hgb 10.6 L Hct 33.4 L MCV 79.7 L MCH 25.4 L MCHC 31.8 RDW 18.4 H Plt Count 238 Neut % (Auto) 90.0 H Lymph % (Auto) 2.1 L [place] % (Auto) 7.6 Eos % (Auto) 0.0 L Baso % (Auto) 0.3 Neut # (Auto) 45072 H Lymph # (Auto) 400 L [place] # (Auto) 1600 H Eos # (Auto) 0 Baso # (Auto) 100 PT 11.2 INR 1.0 APTT 27 Sodium Potassium Chloride Carbon Dioxide BUN Creatinine Estimated GFR BUN/Creatinine Ratio Glucose Lactate Calcium Total Bilirubin AST ALT Alkaline Phosphatase Total Protein Albumin Globulin Albumin/Globulin Ratio Lipase Procalcitonin 1.73 H Urine Color Urine Appearance Urine pH Ur Specific [place] Urine Protein Urine Glucose (UA) Urine Ketones Urine Occult Blood Urine Nitrate Urine Bilirubin Urine Urobilinogen Ur Leukocyte Esterase Nasal Screen MRSA (PCR) 12/04/18 12/04/18 12/04/18 16:35 16:35 20:55 WBC RBC Hgb Hct MCV MCH MCHC RDW Plt Count Neut % (Auto) Lymph % (Auto) [place] % (Auto) Eos % (Auto) Baso % (Auto) Neut # (Auto) Lymph # (Auto) [place] # (Auto) Eos # (Auto) Baso # (Auto) PT INR APTT Sodium 135 L Potassium 4.0 Chloride 100 Carbon Dioxide 27 BUN 28 H Creatinine 1.70 H Estimated GFR 28.8 L BUN/Creatinine Ratio 16.5 Glucose 172 H Lactate 1.0 Calcium 8.8 Total Bilirubin 0.7 AST 28 ALT 23 Alkaline Phosphatase 78 Total Protein 7.2 Albumin 3.8 Globulin 3.4 Albumin/Globulin Ratio 1.1 Lipase 43 Procalcitonin Urine Color Urine Appearance Urine pH Ur Specific [place] Urine Protein Urine Glucose (UA) Urine Ketones Urine Occult Blood Urine Nitrate Urine Bilirubin Urine Urobilinogen Ur Leukocyte Esterase Nasal Screen MRSA (PCR) Negative for mrsa 12/04/18 22:40 WBC RBC Hgb Hct MCV MCH MCHC RDW Plt Count Neut % (Auto) Lymph % (Auto) [place] % (Auto) Eos % (Auto) Baso % (Auto) Neut # (Auto) Lymph # (Auto) [place] # (Auto) Eos # (Auto) Baso # (Auto) PT INR APTT Sodium Potassium Chloride Carbon Dioxide BUN Creatinine Estimated GFR BUN/Creatinine Ratio Glucose Lactate Calcium Total Bilirubin AST ALT Alkaline Phosphatase Total Protein Albumin Globulin Albumin/Globulin Ratio Lipase Procalcitonin Urine Color Yellow Urine Appearance Clear Urine pH 5.0 Ur Specific [place] 1.010 Urine Protein Negative Urine Glucose (UA) Negative Urine Ketones Negative Urine Occult Blood 1+ H Urine Nitrate Negative Urine Bilirubin Negative Urine Urobilinogen 0.2 Ur Leukocyte Esterase 2+ H Nasal Screen MRSA (PCR) Assessment & Plan Assessment & Plan narrative: This is an 83-year-old female patient who was admitted to the hospital for further evaluation treatment of acute left pyelonephritis. 1. Acute pyelonephritis, present on admission. -the patient presented with abdominal pain symptoms chest a localizing to the left posterior flank prompting her to return today -patient patient with fevers and rigors, white count increased from 10.5 yesterday to 20.8 today, procalcitonin 1.73, urinalysis positive for blood negative for nitrites, positive for leukocyte esterase WBCs 30-100 many bacteria. -ertapenem renally dosed at 0.5 g every 24 hours, patient with PCN allergy will monitor 1st dose for reaction. -patient with nausea upon arrival on the floor, Zofran 4 mg every 6 hours as needed -patient with multiple allergies including pain medications causing hallucinatio ns or itching, pain is 4/10, will treat with Tylenol 650 mg every 4 hours and assess need to escalate therapy. -clear liquid diet, advance as tolerated. -will follow CBC and procalcitonin. 2. Chronic kidney disease stage IV, stable. -patient with history of right nephrectomy. -patient is at baseline creatinine of 1.7. -really dosing antibiotics will avoid other nephrotoxic agents. -will monitor renal function. 3. Chronic microcytic hypochromic anemia, active -patient with decreasing hemoglobin and becoming symptomatic prompting transfusion at hemoglobin of 9.4 1 week ago. -patient is presently close to baseline hemoglobin at 10.6 and hematocrit of 33.4. No evidence of bleeding, guaiac negative, coagulation studies are unremarkable. -patient was due to have colonoscopy an EGD next week. -will obtain iron panel but defer iron repletion until infection resolved. -will follow hemoglobin hematocrit. 4. Paroxysmal atrial fibrillation, stable. -sinus rhythm, no complaints of chest pain, reports occasional palpitation no exertion dyspnea. -the patient has been recently taken off warfarin and is taking 1 aspirin daily. -history of NC, echocardiogram 05/22/2018 shows no focal wall abnormalities, mild concentric LV hypertrophy, normal diastolic function mild RV dilation, severe LA dilation. -will continue patient's home medication of amiodarone 200 mg daily and lisinopril 5 mg daily. 5. Chronic anxiety, stable. -patient is mildly anxious, remains cooperative. -will continue patient's home regimen of sertraline 50 mg daily. The patient is admitted to the hospital related to acute pyelonephritis in a patient with a single kidney and risk of complications or adverse events. The patient is admitted as an inpatient with expected length of stay to be greater than 2 midnights. Scores GCS Addis coma scale eye opening: Spontaneous [place] coma scale verbal response: Orientated [place] coma scale motor response: Obey commands Addis coma scale total score: 15 SOFA PaO2/FIO2: >=400 mmHg Platelets: >= 150 Bilirubin: < 1.2 mg/dL Hypotension: MAP >= 70 mmHg [place]is Coma Scale: 15 Renal: Creatinine 1.2-1.9 mg/dL SOFA Score: 1
[2018-12-05 02:23] LABS: Bacteria Urine Many (>30); Culture Indicated Urine Specimen Cultured; RBC Urine 0-1/HPF (0-5/HPF); Squamous Epithelial Cell Urine 0-1 /HPF (0-5/HPF); WBC Urine 30-100/HPF (0-5/HPF)
[2018-12-05 05:30] LABS: Add Manual Diff / Slide Review NO; Basophils Absolute Auto 100 /uL (0-100); Basophils Percent Auto 0.3 % (0-2); Eosinophils Absolute Auto 0 /uL (0-450); Hematocrit 30.9 % (36-46); Hemoglobin 10.1 g/dL (12.0-16.0); Lymphocytes Absolute Auto 800 /uL (1100-4500); Mean Corpuscular HGB Conc 32.7 % (30-36); Mean Corpuscular Hemoglobin 25.9 PG (26-34); Mean Corpuscular Volume 79.2 fL (80-100); Monocytes Absolute Auto 1700 /uL (0-900); Monocytes Percent Auto 7.8 % (3-14); Neutrophils Absolute Auto 18800 /uL (1500-7000); Neutrophils Percent Auto 87.9 % (50-75); Platelet Count 210 X10^3/uL (150-400); Red Cell Distribution Width 18.3 % (11.6-14.8); White Blood Cell Count 21.3 X10^3/uL (4.5-11.0)
[2018-12-05 05:37] LABS: BUN Creatinine Ratio 16.9 (6-22); Blood Urea Nitrogen 27 mg/dL (7-17); Calcium 8.3 mg/dL (8.4-10.2); Carbon Dioxide 27 mmol/L (22-32); Chloride 104 mmol/L (98-107); Estimated Glomerular Filt Rate 30.9 mL/min (>60); Glucose 107 mg/dL (80-110); HEMOLYSIS < 15 (0-50); Potassium 4.1 mmol/L (3.4-5.1); Sodium 136 mmol/L (137-145)
[2018-12-05 05:51] LABS: Iron 13 ug/dL (37-170)
[2018-12-05 06:15] LABS: Procalcitonin 3.98 ng/mL (<0.5)
--- NOTE | 2018-12-05 06:30 | PC.ADMIT ---
[email or web address] [place] [address] Admission Note: The patient,Valery Yeh,83 y/o, was given written information regarding hospital policies, unit procedures and contact persons. Patient's smoking status: Never smoker. Vital Signs - 8 hr 12/04/18 23:30 12/05/18 05:05 Temperature 102.3 F H 99.3 F Pulse Rate 82 78 Respiratory Rate 19 16 Blood Pressure 182/77 H 137/58 L Pulse Oximetry 95 95
--- NOTE | 2018-12-05 06:31 | PC.NURSE ---
Business Rules Developer Note-Patient is A/Ox4, weak. Sudden nausea with dry heaves and small clear liquid emesis at midnight, IV Zofran given and effective. T-max 102.3, PO Tylenol given, temp 99.3 in am, patient does experience occasional rigors. Urinary output is low and cloudy, UAC has been sent. Abdominal pain is minimal. Zantac given x1 for heartburn
[2018-12-05] MEDS: ONDANSETRON 4 MG/2 ML INJ IV (07:35)
[2018-12-05] MEDS: ACETAMINOPHEN 325 MG TABLET 650 MG PO ×2 (07:57→17:24)
[2018-12-05] MEDS: PANTOPRAZOLE 20 MG TABLET PO (07:58)
[2018-12-05] MEDS: AMIODARONE 200 MG TABLET PO (08:08)
[2018-12-05] MEDS: SERTRALINE 50 MG TABLET PO (08:11)
[2018-12-05] MEDS: LISINOPRIL 5 MG TABLET PO (08:11)
[2018-12-05 08:24] LABS: Acinetobacter baumannii Not Detected (Not Detect); Enterobacteriaceae species Detected (Not Detect); Enterococcus species Not Detected (Not Detect); KPC (carbapenem-resist gene) Not Detected (Not Detect); Listeria monocytogenes Not Detected (Not Detect); Methicillin-resistant gene Not Detected (Not Detect); Staphylococcus species Not Detected (Not Detect); Streptococcus agalactiae (Gr B Not Detected (Not Detect); Streptococcus pneumonia Not Detected (Not Detect); Streptococcus pyogenes (Gr A) Not Detected (Not Detect); Streptococcus species Not Detected (Not Detect); Vancomycin-rest genes A/B Not Detected (Not Detect)
[2018-12-05 08:25] LABS: Candida albicans Not Detected (Not Detect); Candida glabrata Not Detected (Not Detect); Candida krusei Not Detected (Not Detect); Candida parapsilosis Not Detected (Not Detect); Candida tropicalis Not Detected (Not Detect); E. coli Detected (Not Detect); Enterobacter cloacae complex Not Detected (Not Detect); Haemophilus influenzae Not Detected (Not Detect); Neisseria meningitidis Not Detected (Not Detect); Proteus species Not Detected (Not Detect); Pseudomonas aeruginosa Not Detected (Not Detect); Serratia marcescens Not Detected (Not Detect)
--- NOTE | 2018-12-05 10:27 | CM.DANOTE ---
DCP: Case received, EMR reviewed and met with patient. Introduced self and role. Was able to meet with patient and daughter, Laya, who is POA. Laya's phone number is: [phone]. Retrieved baseline health history and living situation from patient. Patient is an 83 year old female who admitted yesterday evening to the care of the hospitalist team. PCP: Dr. Salgado. Payer: confirmed: Medicare/[facility]. Patient came to the hospital via family vehicle secondary to a fever and weakness. She holds diagnosis of Acute L. Pyelonephritis. Met with patient. Pleasant, alert and oriented. Daughter, Laya, lives locally and confirmed that she is POA. Patient is a , her passed not long ago. Her daughter is very supportive. Patient is independent at home. P: DCP to continue to follow closely, and will be available for any resources that patient may need. Alanna Carter RN/electrical and instrumentation manager
--- NOTE | 2018-12-05 12:11 | PM.PN.1 ---
Subjective Date Patient Seen: 12/05/18 Interval history: Valery Yeh is an 83-year-old female with a past medical history significant for chronic kidney disease stage IV, solitary left kidney status right nephrectomy due to surgical complication, recent GI bleed with acute blood loss anemia status post transfusion 1 week ago, prior type II CO, paroxysmal atrial fibrillation, degenerative disc disease, solitary pulmonary nodule and anxiety who presented with worsening abdominal pain radiating to left flank, rigors, fevers, nausea and vomiting. The patient is resting in bed comfortably. She reports she feels better than yesterday. She continues to have left flank and CVA tenderness and pain. She reports her urine output is improving. She also endorses headache and nausea (now resolved). She states that the fevers make her feel the worst. Discussed pyelonephritis and the need for urology referral in the near future as this is at least her third urinary tract infection in the last few months and informed the patient she may have fevers for up to two weeks after a kidney infection but they should become less frequent and severe then dissipate. She has had a recent GI bleed with hematochezia and melena and was scheduled for EGD/colonoscopy tomorrow (now canceled). She has no other complaints and denies sore throat, cough, shortness of breath, chest pain, abdominal pain, nausea, vomiting, fever, chills, dysuria, diarrhea or constipation. She is voiding without difficulty. She is up ambulating without assistance. Exam Vital Signs (past 8 hours): - 12/05/18 07:23 12/05/18 07:57 12/05/18 11:10 Temperature 100.2 F H 100.2 F H 99.1 F Pulse Rate 91 H 67 Respiratory Rate 20 19 Blood Pressure 190/80 H 130/51 L Pulse Oximetry 94 95 Oxygen Delivery Method Room Air Oxygen Flow Rate 0 Narrative Exam Narrative: General: Older female resting in bed comfortably, in no acute distress, well-developed, well-nourished, mildly anxious but appropriately interactive. HEENT: Normocephalic, atraumatic. External ears without defect. Pupils equal, round, and reactive to light. Anicteric sclerae, moist conjunctivae, and no lid lag. Oropharynx free of erythema and cobble stoning with moist mucosa. Neck: Supple with full range of motion. No lymphadenopathy or thyromegaly. Cardiovascular: Regular rate and rhythm without murmurs, rubs, or gallops appreciated. Pulmonary: Clear to auscultation bilaterally without crackles, wheezes, or rhonchi. Normal respiratory effort with no use of accessory muscles. Abdomen: Soft, bowel tones present, tenderness to palpation at CVA and left flank, nondistended. No hepatosplenomegaly or masses appreciated. Extremities: No clubbing, cyanosis, or edema. Skin: Normal temperature, turgor, and texture; no rash, ulcers, or subcutaneous nodules appreciated. Neurological: Cranial nerves grossly intact. Psychiatric: Mildly anxious mood and normal affect. Alert and oriented to person, place, and time. Objective Labs Result Diagrams: 12/06/18 05:31 12/06/18 05:31 Labs: Laboratory Results - last 24 hr 12/04/18 12/04/18 12/04/18 16:35 16:35 16:35 WBC 20.8 H D RBC 4.19 Hgb 10.6 L Hct 33.4 L MCV 79.7 L MCH 25.4 L MCHC 31.8 RDW 18.4 H Plt Count 238 Neut % (Auto) 90.0 H Lymph % (Auto) 2.1 L [place] % (Auto) 7.6 Eos % (Auto) 0.0 L Baso % (Auto) 0.3 Neut # (Auto) 41090 H Lymph # (Auto) 400 L [place] # (Auto) 1600 H Eos # (Auto) 0 Baso # (Auto) 100 PT 11.2 INR 1.0 APTT 27 Sodium Potassium Chloride Carbon Dioxide BUN Creatinine Estimated GFR BUN/Creatinine Ratio Glucose Lactate Calcium Iron Total Bilirubin AST ALT Alkaline Phosphatase Total Protein Albumin Globulin Albumin/Globulin Ratio Lipase Procalcitonin 1.73 H Urine Color Urine Appearance Urine pH Ur Specific [place] Urine Protein Urine Glucose (UA) Urine Ketones Urine Occult Blood Urine Nitrate Urine Bilirubin Urine Urobilinogen Ur Leukocyte Esterase Urine RBC Urine WBC Ur Squamous Epith Cells Urine Bacteria Ur Culture Indicated? Nasal Screen MRSA (PCR) A. baumannii (PCR) Ese albicans (PCR) C. glabrata (PCR) C. krusei (PCR) C. parapsilosis (PCR) C. tropicalis (PCR) Enterobacteriac sp PCR E. cloacae complex PCR Enterococcus sp PCR E. coli (PCR) H. influenzae (PCR) Klebsiella oxytoca PCR Klebsiella pneumoniae List. monocytogenes PCR N. meningitidis (PCR) Proteus species (PCR) Serratia marcescens PCR Staphylococcus sp PCR Staph aureus (PCR) mecA-Methicil Res Gene Streptococcus sp PCR Group A Strep (PCR) Strep agalactiae (PCR) Strep pneumoniae (PCR) P. aeruginosa (PCR) Swathi/B-Vanco Res Genes KPC-Carbap Res Gene PCR 12/04/18 12/04/18 12/04/18 16:35 16:35 16:35 WBC RBC Hgb Hct MCV MCH MCHC RDW Plt Count Neut % (Auto) Lymph % (Auto) [place] % (Auto) Eos % (Auto) Baso % (Auto) Neut # (Auto) Lymph # (Auto) [place] # (Auto) Eos # (Auto) Baso # (Auto) PT INR APTT Sodium 135 L Potassium 4.0 Chloride 100 Carbon Dioxide 27 BUN 28 H Creatinine 1.70 H Estimated GFR 28.8 L BUN/Creatinine Ratio 16.5 Glucose 172 H Lactate 1.0 Calcium 8.8 Iron Total Bilirubin 0.7 AST 28 ALT 23 Alkaline Phosphatase 78 Total Protein 7.2 Albumin 3.8 Globulin 3.4 Albumin/Globulin Ratio 1.1 Lipase 43 Procalcitonin Urine Color Urine Appearance Urine pH Ur Specific [place] Urine Protein Urine Glucose (UA) Urine Ketones Urine Occult Blood Urine Nitrate Urine Bilirubin Urine Urobilinogen Ur Leukocyte Esterase Urine RBC Urine WBC Ur Squamous Epith Cells Urine Bacteria Ur Culture Indicated? Nasal Screen MRSA (PCR) A. baumannii (PCR) Not detected Ese albicans (PCR) Not detected C. glabrata (PCR) Not detected C. krusei (PCR) Not detected C. parapsilosis (PCR) Not detected C. tropicalis (PCR) Not detected Enterobacteriac sp PCR Detected H E. cloacae complex PCR Not detected Enterococcus sp PCR Not detected E. coli (PCR) Detected H H. influenzae (PCR) Not detected Klebsiella oxytoca PCR Not detected Klebsiella pneumoniae Not detected List. monocytogenes PCR Not detected N. meningitidis (PCR) Not detected Proteus species (PCR) Not detected Serratia marcescens PCR Not detected Staphylococcus sp PCR Not detected Staph aureus (PCR) Not detected mecA-Methicil Res Gene Not detected Streptococcus sp PCR Not detected Group A Strep (PCR) Not detected Strep agalactiae (PCR) Not detected Strep pneumoniae (PCR) Not detected P. aeruginosa (PCR) Not detected Swathi/B-Vanco Res Genes Not detected KPC-Carbap Res Gene PCR Not detected 12/04/18 12/04/18 12/05/18 20:55 22:40 05:01 WBC 21.3 H RBC 3.90 L Hgb 10.1 L Hct 30.9 L MCV 79.2 L MCH 25.9 L MCHC 32.7 RDW 18.3 H Plt Count 210 Neut % (Auto) 87.9 H Lymph % (Auto) 4.0 L [place] % (Auto) 7.8 Eos % (Auto) 0.0 L Baso % (Auto) 0.3 Neut # (Auto) 85967 H Lymph # (Auto) 800 L [place] # (Auto) 1700 H Eos # (Auto) 0 Baso # (Auto) 100 PT INR APTT Sodium Potassium Chloride Carbon Dioxide BUN Creatinine Estimated GFR BUN/Creatinine Ratio Glucose Lactate Calcium Iron Total Bilirubin AST ALT Alkaline Phosphatase Total Protein Albumin Globulin Albumin/Globulin Ratio Lipase Procalcitonin Urine Color Yellow Urine Appearance Clear Urine pH 5.0 Ur Specific [place] 1.010 Urine Protein Negative Urine Glucose (UA) Negative Urine Ketones Negative Urine Occult Blood 1+ H Urine Nitrate Negative Urine Bilirubin Negative Urine Urobilinogen 0.2 Ur Leukocyte Esterase 2+ H Urine RBC 0-1/hpf Urine WBC 30-100/hpf H Ur Squamous Epith Cells 0-1 /hpf Urine Bacteria Many (>30) H Ur Culture Indicated? Specimen cultured Nasal Screen MRSA (PCR) Negative for mrsa A. baumannii (PCR) Ese albicans (PCR) C. glabrata (PCR) C. krusei (PCR) C. parapsilosis (PCR) C. tropicalis (PCR) Enterobacteriac sp PCR E. cloacae complex PCR Enterococcus sp PCR E. coli (PCR) H. influenzae (PCR) Klebsiella oxytoca PCR Klebsiella pneumoniae List. monocytogenes PCR N. meningitidis (PCR) Proteus species (PCR) Serratia marcescens PCR Staphylococcus sp PCR Staph aureus (PCR) mecA-Methicil Res Gene Streptococcus sp PCR Group A Strep (PCR) Strep agalactiae (PCR) Strep pneumoniae (PCR) P. aeruginosa (PCR) Swathi/B-Vanco Res Genes KPC-Carbap Res Gene PCR 12/05/18 12/05/18 12/05/18 05:01 05:01 05:01 WBC RBC Hgb Hct MCV MCH MCHC RDW Plt Count Neut % (Auto) Lymph % (Auto) [place] % (Auto) Eos % (Auto) Baso % (Auto) Neut # (Auto) Lymph # (Auto) [place] # (Auto) Eos # (Auto) Baso # (Auto) PT INR APTT Sodium 136 L Potassium 4.1 Chloride 104 Carbon Dioxide 27 BUN 27 H Creatinine 1.60 H Estimated GFR 30.9 L BUN/Creatinine Ratio 16.9 Glucose 107 Lactate Calcium 8.3 L Iron 13 L Total Bilirubin AST ALT Alkaline Phosphatase Total Protein Albumin Globulin Albumin/Globulin Ratio Lipase Procalcitonin 3.98 H Urine Color Urine Appearance Urine pH Ur Specific [place] Urine Protein Urine Glucose (UA) Urine Ketones Urine Occult Blood Urine Nitrate Urine Bilirubin Urine Urobilinogen Ur Leukocyte Esterase Urine RBC Urine WBC Ur Squamous Epith Cells Urine Bacteria Ur Culture Indicated? Nasal Screen MRSA (PCR) A. baumannii (PCR) Ese albicans (PCR) C. glabrata (PCR) C. krusei (PCR) C. parapsilosis (PCR) C. tropicalis (PCR) Enterobacteriac sp PCR E. cloacae complex PCR Enterococcus sp PCR E. coli (PCR) H. influenzae (PCR) Klebsiella oxytoca PCR Klebsiella pneumoniae List. monocytogenes PCR N. meningitidis (PCR) Proteus species (PCR) Serratia marcescens PCR Staphylococcus sp PCR Staph aureus (PCR) mecA-Methicil Res Gene Streptococcus sp PCR Group A Strep (PCR) Strep agalactiae (PCR) Strep pneumoniae (PCR) P. aeruginosa (PCR) Swathi/B-Vanco Res Genes KPC-Carbap Res Gene PCR Assessment & Plan Assessment & Plan narrative: Valery Yeh is an 83-year-old female with a past medical history significant for chronic kidney disease stage IV, solitary left kidney status right nephrectomy due to surgical complication, recent GI bleed with acute blood loss anemia status post transfusion 1 week ago, prior type II CO, paroxysmal atrial fibrillation, degenerative disc disease, solitary pulmonary nodule and anxiety who presented with worsening abdominal pain radiating to left flank, rigors, fevers, nausea and vomiting. 1. Acute left-sided E coli pyelonephritis with probable bacteremia, present on admission. Active. -Patient presented with abdominal pain symptoms chest a localizing to the left posterior flank prompting her to return to ED. -Patient febrile with rigors, WBC increased from 10.5 day prior to admission to 20.8 on admission. Procalcitonin 1.73 on admission. WBC and procalcitonin likely peaking at 21.3 and 3.98 respectively. Continue to trend WBC and procalcitonin. -Urinalysis grossly positive with urine culture pending. Blood culture x 2 have no growth to date, however, biofire positive for E.coli likely outbound telemarketing representative of positive blood culture. Ordered repeat blood culture x2. Patient previously had pansensitive E.coli and Klebsiella UTI's. -Ordered echocardiogram due to probable bacteremia with murmur appreciated by admitting provider. -Continue renally dosed ertapenem 500 mg daily due multiple antibiotic allergies and renally dosed at 500 mg every 24 hours. -Continue Zofran 4 mg every 6 hours as needed for nausea. -Continue Tylenol 650 mg every 4 hours as needed for pain or fever. 2. Chronic kidney disease stage IV, present on admission. Stable. -Patient with history of surgical complication and now status post right nephrectomy. -Baseline creatinine of 1.7-1.9. CrCl 25 indicative of stage IV CKD. -Continue renally dosed medications an avoid other nephrotoxic agents. -Continue to monitor renal function daily. 3. Recent GI bleed with blood loss anemia, unclear if present on admission. Stable. -Likely some component of chronic kideney disease anemia. -Patient has presumed GI bleed with recent hematochezia and melena. She was scheduled for EGD and colonoscopy tomorrow which had to be rescheduled. Off warfarin. -Patient with symptomatic anemia with decreasing hemoglobin prompting transfusion of 1 U PRBC 1 week ago. Hgb prior to transfusion 9.4. -Patient was close to baseline hemoglobin of 10.6 and hematocrit of 33.4 on admission and now trending down due to dilution from IV fluids. -Hemodynamically stable. No overt signs of bleeding. Continue to monitor for melena and hematochezia. -Iron level is low at 13. Defer iron supplementation until acute infection resolves. -Continue to monitor hemoglobin and hematocrit closely. -Plan for close outpatient follow-up and reschedule endoscopies with GI. Unless she begins to have gross bleeding. 4. Paroxysmal atrial fibrillation, chronic, present on admission. Stable. -Currently sinus rhythm. Rate controlled. -Recently taken off warfarin due to presumed GI bleed and is on aspirin 81 mg daily. -History of type II CO. Echocardiogram 05/22/2018 demonstrated preserved LVEF 60-65% wihtout focal wall motion abnormalities, mild concentric LV hypertrophy, normal diastolic function, mild RV dilation, severe LA dilation. -Continue home amiodarone 200 mg daily and lisinopril 5 mg daily. 5. Anxiety, chronic, present on admission. Stable. -Patient is mildly anxious, remains cooperative. -Continue home sertraline 50 mg daily. Disposition: Patient likely to discharge home in 1-2 days once clinically improved and pending urine culture and antibiotic sensitivities.
--- NOTE | 2018-12-05 13:39 | DIET.PN ---
Dietary Progress Note Assessment: 83y F referred to nutrition re Anemia, CKD, nephrectomy HT: 157.4cm WT: 64.4kg BMI: 26.0 Labs: Cr: 1.7 (baseline), GFR 30.9 (baseline), WBC 20 (H), K+ 4.1 (wnl), iron 13 (L) Pt reports reduced appetite 1y ago associated c of . Is food secure, just reduced desire to cook for one. Usual intake includes black coffee in am and a meal- goulash in evening. Nutrition Diagnosis: Increased protein needs r/t acute bacterial infection in/near only kidney aeb elevated WBC (20.8), pt reporting nausea and regularly consuming 1 meal/d. Interventions: honey english yogurt daily @ dinner (4g) in addition to meal tray Pt reports not instructed to modify diet for CKD (K+, phos, pro) however I educated pt on moderating PRO intake in general to 2 servings/d to preserve single kidney fxn. Consider phos lab r/t yogurt as PRO supp. Energy Goals: 1500kcal, 51g PRO (0.8g/kg per Renal) Monitoring/Evaluations: diet tolerance, I&Os, associated labs
--- NOTE | 2018-12-05 13:50 | PT.IIE ---
Current Diagnoses Acute pyelonephritis (12/04/18) Surgical History (Last Reviewed 12/05/18 @ 04:14 by ROSETTA Frias) Anesthesia (Resolved) History of bladder surgery (Resolved ~1967) History of cholecystectomy (Resolved) History of nephrectomy (Resolved) History of spinal fusion (Resolved 2005) S/P repair of paraesophageal hernia (Resolved) Status post hysterectomy with oophorectomy (Resolved) Medical History (Last Reviewed 12/05/18 @ 04:14 by ROSETTA Frias) Paroxysmal atrial fibrillation (Chronic ~2013) Essential hypertension (Chronic) Cerebral microvascular disease (Chronic) Anxiety (Chronic 12/08/15) 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 difficile colitis (Resolved 07/2015) C. difficile colitis (Resolved 11/2011) Chicken pox (Resolved ~1940) Measles (Resolved ~1940) Mumps (Resolved ~1940) Paraesophageal hernia (Resolved) Skin cancer (Resolved 2009) History of PSVT (paroxysmal supraventricular tachycardia) (Inactive) Physical Therapy Inpatient Evaluation/Re-Eval M1 PT/OT-IP Prior Functional Status Start: 12/05/18 15:13 Freq: NEEDED Status: Active Protocol: Document 12/05/18 13:50 AB (Rec: 12/05/18 15:22 AB [id number]) Medical Review Prior Functional Status Medical History Reviewed Yes Communication able to make needs known Mobility and Gait pt stated that she is independent with all mobilities and ambulation without AD; stated that she has balance problems even before but hasn't have any falls Social History Household Members none Living Arrangements House Number of Floors (Floors) One Floor Number of Stairs To Enter/Railing? 2 steps without rails Home Environment High Toilet Walk in Shower Home Equipment Hand Held Shower Employment Status Retired M2 PT-IP Current Condition Start: 12/05/18 15:13 Freq: NEEDED Status: Active Protocol: Document 12/05/18 13:50 AB (Rec: 12/05/18 15:22 AB [id number]) Physical Therapy Current Condition Current Condition Evaluation Date 12/05/18 Treatment Diagnosis acute pyelonephritis; difficulty in walking Onset Date 12/04/18 M3 PT-IP Subjective Start: 12/05/18 15:13 Freq: NEEDED Status: Active Protocol: Document 12/05/18 13:50 AB (Rec: 12/05/18 15:22 AB [id number]) Subjective Physical Therapy Visit Type Type Initial Evaluation Visit Start Time 13:50 Visit Stop Time 14:15 Total Visit Minutes 25 Number of PERINATAL EDUCATOR Visits 0 Physical Therapy Visit Comments Patient Comments pt agreeable to do PT Therapy Pain Assessment Pain Present Pain Present Denied Pain M4 PT-IP Mobility and Gait Start: 12/05/18 15:13 Freq: NEEDED Status: Active Protocol: Document 12/05/18 13:50 AB (Rec: 12/05/18 15:22 AB [id number]) PT-Bed Mobility Assessment Supine to Sit Supine to Sit Independent Sit to Supine Sit to Supine Independent PT-Transfer Assessment Sit to and From Stand Sit to and from Stand Standby Assistance Equipment Transfer Assistive Device Gait Belt Orthotic/Prosthetic Devices or Brace: No Gait Assessment Gait Gait Assistance Required: Standby Assistance Distance (Feet) 125 Able to Maintain Weight Bearing Status Yes During Gait Assistive Devices Assistive Device None Gait Belt Orthotic/Prosthetic Devices or Brace: No Gait Deviations General Gait Pattern Antalgic Decreased Stride Length Decreased Feet Clearance Narrow Based Gait Factors Limiting Gait Function Factors Limiting Gait Function Decreased Activity Tolerance Poor Balance Comments Gait Comments pt requiring SBA with ambulation. presents with slight L lateral drift to the L during ambulation and needing increase time to recenter self but without LOB. also has a narrow based gait . PT-Balance Assessment Sitting Balance and Reactions Static Sitting Balance Ability Good Dynamic Sitting Balance Ability Good Standing Balance and Reactions Static Standing Balance Ability Good Dynamic Standing Balance Ability Fair Device Used without AD M5 PT-IP Objective Assessments Start: 12/05/18 15:13 Freq: NEEDED Status: Active Protocol: Document 12/05/18 13:50 AB (Rec: 12/05/18 15:22 AB [id number]) Orientation Orientation/Cognition Level of Alertness Alert Orientation Name Age Birthday Month Date Year Day of Week Place Situation Language Function Ability No Deficits Noted Safety Awareness Understands Safety Issues Memory Description No Deficits Noted Gross Range of Motion Lower Extremity ROM Assessment Within Functional Limits Strength Lower Extremity Strength Assessment Bilaterally Impaired Hip 4-/5 Knee 4-/5 Ankle 4-/5 Coordination Assessment Gross Coordination Gross Coordination WNL Sensation Assessment Sensation Gross Sensation WNL Muscle Tone Muscle Tone WNL Yes M6 PT-IP Treatment Start: 12/05/18 15:13 Freq: NEEDED Status: Active Protocol: Document 12/05/18 13:50 AB (Rec: 12/05/18 15:22 AB [id number]) Physical Therapy Treatment Education Education Provided Safety M7 PT-IP Assessment and Plan Start: 12/05/18 15:13 Freq: NEEDED Status: Active Protocol: Document 12/05/18 13:50 AB (Rec: 12/05/18 15:22 AB [id number]) PT Summary Assessment and Plan Potential Rehabilitation Potential Good Status of Condition at Evaluation Stable Summary Impairments ROM Strength Balance Coordination Bed Mobility Transfers Gait Activity Tolerance Assessment Summary pt requiring SBA with mobility . pt lives alone but her daughter is in town right now and checks on pt. pt plans to go home. will continue to assess progress. Goals Transfer Goal Independent Gait Goal Independent Gait Distance 300 Other Goals up/down 2 steps without rail SBA Days to Meet Goals 5 Frequency of Treatment Frequency Of Treatment Once a Day Treatment Plan Physical Therapy Treatment Plan Bed Mobility Training Transfer Training Gait Training Therapeutic Exercise Balance Retraining Discharge Planning Neuromuscular Re-ed Coordination Retraining Recommendations To Nursing Amount of Assist Needed Standby Assistance Discharge Recommendations PT Discharge Recommendations Home with Assistance
--- NOTE | 2018-12-05 14:10 | DI.ECHO.S_ITS ---
[facility] +---------+ : : [address] : : : : [id number] : : : : Phone: [phone]+ Echocardiogram Report + + :Name: PARVEEN CABALLERO Study Date: 12/06/2018 Height: 63 in : :[facility] Weight: 142 lb: : Gender: Female BSA: 1.7 m2 : :: 1935 Age: 83 yrs : :Reason For Study: Murmur : : Performed By: Sofia Chowdhury : :Referring: KAROLINA RAMSEY : + + Interpretation Summary The ejection fraction is estimated to be 60-65%. There is mild to moderate mitral regurgitation. There is mild aortic regurgitation. There is mild tricuspid regurgitation. The right ventricular systolic pressure is estimated to be at least 54 mmHg based on an estimated right atrial pressure of 3 mm Hg. Compared to the prior echo exam, there has been an increase in the severity of pulmonary hypertension. Procedure: A two-dimensional transthoracic echocardiogram with color flow and Doppler was performed. The study quality was technically adequate. Comparison is made with the echocardiogram of 05-22-18. The patient was in normal sinus rhythm during the exam. Left Ventricle: The left ventricle is normal in size, wall thickness, and systolic function without any focal wall motion abnormalities. The ejection fraction is estimated to be 60-65%. Left ventricular wall motion is normal. Diastolic parameters suggest a restrictive filling pattern consistent with probable significantly elevated filling pressures. Right Ventricle: The right ventricle grossly appears normal in size with probable normal systolic function. Atria: The left atrium is severely dilated. Right atrial size is normal. The interatrial septum is intact with no evidence for an atrial septal defect. Mitral Valve: The mitral valve leaflets appear mildly thickened, but open well. There is mild to moderate mitral regurgitation. Aortic Valve: The aortic valve is trileaflet. The aortic valve opens well. There is mild aortic regurgitation. Tricuspid Valve: The tricuspid valve leaflets are thin and pliable. There is mild tricuspid regurgitation. The right ventricular systolic pressure is estimated to be at least 54 mmHg based on an estimated right atrial pressure of 3 mm Hg. Compared to the prior echo exam, there has been an increase in the severity of pulmonary hypertension. Pulmonic Valve: The pulmonic valve is not well seen, but is grossly normal. There is mild pulmonic regurgitation. Great Vessels: The aortic root is normal size. The dimensions of the ascending aorta are normal. The aortic arch is at the upper limits of normal in size. The IVC is of normal diameter and collapses greater than 50% with a sniff. This suggests a low right atrial pressure of 3 mm Hg. Pericardium/ Pleura There is no pericardial effusion. There is no pleural effusion. MMode/2D Measurements & Calculations LVIDd: 5.0 cm Ao root diam: 3.3 cm LVIDs: 2.9 cm Aortic Jxn: 2.7 cm FS: 42.7 % asc Aorta Diam: 3.4 cm IVSd: 1.0 cm Ao Arch Diam (Prox Trans): 3.0 cm LVPWd: 1.00 cm LV green. diameter/BSA (cm/m^2): 3.0 LV sys. diameter/BSA (cm/m^2): 1.7 LA dimension: 4.6 cm RA long axis: 4.9 cm LA A2 area: 24.1 cm2 RA area: 16.2 cm2 LA A4 area: 24.0 cm2 RA vol: 45.7 ml LA length (vol): 5.3 cm RA : 27.3 ml/m2 LA vol: 92.3 ml IVC diam: 2.0 cm LA vol index: 55.2 ml/m2 RVDd major: 5.1 cm RVD1 (basal): 3.8 cm RVD2 (mid): 3.3 cm Doppler Measurements & Calculations Ao V2 max: 178.5 cm/sec AI P1/2t: 401.9 msec Ao V2 mean: 126.2 cm/sec AI dec slope: 330.8 cm/sec2 Ao max P.7 mmHg Ao mean P.0 mmHg Ao V2 VTI: 36.4 cm MV E max trevin: 115.4 cm/sec TR max trevin: 355.6 cm/sec MV A max trevin: 54.7 cm/sec TR max P.6 mmHg MV E/A: 2.1 PA V2 max: 104.1 cm/sec Med Peak E' Trevin: 6.9 cm/sec PA V2 mean: 67.3 cm/sec E/E' med: 16.6 PA mean P.1 mmHg Lat Peak E' Trevin: 9.8 cm/sec PA Accel Time: 0.13 sec E/E' lat: 11.8 E/e' average: 14.2 MV dec time: 0.18 sec MV P1/2t: 53.6 msec MV P1/2t max trevin: 114.8 cm/sec MVA(P1/2t): 4.1 cm2 Reading Physician:04:23 PM
[2018-12-05] MEDS: SODIUM CHLORIDE 0.9% 1,000 ML 50 ML IV (17:22)
[2018-12-06] VITALS (7 sets, daily range): BP systolic 134–190; BP diastolic 65–85; PULSE 65–78; RESP 16–20; TEMP 36.6–37.7; O2SAT 93–96
--- NOTE | 2018-12-06 00:36 | PC.NURSE ---
2300- Pt transferred from ICU for pylonephritis, on IV abx at this time. Moving SBA in room, pt calls appropriately. Denies any pain, pt has had some on & off fevers through the day--these resolve with PO tylenol. Telemetry in place reading afib/SR; w/ hx of afib. Vitals stable on RA; tolerating soft low residual diet at this time. Pt does c/o Diarrhea, per ROSETTA Liriano this is caused by IV abx. NS running as ordered into IV.
[2018-12-06] MEDS: ACETAMINOPHEN 325 MG TABLET 650 MG PO (02:29)
[2018-12-06] MEDS: PANTOPRAZOLE 20 MG TABLET PO (05:47)
[2018-12-06 06:05] LABS: Add Manual Diff / Slide Review NO; Basophils Absolute Auto 100 /uL (0-100); Basophils Percent Auto 0.4 % (0-2); Eosinophils Absolute Auto 0 /uL (0-450); Eosinophils Percent Auto 0.3 % (2-4); Hematocrit 27.8 % (36-46); Lymphocytes Absolute Auto 700 /uL (1100-4500); Lymphocytes Percent Auto 5.2 % (25-40); Mean Corpuscular HGB Conc 32.6 % (30-36); Mean Corpuscular Hemoglobin 25.8 PG (26-34); Mean Corpuscular Volume 79.2 fL (80-100); Monocytes Absolute Auto 1300 /uL (0-900); Monocytes Percent Auto 10.4 % (3-14); Neutrophils Absolute Auto 10700 /uL (1500-7000); Neutrophils Percent Auto 83.7 % (50-75); Platelet Count 182 X10^3/uL (150-400); Red Blood Cell Count 3.51 X10^6/uL (4.0-5.2); Red Cell Distribution Width 18.3 % (11.6-14.8); White Blood Cell Count 12.8 X10^3/uL (4.5-11.0)
[2018-12-06 06:09] LABS: Alanine Aminotransferase 18 IU/L (9-52); Albumin 2.6 g/dL (3.5-5.0); Albumin Globulin Ratio 0.9 (1.0-2.8); Alkaline Phosphatase 61 U/L (38-126); Aspartate Aminotransferase 25 IU/L (14-36); BUN Creatinine Ratio 17.9 (6-22); Bilirubin Total 0.3 mg/dL (0.2-1.3); Blood Urea Nitrogen 25 mg/dL (7-17); Calcium 8.3 mg/dL (8.4-10.2); Carbon Dioxide 25 mmol/L (22-32); Chloride 105 mmol/L (98-107); Estimated Glomerular Filt Rate 36.1 mL/min (>60); Globulin 2.9 g/dL (1.7-4.1); Glucose 116 mg/dL (80-110); HEMOLYSIS < 15 (0-50); Magnesium 1.9 mg/dL (1.6-2.3); Potassium 3.8 mmol/L (3.4-5.1); Sodium 136 mmol/L (137-145); Total Protein 5.5 g/dL (6.3-8.2)
[2018-12-06 07:09] LABS: Procalcitonin 3.73 ng/mL (<0.5)
[2018-12-06] MEDS: LISINOPRIL 5 MG TABLET PO (08:33)
[2018-12-06] MEDS: AMIODARONE 200 MG TABLET PO (08:34)
[2018-12-06] MEDS: SERTRALINE 50 MG TABLET PO (08:34)
[2018-12-06] MEDS: HEPARIN 5,000 UNIT/ML VIAL 5000 UNIT SUBCUT ×2 (08:34→21:30)
--- NOTE | 2018-12-06 12:07 | PT.IPTN ---
Current Diagnoses Acute pyelonephritis (12/04/18) Physical Therapy Treatment Note M2 PT-IP Current Condition Start: 12/05/18 15:13 Freq: NEEDED Status: Active Protocol: Document 12/05/18 13:50 AB (Rec: 12/05/18 15:22 AB [id number]) Physical Therapy Current Condition Current Condition Evaluation Date 12/05/18 Treatment Diagnosis acute pyelonephritis; difficulty in walking Onset Date 12/04/18 M3 PT-IP Subjective Start: 12/05/18 15:13 Freq: NEEDED Status: Active Protocol: Document 12/06/18 11:59 SA (Rec: 12/06/18 12:07 SA [email or web address]) Subjective Physical Therapy Visit Type Type Treatment Note Visit Start Time 11:25 Visit Stop Time 11:45 Total Visit Minutes 20 Number of CURTAIN FRAMER Visits 1 Physical Therapy Visit Comments Patient Comments Pt agreeable to PT but does not think she needs it. Patient Goals To go home. Therapy Pain Assessment Pain When Pain Assessed At Rest Pain Present Pain Present Denied Pain M4 PT-IP Mobility and Gait Start: 12/05/18 15:13 Freq: NEEDED Status: Active Protocol: Document 12/06/18 11:59 SA (Rec: 12/06/18 12:07 [email or web address]) PT-Bed Mobility Assessment Supine to Sit Supine to Sit Independent Sit to Supine Sit to Supine Independent Scooting Scooting to Edge of Bed Independent Scooting Up and Down in Bed Independent PT-Transfer Assessment Sit to and From Stand Sit to and from Stand Standby Assistance Equipment Transfer Assistive Device Gait Belt Orthotic/Prosthetic Devices or Brace: No Transfers Transfer Destination Bed Chair Transfer Technique walking Transfer Ability Level of Assist Standby Assistance Comments Mobility Comments PT SBA with txs and bed mobility, cues for safety. Does not use AD at home but does move slowly with some unsteadyness at times. Gait Assessment Gait Gait Assistance Required: Standby Assistance Distance (Feet) 200 Able to Maintain Weight Bearing Status Yes During Gait Assistive Devices Assistive Device None Gait Belt Orthotic/Prosthetic Devices or Brace: No Gait Deviations General Gait Pattern Antalgic Decreased Stride Length Decreased Feet Clearance Narrow Based Gait Factors Limiting Gait Function Factors Limiting Gait Function Decreased Activity Tolerance Poor Balance Comments Gait Comments SBA with gait and no AD, pt takes short steps with no arm swing and some visible listing . Admits that her balance is not good but denies recent falls. Stair Climbing Assessment Evaluation Level of Assist On Stairs Contact Guard Assistance Devices Stair Climbing Assistive Devices Left Railing Right Railing Technique/Endurance Stair Climbing Direction Ascend and Descend Stair Climbing Technique Step to Step Number of Steps Climbed 3 Stair Climbing Set # Repetitions (reps) 1 Comments Stair Climbing Comments CGA on 3 stairs with cues for safety, step to gait pattern. M5 PT-IP Objective Assessments Start: 12/05/18 15:13 Freq: NEEDED Status: Active Protocol: Document 12/05/18 13:50 AB (Rec: 12/05/18 15:22 AB [id number]) Orientation Orientation/Cognition Level of Alertness Alert Orientation Name Age Birthday Month Date Year Day of Week Place Situation Language Function Ability No Deficits Noted Safety Awareness Understands Safety Issues Memory Description No Deficits Noted Gross Range of Motion Lower Extremity ROM Assessment Within Functional Limits Strength Lower Extremity Strength Assessment Bilaterally Impaired Hip 4-/5 Knee 4-/5 Ankle 4-/5 Coordination Assessment Gross Coordination Gross Coordination WNL Sensation Assessment Sensation Gross Sensation WNL Muscle Tone Muscle Tone WNL Yes M6 PT-IP Treatment Start: 12/05/18 15:13 Freq: NEEDED Status: Active Protocol: Document 12/06/18 11:59 SA (Rec: 12/06/18 12:07 SA [email or web address]) Physical Therapy Treatment Exercises Exercises Ankle Pumps Gluteal Sets Education Education Provided Safety M7 PT-IP Assessment and Plan Start: 12/05/18 15:13 Freq: NEEDED Status: Active Protocol: Document 12/06/18 11:59 SA (Rec: 12/06/18 12:07 [email or web address]) PT Summary Assessment and Plan Potential Rehabilitation Potential Good Status of Condition at Evaluation Stable Summary Impairments ROM Strength Balance Coordination Bed Mobility Transfers Gait Activity Tolerance Assessment Summary Pt SBA with most mobility tasks but needs cues for safety . Would benefit from increased SUP at home. Treatment Plan Physical Therapy Treatment Plan Bed Mobility Training Transfer Training Gait Training Therapeutic Exercise Balance Retraining Discharge Planning Neuromuscular Re-ed Coordination Retraining Recommendations To Nursing Amount of Assist Needed Standby Assistance Discharge Recommendations PT Discharge Recommendations Home with Assistance
--- NOTE | 2018-12-06 13:32 | OT.IP.EVAL ---
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 difficile colitis (Resolved 07/2015) C. difficile colitis (Resolved 11/2011) Chicken pox (Resolved ~1940) Measles (Resolved ~194) Mumps (Resolved ~194) Paraesophageal hernia (Resolved) Skin cancer (Resolved 2009) History of PSVT (paroxysmal supraventricular tachycardia) (Inactive) Surgical History (Last Reviewed 12/05/18 @ 04:14 by ROSETTA Frias) Anesthesia (Resolved) History of bladder surgery (Resolved ~1967) History of cholecystectomy (Resolved) History of nephrectomy (Resolved) History of spinal fusion (Resolved 2005) S/P repair of paraesophageal hernia (Resolved) Status post hysterectomy with oophorectomy (Resolved) Occupational Therapy Inpatient Evaluation/Re-Eval M1 PT/OT-IP Prior Functional Status Start: 12/05/18 15:13 Freq: NEEDED Status: Active Protocol: Document 12/06/18 13:32 LISANDRA (Rec: 12/06/18 15:09 LISANDRA [email or web address]) Medical Review Prior Functional Status Medical History Reviewed Yes Diet/Fluid Consistency Regular Communication WNL Mobility and Gait Pt states that she is independent with all mobility and ambulation without AD; states that she had balance problems prior to admit but hasn't have any falls Activities of Daily Living and IADL's Pt states she is independent with all self care, IADLS, driving. She hires assist with yard work. Prior Functional Level (Other details) Pt 01/2018. Pt has 3 small dogs. Social History Household Members none Living Arrangements House Number of Floors (Floors) One Floor Number of Stairs To Enter/Railing? 2 steps without rails Home Environment High Toilet Walk in Shower Home Equipment Hand Held Shower Employment Status Retired M2 OT-IP Current Condition Start: 12/06/18 14:59 Freq: Status: Active Protocol: Document 12/06/18 13:32 PJM (Rec: 12/06/18 15:09 PJ [email or web address]) Occupational Therapy Current Condition Current Condition Evaluation Date 12/06/18 Treatment Diagnosis assess self care; DX: L pyelonephritis Diagnosis Onset Date 12/05/18 M3 OT- IP Subjective and Pain Start: 12/06/18 14:59 Freq: Status: Active Protocol: Document 12/06/18 13:32 PJM (Rec: 12/06/18 15:09 PJ [email or web address]) OT- Subjective Occupational Therapy Visit Type Type Initial Evaluation Visit Start Time 13:16 Visit Stop Time 13:32 Total Visit Minutes 16 Occupational Therapy Visit Comments Patient Comments I think I will be fine once I get over this infection. Patient/Caregiver Goals to go home and see her dogs OT Pain Assessment Pain When Pain Assessed After Treatment Pain Present Pain Present Denied Pain M4 OT- IP ADL's Start: 12/06/18 14:59 Freq: Status: Active Protocol: Document 12/06/18 13:32 PJM (Rec: 12/06/18 15:09 PJ [email or web address]) OT [id number] General Evaluation Self-Feeding Ability Independent OT ADL-Grooming General Evaluation Grooming Ability Independent Areas Needing Assistance Combing/Brushing Hair Face Washing Comments OT Grooming Comments standing at sink OT ADL-Oral Care General Eval Oral Care Ability Independent Devices Oral Care Devices Toothbrush Comments Oral Care Comments standing at sink OT ADL-Dressing General Eval Upper Body Dressing Ability Independent Lower Body Dressing Ability Independent OT ADL-Toileting General Evaluation Toileting Ability Independent OT ADL-Bathing Bathing Type Bathing Type Shower General Evaluation Bathing Ability Independent Comments OT Bathing Comments per [employer] pt stood for independent shower this AM M5 OT- IP IADL's Start: 12/06/18 14:59 Freq: Status: Active Protocol: Document 12/06/18 13:32 PJM (Rec: 12/06/18 15:09 PJ [email or web address]) OT-Instrumental Activities of Daily Living Deficits IADL Deficits Identified No Deficits Home Safety Awareness Awareness of Need for Assistance at Home Good Awareness Ability to Problem Solve Emergency Able to Problem Solve Situations Medication Management Medication Management No Deficits Identified Money Management Money Management No Deficits Identified Money Management Comments daughter can assist PRN, but pt prefers to pay her own bills via check Meal Preparation Meal Preparation No Deficits Identified Sponge Maker Sponge Maker No Deficits Identified Sponge Maker Comments pt reports she fatigues at home; provided education re: energy conservation and pacing; pt has help with carrying groceries to car and neighbor assists with unloading Driving Driving Comments Pt still drives. M6 OT- IP Functional Cognition Start: 12/06/18 14:59 Freq: Status: Active Protocol: Document 12/06/18 13:32 PJM (Rec: 12/06/18 15:09 PJ [email or web address]) Cognitive Factors Limiting Selfcare Function Cognitive Ability Level of Alertness Alert Patient Orientation Name Age Birthday Month Date Year Day of Week Place Situation Attention Span Ability Capable of Focused Attention Capable of Sustained Attention Ability to Follow Commands Able to Follow Multi-Step Commands Memory Description No Deficits Noted Safety Awareness No Deficits Noted Problem Solving Ability No deficits Noted Cognitive Comments Cognitive Assessment Comments Pt alert and oriented; appears to be good historian and can problem solve energy saving strategies. OT- Vision and Hearing OT- Hearing Assessment OT- Hearing Assessment WFL OT- Vision Assessment Visual Acuity WFL M7 OT- IP Mobility and Balance Start: 12/06/18 14:59 Freq: Status: Active Protocol: Document 12/06/18 13:32 PJM (Rec: 12/06/18 15:09 PJ [email or web address]) OT-Transfer Assessment Comments Mobility Comments Pt has been independent in her room per RN OT- Gait Assessment Comments Gait Ability Comments see P.T. notes OT- Balance Assessment Comments Other Balance Tests/Deviations/Treatment see P.T. notes : M8 OT- IP Objective Assessments Start: 12/06/18 14:59 Freq: Status: Active Protocol: Document 12/06/18 13:32 PJM (Rec: 12/06/18 15:09 PJ [id number]) OT Gross Range of Motion Upper Extremity Range of Motion Assessment Within Functional Limits OT Strength Upper Extremity Strength Assessment Within Functional Limits OT- Coordination Assessment Comments Coordination Comments BUE WFL OT-Muscle Tone Assessment Muscle Tone WNL Yes OT Sensation Assessment Comments Summary Comments BUE WFL Edema Edema Absent M9 OT- IP Assessment and Plan Start: 12/06/18 14:59 Freq: Status: Active Protocol: Document 12/06/18 13:32 PJM (Rec: 12/06/18 15:09 PJM [email or web address]) OT Summary Assessment and Plan Potential Rehabilitation Potential Good Analytic Complexity at Evaluation Low Summary Progress Towards Goals Safe For Discharge Assessment Summary Low complexity OT assessment completed on this 83 yr old pt admitted with acute L pyelonephritis. Pt is independent with self care tasks in hospital room setting including standing shower, and has been up ad hudson in room without a device. Provided education re: energy conservation and pacing. No OT goals identified for this admission. Anticipate pt will return home alone when medically stable and clears P.T. Frequency of Treatment Frequency Of Treatment Discharge Discharge Recommendations OT Discharge Recommendations Home
[2018-12-06 14:47] LABS: Acinetobacter baumannii Not Detected (Not Detect); E. coli Not Detected (Not Detect); Enterobacter cloacae complex Not Detected (Not Detect); Enterobacteriaceae species Not Detected (Not Detect); Enterococcus species Not Detected (Not Detect); KPC (carbapenem-resist gene) Not Detected (Not Detect); Listeria monocytogenes Not Detected (Not Detect); Methicillin-resistant gene Not Detected (Not Detect); Proteus species Not Detected (Not Detect); Serratia marcescens Not Detected (Not Detect); Staphylococcus species Detected (Not Detect); Streptococcus agalactiae (Gr B Not Detected (Not Detect); Streptococcus pneumonia Not Detected (Not Detect); Streptococcus pyogenes (Gr A) Not Detected (Not Detect); Streptococcus species Not Detected (Not Detect); Vancomycin-rest genes A/B Not Detected (Not Detect)
[2018-12-06 14:48] LABS: Candida albicans Not Detected (Not Detect); Candida glabrata Not Detected (Not Detect); Candida krusei Not Detected (Not Detect); Candida parapsilosis Not Detected (Not Detect); Candida tropicalis Not Detected (Not Detect); Haemophilus influenzae Not Detected (Not Detect); Neisseria meningitidis Not Detected (Not Detect); Pseudomonas aeruginosa Not Detected (Not Detect)
--- NOTE | 2018-12-06 14:55 | P.PN_ITS ---
Subjective Date Patient Seen: 12/06/18 Interval history: Valery Yeh is an 83-year-old female with a past medical history significant for chronic kidney disease stage IV, solitary left kidney status right nephr ectomy due to surgical complication, recent GI bleed with acute blood loss anemia status post transfusion 1 week ago, prior type II PR, paroxysmal atrial fibrillation, degenerative disc disease, solitary pulmonary nodule and anxiety who presented with worsening abdominal pain radiating to left flank, rigors, fevers, nausea and vomiting. The patient is resting in bed comfortably. She continues to feel better each day. She reports no fevers today with her last fever overnight. Her left flank and CVA pain have improved. She endorses mild headache. She began having watery loose stool this morning with concern for C difficile colitis as she is had and infection with this in the past. She reports ?it does not smell like C diff.? C diff PCR has been ordered and pending. Discontinued PPI. She has no other complaints and denies shortness of breath, chest pain, abdominal pain, nausea, vomiting, fever, chills, dysuria, hematochezia, melena, or constipation. She is voiding and eliminating without difficulty. She is up ambulating without assistance. Exam Vital Signs (past 8 hours): - 12/06/18 07:50 12/06/18 11:00 Temperature 98 F 98.4 F Pulse Rate 69 72 Respiratory Rate 16 16 Blood Pressure 163/72 H 167/65 H Pulse Oximetry 96 94 Oxygen Delivery Method Room Air Oxygen Flow Rate 0 Narrative Exam Narrative: General: Older female resting in bed comfortably, in no acute distress, well-de veloped, well-nourished, mildly anxious but appropriately interactive. HEENT: Normocephalic, atraumatic. External ears without defect. Pupils equal, round, and reactive to light. Anicteric sclerae, moist conjunctivae, and no lid lag. Oropharynx free of erythema and cobble stoning with moist mucosa. Neck: Supple with full range of motion. No lymphadenopathy or thyromegaly. Cardiovascular: Regular rate and rhythm without murmurs, rubs, or gallops appreciated. Pulmonary: Clear to auscultation bilaterally without crackles, wheezes, or rhonchi. Normal respiratory effort with no use of accessory muscles. Abdomen: Soft, bowel tones present, nondistended, tenderness to palpation at CVA and left flank significantly improved. No hepatosplenomegaly or masses appreciated. Extremities: No clubbing, cyanosis, or edema. Skin: Normal temperature, turgor, and texture; no rash, ulcers, or subcutaneous nodules appreciated. Neurological: Cranial nerves grossly intact. Psychiatric: Mildly anxious mood and normal affect. Alert and oriented to person, place, and time. Objective Labs Result Diagrams: 12/06/18 05:31 12/06/18 05:31 Labs: Laboratory Results - last 24 hr 12/05/18 12/06/18 12/06/18 14:50 05:31 05:31 WBC 12.8 H RBC 3.51 L Hgb 9.0 L Hct 27.8 L MCV 79.2 L MCH 25.8 L MCHC 32.6 RDW 18.3 H Plt Count 182 Neut % (Auto) 83.7 H Lymph % (Auto) 5.2 L [place] % (Auto) 10.4 Eos % (Auto) 0.3 L Baso % (Auto) 0.4 Neut # (Auto) 57229 H Lymph # (Auto) 700 L [place] # (Auto) 1300 H Eos # (Auto) 0 Baso # (Auto) 100 Sodium Potassium Chloride Carbon Dioxide BUN Creatinine Estimated GFR BUN/Creatinine Ratio Glucose Calcium Magnesium Total Bilirubin AST ALT Alkaline Phosphatase Total Protein Albumin Globulin Albumin/Globulin Ratio Procalcitonin 3.73 H A. baumannii (PCR) Not detected Ese albicans (PCR) Not detected C. glabrata (PCR) Not detected C. krusei (PCR) Not detected C. parapsilosis (PCR) Not detected C. tropicalis (PCR) Not detected Enterobacteriac sp PCR Not detected E. cloacae complex PCR Not detected Enterococcus sp PCR Not detected E. coli (PCR) Not detected H. influenzae (PCR) Not detected Klebsiella oxytoca PCR Not detected Klebsiella pneumoniae Not detected List. monocytogenes PCR Not detected N. meningitidis (PCR) Not detected Proteus species (PCR) Not detected Serratia marcescens PCR Not detected Staphylococcus sp PCR Detected H Staph aureus (PCR) Not detected mecA-Methicil Res Gene Not detected Streptococcus sp PCR Not detected Group A Strep (PCR) Not detected Strep agalactiae (PCR) Not detected Strep pneumoniae (PCR) Not detected P. aeruginosa (PCR) Not detected Swathi/B-Vanco Res Genes Not detected KPC-Carbap Res Gene PCR Not detected 12/06/18 05:31 WBC RBC Hgb Hct MCV MCH MCHC RDW Plt Count Neut % (Auto) Lymph % (Auto) [place] % (Auto) Eos % (Auto) Baso % (Auto) Neut # (Auto) Lymph # (Auto) [place] # (Auto) Eos # (Auto) Baso # (Auto) Sodium 136 L Potassium 3.8 Chloride 105 Carbon Dioxide 25 BUN 25 H Creatinine 1.40 H Estimated GFR 36.1 L BUN/Creatinine Ratio 17.9 Glucose 116 H Calcium 8.3 L Magnesium 1.9 Total Bilirubin 0.3 AST 25 ALT 18 Alkaline Phosphatase 61 Total Protein 5.5 L Albumin 2.6 L Globulin 2.9 Albumin/Globulin Ratio 0.9 L Procalcitonin A. baumannii (PCR) Ese albicans (PCR) C. glabrata (PCR) C. krusei (PCR) C. parapsilosis (PCR) C. tropicalis (PCR) Enterobacteriac sp PCR E. cloacae complex PCR Enterococcus sp PCR E. coli (PCR) H. influenzae (PCR) Klebsiella oxytoca PCR Klebsiella pneumoniae List. monocytogenes PCR N. meningitidis (PCR) Proteus species (PCR) Serratia marcescens PCR Staphylococcus sp PCR Staph aureus (PCR) mecA-Methicil Res Gene Streptococcus sp PCR Group A Strep (PCR) Strep agalactiae (PCR) Strep pneumoniae (PCR) P. aeruginosa (PCR) Swathi/B-Vanco Res Genes KPC-Carbap Res Gene PCR Assessment & Plan Assessment & Plan narrative: Valery Yeh is an 83-year-old female with a past medical history significant for chronic kidney disease stage IV, solitary left kidney status right nephrectomy due to surgical complication, recent GI bleed with acute blood loss anemia status post transfusion 1 week ago, prior type II PR, paroxysmal atrial fibrillation, degenerative disc disease, solitary pulmonary nodule and anxiety who presented with worsening abdominal pain radiating to left flank, rigors, fevers, nausea and vomiting. 1. Acute left-sided E. coli pyelonephritis and bacteremia, present on admission. Active. -Patient presented with abdominal pain symptoms chest a localizing to the left posterior flank prompting her to return to ED. -Patient febrile with rigors, WBC increased from 10.5 day prior to admission to 20.8 on admission. Procalcitonin 1.73 on admission. WBC and procalcitonin likely peaking at 21.3 and 3.98 respectively. Continue to trend WBC and procalcitonin. -Urine culture preliminarily growing gram-negative bacilli which are likely parts counter representative of E. coli as blood culture are positive for E coli. Blood culture positive for E.coli in aerobic 2:4 bottles. Ordered repeat blood culture x2 which have no growth other than staph species which is likely contaminate. Patient previously had pansensitive E.coli and Klebsiella UTI's. -Ordered echocardiogram, pending. Admitting provider appreciated murmur on initial exam possibly due to vegetation versus mitral regurgitation. -Continue renally dosed ertapenem 500 mg daily due multiple antibiotic allergies and renally dosed at 500 mg every 24 hours. -Continued IV fluids until adequately hydrated then discontinued. -Continue supportive care including: Zofran 4 mg every 6 hours as needed for nausea and Tylenol 650 mg every 4 hours as needed for pain or fever. 2. Acute diarrhea, not present on admission. Active. -Patient now with loose diarrhea likely due to decreased PO intake and antibiotic use. Patient has history of C. difficile colitis and is high risk of recurrence. -Discontinued PPI. -Ordered C difficile PCR, pending. 3. Chronic kidney disease stage IV, present on admission. Stable. -Patient with history of surgical complication and now status post right nephrectomy. -Baseline creatinine of 1.7-1.9. CrCl 25 indicative of stage IV CKD. -Continued IV fluids until adequately hydrated then discontinued. -Continue renally dosed medications an avoid other nephrotoxic agents. -Continue to monitor renal function daily. 4. Recent GI bleed with blood loss anemia, unclear if present on admission. Stable. -Likely some component of chronic kidney disease anemia and recent presumed GI bleed due to hematochezia and melena. She was scheduled for EGD and colonoscopy which will need to be rescheduled. Off warfarin. -Patient with symptomatic anemia and decreasing hemoglobin prompting transfusion of 1 U PRBC x 1 week ago. Hgb prior to transfusion 9.4. -Patient was close to baseline hemoglobin of 10.6 and hematocrit of 33.4 on admission. -Hemodynamically stable. No overt signs of bleeding. Continue to monitor for melena and hematochezia. -Iron level is low at 13. Defer iron supplementation until acute infection resolves. -Continue to monitor hemoglobin and hematocrit closely which are now trending down due to hemodilution from IV fluids which have been discontinued. -Plan for close outpatient follow-up and reschedule endoscopies with GI. Unless for some unforeseen reason she begins to have gross bleeding. 5. Paroxysmal atrial fibrillation, chronic, present on admission. Stable. -Currently sinus rhythm. Rate controlled. -Recently taken off warfarin and aspirin due to presumed GI bleed. -History of type II PR. Echocardiogram 05/22/2018 demonstrated preserved LVEF 60-65% wihtout focal wall motion abnormalities, mild concentric LV hypertrophy, normal diastolic function, mild RV dilation, severe LA dilation. -Continue home amiodarone 200 mg daily and lisinopril 5 mg daily. 6. Anxiety, chronic, present on admission. Stable. -Patient is mildly anxious, remains cooperative. -Continue home sertraline 50 mg daily. Disposition: Patient likely to discharge home in 1-2 days once clinically improved and pending urine culture and antibiotic sensitivities.
--- NOTE | 2018-12-06 14:59 | PC.NURSE ---
: Had some flank pain last night and a sl elevated temp. None today. Has felt better today. No pain. Still has some urgency. Has had more diarrhea today and does have a hx of c-diff. Pt also wants to know if her IVF can be saline locked. made aware of these and old order for prophylaxsis. See new orders. Pt spoke with MD for a long time. Questions answers. Is taking po fluids w/out diff. Resting at the moment. Empty stool container placed in toilet to collect spec.
[2018-12-06 17:42] LABS: Clostridium Difficile Tox PCR Negative for C. diff
--- NOTE | 2018-12-06 19:15 | PC.NURSE ---
Addendum entered by Lorenzo Rothman RVinay. 12/06/18 19:17: h/o chronic UTI w/ (+) URINE cx 12/04 (+) for E. coli. On ertapenem. Placed on CE precautions due to new onset diarrhea and h/o C. diff. Stool sample collected today came back negative for C. diff and CE precautions were discont'd. On Tele for h/o [place] and afib. On amiodarone. Steady gait. Anxious, responds well to distraction. Ativan PRN ordered for anxiety. Original Note: Shift Summary 12/06/18 [id number] Admitted 12/07 for acute pyelonephritis. h/o CKD s/p R nephrectomy. h/o chronic UTI w/ (+) blood cx
[2018-12-06] MEDS: ERTAPENEM 0.5 GM in SODIUM CHLORIDE 0.9% 100 ML 200 ML IV (22:52)
[2018-12-06] MEDS: SODIUM CHLORIDE 0.9% FLUSH 10 ML IV (22:53)
[2018-12-07 05:25] VITALS: BP 155/73; PULSE 70; RESP 16; TEMP 37.4; O2SAT 95
[2018-12-07 05:48] LABS: Add Manual Diff / Slide Review NO; Basophils Absolute Auto 0 /uL (0-100); Basophils Percent Auto 0.5 % (0-2); Eosinophils Absolute Auto 100 /uL (0-450); Eosinophils Percent Auto 0.7 % (2-4); Hematocrit 27.6 % (36-46); Hemoglobin 9.1 g/dL (12.0-16.0); Lymphocytes Absolute Auto 900 /uL (1100-4500); Lymphocytes Percent Auto 11.5 % (25-40); Mean Corpuscular HGB Conc 32.8 % (30-36); Mean Corpuscular Hemoglobin 25.8 PG (26-34); Mean Corpuscular Volume 78.7 fL (80-100); Monocytes Absolute Auto 1100 /uL (0-900); Monocytes Percent Auto 13.6 % (3-14); Neutrophils Absolute Auto 5800 /uL (1500-7000); Neutrophils Percent Auto 73.7 % (50-75); Platelet Count 191 X10^3/uL (150-400); Red Blood Cell Count 3.51 X10^6/uL (4.0-5.2); Red Cell Distribution Width 18.9 % (11.6-14.8); White Blood Cell Count 7.9 X10^3/uL (4.5-11.0)
[2018-12-07 05:55] LABS: Alanine Aminotransferase 23 IU/L (9-52); Alkaline Phosphatase 62 U/L (38-126); Aspartate Aminotransferase 22 IU/L (14-36); BUN Creatinine Ratio 16.2 (6-22); Bilirubin Total 0.3 mg/dL (0.2-1.3); Blood Urea Nitrogen 21 mg/dL (7-17); Calcium 8.3 mg/dL (8.4-10.2); Carbon Dioxide 25 mmol/L (22-32); Chloride 104 mmol/L (98-107); Estimated Glomerular Filt Rate 39.3 mL/min (>60); Glucose 102 mg/dL (80-110); HEMOLYSIS < 15 (0-50); Magnesium 1.8 mg/dL (1.6-2.3); Potassium 3.8 mmol/L (3.4-5.1); Sodium 138 mmol/L (137-145)
[2018-12-07 06:08] LABS: Procalcitonin 2.27 ng/mL (<0.5)
[2018-12-07 07:20] VITALS: BP 181/78; PULSE 69; RESP 16; TEMP 36.6; O2SAT 96
--- NOTE | 2018-12-07 08:57 | PT.IPTN ---
Current Diagnoses Acute pyelonephritis (12/04/18) Physical Therapy Treatment Note M2 PT-IP Current Condition Start: 12/05/18 15:13 Freq: NEEDED Status: Active Protocol: Document 12/05/18 13:50 AB (Rec: 12/05/18 15:22 AB [id number]) Physical Therapy Current Condition Current Condition Evaluation Date 12/05/18 Treatment Diagnosis acute pyelonephritis; difficulty in walking Onset Date 12/04/18 M3 PT-IP Subjective Start: 12/05/18 15:13 Freq: NEEDED Status: Active Protocol: Document 12/07/18 08:56 LJ (Rec: 12/07/18 08:57 LJ [id number]) Subjective Physical Therapy Visit Type Type Patient Refusal Notes Pt states she feels much better and does not need PT. This therapist suggested working on balance but pt refused. M4 PT-IP Mobility and Gait Start: 12/05/18 15:13 Freq: NEEDED Status: Active Protocol: Document 12/06/18 11:59 SA (Rec: 12/06/18 12:07 SA [email or web address]) PT-Bed Mobility Assessment Supine to Sit Supine to Sit Independent Sit to Supine Sit to Supine Independent Scooting Scooting to Edge of Bed Independent Scooting Up and Down in Bed Independent PT-Transfer Assessment Sit to and From Stand Sit to and from Stand Standby Assistance Equipment Transfer Assistive Device Gait Belt Orthotic/Prosthetic Devices or Brace: No Transfers Transfer Destination Bed Chair Transfer Technique walking Transfer Ability Level of Assist Standby Assistance Comments Mobility Comments PT SBA with txs and bed mobility, cues for safety. Does not use AD at home but does move slowly with some unsteadyness at times. Gait Assessment Gait Gait Assistance Required: Standby Assistance Distance (Feet) 200 Able to Maintain Weight Bearing Status Yes During Gait Assistive Devices Assistive Device None Gait Belt Orthotic/Prosthetic Devices or Brace: No Gait Deviations General Gait Pattern Antalgic Decreased Stride Length Decreased Feet Clearance Narrow Based Gait Factors Limiting Gait Function Factors Limiting Gait Function Decreased Activity Tolerance Poor Balance Comments Gait Comments SBA with gait and no AD, pt takes short steps with no arm swing and some visible listing . Admits that her balance is not good but denies recent falls. Stair Climbing Assessment Evaluation Level of Assist On Stairs Contact Guard Assistance Devices Stair Climbing Assistive Devices Left Railing Right Railing Technique/Endurance Stair Climbing Direction Ascend and Descend Stair Climbing Technique Step to Step Number of Steps Climbed 3 Stair Climbing Set # Repetitions (reps) 1 Comments Stair Climbing Comments CGA on 3 stairs with cues for safety, step to gait pattern. M5 PT-IP Objective Assessments Start: 12/05/18 15:13 Freq: NEEDED Status: Active Protocol: Document 12/05/18 13:50 AB (Rec: 12/05/18 15:22 AB [id number]) Orientation Orientation/Cognition Level of Alertness Alert Orientation Name Age Birthday Month Date Year Day of Week Place Situation Language Function Ability No Deficits Noted Safety Awareness Understands Safety Issues Memory Description No Deficits Noted Gross Range of Motion Lower Extremity ROM Assessment Within Functional Limits Strength Lower Extremity Strength Assessment Bilaterally Impaired Hip 4-/5 Knee 4-/5 Ankle 4-/5 Coordination Assessment Gross Coordination Gross Coordination WNL Sensation Assessment Sensation Gross Sensation WNL Muscle Tone Muscle Tone WNL Yes M6 PT-IP Treatment Start: 12/05/18 15:13 Freq: NEEDED Status: Active Protocol: Document 12/06/18 11:59 SA (Rec: 12/06/18 12:07 [email or web address]) Physical Therapy Treatment Exercises Exercises Ankle Pumps Gluteal Sets Education Education Provided Safety M7 PT-IP Assessment and Plan Start: 12/05/18 15:13 Freq: NEEDED Status: Active Protocol: Document 12/06/18 11:59 SA (Rec: 12/06/18 12:07 [email or web address]) PT Summary Assessment and Plan Potential Rehabilitation Potential Good Status of Condition at Evaluation Stable Summary Impairments ROM Strength Balance Coordination Bed Mobility Transfers Gait Activity Tolerance Assessment Summary Pt SBA with most mobility tasks but neds cues for safety . Would benefit from increased SUP at home. Treatment Plan Physical Therapy Treatment Plan Bed Mobility Training Transfer Training Gait Training Therapeutic Exercise Balance Retraining Discharge Planning Neuromuscular Re-ed Coordination Retraining Recommendations To Nursing Amount of Assist Needed Standby Assistance Discharge Recommendations PT Discharge Recommendations Home with Assistance
--- NOTE | 2018-12-07 10:07 | P.DS_ITS ---
History of Present Illness Date Patient Seen: 12/07/18 Time Patient Seen: 10:28 Chief complaint: FEVER Narrative: Ms Valery Yeh is an 83-year-old female patient with history significant for chronic kidney disease, status post right nephrectomy, anemia status post transfusion 1 week ago, prior SD, paroxysmal atrial fibrillation, degenerative disc disease, singular pulmonary nodule and anxiety who presents to the hospital with worsening abdominal pain. The patient was seen in the emergency department yesterday with lower abdominal pain radiating to the back x1 day. The patient reports an episode of dark stool and blood on the toilet paper. The patient reports the pain was similar to a prior episode of small-bowel obstruction. She returns today with worsening pain fevers with pronounced left flank and back pain that is worsened with activity or movement. She describes the pain as sharp and stabbing, crampy in character She said associated rigors. She had nausea yesterday but none today. Patient denies chest pain or palpitations, she reports no shortness of breath cough or wheezing, describes no change in stooling frequency or consistency other than noted above. She describes frequent small urination but denies hematuria. She has chronic back pain but is fully independent in ADLs and requires no assistive devices. Upon arrival in the ER the patient is found to be febrile with temperature 101?, heart rate is 80, blood pressure is 128/65, respirations of 14 saturating 100% on room air. CT exam obtained in the ER finds an atrophic pancreas a surgically absent gallbladder uterus right kidney, no hydronephrosis, small mahad of a helical hernia with small portion of transverse colon mild thickening of the sigmoid with moderate diverticulosis without fat stranding. Chest x-ray reveals no acute cardiopulmonary disease. On laboratory analysis the patient has white count that is elevated at 20.8 from 10 yesterday, hemoglobin of 10.6, hematocrit of 33.4 and platelets of 238. Her coags are within normal limits in her electrolytes are within normal limits with a BUN of 28 and creatinine of 1.7 with an EGFR of 28.8. Her nonfasting glucose is 172. She has a procalcitonin of 1.73. The patient is admitted to the hospital for acute left pyelonephritis. Discharge Providers Date of admission: 12/04/18 19:46 Discharge Date: 12/07/18 Primary care physician: Scooter Salgado MD Consults: 12/04/18 23:37 Consult to Dietitian, Adult Routine Comment: Reason For Exam: Anemia, chronic kidney disease nephrectomy 12/04/18 23:38 Consult to Discharge Planning Routine Comment: 12/05/18 09:59 Consult to Occupational Therapy Evaluate & Treat Comment: Physician Instructions: Evaluate and treat Consult to Physical Therapy Evaluate & Treat Comment: Physician Instructions: Evaluate and Treat Discharge provider: Denise Juarez MD Summary Discharge Diagnosis: 1. Acute left-sided E. coli pyelonephritis and bacteremia, present on admission. Active. 2. Acute diarrhea, not present on admission. Active. 3. Chronic kidney disease stage IV, present on admission. Stable. 4. Recent GI bleed with blood loss anemia, unclear if present on admission. Stable. 5. Paroxysmal atrial fibrillation, chronic, present on admission. Stable. 6. Anxiety, chronic, present on admission. Stable. Hospital Course: 1. Acute left-sided E. coli pyelonephritis and bacteremia -Patient presented with abdominal pain symptoms chest a localizing to the left posterior flank prompting her to return to ED. -Patient febrile with rigors, WBC increased from 10.5 day prior to admission to 20.8 on admission. Procalcitonin 1.73 on admission. WBC and procalcitonin likely peaking at 21.3 and 3.98 respectively. -Urine culture and blood culture are positive for E coli. Repeat blood culture x2 which have no growth other than staph species which is likely contaminate. Patient previously had pansensitive E.coli and Klebsiella UTI's. -murmur noted on admission no longer heard and echocardiogram shows no signs of significant valvular vegetation. Ejection fraction 60-65% with moderate mitral regurgitation. -she has been treated with ertapenem for 3 days and will now complete another 4 day course of ceftriaxone as an outpatient per up-to-date recommendations on gram-negative bacteremia. -she specifically requests to complete her antibiotic treatment as an outpatient. 2. Acute diarrhea, not present on admission. Active. -resolved and PCR negative for C diff. 3. Chronic kidney disease stage IV, present on admission. Stable. -Patient with history of surgical complication and now status post right nephrectomy. -Baseline creatinine of 1.7-1.9. CrCl 25 indicative of stage IV CKD. 4. Recent GI bleed with blood loss anemia, unclear if present on admission. Stable. -Likely some component of chronic kidney disease anemia and recent presumed GI bleed due to hematochezia and melena. She was scheduled for EGD and colonoscopy which will need to be rescheduled. Off warfarin. -Patient with symptomatic anemia and decreasing hemoglobin prompting transfusion of 1 U PRBC x 1 week ago. Hgb prior to transfusion 9.4. -Patient was close to baseline hemoglobin of 10.6 and hematocrit of 33.4 on admission, but is 9.1 today and says she feels strong enough to go home. -Hemodynamically stable. No overt signs of bleeding. Continue to monitor for melena and hematochezia. -Iron level is low at 13. Begin iron supplementation per primary care. -Plan for close outpatient follow-up and reschedule endoscopies with GI. 5. Paroxysmal atrial fibrillation, chronic, present on admission. Stable. -Currently sinus rhythm. Rate controlled. -Recently taken off warfarin and aspirin due to presumed GI bleed. -History of type II SD. Echocardiogram 05/22/2018 demonstrated preserved LVEF 6 0-65% wihtout focal wall motion abnormalities, mild concentric LV hypertrophy, normal diastolic function, mild RV dilation, severe LA dilation. Current echocardiogram without significant change. -Continue home amiodarone 200 mg daily and lisinopril 5 mg daily. 6. Anxiety, chronic, present on admission. Stable. -Continue home sertraline 50 mg daily. Status at Discharge Cognitive/behavioral status at discharge: at baseline, oriented Functional status at discharge: independent ambulation Overall status at discharge: patient is progressing back to baseline Time Spent with Patient Greater than 30 minutes Exam Vital Signs (past 8 hours): - 12/07/18 05:25 12/07/18 07:20 Temperature 99.3 F 97.9 F Pulse Rate 70 69 Respiratory Rate 16 16 Blood Pressure 155/73 H 181/78 H Pulse Oximetry 95 96 Oxygen Delivery Method Room Air Oxygen Flow Rate 0 Narrative Exam Narrative: Alert and oriented x3. She says she is feeling better and wants to go home today. Heart is regular rate and rhythm without murmur. Lungs are clear to auscultation bilaterally. Extremities have no ankle edema. Objective Labs Result Diagrams: 12/07/18 05:20 12/07/18 05:20 Labs: Laboratory Results - last 24 hr 12/05/18 12/06/18 12/07/18 14:50 16:25 05:20 WBC 7.9 RBC 3.51 L Hgb 9.1 L Hct 27.6 L MCV 78.7 L MCH 25.8 L MCHC 32.8 RDW 18.9 H Plt Count 191 Neut % (Auto) 73.7 Lymph % (Auto) 11.5 L Crawford % (Auto) 13.6 Eos % (Auto) 0.7 L Baso % (Auto) 0.5 Neut # (Auto) 5800 Lymph # (Auto) 900 L Crawford # (Auto) 1100 H Eos # (Auto) 100 Baso # (Auto) 0 Sodium Potassium Chloride Carbon Dioxide BUN Creatinine Estimated GFR BUN/Creatinine Ratio Glucose Calcium Magnesium Total Bilirubin AST ALT Alkaline Phosphatase Total Protein Albumin Globulin Albumin/Globulin Ratio Procalcitonin A. baumannii (PCR) Not detected Ese albicans (PCR) Not detected C. glabrata (PCR) Not detected C. krusei (PCR) Not detected C. parapsilosis (PCR) Not detected C. tropicalis (PCR) Not detected C. difficile Tox (PCR) Negative for c. diff Enterobacteriac sp PCR Not detected E. cloacae complex PCR Not detected Enterococcus sp PCR Not detected E. coli (PCR) Not detected H. influenzae (PCR) Not detected Klebsiella oxytoca PCR Not detected Klebsiella pneumoniae Not detected List. monocytogenes PCR Not detected N. meningitidis (PCR) Not detected Proteus species (PCR) Not detected Serratia marcescens PCR Not detected Staphylococcus sp PCR Detected H Staph aureus (PCR) Not detected mecA-Methicil Res Gene Not detected Streptococcus sp PCR Not detected Group A Strep (PCR) Not detected Strep agalactiae (PCR) Not detected Strep pneumoniae (PCR) Not detected P. aeruginosa (PCR) Not detected Swathi/B-Vanco Res Genes Not detected KPC-Carbap Res Gene PCR Not detected 12/07/18 12/07/18 05:20 05:20 WBC RBC Hgb Hct MCV MCH MCHC RDW Plt Count Neut % (Auto) Lymph % (Auto) Crawford % (Auto) Eos % (Auto) Baso % (Auto) Neut # (Auto) Lymph # (Auto) Crawford # (Auto) Eos # (Auto) Baso # (Auto) Sodium 138 Potassium 3.8 Chloride 104 Carbon Dioxide 25 BUN 21 H Creatinine 1.30 H Estimated GFR 39.3 L BUN/Creatinine Ratio 16.2 Glucose 102 Calcium 8.3 L Magnesium 1.8 Total Bilirubin 0.3 AST 22 ALT 23 Alkaline Phosphatase 62 Total Protein 6.0 L Albumin 3.0 L Globulin 3.0 Albumin/Globulin Ratio 1.0 Procalcitonin 2.27 H A. baumannii (PCR) Ese albicans (PCR) C. glabrata (PCR) C. krusei (PCR) C. parapsilosis (PCR) C. tropicalis (PCR) C. difficile Tox (PCR) Enterobacteriac sp PCR E. cloacae complex PCR Enterococcus sp PCR E. coli (PCR) H. influenzae (PCR) Klebsiella oxytoca PCR Klebsiella pneumoniae List. monocytogenes PCR N. meningitidis (PCR) Proteus species (PCR) Serratia marcescens PCR Staphylococcus sp PCR Staph aureus (PCR) mecA-Methicil Res Gene Streptococcus sp PCR Group A Strep (PCR) Strep agalactiae (PCR) Strep pneumoniae (PCR) P. aeruginosa (PCR) Swathi/B-Vanco Res Genes KPC-Carbap Res Gene PCR Discharge Plan Discharge Plan Patient Disposition: Home Discharge comment: Return daily to outpatient infusion for ceftriaxone 1g every 24 hours, last dose on December 11. Leave peripheral line in. Discharge Med Rec/Prescriptions Prescriptions: New ceftriaxone 1 gram recon soln 1 gram IV DAILY 5 Days Qty: 1 RF: 0 Continued acetaminophen [Tylenol Extra Strength] 500 MG tablet 500 mg PO PRN PRN (Reason: Pain, Mild) Qty: 0 RF: 0 amiodarone 200 mg tablet 200 mg PO DAILY Qty: 0 RF: 0 sertraline 100 mg tablet 50 mg PO DAILY Qty: 90 RF: 3 lisinopril 5 mg tablet 5 mg PO DAILY RF: 0 cholecalciferol (vitamin D3) [Vitamin D3] 5,000 unit Tablet 5,000 unit PO DAILY RF: 0 Follow up/Referrals: Scooter Salgado MD [Primary Care Provider] - Provider Discharge Instructions Diet: Diet as Tolerated Visit Report/Discharge Packet Instructions: DI for Kidney Infection Discharge Data Primary Care Provider: Scooter Salgado Attending Provider: Eyal Liriano Admit Date/Time: 12/04/18 19:46
[2018-12-07] MEDS: LISINOPRIL 5 MG TABLET PO (10:32)
[2018-12-07] MEDS: SERTRALINE 50 MG TABLET PO (10:33)
[2018-12-07] MEDS: AMIODARONE 200 MG TABLET PO (10:33)
[2018-12-07] MEDS: SODIUM CHLORIDE 0.9% FLUSH 10 ML IV (10:34)
[2018-12-07] MEDS: CEFTRIAXONE 1 GM/50 ML FROZ.PIGGY IV (12:14)
--- NOTE | 2018-12-07 14:48 | CM.DPC ---
DCP: continued: case received and discussed in Team Rounds this morning. Dr. Juarez noted that pt very much wanted to go today if possible. She is functionally independent independent in the community and does drive. Dr. Juarez said she would need 5 days of IV antibiotics and he did change this today to Rocephin. RN coordinator Goldie noted that she was very familiar with this pt and that she would be able to faciltate the IV OUTPT treatment for [facility]. Checked back in after Cm Dept [phone]. Found that pt had aleady left for home. Followup with Goldie revealed that pt had the first dose here before discharging. She was set up for 1700 for the next four days and that because of the weekend and then the later time these doses would all be done in an infusion room here at the hospital and managed by the RN coordinator of Acute Care. Home today, OUTPT IV antiotics. Clinic followup.
== END 2018-12-07 13:30 | disposition home or self-care (01) | DRG 690 ==
LOC: ED 19:31 → AC 19:47 → ICU 19:56 → AC 12-05 15:10
PROVIDERS: Emergency Medicine; Internal Medicine; Admitting Provider Nurse Practitioner Adult Health; Emergency Provider Emergency Medicine; Family Provider Student in an Organized Health Care Education/Training Program; PCP Student in an Organized Health Care Education/Training Program; Visit Provider Nurse Practitioner Adult Health
DX: N10 Acute pyelonephritis (principal); R78.81 Bacteremia; I12.9 Hypertensive chronic kidney disease with stage 1 through stage 4 chronic kidney disease, or unspecified chronic kidney disease; N18.4 Chronic kidney disease, stage 4 (severe); I48.0 Paroxysmal atrial fibrillation; I44.1 Atrioventricular block, second degree; D50.0 Iron deficiency anemia secondary to blood loss (chronic); F41.9 Anxiety disorder, unspecified; R19.7 Diarrhea, unspecified
CPT/HCPCS: 36415; 36591; 71045; 74022; 74176; 80048; 80053; 81001; 81003; 83540; 83605; 83690; 83735; 84145; 85025; 85610; 85730; 86850; 86900; 86901; 87040; 87077; 87086; 87150; 87186; 87205; 87493; 87797; 93005; 93306; 96361; 96365; 97116; 97161; 97165; 99283; 99284; C9113; J1335; J1644; J2405

== ENCOUNTER → 2018-12-07 13:22 | Outpatient (RCR) | payer MEDICARE, OTHER, SELFPAY ==
[2018-12-04 20:58] VITALS: BMI 25.6
[2018-12-08] MEDS: CEFTRIAXONE 1 GM/50 ML FROZ.PIGGY IV (17:27)
--- NOTE | 2018-12-08 17:58 | PC.ADMIT ---
[email or web address] [place] [address] Admission Note: The patient,Valery Yeh,83 y/o, was given written information regarding hospital policies, unit procedures and contact persons. Patient's smoking status: Never smoker. Patient ambulated independently to room 201 in for Rocephin transfusion as ordered. PIV to left forearm initiated. Tolerated transfusion well. Awake, alert, and pleasant. On the phone talking to family during infusion. Patient to return on 12/09 for 2nd infusion. Verbalized understanding of IV infusion and the importance of returning got further days of IV antibiotic therapy. Discharged home via private vehicle.
[2018-12-09] MEDS: CEFTRIAXONE 1 GM/50 ML FROZ.PIGGY IV (17:23)
--- NOTE | 2018-12-09 18:19 | PC.NURSE ---
Kajal shift note: Patient arrived to for transfusion of IV Rocephin 06/18. Tolerated transfusion well. Pleasant and cooperative. Verbalized understanding of IV antibiotic therapy importance. VSS and afebrile. Discussed importance of follow up on 12/10 for next infusion. Home after infusion via private vehicle.
[2018-12-10] MEDS: CEFTRIAXONE 1 GM/50 ML FROZ.PIGGY IV (17:25)
[2018-12-11] MEDS: CEFTRIAXONE 1 GM/50 ML FROZ.PIGGY IV (17:02)
[2018-12-11 17:07] VITALS: BP 147/69; PULSE 78; RESP 14; TEMP 36.8
--- NOTE | 2018-12-11 21:59 | PC.NURSE ---
Patient tolerated final iv abo well. Rt wrist IV removed d/t last infusion, pt tolerated well.
== END ==
LOC: INF 13:22
PROVIDERS: Family Provider Student in an Organized Health Care Education/Training Program; PCP Student in an Organized Health Care Education/Training Program; Visit Provider Family Medicine
DX: R50.9 Fever, unspecified (principal)
CPT/HCPCS: 96365

== ENCOUNTER → 2018-12-11 10:36 | Outpatient (CLI) | payer MEDICARE, OTHER, SELFPAY ==
[2018-12-04 20:58] VITALS: BMI 25.6
[2018-12-11 11:53] LABS: Appearance Urine UA SL CLOUDY; Bilirubin Urine UA NEGATIVE (NEGATIVE); Color Urine UA YELLOW; Glucose Urine UA NEGATIVE (Negative); Ketones Urine UA NEGATIVE (NEGATIVE); Leukocyte Esterase Urine UA TRACE (NEGATIVE); Nitrite Urine UA NEGATIVE (Negative); Occult Blood Urine UA NEGATIVE (Negative); Protein Urine UA TRACE (Negative); Specific Gravity Urine UA 1.015 (1.000-1.035); Urobilinogen Urine UA 0.2 E.U./dL (0.2); pH Urine UA 5.5 (4.5-8.0)
[2018-12-11 12:39] LABS: RBC Urine 0-1/HPF (0-5/HPF)
[2018-12-11 12:40] LABS: Bacteria Urine Few (2-10); Culture Indicated Urine Specimen Cultured; Hyaline Casts Urine 0-1/LPF; Squamous Epithelial Cell Urine 1-5 /HPF (0-5/HPF); WBC Urine 5-10/HPF (0-5/HPF)
== END ==
PROVIDERS: PCP Student in an Organized Health Care Education/Training Program; Visit Provider Student in an Organized Health Care Education/Training Program
DX: N10 Acute pyelonephritis (principal)
CPT/HCPCS: 81001; 87086

== ENCOUNTER 2018-12-18 10:25 | Emergency (ER) | payer MEDICARE, OTHER, SELFPAY ==
[2018-12-04 20:58] VITALS: BMI 25.6
[2018-12-18 10:30] VITALS: BP 233/92; PULSE 71; RESP 16; TEMP 36.7; O2SAT 97; BMI 25.6
[2018-12-18 10:35] VITALS: BP 223/79; BP 233/92
--- NOTE | 2018-12-18 10:44 | DI.RAD.S_ITS ---
PROCEDURE: XR CHEST 1V INDICATIONS: chest pain TECHNIQUE: One view of the chest was acquired. COMPARISON: [facility], CT, CT CHEST W CON, 01/10/2018, 20:21. [facility], CR, XR CHEST 2V, 07/03/2018, 17:15. [facility], CR, XR CHEST 1V, 12/04/2018, 16:22. FINDINGS: Surgical changes and devices: Leadless pacer device. Lungs and pleura: Lungs are clear. No pleural effusions or pneumothorax. Mediastinum: Enlarged pulmonary arteries are consistent with pulmonary arterial hypertension. Mild cardiomegaly. Bones and chest wall: No suspicious bony lesions. Overlying soft tissues appear unremarkable. IMPRESSION: Mild cardiomegaly. Probable pulmonary arterial hypertension. No evidence of acute pulmonary process. Dictated by: Cain Willis M.D. on 12/18/2018 at 11:29 Approved by: Cain Willis M.D. on 12/18/2018 at 11:32
--- NOTE | 2018-12-18 10:46 | PC.NURSE ---
pt c/o head pressure/fullness, and woozy feeling. started when she woke. states symptoms are not going away checked bp and found high bp. symptoms continue here.
--- NOTE | 2018-12-18 10:52 | ED_ITS ---
HPI - General Adult General Chief complaint: Hypertension Stated complaint: blood pressure yoly high Time Seen by Provider: 12/18/18 10:44 Source: patient Mode of arrival: ambulatory Limitations: no limitations History of Present Illness HPI narrative: 83-year-old female. Known history of hypertension. Did not take her medications this morning. States that she woke up this morning feeling funny in her head. States that that is when she took her blood pressure and noticed that it was elevated. She has felt like this in the past when her blood pressure is elevated. She does not take her blood pressure on a regular basis at home but states she normally runs in the ?150s ?range. Denies any chest pain. Came in because her systolic blood pressures greater than 200 at home. Related Data Home Medications Medication Instructions Recorded Confirmed acetaminophen [Tylenol Extra 500 mg PO PRN PRN #0 04/19/16 12/18/18 Strength] amiodarone 200 mg tablet 100 mg PO BID #0 tab 03/15/18 12/18/18 lisinopril 5 mg tablet 5 mg PO DAILY 10/02/18 12/18/18 cholecalciferol (vitamin D3) 5,000 unit PO DAILY 12/04/18 12/18/18 [Vitamin D3] ferrous sulfate 325 mg (65 mg 325 mg PO Q OTHER DAY tab 12/11/18 12/18/18 iron) tablet,delayed release Previous Rx's Medication Instructions Recorded sertraline 100 mg tablet 50 mg PO DAILY #90 tab 06/13/18 Allergies Allergy/AdvReac Type Severity Reaction Status Date / Time latex Allergy Severe THROAT Verified 12/18/18 10:30 SWELLING prednisone [PREDNISONE] Allergy Intermediate rash Verified 12/18/18 10:30 amoxicillin Allergy Mild ITCH Verified 12/18/18 10:30 ciprofloxacin Allergy Mild ITCH Verified 12/18/18 10:30 clavulanic acid Allergy Mild RASH Verified 12/18/18 10:30 hydromorphone Allergy Mild ITCHING Verified 12/18/18 10:30 nitrofurantoin Allergy Mild ABD Verified 12/18/18 10:30 PAIN/SEVERE ITCHING oxycodone Allergy Mild ITCH Verified 12/18/18 10:30 Penicillins Allergy Mild BLISTERS Verified 12/18/18 10:30 Sulfa (Sulfonamide Allergy Mild ITCH Verified 12/18/18 10:30 Antibiotics) levofloxacin [From LEVAQUIN] AdvReac Severe DISTURBING Verified 12/18/18 10:30 HALLUCINATIONS lorazepam [From ATIVAN] AdvReac Intermediate Verified 12/18/18 10:30 morphine AdvReac Mild HALLUCINATI Verified 12/18/18 10:30 ONS Review of Systems Constitutional Denies fever(s), Denies headache(s) and Denies weakness Comments: Feels ?full? in the head ENT Ears, Nose, Mouth, and Throat: Denies vertigo, Denies headache(s) and Denies disequilibrium Cardiovascular Denies chest pain, Denies rapid heart rate, Denies edema, Denies leg edema, Denies palpitations and Denies dyspnea Respiratory Denies cough, Denies dyspnea and Denies wheezing Gastrointestinal Gastrointestinal: Denies abdominal pain, Denies nausea and Denies vomiting Genitourinary Denies dysuria Musculoskeletal Denies abnormal gait and Denies tingling Integumentary/Breasts Denies rash Neurologic Denies abnormal speech, Denies abnormal gait, Denies behavioral changes, Denies confusion, Denies vertigo, Denies headache(s), Denies focal weakness, Denies tingling, Denies paresthesias, Denies disequilibrium and Denies weakness Psychiatric Denies behavioral changes and Denies confusion Endocrine Denies palpitations Hematologic/Lymphatic Denies easy bleeding and Denies easy bruising Allergic/Immunologic Denies wheezing [facility] Medical History Paroxysmal atrial fibrillation (Chronic ~2013) Essential hypertension (Chronic) Cerebral microvascular disease (Chronic) Anxiety (Chronic 12/08/15) 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 difficile colitis (Resolved 07/2015) C. difficile colitis (Resolved 11/2011) Chicken pox (Resolved ~1939) Measles (Resolved ~1939) Mumps (Resolved ~1940) Paraesophageal hernia (Resolved) Skin cancer (Resolved 2009) History of PSVT (paroxysmal supraventricular tachycardia) (Inactive) Social History household members: none Smoking Status: Never smoker Exam Initial Vital Signs Initial Vital Signs: Vital Signs Temperature 98.1 F 12/18/18 10:30 Pulse Rate 71 12/18/18 10:30 Respiratory Rate 16 12/18/18 10:30 Blood Pressure 233/92 H 12/18/18 10:30 Pulse Oximetry 97 12/18/18 10:30 Const General: cooperative, healthy appearing, comfortable, well developed, well groomed and No acute distress Orientation: alert, awake and oriented x3 HENMT Head: normal to inspection and normocephalic Resp Effort & Inspection: normal respiratory effort Auscultation: clear to auscultation bilaterally Cardio Rate: regular rate Rhythm: regular rhythm Pulses: radial pulses present GI Inspection: non-distended Palpation: soft Skin Lesions: no lesions Rashes: no rashes Neuro General: alert, awake and oriented x3 Cranial Nerves: CN's II-XI intact bilaterally Cognition: normal cognition Speech: speech normal Gait: normal gait Motor: muscle tone normal throughout Sensory Exam: no sensory deficits noted Extrem General: normal to inspection, capillary refill normal and No edema Psych Appearance: grossly normal and well kempt Scores GCS [place] coma scale eye opening: Spontaneous [place] coma scale verbal response: Orientated [place] coma scale motor response: Obey commands [place] coma scale total score: 15 Course Orders Ordered: ED Orders 12/18/18 10:35 EKG-12 Lead Stat 12/18/18 10:40 Complete Blood Count AUTO DIFF Stat Comprehensive Metabolic Panel Stat Lipase Stat Partial Thromboplastin Time Stat Prothrombin Time INR Stat Troponin & CK Cardiac Panel Stat 12/18/18 10:44 XR chest 1V Stat Discontinued Medications Amiodarone HCl (Cordarone) 100 mg PO NOW ONE Stop: 12/18/18 10:52 Last Admin: 12/18/18 10:57 Dose: 100 mg Lisinopril (Zestril) 5 mg PO NOW ONE Stop: 12/18/18 10:52 Last Admin: 12/18/18 10:57 Dose: 5 mg Vital Signs - 8 hr 12/18/18 10:30 12/18/18 10:35 12/18/18 11:31 Temperature 98.1 F Pulse Rate 71 95 H Respiratory Rate 16 15 Blood Pressure 233/92 H Blood Pressure [Left Arm] 223/79 H Blood Pressure [Right Arm] 233/92 H 186/79 H Pulse Oximetry 97 95 Medical Decision Making Lab Data Lab results reviewed: Yes I reviewed the patient's lab results. Result diagrams: 12/18/18 10:40 12/18/18 10:40 Lab Results 12/18/18 12/18/18 12/18/18 Range/Units 10:40 10:40 10:40 WBC 9.0 (4.5-11.0) X10^3/uL RBC 4.16 (4.0-5.2) X10^6/uL Hgb 10.8 L (12.0-16.0) g/dL Hct 33.1 L (36-46) % MCV 79.5 L (80-100) fL MCH 25.9 L (26-34) PG MCHC 32.6 (30-36) % RDW 18.9 H (11.6-14.8) % Plt Count 374 (150-400) X10^3/uL Neut % (Auto) 77.3 H (50-75) % Lymph % (Auto) 15.1 L (25-40) % [place] % (Auto) 6.1 (3-14) % Eos % (Auto) 1.0 L (2-4) % Baso % (Auto) 0.5 (0-2) % Neut # (Auto) 6900 (0764-8596) /uL Lymph # (Auto) 1400 (2329-7010) /uL [place] # (Auto) 600 (0-900) /uL Eos # (Auto) 100 (0-450) /uL Baso # (Auto) 0 (0-100) /uL PT 10.8 (10.1-12.7) SECONDS INR 0.9 (0.9-1.3) APTT 29 D (26.4-36.2) SECONDS Sodium 142 (137-145) mmol/L Potassium 4.4 (3.4-5.1) mmol/L Chloride 108 H (98-107) mmol/L Carbon Dioxide 26 (22-32) mmol/L BUN 30 H (7-17) mg/dL Creatinine 1.50 H (0.52-1.04) mg/dL Estimated GFR 33.3 L (>60) mL/min BUN/Creatinine Ratio 20.0 (6-22) Glucose 106 (80-110) mg/dL Calcium 8.8 (8.4-10.2) mg/dL Total Bilirubin 0.4 (0.2-1.3) mg/dL AST 33 (14-36) IU/L ALT 28 (9-52) IU/L Alkaline Phosphatase 79 (38-126) U/L Total Creatine Kinase 44 (30-135) U/L CK-MB (CK-2) TNP CK-MB (CK-2) Rel Index TNP Troponin I < 0.012 (0.01-0.034) ng/mL Total Protein 7.4 (6.3-8.2) g/dL Albumin 3.8 (3.5-5.0) g/dL Globulin 3.6 (1.7-4.1) g/dL Albumin/Globulin Ratio 1.1 (1.0-2.8) Lipase 41 (23-300) U/L Imaging Data Chest x-ray: Radiologist's impression: [place] [address] XRay Report Signed Patient: Valery Yeh EMR#: [id number] : [id number]:[id number] Age/Sex: 83 / FDate of Service: 12/18/18 Loc: ED Accession Number: [id number] Procedure: XR chest 1V Ordering Provider: Dirk Ribeiro D.O. PROCEDURE: XR CHEST 1V INDICATIONS: chest pain TECHNIQUE: One view of the chest was acquired. COMPARISON: [facility], CT, CT CHEST W CON, 01/10/2018, 20:21. [facility], CR, XR CHEST 2V, 07/03/2018, 17:15. [facility], CR, XR CHEST 1V, 12/04/2018, 16:22. FINDINGS: Surgical changes and devices: Leadless pacer device. Lungs and pleura: Lungs are clear. No pleural effusions or pneumothorax. Mediastinum: Enlarged pulmonary arteries are consistent with pulmonary arterial hypertension. Mild cardiomegaly. Bones and chest wall: No suspicious bony lesions. Overlying soft tissues appear unremarkable. IMPRESSION: Mild cardiomegaly. Probable pulmonary arterial hypertension. No evidence of acute pulmonary process. Dictated by: Cain Willis M.D. on 12/18/2018 at 11:29 Approved by: Cain Willis M.D. on 12/18/2018 at 11:32 ECG Data Attestation: I personally reviewed and interpreted this ECG as follows: Prior ECG tracings: not available for review Interpretation: Sinus rhythm Ventricular rate is 64 Normal axis Normal QRS Normal QTC No ST T wave changes MDM Narrative Medical decision making narrative: Patient is hypertensive. She was given her morning dose of medications here in the emergency department which did improve her blood pressure. Low suspicion for ACS. Low suspicion for CVA. Not in acute heart failure. No lower extremity swelling. She does have chronic kidney disease. She is at her baseline creatinine how long discussion with her and her daughter who is at bedside regarding her symptoms. We did discuss importance of taking her blood pressure at home. We did discuss importance of her taking her medications. Will hold on further workup for now. Her head ?fullness? has improved with the medications in the lowering of her blood pressure. Will hold on any further radiologic studies for now. We discussed return precautions and follow-up instructions. She expressed understanding and agreement with plan. Discharge Plan Departure Patient Disposition: Home Clinical Impression: Hypertension Qualifiers: Hypertension type: unspecified Qualified Code(s): I10 - Essential (primary) hypertension Discharge Date/Time: 12/18/18 12:28 Interventions: ED Discharge Assessment Last Done: 12/18/18 12:28 Instructions: DI for High Blood Pressure Activity Restrictions/Additional Instructions: Continue to take your blood pressure medication. Take your blood pressure at home like we discussed. Contact your primary provider for follow-up. Return to the emergency department for any new or worsening symptoms Prescriptions: No Action acetaminophen [Tylenol Extra Strength] 500 MG tablet 500 mg PO PRN PRN (Reason: Pain, Mild) Qty: 0 RF: 0 amiodarone 200 mg tablet 100 mg PO BID Qty: 0 RF: 0 sertraline 100 mg tablet 50 mg PO DAILY Qty: 90 RF: 3 lisinopril 5 mg tablet 5 mg PO DAILY RF: 0 ferrous sulfate 325 mg (65 mg iron) tablet,delayed release (DR/EC) 325 mg PO Q OTHER DAY RF: 0 cholecalciferol (vitamin D3) [Vitamin D3] 5,000 unit Tablet 5,000 unit PO DAILY RF: 0 Referrals: Scooter Salgado MD [Primary Care Provider] -
[2018-12-18 10:57] LABS: Add Manual Diff / Slide Review NO; Basophils Absolute Auto 0 /uL (0-100); Basophils Percent Auto 0.5 % (0-2); Eosinophils Absolute Auto 100 /uL (0-450); Hematocrit 33.1 % (36-46); Hemoglobin 10.8 g/dL (12.0-16.0); INR 0.9 (0.9-1.3); Lymphocytes Absolute Auto 1400 /uL (1100-4500); Lymphocytes Percent Auto 15.1 % (25-40); Mean Corpuscular HGB Conc 32.6 % (30-36); Mean Corpuscular Hemoglobin 25.9 PG (26-34); Mean Corpuscular Volume 79.5 fL (80-100); Monocytes Absolute Auto 600 /uL (0-900); Monocytes Percent Auto 6.1 % (3-14); Neutrophils Absolute Auto 6900 /uL (1500-7000); Neutrophils Percent Auto 77.3 % (50-75); Platelet Count 374 X10^3/uL (150-400); Prothrombin Time 10.8 SECONDS (10.1-12.7); Red Blood Cell Count 4.16 X10^6/uL (4.0-5.2); Red Cell Distribution Width 18.9 % (11.6-14.8)
[2018-12-18] MEDS: AMIODARONE 200 MG TABLET 100 MG PO (10:57)
[2018-12-18] MEDS: LISINOPRIL 5 MG TABLET PO (10:57)
[2018-12-18 10:59] LABS: PTT Partial Thromboplastin Tim 29 SECONDS (26.4-36.2)
[2018-12-18 11:04] LABS: Alanine Aminotransferase 28 IU/L (9-52); Albumin 3.8 g/dL (3.5-5.0); Albumin Globulin Ratio 1.1 (1.0-2.8); Alkaline Phosphatase 79 U/L (38-126); Aspartate Aminotransferase 33 IU/L (14-36); Bilirubin Total 0.4 mg/dL (0.2-1.3); Blood Urea Nitrogen 30 mg/dL (7-17); Calcium 8.8 mg/dL (8.4-10.2); Carbon Dioxide 26 mmol/L (22-32); Chloride 108 mmol/L (98-107); Creatine Kinase 44 U/L (30-135); Estimated Glomerular Filt Rate 33.3 mL/min (>60); Globulin 3.6 g/dL (1.7-4.1); Glucose 106 mg/dL (80-110); HEMOLYSIS 28 (0-50); Lipase 41 U/L (23-300); Potassium 4.4 mmol/L (3.4-5.1); Sodium 142 mmol/L (137-145); Total Protein 7.4 g/dL (6.3-8.2)
[2018-12-18 11:15] LABS: Troponin I < 0.012 ng/mL (0.01-0.034)
[2018-12-18 11:31] VITALS: BP 186/79; PULSE 95; RESP 15; O2SAT 95
== END 2018-12-18 12:28 | disposition home or self-care (01) ==
PROVIDERS: Emergency Provider Emergency Medicine; PCP Student in an Organized Health Care Education/Training Program
DX: I10 Essential (primary) hypertension (principal)
CPT/HCPCS: 36591; 71045; 80053; 82550; 83690; 84484; 85025; 85610; 85730; 93005; 99283; 99285

== ENCOUNTER → 2019-01-10 13:44 | Outpatient (CLI) | payer MEDICARE, OTHER, SELFPAY ==
[2018-12-04 20:58] VITALS: BMI 25.6
--- NOTE | 2019-01-10 | DI.CT.S_ITS ---
PROCEDURE: CT KIDNEY URETER BLADDER (KUB) INDICATIONS: Left lower quadrant pain TECHNIQUE: Noncontrast 5 mm thick sections acquired from the diaphragms to the symphysis. 5 mm thick coronal and sagittal reformats were then performed. For radiation dose reduction, the following was used: automated exposure control, adjustment of mA and/or kV according to patient size. COMPARISON: None. FINDINGS: Image quality: Excellent. Evaluation of the solid organs is limited without IV contrast. Lung bases: Mild patchy groundglass opacity the lung bases. No pleural effusion. Heart size is prominent. Urinary system: Right kidney is surgically absent. No mass in the nephrectomy bed. Left kidney is unremarkable. No hydronephrosis. No solid mass. No renal calculi. Bladder is decompressed limiting evaluation; no calcified bladder stones. Other solid organs: Liver is normal in size. There is increased density of the liver compared to the spleen which is increased in conspicuity. No focal lesion. Gallbladder is absent. Fatty atrophy of the pancreas. Unchanged punctate calcification in the head. Spleen is normal in size. No adrenal nodules. Peritoneum and bowel: Small recurrent hiatal hernia. Suture material in the region of the diaphragmatic hiatus. Unenhanced bowel loops demonstrate normal wall thickness and caliber. Moderate prominently sigmoid colon diverticulosis. No free fluid or air. Nodes and vessels: No retroperitoneal or mesenteric adenopathy by size criteria. Aorta and inferior vena cava are normal in caliber. Abdominal wall: Small fat-containing ventral abnormal hernias. Pelvis: No free pelvic fluid. Uterus is surgically absent. No inguinal hernias or adenopathy. Bones: No suspicious bony lesions. L4-L5 pedicle screws are unremarkable. Moderate DDD. No vertebral body compression fractures. IMPRESSION: 1. No acute abnormality identified to explain the patient's left lower quadrant pain. No kidney stone or hydronephrosis. 2. No mass in the right nephrectomy bed. Dictated by: Deion Ibanez M.D. on 01/10/2019 at 15:38 Approved by: Deion Ibanez M.D. on 01/10/2019 at 15:50
== END ==
PROVIDERS: Family Provider Student in an Organized Health Care Education/Training Program; PCP Student in an Organized Health Care Education/Training Program; Visit Provider Physician Assistant
DX: R10.32 Left lower quadrant pain (principal)
CPT/HCPCS: 74176

== ENCOUNTER → 2019-01-15 14:49 | Outpatient (CLI) | payer MEDICARE, OTHER, SELFPAY ==
[2018-12-04 20:58] VITALS: BMI 25.6
[2019-01-15 15:27] LABS: Appearance Urine UA CLOUDY; Bilirubin Urine UA NEGATIVE (NEGATIVE); Color Urine UA YELLOW; Glucose Urine UA NEGATIVE (Negative); Ketones Urine UA TRACE (NEGATIVE); Leukocyte Esterase Urine UA 2+ (NEGATIVE); Nitrite Urine UA POSITIVE (Negative); Occult Blood Urine UA 1+ (Negative); Protein Urine UA TRACE (Negative); Urobilinogen Urine UA 0.2 E.U./dL (0.2)
[2019-01-15 15:53] LABS: RBC Urine 1-5/HPF (0-5/HPF)
[2019-01-15 15:54] LABS: Amorphous Sediment Urine 1+; Bacteria Urine Many (>30); Culture Indicated Urine Specimen Cultured; Squamous Epithelial Cell Urine 1-5 /HPF (0-5/HPF); WBC Urine 30-100/HPF (0-5/HPF)
[2019-01-15 16:00] LABS: HEMOLYSIS < 15 (0-50); Iron 39 ug/dL (37-170)
[2019-01-15 16:11] LABS: Percent Iron Saturation 10 % (15-50); Total Iron Binding Capacity 408 ug/dL (265-497); Transferrin 336 mg/dL (206-381)
[2019-01-15 16:34] LABS: Ferritin 20.2 ng/mL (11.1-264)
== END ==
PROVIDERS: Family Provider Student in an Organized Health Care Education/Training Program; PCP Student in an Organized Health Care Education/Training Program; Visit Provider Internal Medicine Nephrology
DX: N18.4 Chronic kidney disease, stage 4 (severe) (principal)
CPT/HCPCS: 36415; 81001; 82306; 82728; 83540; 83550; 87077; 87086; 87186

== ENCOUNTER → 2019-02-05 10:45 | Outpatient (CLI) | payer MEDICARE, OTHER, SELFPAY ==
[2018-12-04 20:58] VITALS: BMI 25.6
[2019-02-05 11:31] LABS: Add Manual Diff / Slide Review NO; Basophils Absolute Auto 100 /uL (0-100); Basophils Percent Auto 1.1 % (0-2); Eosinophils Absolute Auto 100 /uL (0-450); Eosinophils Percent Auto 1.6 % (2-4); Hematocrit 38.3 % (36-46); Hemoglobin 12.2 g/dL (12.0-16.0); Lymphocytes Absolute Auto 1300 /uL (1100-4500); Lymphocytes Percent Auto 22.4 % (25-40); Mean Corpuscular HGB Conc 31.9 % (30-36); Mean Corpuscular Hemoglobin 26.5 PG (26-34); Monocytes Absolute Auto 500 /uL (0-900); Monocytes Percent Auto 8.4 % (3-14); Neutrophils Absolute Auto 3800 /uL (1500-7000); Neutrophils Percent Auto 66.5 % (50-75); Platelet Count 233 X10^3/uL (150-400); Red Blood Cell Count 4.61 X10^6/uL (4.0-5.2); Red Cell Distribution Width 18.5 % (11.6-14.8); White Blood Cell Count 5.7 X10^3/uL (4.5-11.0)
[2019-02-05 11:45] LABS: BUN Creatinine Ratio 16.4 (6-22); Blood Urea Nitrogen 23 mg/dL (7-17); Calcium 9.3 mg/dL (8.4-10.2); Carbon Dioxide 27 mmol/L (22-32); Chloride 102 mmol/L (98-107); Estimated Glomerular Filt Rate 36.1 mL/min (>60); Glucose 148 mg/dL (80-110); HEMOLYSIS < 15 (0-50); Potassium 4.6 mmol/L (3.4-5.1); Sodium 139 mmol/L (137-145)
== END ==
PROVIDERS: Family Provider Student in an Organized Health Care Education/Training Program; PCP Student in an Organized Health Care Education/Training Program; Visit Provider Nurse Practitioner
DX: I48.91 Unspecified atrial fibrillation (principal)
CPT/HCPCS: 36415; 80048; 80299; 85025

== ENCOUNTER → 2019-02-14 12:44 | Outpatient (CLI) | payer MEDICARE, OTHER, SELFPAY ==
[2018-12-04 20:58] VITALS: BMI 25.6
--- NOTE | 2019-02-14 12:56 | DI.CT.S_ITS ---
PROCEDURE: CT CHEST WO CON INDICATIONS: Pulmonary nodule TECHNIQUE: Noncontrast 2.0-2.5 mm thick sections acquired from the pulmonary apices to the posterior costophrenic angles. 7 mm thick axial MIP and 5 mm coronal and sagittal reformats were then acquired. A low radiation dose technique was utilized. COMPARISON: [facility], CT, CT KIDNEY URETER BLADDER (KUB), 01/10/2019, 14:21. [facility], CT, CT ABDOMEN PELVIS WO CON, 06/19/2018, 12:20. [facility], CT, ABDOMEN/PELVIS WITH CONTRAST, 01/29/2016, 10:12. FINDINGS: Image quality: Diagnostic, given the low radiation dose technique. Lungs and pleura: No acute consolidation. Scattered subsegmental atelectasis and/or scarring. No pleural effusion. No pneumothorax. 1 mm nodule seen in the right lung base is unchanged since 01/29/16, therefore benign. Nodular focus involving the anterior lingula could be scarring or atelectasis, technically indeterminate. This measures 9 mm. No other pulmonary nodules identified Mediastinum: Heart size is normal. Coronary artery calcifications are present. No pericardial effusion. No mediastinal adenopathy by size criteria. Thoracic aorta and central pulmonary arteries are normal in size. Esophagus is normal in caliber. Trace hiatal hernia. Bones and chest wall: Incidentally noted sternal fracture with callus formation Diffuse spondylosis. Abdomen: Gallbladder surgically absent. IMPRESSION: 9 mm nodular focus involving the anterior lingula statistically represents scarring or atelectasis although this could be followed up with chest CT in 3 months as clinical suspicion dictates. Dictated by: Lorenzo Paul M.D. on 02/14/2019 at 16:50 Approved by: Lorenzo Paul M.D. on 02/14/2019 at 17:00
== END ==
PROVIDERS: PCP Student in an Organized Health Care Education/Training Program; Visit Provider Student in an Organized Health Care Education/Training Program
DX: R91.1 Solitary pulmonary nodule (principal); I25.10 Atherosclerotic heart disease of native coronary artery without angina pectoris; Z90.49 Acquired absence of other specified parts of digestive tract
CPT/HCPCS: 71250

== ENCOUNTER → 2019-02-22 14:51 | Outpatient (CLI) | payer MEDICARE, OTHER, SELFPAY ==
[2018-12-04 20:58] VITALS: BMI 25.6
[2019-02-22 16:20] LABS: Appearance Urine UA SL CLOUDY; Bilirubin Urine UA NEGATIVE (NEGATIVE); Color Urine UA YELLOW; Glucose Urine UA NEGATIVE (Negative); Ketones Urine UA TRACE (NEGATIVE); Leukocyte Esterase Urine UA 2+ (NEGATIVE); Nitrite Urine UA NEGATIVE (Negative); Occult Blood Urine UA NEGATIVE (Negative); Protein Urine UA TRACE (Negative); Urobilinogen Urine UA 0.2 E.U./dL (0.2)
[2019-02-22 17:00] LABS: pH Urine UA 5.5 (4.5-8.0)
[2019-02-22 17:01] LABS: Bacteria Urine Moderate (10-30); Culture Indicated Urine Specimen Cultured; RBC Urine 0-1/HPF (0-5/HPF); Squamous Epithelial Cell Urine 0-1 /HPF (0-5/HPF); WBC Urine 30-100/HPF (0-5/HPF)
== END ==
PROVIDERS: PCP Student in an Organized Health Care Education/Training Program; Visit Provider Internal Medicine Nephrology
DX: E78.2 Mixed hyperlipidemia (principal); I10 Essential (primary) hypertension; E03.9 Hypothyroidism, unspecified; R30.0 Dysuria
CPT/HCPCS: 81001; 87077; 87086; 87186

== ENCOUNTER → 2019-03-11 14:24 | Outpatient (CLI) | payer MEDICARE, OTHER, SELFPAY ==
[2018-12-04 20:58] VITALS: BMI 25.6
--- NOTE | 2019-03-11 | DI.MG.S_ITS ---
BILATERAL DIGITAL SCREENING MAMMOGRAM 3D/2D WITH CAD: 03/11/2019 CLINICAL: Routine screening. Comparison is made to exams dated: 03/10/2018 mammogram, 01/27/2017 mammogram, and 01/15/2016 mammogram - [facility]. The tissue of both breasts is heterogeneously dense. This may lower the sensitivity of mammography. Current study was also evaluated with a Computer Aided Detection (CAD) system. No significant masses, calcifications, or other findings are seen in either breast. There has been no significant interval change. IMPRESSION: NEGATIVE There is no mammographic evidence of malignancy. A 1 year screening mammogram is recommended. This exam was interpreted at Station ID: [id number]. NOTE: For mammograms, a report in lay terms will be sent to the patient. Approximately 15% of breast malignancies will not be visualized mammographically. In the management of a palpable breast mass, a negative mammogram must not discourage biopsy of a clinically suspicious lesion. Electronically Signed By: Abigail reddy/jayshree:03/11/2019 17:21:33 letter sent: Normal Exam ACR BI-RADS Category 1: Negative [id number]
== END ==
PROVIDERS: PCP Student in an Organized Health Care Education/Training Program; Visit Provider Student in an Organized Health Care Education/Training Program
DX: Z12.31 Encounter for screening mammogram for malignant neoplasm of breast (principal)
CPT/HCPCS: 77063; 77067

== ENCOUNTER 2019-03-28 14:33 | Emergency (ER) | payer MEDICARE, OTHER, SELFPAY ==
[2018-12-04 20:58] VITALS: BMI 25.6
--- NOTE | 2019-03-28 14:46 | DI.RAD.S_ITS ---
PROCEDURE: XR CHEST 1V INDICATIONS: chest pain TECHNIQUE: One view of the chest was acquired. COMPARISON: [facility], CR, XR CHEST 1V, 12/18/2018, 10:47. FINDINGS: Surgical changes and devices: Cardiac loop recorder is stable. Lungs and pleura: Lungs are clear. No pleural effusions or pneumothorax. Mediastinum: Mediastinal contours appear normal. Heart is enlarged. Bones and chest wall: No suspicious bony lesions. Overlying soft tissues appear unremarkable. IMPRESSION: No acute cardiopulmonary disease process. Dictated by: Rochelle Wilson MD, PhD on 03/28/2019 at 15:02 Approved by: Rochelle Wilson MD, PhD on 03/28/2019 at 15:06
[2019-03-28 14:50] VITALS: BP 157/83; PULSE 79; RESP 20; TEMP 36.6; O2SAT 95; BMI 25.0
[2019-03-28 14:55] LABS: Add Manual Diff / Slide Review NO; Basophils Absolute Auto 0 /uL (0-100); Basophils Percent Auto 0.3 % (0-2); Eosinophils Absolute Auto 100 /uL (0-450); Eosinophils Percent Auto 1.3 % (2-4); Hematocrit 38.1 % (36-46); Hemoglobin 12.8 g/dL (12.0-16.0); Lymphocytes Absolute Auto 1900 /uL (1100-4500); Lymphocytes Percent Auto 26.4 % (25-40); Mean Corpuscular HGB Conc 33.5 % (30-36); Mean Corpuscular Hemoglobin 28.7 PG (26-34); Mean Corpuscular Volume 85.7 fL (80-100); Monocytes Absolute Auto 500 /uL (0-900); Monocytes Percent Auto 7.2 % (3-14); Neutrophils Absolute Auto 4600 /uL (1500-7000); Neutrophils Percent Auto 64.8 % (50-75); Platelet Count 258 X10^3/uL (150-400); Red Blood Cell Count 4.45 X10^6/uL (4.0-5.2); Red Cell Distribution Width 17.8 % (11.6-14.8); White Blood Cell Count 7.1 X10^3/uL (4.5-11.0)
--- NOTE | 2019-03-28 15:00 | ED_ITS ---
HPI - Chest Pain <Viri WhaleyROSETTA - Last Filed: 03/28/19 20:01> General Chief Complaint: Chest Pain Stated Complaint: chest pain Time Seen by Provider: 03/28/19 14:50 Source: patient Mode of arrival: Wheelchair Limitations: no limitations History of Present Illness HPI narrative: 83-year-old female with a history of hypertension, [place], CKD, and one kidney, presents emergency department for a 9/10 squeezing pain that developed suddenly today at 1430 while she was driving to her ribs, chest, and neck. She states it was a constant pain that resolved after 20-25 minute without intervention. She had associated nausea with the pain but no shortness of breath, dizziness, or diaphoresis. Patient states she does not have pain at this time and believes that has completely resolved. She also complains of urinary urgency over the past 2 weeks that is more than normal. She denies bein g on any blood thinners. Patient denies fevers, chills, vomiting, diarrhea, dysuria, shortness of breath, chest pain at this time, dizziness, or other concerns. Related Data Home Medications Medication Instructions Recorded Confirmed acetaminophen [Tylenol Extra 500 mg PO PRN PRN #0 04/19/16 03/05/19 Strength] amiodarone 200 mg tablet 100 mg PO BID #0 tab 03/15/18 03/05/19 lisinopril 5 mg tablet 5 mg PO DAILY 10/02/18 03/05/19 cholecalciferol (vitamin D3) 5,000 unit PO DAILY 12/04/18 03/05/19 [Vitamin D3] ferrous sulfate 325 mg (65 mg 325 mg PO Q OTHER DAY tab 12/11/18 03/05/19 iron) tablet,delayed release Previous Rx's Medication Instructions Recorded sertraline 100 mg tablet 50 mg PO DAILY #90 tab 06/13/18 meclizine 12.5 mg tablet 12.5 mg PO TID PRN #30 tab 03/05/19 Allergies Allergy/AdvReac Type Severity Reaction Status Date / Time latex Allergy Severe THROAT Verified 03/28/19 14:50 SWELLING prednisone [PREDNISONE] Allergy Intermediate rash Verified 03/28/19 14:50 amoxicillin Allergy Mild ITCH Verified 03/28/19 14:50 cephalexin Allergy Mild ITCHY ALL Verified 03/28/19 14:50 OVER HER BODY ciprofloxacin Allergy Mild ITCH Verified 03/28/19 14:50 clavulanic acid Allergy Mild RASH Verified 03/28/19 14:50 hydromorphone Allergy Mild ITCHING Verified 03/28/19 14:50 nitrofurantoin Allergy Mild ABD Verified 03/28/19 14:50 PAIN/SEVERE ITCHING oxycodone Allergy Mild ITCH Verified 03/28/19 14:50 Penicillins Allergy Mild BLISTERS Verified 03/28/19 14:50 Sulfa (Sulfonamide Allergy Mild ITCH Verified 03/28/19 14:50 Antibiotics) levofloxacin [From LEVAQUIN] AdvReac Severe DISTURBING Verified 03/28/19 14:50 HALLUCINATIONS lorazepam [From ATIVAN] AdvReac Intermediate Verified 03/28/19 14:50 morphine AdvReac Mild HALLUCINATI Verified 03/28/19 14:50 ONS Review of Systems <ROSETTA Epstein - Last Filed: 03/28/19 20:01> Review of Systems Narrative: REVIEW OF SYSTEMS: GENERAL: Denies fever or chills. HENT: No head trauma, hearing loss or sore throat. EYES: No loss of vision, double vision, eye pain, or irritation. CARDIOVASCULAR: Reported chest pain, see HPI PE RESPIRATORY: No shortness of breath or cough. GASTROINTESTINAL: No nausea, vomiting, diarrhea, or constipation. GENITOURINARY: No flank pain or dysuria. Reports for dizzy, see HPI. MUSCULOSKELETAL: No pain, weakness, or deformities. INTEGUMENTARY: No rash, lesions, or pruritus. NEURO: No numbness, tingling, memory loss, or confusion. PSYCH: No behavior or mood changes. Patient History <ROSETTA Epstein - Last Filed: 03/28/19 20:01> Medical History Anxiety (Chronic 12/08/15) Atypical chest pain (Chronic) C. difficile colitis (Resolved 07/2015) C. 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) Mumps (Resolved ~1939) Osteoporosis, unspecified (Chronic 03/22/11) Paraesophageal hernia (Resolved) Paroxysmal atrial fibrillation (Chronic ~2013) RLS (restless legs syndrome) (Chronic) Second degree AV block, Mobitz type I (Chronic) Shoulder pain (Chronic) Skin cancer (Resolved 2009) Sleep apnea (Chronic 2012) 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) Surgical History Anesthesia (Resolved) History of bladder surgery (Resolved ~1967) History of cholecystectomy (Resolved) History of nephrectomy (Resolved) History of spinal fusion (Resolved 2005) S/P repair of paraesophageal hernia (Resolved) Status post hysterectomy with oophorectomy (Resolved) Family History Brother CAD (coronary artery disease) Hyperlipidemia High cholesterol Lung cancer Colon cancer Brother Cancer High cholesterol Lung disease Father Colon cancer CAD (coronary artery disease) High cholesterol Mother CVA (cerebral vascular accident) Hyperlipidemia Sister Age: 83 CAD (coronary artery disease) Hyperlipidemia Ulcer Essential hypertension High cholesterol Heart attack Grandfather Throat cancer Grandmother Heart disease Family/Other Lung disease Social History household members: none Smoking Status: Never smoker alcohol intake frequency: holidays/special occasions only Substance Use Type: does not use Exam <ROSETTA Epstein - Last Filed: 03/28/19 20:01> Initial Vital Signs Initial Vital Signs: Vital Signs Temperature 97.8 F 03/28/19 14:50 Pulse Rate 79 03/28/19 14:50 Respiratory Rate 20 03/28/19 14:50 Blood Pressure 157/83 H 03/28/19 14:50 Pulse Oximetry 95 03/28/19 14:50 PHYSICAL EXAMINATION: GENERAL: Well groomed, alert, and cooperative. Answers questions promptly and appropriately. Vital signs noted. HENT: Normocephalic, atraumatic. Ear canals patent. Oral mucosa is pink and m oist. EYES: Conjunctiva pink, sclera white, no periorbital swelling. CHEST: Normal to inspection and without deformities. CARDIOVASCULAR: S1 and S2 sounds normal. Regular rate and rhythm, no murmurs, clicks, or bruits. No pedal edema. RESPIRATORY: Normal respiratory rate, trachea midline, airway patent. No stridor, nasal flaring or accessory muscle use. Lungs are clear in all alas without wheeze, rhonchi, or crackles. GASTROINTESTINAL: Bowel sounds normoactive. Abdomen is soft and non-tender. No organomegaly. MUSCULOSKELETAL: Normal gait and coordination. Equal tone and mass bilaterally. EXTREMITIES: CMS intact. Moves all extremities. SKIN: Warm, dry, soft, appropriate color for ethnicity. No lesions, rashes, or wounds. NEURO: Alert and Oriented X 3. Good coordination. No ataxia, or sensory deficits, or cognitive issues. PSYCH: Appropriate affect and mood. <Dirk Ribeiro DO - Last Filed: 04/03/19 07:24> Initial Vital Signs Initial Vital Signs: Vital Signs Temperature 97.8 F 03/28/19 14:50 Pulse Rate 79 03/28/19 14:50 Respiratory Rate 20 03/28/19 14:50 Blood Pressure 157/83 H 03/28/19 14:50 Pulse Oximetry 95 03/28/19 14:50 Scores <ROSETTA Epstein - Last Filed: 03/28/19 20:01> HEART Score Heart Score history: Moderately Suspicious Heart Score EKG: Normal Heart Score Age: > or = 65 years old Heart Score risk factors: > 3 risk factors or hx of atherosclerotic disease Heart Score troponin: < or = to normal limit Heart Score Total: 5 Course <ROSETTA Epstein - Last Filed: 03/28/19 20:01> Course Course Narrative: Patient continued to deny chest pain throughout her stay in the emergency department stay. She ambulated to and from the bathroom without chest pain. Orders Ordered: ED Orders 03/28/19 14:45 Complete Blood Count AUTO DIFF Stat Comprehensive Metabolic Panel Stat Lipase Stat Partial Thromboplastin Time Stat Prothrombin Time INR Stat Troponin & CK Cardiac Panel Stat 03/28/19 14:46 XR chest 1V Stat 03/28/19 14:47 EKG-12 Lead Stat 03/28/19 16:45 Troponin I Stat Consultations Consultation #1: Patient staffed with Dr. Ribeiro Consultation #2: [id number] Dr. Wagoner consulted about possible admission due to patient's HEART score of 5, and troponin of 0.017. However, patient is on admitted at this time as she will not be able to get a stress test tomorrow as arm normal openings for obs/inpatient. Consultation #3: [id number] Salgado in anticipation of patient's discharge, he agreed that patient would benefit from a prompt stress test and is planning on ordering this at this time. Vital Signs Vital signs: Vital Signs - 8 hr 03/28/19 14:50 03/28/19 15:01 03/28/19 16:09 Temperature 97.8 F Pulse Rate 79 94 H 66 Respiratory Rate 20 22 17 Blood Pressure 157/83 H Blood Pressure [Right Arm] 106/51 L 131/58 L Pulse Oximetry 95 95 95 03/28/19 17:00 03/28/19 17:45 Temperature Pulse Rate 66 67 Respiratory Rate 15 16 Blood Pressure Blood Pressure [Right Arm] 150/65 H 159/86 H Pulse Oximetry 96 95 <Dirk Ribeiro DO - Last Filed: 04/03/19 07:24> Orders Ordered: ED Orders 03/28/19 14:45 Complete Blood Count AUTO DIFF Stat Comprehensive Metabolic Panel Stat Lipase Stat Partial Thromboplastin Time Stat Prothrombin Time INR Stat Troponin & CK Cardiac Panel Stat 03/28/19 14:46 XR chest 1V Stat 03/28/19 14:47 EKG-12 Lead Stat 03/28/19 16:45 Troponin I Stat Vital Signs Vital signs: Vital Signs - 8 hr 03/28/19 14:50 03/28/19 15:01 03/28/19 16:09 Temperature 97.8 F Pulse Rate 79 94 H 66 Respiratory Rate 20 22 17 Blood Pressure 157/83 H Blood Pressure [Right Arm] 106/51 L 131/58 L Pulse Oximetry 95 95 95 03/28/19 17:00 03/28/19 17:45 Temperature Pulse Rate 66 67 Respiratory Rate 15 16 Blood Pressure Blood Pressure [Right Arm] 150/65 H 159/86 H Pulse Oximetry 96 95 MDM - Chest Pain <ROSETTA Epstein - Last Filed: 03/28/19 20:01> Medical Records Data Attestation: I reviewed the patient's medical records. Lab Data Attestation: I reviewed the patient's lab results. Result diagrams: 03/28/19 14:45 03/28/19 14:45 Labs: Lab Results 03/28/19 03/28/19 03/28/19 Range/Units 14:45 14:45 14:45 WBC 7.1 (4.5-11.0) X10^3/uL RBC 4.45 (4.0-5.2) X10^6/uL Hgb 12.8 (12.0-16.0) g/dL Hct 38.1 (36-46) % MCV 85.7 (80-100) fL MCH 28.7 (26-34) PG MCHC 33.5 (30-36) % RDW 17.8 H (11.6-14.8) % Plt Count 258 (150-400) X10^3/uL Neut % (Auto) 64.8 (50-75) % Lymph % (Auto) 26.4 (25-40) % [place] % (Auto) 7.2 (3-14) % Eos % (Auto) 1.3 L (2-4) % Baso % (Auto) 0.3 (0-2) % Neut # (Auto) 4600 (8515-0485) /uL Lymph # (Auto) 1900 (6761-0471) /uL [place] # (Auto) 500 (0-900) /uL Eos # (Auto) 100 (0-450) /uL Baso # (Auto) 0 (0-100) /uL PT 10.6 (10.1-12.7) SECONDS INR 0.9 (0.9-1.3) APTT 29 (26.4-36.2) SECONDS Sodium 140 (137-145) mmol/L Potassium 4.3 (3.4-5.1) mmol/L Chloride 106 (98-107) mmol/L Carbon Dioxide 26 (22-32) mmol/L BUN 36 H (7-17) mg/dL Creatinine 1.80 H (0.52-1.04) mg/dL Estimated GFR 27.0 L (>60) mL/min BUN/Creatinine Ratio 20.0 (6-22) Glucose 158 H (80-110) mg/dL Calcium 9.3 (8.4-10.2) mg/dL Total Bilirubin 0.5 (0.2-1.3) mg/dL AST 35 (14-36) IU/L ALT 22 (<35) IU/L Alkaline Phosphatase 73 (38-126) U/L Total Creatine Kinase 61 (30-135) U/L CK-MB (CK-2) TNP CK-MB (CK-2) Rel Index TNP Troponin I 0.017 (0.01-0.034) ng/mL Total Protein 7.7 (6.3-8.2) g/dL Albumin 4.2 (3.5-5.0) g/dL Globulin 3.5 (1.7-4.1) g/dL Albumin/Globulin Ratio 1.2 (1.0-2.8) Lipase 75 (23-300) U/L 03/28/19 Range/Units 16:45 WBC (4.5-11.0) X10^3/uL RBC (4.0-5.2) X10^6/uL Hgb (12.0-16.0) g/dL Hct (36-46) % MCV (80-100) fL MCH (26-34) PG MCHC (30-36) % RDW (11.6-14.8) % Plt Count (150-400) X10^3/uL Neut % (Auto) (50-75) % Lymph % (Auto) (25-40) % [place] % (Auto) (3-14) % Eos % (Auto) (2-4) % Baso % (Auto) (0-2) % Neut # (Auto) (0589-4435) /uL Lymph # (Auto) (3159-5966) /uL [place] # (Auto) (0-900) /uL Eos # (Auto) (0-450) /uL Baso # (Auto) (0-100) /uL PT (10.1-12.7) SECONDS INR (0.9-1.3) APTT (26.4-36.2) SECONDS Sodium (137-145) mmol/L Potassium (3.4-5.1) mmol/L Chloride (98-107) mmol/L Carbon Dioxide (22-32) mmol/L BUN (7-17) mg/dL Creatinine (0.52-1.04) mg/dL Estimated GFR (>60) mL/min BUN/Creatinine Ratio (6-22) Glucose (80-110) mg/dL Calcium (8.4-10.2) mg/dL Total Bilirubin (0.2-1.3) mg/dL AST (14-36) IU/L ALT (<35) IU/L Alkaline Phosphatase (38-126) U/L Total Creatine Kinase (30-135) U/L CK-MB (CK-2) CK-MB (CK-2) Rel Index Troponin I 0.014 (0.01-0.034) ng/mL Total Protein (6.3-8.2) g/dL Albumin (3.5-5.0) g/dL Globulin (1.7-4.1) g/dL Albumin/Globulin Ratio (1.0-2.8) Lipase (23-300) U/L Urine Dip Bedside Urine Glucose Negative Bedside Urine Bilirubin - Negative Bedside Urine Ketone - Negative Urine Specific [place] 1.020 Bedside Urine Occult Blood - Negative Bedside Urine pH 5.5 Bedside Urine Protein +/- 15 Bedside Urine Urobilinogen - Negative Bedside Urine Nitrite - Negative Bedside Urine Leukocytes - Negative Esterase Imaging Data Chest x-ray: Radiologist's impression: [address] [address] XRay Report Signed Patient: Valery Yeh EMR#: [id number] : [id number]:[id number] Age/Sex: 83 / FDate of Service: 03/28/19 Loc: ED Accession Number: [id number] Procedure: XR chest 1V Ordering Provider: Dirk Ribeiro D.O. PROCEDURE: XR CHEST 1V INDICATIONS: chest pain TECHNIQUE: One view of the chest was acquired. COMPARISON: [facility], , XR CHEST 1V, 12/18/2018, 10:47. FINDINGS: Surgical changes and devices: Cardiac loop recorder is stable. Lungs and pleura: Lungs are clear. No pleural effusions or pneumothorax. Mediastinum: Mediastinal contours appear normal. Heart is enlarged. Bones and chest wall: No suspicious bony lesions. Overlying soft tissues appear unremarkable. IMPRESSION: No acute cardiopulmonary disease process. Dictated by: Rochelle Wilson MD, PhD on 03/28/2019 at 15:02 Approved by: Rochelle Wilson MD, PhD on 03/28/2019 at 15:06 ECG Data Interpretation: Normal sinus rhythm, rate 72, LA interval 179, QTC 440. No T- wave of normally, No ST elevation or ST depression. No ectopy. EKG was also read by Dr. Ribeiro per [facility] protocol. MDM Narrative Medical decision making narrative: This is a 83-year-old female with a history of hypertension and CKD, presents emergency department for sudden onset of chest pressure that lasted 20-30 minutes. EKG was non-remarkable, chest x-ray was non-remarkable. Troponin was negative at 0.017 which was a deviation from previous troponin at < 0.012, patient's 2nd troponin was 0.014, patient appears suitable for discharge as there is no availability for inpatient stress testing tomorrow and patient's multiple troponin tests have been negative with the 2nd test lower than the 1st test. Additionally, patient did not have any repeat episodes of chest pain during her stay in the emergency department. Differential for chest pain include acute coronary syndrome (heart score of 5, multiple risk factors, and a very slight deviation in troponin from past lab tests), GERD (less likely as symptoms resolve spontaneously), pulmonary etiology (less likely due to negative chest x-ray, lack of symptoms such as shortness of breath), gastroenteritis (less likely as symptoms resolved spontaneously within 20 minutes), or costochondritis (less likely as pain was not reproducible on exam). After speaking with Dr. Salgado, patient was made aware that she will have an order for a stress test soon. She was encouraged to call the office in the morning to make a follow-up appointment and received instructions on how to scheduled a stress test. Patient was given very strict return precautions for any new or worsening symptoms. Patient agreed with plan of care, she states she is able to call 911/presents to the emergency department if symptoms change or reoccur. <Dirk Ribeiro, DO - Last Filed: 04/03/19 07:24> Lab Data Labs: Lab Results 03/28/19 03/28/19 03/28/19 Range/Units 14:45 14:45 14:45 WBC 7.1 (4.5-11.0) X10^3/uL RBC 4.45 (4.0-5.2) X10^6/uL Hgb 12.8 (12.0-16.0) g/dL Hct 38.1 (36-46) % MCV 85.7 (80-100) fL MCH 28.7 (26-34) PG MCHC 33.5 (30-36) % RDW 17.8 H (11.6-14.8) % Plt Count 258 (150-400) X10^3/uL Neut % (Auto) 64.8 (50-75) % Lymph % (Auto) 26.4 (25-40) % [place] % (Auto) 7.2 (3-14) % Eos % (Auto) 1.3 L (2-4) % Baso % (Auto) 0.3 (0-2) % Neut # (Auto) 4600 (5269-2952) /uL Lymph # (Auto) 1900 (5014-6876) /uL [place] # (Auto) 500 (0-900) /uL Eos # (Auto) 100 (0-450) /uL Baso # (Auto) 0 (0-100) /uL PT 10.6 (10.1-12.7) SECONDS INR 0.9 (0.9-1.3) APTT 29 (26.4-36.2) SECONDS Sodium 140 (137-145) mmol/L Potassium 4.3 (3.4-5.1) mmol/L Chloride 106 (98-107) mmol/L Carbon Dioxide 26 (22-32) mmol/L BUN 36 H (7-17) mg/dL Creatinine 1.80 H (0.52-1.04) mg/dL Estimated GFR 27.0 L (>60) mL/min BUN/Creatinine Ratio 20.0 (6-22) Glucose 158 H (80-110) mg/dL Calcium 9.3 (8.4-10.2) mg/dL Total Bilirubin 0.5 (0.2-1.3) mg/dL AST 35 (14-36) IU/L ALT 22 (<35) IU/L Alkaline Phosphatase 73 (38-126) U/L Total Creatine Kinase 61 (30-135) U/L CK-MB (CK-2) TNP CK-MB (CK-2) Rel Index TNP Troponin I 0.017 (0.01-0.034) ng/mL Total Protein 7.7 (6.3-8.2) g/dL Albumin 4.2 (3.5-5.0) g/dL Globulin 3.5 (1.7-4.1) g/dL Albumin/Globulin Ratio 1.2 (1.0-2.8) Lipase 75 (23-300) U/L 03/28/19 Range/Units 16:45 WBC (4.5-11.0) X10^3/uL RBC (4.0-5.2) X10^6/uL Hgb (12.0-16.0) g/dL Hct (36-46) % MCV (80-100) fL MCH (26-34) PG MCHC (30-36) % RDW (11.6-14.8) % Plt Count (150-400) X10^3/uL Neut % (Auto) (50-75) % Lymph % (Auto) (25-40) % [place] % (Auto) (3-14) % Eos % (Auto) (2-4) % Baso % (Auto) (0-2) % Neut # (Auto) (8444-4785) /uL Lymph # (Auto) (1117-6161) /uL [place] # (Auto) (0-900) /uL Eos # (Auto) (0-450) /uL Baso # (Auto) (0-100) /uL PT (10.1-12.7) SECONDS INR (0.9-1.3) APTT (26.4-36.2) SECONDS Sodium (137-145) mmol/L Potassium (3.4-5.1) mmol/L Chloride (98-107) mmol/L Carbon Dioxide (22-32) mmol/L BUN (7-17) mg/dL Creatinine (0.52-1.04) mg/dL Estimated GFR (>60) mL/min BUN/Creatinine Ratio (6-22) Glucose (80-110) mg/dL Calcium (8.4-10.2) mg/dL Total Bilirubin (0.2-1.3) mg/dL AST (14-36) IU/L ALT (<35) IU/L Alkaline Phosphatase (38-126) U/L Total Creatine Kinase (30-135) U/L CK-MB (CK-2) CK-MB (CK-2) Rel Index Troponin I 0.014 (0.01-0.034) ng/mL Total Protein (6.3-8.2) g/dL Albumin (3.5-5.0) g/dL Globulin (1.7-4.1) g/dL Albumin/Globulin Ratio (1.0-2.8) Lipase (23-300) U/L Urine Dip Bedside Urine Glucose Negative Bedside Urine Bilirubin - Negative Bedside Urine Ketone - Negative Urine Specific [place] 1.020 Bedside Urine Occult Blood - Negative Bedside Urine pH 5.5 Bedside Urine Protein +/- 15 Bedside Urine Urobilinogen - Negative Bedside Urine Nitrite - Negative Bedside Urine Leukocytes - Negative Esterase Discharge Plan Departure Patient Disposition: Home Clinical Impression: Chest pain Qualifiers: Chest pain type: unspecified Qualified Code(s): R07.9 - Chest pain, unspecified Discharge Date/Time: 03/28/19 18:09 Instructions: DI for Acute Coronary Syndrome, DI for Chest Pain Activity Restrictions/Additional Instructions: Thank you for entrusting me with your care today. As discussed, your EKG is unremarkable, your chest x-rays is unremarkable, and your troponin remains negative (1st troponin was 0.017, 2nd troponin was 0.014). I have spoke with Dr. Salgado about obtaining a cardiac stress test in the near future, he mentioned he will be placing orders soon. Please call his office tomorrow to confirm. Return emergency department immediately for any new or worsening symptoms such as chest pain, shortness of breath, dizziness, uncontrollable vomiting, high fevers, or etc. Prescriptions: No Action acetaminophen [Tylenol Extra Strength] 500 MG tablet 500 mg PO PRN PRN (Reason: Pain, Mild) Qty: 0 RF: 0 amiodarone 200 mg tablet 100 mg PO BID Qty: 0 RF: 0 sertraline 100 mg tablet 50 mg PO DAILY Qty: 90 RF: 3 lisinopril 5 mg tablet 5 mg PO DAILY RF: 0 ferrous sulfate 325 mg (65 mg iron) tablet,delayed release (DR/EC) 325 mg PO Q OTHER DAY RF: 0 meclizine 12.5 mg tablet 12.5 mg PO TID PRN (Reason: dizziness) Qty: 30 RF: 0 cholecalciferol (vitamin D3) [Vitamin D3] 5,000 unit Tablet 5,000 unit PO DAILY RF: 0 Referrals: Scooter Salgado MD [Primary Care Provider] - <Dirk Ribeiro DO - Last Filed: 04/03/19 07:24> Sign Out Provider Sign Out Attestation: Dr Ribeiro Co-Sign Statement: I was available for consultation during this patient's emergency department visit. This chart is signed by myself for administrative purposes only. I did not have direct contact with this patient during this visit. They were seen independently by the APC.
[2019-03-28 15:01] VITALS: BP 106/51; PULSE 94; RESP 22; O2SAT 95
[2019-03-28 15:09] LABS: INR 0.9 (0.9-1.3); Prothrombin Time 10.6 SECONDS (10.1-12.7)
[2019-03-28 15:12] LABS: PTT Partial Thromboplastin Tim 29 SECONDS (26.4-36.2)
[2019-03-28 15:15] LABS: Alanine Aminotransferase 22 IU/L (<35); Albumin 4.2 g/dL (3.5-5.0); Albumin Globulin Ratio 1.2 (1.0-2.8); Alkaline Phosphatase 73 U/L (38-126); Aspartate Aminotransferase 35 IU/L (14-36); Bilirubin Total 0.5 mg/dL (0.2-1.3); Blood Urea Nitrogen 36 mg/dL (7-17); Calcium 9.3 mg/dL (8.4-10.2); Carbon Dioxide 26 mmol/L (22-32); Chloride 106 mmol/L (98-107); Creatine Kinase 61 U/L (30-135); Globulin 3.5 g/dL (1.7-4.1); Glucose 158 mg/dL (80-110); HEMOLYSIS < 15 (0-50); Lipase 75 U/L (23-300); Potassium 4.3 mmol/L (3.4-5.1); Sodium 140 mmol/L (137-145); Total Protein 7.7 g/dL (6.3-8.2)
[2019-03-28 15:26] LABS: Troponin I 0.017 ng/mL (0.01-0.034)
[2019-03-28 16:09] VITALS: BP 131/58; PULSE 66; RESP 17; O2SAT 95
[2019-03-28 17:00] VITALS: BP 150/65; PULSE 66; RESP 15; O2SAT 96
[2019-03-28 17:15] LABS: Troponin I 0.014 ng/mL (0.01-0.034)
[2019-03-28 17:45] VITALS: BP 159/86; PULSE 67; RESP 16; O2SAT 95
== END 2019-03-28 18:09 | disposition home or self-care (01) ==
PROVIDERS: Emergency Medicine; Emergency Provider Nurse Practitioner; PCP Student in an Organized Health Care Education/Training Program
DX: R07.89 Other chest pain (principal)
CPT/HCPCS: 36415; 71045; 80053; 81003; 82550; 83690; 84484; 85025; 85610; 85730; 93005; 99283; 99285

== ENCOUNTER → 2019-04-09 12:54 | Outpatient (CLI) | payer MEDICARE, OTHER, SELFPAY ==
[2018-12-04 20:58] VITALS: BMI 25.6
[2019-04-09 13:17] LABS: Bacteria Urine None Seen; RBC Urine None Seen (0-5/HPF)
[2019-04-09 13:34] LABS: Add Manual Diff / Slide Review NO; Basophils Absolute Auto 100 /uL (0-100); Basophils Percent Auto 0.9 % (0-2); Eosinophils Absolute Auto 100 /uL (0-450); Eosinophils Percent Auto 2.3 % (2-4); Hematocrit 38.2 % (36-46); Hemoglobin 12.7 g/dL (12.0-16.0); Lymphocytes Absolute Auto 1400 /uL (1100-4500); Lymphocytes Percent Auto 22.6 % (25-40); Mean Corpuscular HGB Conc 33.1 % (30-36); Mean Corpuscular Hemoglobin 28.8 PG (26-34); Monocytes Absolute Auto 500 /uL (0-900); Monocytes Percent Auto 8.5 % (3-14); Neutrophils Absolute Auto 4000 /uL (1500-7000); Neutrophils Percent Auto 65.7 % (50-75); Platelet Count 231 X10^3/uL (150-400); Red Blood Cell Count 4.39 X10^6/uL (4.0-5.2); Red Cell Distribution Width 17.7 % (11.6-14.8)
[2019-04-09 14:18] LABS: Blood Urea Nitrogen 32 mg/dL (7-17); Calcium 9.3 mg/dL (8.4-10.2); Carbon Dioxide 28 mmol/L (22-32); Chloride 105 mmol/L (98-107); Estimated Glomerular Filt Rate 30.9 mL/min (>60); Glucose 86 mg/dL (80-110); HEMOLYSIS < 15 (0-50); Phosphorous 4.3 mg/dL (2.8-4.1); Potassium 4.5 mmol/L (3.4-5.1); Sodium 138 mmol/L (137-145)
[2019-04-09 14:19] LABS: Appearance Urine UA CLEAR; Bilirubin Urine UA NEGATIVE (NEGATIVE); Color Urine UA YELLOW; Glucose Urine UA NEGATIVE (Negative); Ketones Urine UA NEGATIVE (NEGATIVE); Leukocyte Esterase Urine UA NEGATIVE (NEGATIVE); Nitrite Urine UA NEGATIVE (Negative); Occult Blood Urine UA NEGATIVE (Negative); Protein Urine UA NEGATIVE (Negative); Urobilinogen Urine UA 0.2 E.U./dL (0.2)
[2019-04-09 14:27] LABS: pH Urine UA 5.5 (4.5-8.0)
[2019-04-09 14:36] LABS: Amorphous Sediment Urine 1+; Culture Indicated Urine Cult Not Indicated; Squamous Epithelial Cell Urine 1-5 /HPF (0-5/HPF); WBC Urine 0-1/HPF (0-5/HPF)
[2019-04-09 14:45] LABS: Iron 53 ug/dL (37-170)
[2019-04-09 14:53] LABS: Ferritin 13.5 ng/mL (11.1-264)
[2019-04-09 15:04] LABS: Vitamin D 25 Hydroxy (D3) 34.5 ng/mL (30.0-100.0)
[2019-04-09 17:15] LABS: HEMOLYSIS < 15 (0-50); Percent Iron Saturation 13 % (15-50); Total Iron Binding Capacity 403 ug/dL (265-497); Transferrin 335 mg/dL (206-381)
[2019-04-13 14:11] LABS: Parathyroid Hormone Int 55 pg/mL (14-64)
== END ==
PROVIDERS: Family Provider Student in an Organized Health Care Education/Training Program; PCP Student in an Organized Health Care Education/Training Program; Visit Provider Internal Medicine Nephrology
DX: N18.4 Chronic kidney disease, stage 4 (severe) (principal)
CPT/HCPCS: 36415; 80069; 81001; 82306; 82728; 83540; 83550; 83970; 85025

== ENCOUNTER → 2019-04-15 13:42 | Outpatient (CLI) | payer MEDICARE, OTHER, SELFPAY ==
[2018-12-04 20:58] VITALS: BMI 25.6
--- NOTE | 2019-04-15 13:44 | DI.NM.S_ITS ---
PROCEDURE: PA JACKIE PERF SPECT R&S PHARM Rest and pharmacological stress myocardial perfusion SPECT with gated imaging and ejection fraction RADIOPHARMACEUTICAL: 25.8 mCi Tc-99m tetrafosmin IV at rest and 25.5 mCi Tc-99m tetrafosmin IV at peak effect of pharmacological stress. Bve-cyj-[id number] was performed. INDICATIONS: Chest pain TECHNIQUE: Radiopharmaceutical was injected at peak stress test, and also at rest. SPECT images were obtained. SPECT myocardial perfusion images were displayed in short axis, horizontal long axis, and vertical long axis views. Gated images were reviewed using [employer] software. COMPARISON: [place], [place], LEXISCAN MYOCARDIAL PERFUSION, 12/03/2014, 11:08. [place], MYOCARDIAL PERFUSION, 06/14/2013, 9:48. CARDIAC STRESS: A pharmacologic stress test was performed under the supervision of an attending staff, using an infusion of Lexiscan. Hemodynamic data: There is normal blood pressure and heart rate response to pharmacologic stress. Symptoms: The patient denied anginal chest pain. Aminophylline: not used. EKG: No diagnostic changes of ischemia; no ectopy. FINDINGS: Raw data: There is good myocardial uptake of radiotracer. No significant motion artifacts. Ddmi-og-jzvdl ratio is 0.29 (normal is less than 0.38 for tetrafosmin tracer). Left ventricle function: Gated images demonstrate normal left ventricular wall thickening. No segmental wall motion abnormalities. No transient ischemic dilation; TID is 0.66 (normal less than 1.3). Left ventricle resting end diastolic volume is 96 mL. Left ventricle stress ejection fraction is 76% ; normal range is above 45%. Myocardial perfusion: There is a small, mild, inferoapical perfusion defect on rest images which resolves on stress imaging, consistent with artifact. Otherwise normal distribution of activity in the left ventricular myocardium. No other fixed or reversible perfusion defects. Prone images could not be performed due to injury from recent fall. IMPRESSION: Normal pharmacological myocardial perfusion study without evidence of ischemia or scar. The previously described small inferior wall artifact is s seen as above. Previous report describes a questionable mid anterior wall defect too which was deemed to be artefactual. This is not appreciated on this study. Dictated by: Pedro Irene M.D. on 04/16/2019 at 20:26 Approved by: Pedro Irene M.D. on 04/16/2019 at 20:33
--- NOTE | 2019-04-15 14:53 | PM.TREADMILL ---
Cardiac Stress Test Report Referral & Results Date Patient Seen: 04/15/19 Requesting provider: Scooter Salgado Indication: Chest discomfort Rest ECG: Unremarkable Procedure Note: After both written and verbal informed consent the patient had an IV started by the diagnostic imaging RN and then was hooked up to the treadmill monitoring system. The patient was placed on the treadmill at 1 mile an hour with no elevation and was then injected with the Kiana scan material. The Cardiolite was then immediately administered. The patient spent an additional 2-3 minutes on the treadmill before being returned to the [facility] in the supine position. The patient had a normal response to all infused materials. Impression: Please see perfusion imaging report for details regarding possible ischemia Please note: Actual ECG tracings can be found in the PACS system.
== END ==
PROVIDERS: Family Provider Student in an Organized Health Care Education/Training Program; PCP Student in an Organized Health Care Education/Training Program; Visit Provider Student in an Organized Health Care Education/Training Program
DX: I25.119 Atherosclerotic heart disease of native coronary artery with unspecified angina pectoris (principal)
CPT/HCPCS: 78452; 93016; 93017; 93018; A9502; J2785

== ENCOUNTER → 2019-05-21 11:01 | Outpatient (CLI) | payer MEDICARE, OTHER, SELFPAY ==
[2019-05-20 12:02] VITALS: BMI 25.6
[2019-05-21 11:14] LABS: RBC Urine None Seen (0-5/HPF)
[2019-05-21 11:52] LABS: Add Manual Diff / Slide Review NO; Basophils Absolute Auto 0 /uL (0-100); Basophils Percent Auto 0.8 % (0-2); Eosinophils Absolute Auto 100 /uL (0-450); Eosinophils Percent Auto 1.8 % (2-4); Hematocrit 37.4 % (36-46); Hemoglobin 12.6 g/dL (12.0-16.0); Lymphocytes Absolute Auto 1200 /uL (1100-4500); Lymphocytes Percent Auto 20.7 % (25-40); Mean Corpuscular HGB Conc 33.6 % (30-36); Mean Corpuscular Hemoglobin 28.9 PG (26-34); Monocytes Absolute Auto 500 /uL (0-900); Monocytes Percent Auto 8.5 % (3-14); Neutrophils Absolute Auto 3800 /uL (1500-7000); Neutrophils Percent Auto 68.2 % (50-75); Platelet Count 239 X10^3/uL (150-400); Red Blood Cell Count 4.35 X10^6/uL (4.0-5.2); Red Cell Distribution Width 16.2 % (11.6-14.8); White Blood Cell Count 5.6 X10^3/uL (4.5-11.0)
[2019-05-21 12:04] LABS: HEMOLYSIS < 15 (0-50); Iron 52 ug/dL (37-170)
[2019-05-21 12:05] LABS: Albumin 3.9 g/dL (3.5-5.0); BUN Creatinine Ratio 20.6 (6-22); Blood Urea Nitrogen 33 mg/dL (7-17); Calcium 9.2 mg/dL (8.4-10.2); Carbon Dioxide 28 mmol/L (22-32); Chloride 103 mmol/L (98-107); Estimated Glomerular Filt Rate 30.9 mL/min (>60); Glucose 101 mg/dL (80-110); HEMOLYSIS < 15 (0-50); Phosphorous 4.1 mg/dL (2.8-4.1); Potassium 4.4 mmol/L (3.4-5.1); Sodium 138 mmol/L (137-145)
[2019-05-21 12:15] LABS: Percent Iron Saturation 13 % (15-50); Total Iron Binding Capacity 395 ug/dL (265-497); Transferrin 331 mg/dL (206-381)
[2019-05-21 12:23] LABS: Vitamin D 25 Hydroxy (D3) 36.6 ng/mL (30.0-100.0)
[2019-05-21 12:43] LABS: Ferritin 24.6 ng/mL (11.1-264)
[2019-05-21 13:43] LABS: Appearance Urine UA CLOUDY; Bilirubin Urine UA NEGATIVE (NEGATIVE); Color Urine UA YELLOW; Glucose Urine UA NEGATIVE (Negative); Ketones Urine UA NEGATIVE (NEGATIVE); Leukocyte Esterase Urine UA TRACE (NEGATIVE); Nitrite Urine UA NEGATIVE (Negative); Occult Blood Urine UA NEGATIVE (Negative); Protein Urine UA NEGATIVE (Negative)
[2019-05-21 14:04] LABS: Bacteria Urine Few (2-10); Culture Indicated Urine Specimen Cultured; Squamous Epithelial Cell Urine 1-5 /HPF (0-5/HPF); WBC Urine 0-1/HPF (0-5/HPF)
[2019-05-23 17:06] LABS: Parathyroid Hormone Int 73 pg/mL (14-64)
== END ==
PROVIDERS: Family Provider Student in an Organized Health Care Education/Training Program; PCP Student in an Organized Health Care Education/Training Program; Visit Provider Internal Medicine Nephrology
DX: N18.4 Chronic kidney disease, stage 4 (severe) (principal)
CPT/HCPCS: 36415; 80069; 81001; 82306; 82728; 83540; 83550; 83970; 85025; 87077; 87086; 87186

== ENCOUNTER → 2019-05-31 12:33 | Outpatient (CLI) | payer MEDICARE, OTHER, SELFPAY ==
[2019-05-20 12:02] VITALS: BMI 25.6
--- NOTE | 2019-05-31 12:35 | DI.CT.S_ITS ---
PROCEDURE: CT LUMBAR SPINE WO CON INDICATIONS: Right sided leg parasthesia and muscle wasting TECHNIQUE: Noncontrast 3 mm thick sections acquired from the T12 level to the sacrum. Sagittal and coronal reformats were constructed. For radiation dose reduction, the following was used: automated exposure control. COMPARISON: [facility], CT, CT KIDNEY URETER BLADDER (KUB), 01/10/2019, 14:21. FINDINGS: Image quality: Excellent. Bones: No acute vertebral body compression fractures. No suspicious lytic or blastic bony lesions. Central spinal caliber is of normal overall caliber. No pars defects. Mild to moderate dextroconvex scoliotic curvature is seen. There is minimal retrolisthesis seen at the L2-L3 level and at the L3-L4 level. Mild grade 1 anterolisthesis is seen at L5-S1. T12-L1: No significant abnormality is seen. L1-L2: Level within normal limits. L2-L3: Moderate loss of disc height is seen. Loss of disc signal is seen. Endplate irregularity and sclerosis can be seen. Vacuum disc phenomenon is seen at this level. Moderate disc bulge is seen, which is eccentric to the left. There is moderate to severe left-sided and at least moderate right-sided neural foraminal narrowing seen. Moderate central canal narrowing is seen. L3-L4: The disc height is relatively well-preserved. Moderate generalized disc bulge is seen. Mild facet joint hypertrophy is seen. Moderate facet joint hypertrophy is seen. There is associated moderate hypertrophy of the ligamentum flavum. There is moderate to severe bilateral neural foraminal narrowing seen. At least moderate central canal narrowing can be seen, as on series 3 image 48. L4-L5: Postoperative changes are seen at this level, bilateral pedicle screws. The screws appear well placed. Vertical fixation rods are seen. No findings of hardware failure or hardware loosening are seen. There is a disc spacer seen. There has been removal of portions of the posterior elements. Bone grafting material is noted. There is mild to moderate right-sided and no left-sided neural foraminal narrowing seen. The central canal is widely patent. L5-S1: Moderate loss of disc height is seen on the right side. Vacuum disc phenomenon is seen at this level. Endplate irregularity and sclerosis can be seen. There is moderate to severe bilateral neural foraminal narrowing seen. There is a degree of compression seen upon the exiting nerve roots. Moderate central canal narrowing is seen. Soft tissues: No retroperitoneal masses or hematomas. Visualized aorta is normal in caliber. Atherosclerotic calcification is noted. Likely atelectasis is seen at the lung bases. A small hiatal hernia is incidentally noted. Cholecystectomy clips are seen. IMPRESSION: Unremarkable L4-L5 degenerative change. Multiple levels of lumbar spine degenerative change are seen, including moderate to severe bilateral neural foraminal narrowing at L3-L4 and at L4-L5, with associated exiting nerve root compression. Incidental note is made of: Likely atelectasis at the lung bases Cholecystectomy Small hiatal hernia Dictated by: Santi Lerma M.D. on 05/31/2019 at 15:15 Approved by: Santi Lerma M.D. on 05/31/2019 at 15:23
== END ==
PROVIDERS: Family Provider Student in an Organized Health Care Education/Training Program; PCP Student in an Organized Health Care Education/Training Program; Visit Provider Student in an Organized Health Care Education/Training Program
DX: M62.561 Muscle wasting and atrophy, not elsewhere classified, right lower leg (principal); R20.2 Paresthesia of skin; M47.816 Spondylosis without myelopathy or radiculopathy, lumbar region; M48.061 Spinal stenosis, lumbar region without neurogenic claudication; K44.9 Diaphragmatic hernia without obstruction or gangrene; Z90.49 Acquired absence of other specified parts of digestive tract
CPT/HCPCS: 72131

== ENCOUNTER → 2019-06-10 14:01 | Outpatient (CLI) | payer MEDICARE, OTHER, SELFPAY ==
[2019-05-20 12:02] VITALS: BMI 25.6
[2019-06-10 16:18] LABS: Add Manual Diff / Slide Review NO; Basophils Absolute Auto 0 /uL (0-100); Basophils Percent Auto 0.7 % (0-2); Eosinophils Absolute Auto 100 /uL (0-450); Eosinophils Percent Auto 0.9 % (2-4); Hematocrit 39.6 % (36-46); Hemoglobin 13.1 g/dL (12.0-16.0); Lymphocytes Absolute Auto 1200 /uL (1100-4500); Lymphocytes Percent Auto 18.5 % (25-40); Mean Corpuscular Hemoglobin 29.4 PG (26-34); Mean Corpuscular Volume 89.1 fL (80-100); Monocytes Absolute Auto 400 /uL (0-900); Monocytes Percent Auto 6.5 % (3-14); Neutrophils Absolute Auto 4700 /uL (1500-7000); Neutrophils Percent Auto 73.4 % (50-75); Platelet Count 240 X10^3/uL (150-400); Red Blood Cell Count 4.44 X10^6/uL (4.0-5.2); Red Cell Distribution Width 16.2 % (11.6-14.8); White Blood Cell Count 6.4 X10^3/uL (4.5-11.0)
[2019-06-10 16:23] LABS: Appearance Urine UA CLOUDY; Bilirubin Urine UA NEGATIVE (NEGATIVE); Color Urine UA YELLOW; Glucose Urine UA NEGATIVE (Negative); Ketones Urine UA TRACE (NEGATIVE); Leukocyte Esterase Urine UA 2+ (NEGATIVE); Nitrite Urine UA POSITIVE (Negative); Occult Blood Urine UA NEGATIVE (Negative); Protein Urine UA TRACE (Negative); Urobilinogen Urine UA 0.2 E.U./dL (0.2)
[2019-06-10 16:31] LABS: RBC Urine 0-1/HPF (0-5/HPF); Squamous Epithelial Cell Urine 1-5 /HPF (0-5/HPF); WBC Urine 30-100/HPF (0-5/HPF)
[2019-06-10 16:32] LABS: Bacteria Urine Many (>30); Culture Indicated Urine Specimen Cultured; Transitional Epi Cells Urine 1-5/HPF (0-5/HPF)
[2019-06-10 16:59] LABS: BUN Creatinine Ratio 17.5 (6-22); Blood Urea Nitrogen 35 mg/dL (7-17); Calcium 9.3 mg/dL (8.4-10.2); Carbon Dioxide 27 mmol/L (22-32); Chloride 101 mmol/L (98-107); Estimated Glomerular Filt Rate 23.9 mL/min (>60); Glucose 101 mg/dL (80-110); HEMOLYSIS < 15 (0-50); Phosphorous 3.9 mg/dL (2.8-4.1); Sodium 138 mmol/L (137-145)
[2019-06-10 17:00] LABS: Potassium 5.5 mmol/L (3.4-5.1)
== END ==
PROVIDERS: Family Provider Student in an Organized Health Care Education/Training Program; PCP Student in an Organized Health Care Education/Training Program; Visit Provider Internal Medicine Nephrology
DX: R30.0 Dysuria (principal); N18.4 Chronic kidney disease, stage 4 (severe)
CPT/HCPCS: 36415; 80069; 81001; 85025; 87077; 87086; 87186

== ENCOUNTER → 2019-06-19 15:07 | Outpatient (CLI) | payer MEDICARE, OTHER, SELFPAY ==
[2019-05-20 12:02] VITALS: BMI 25.6
[2019-06-19 16:17] LABS: BUN Creatinine Ratio 18.2 (6-22); Blood Urea Nitrogen 31 mg/dL (7-17); Calcium 9.4 mg/dL (8.4-10.2); Carbon Dioxide 26 mmol/L (22-32); Chloride 100 mmol/L (98-107); Estimated Glomerular Filt Rate 28.8 mL/min (>60); Glucose 107 mg/dL (80-110); HEMOLYSIS < 15 (0-50); Potassium 4.2 mmol/L (3.4-5.1); Sodium 136 mmol/L (137-145)
== END ==
PROVIDERS: Family Provider Student in an Organized Health Care Education/Training Program; PCP Student in an Organized Health Care Education/Training Program; Referring Provider Internal Medicine Nephrology; Visit Provider Internal Medicine Nephrology
DX: N17.9 Acute kidney failure, unspecified (principal)
CPT/HCPCS: 36415; 80048

== ENCOUNTER → 2019-07-10 14:39 | Outpatient (CLI) | payer MEDICARE, OTHER, SELFPAY ==
[2019-05-20 12:02] VITALS: BMI 25.6
[2019-07-10 15:53] LABS: BUN Creatinine Ratio 21.1 (6-22); Blood Urea Nitrogen 38 mg/dL (7-17); Calcium 9.2 mg/dL (8.4-10.2); Carbon Dioxide 26 mmol/L (22-32); Chloride 105 mmol/L (98-107); Glucose 98 mg/dL (80-110); HEMOLYSIS < 15 (0-50); Potassium 4.8 mmol/L (3.4-5.1); Sodium 139 mmol/L (137-145)
== END ==
PROVIDERS: Family Provider Student in an Organized Health Care Education/Training Program; PCP Student in an Organized Health Care Education/Training Program; Referring Provider Internal Medicine Nephrology; Visit Provider Internal Medicine Nephrology
DX: N17.9 Acute kidney failure, unspecified (principal)
CPT/HCPCS: 36415; 80048

== ENCOUNTER → 2019-07-18 13:08 | Outpatient (CLI) | payer MEDICARE, OTHER, SELFPAY ==
[2019-05-20 12:02] VITALS: BMI 25.6
[2019-07-18 15:43] LABS: Alanine Aminotransferase 19 IU/L (<35); Albumin Globulin Ratio 1.1 (1.0-2.8); Alkaline Phosphatase 88 U/L (38-126); Aspartate Aminotransferase 32 IU/L (14-36); Bilirubin Total 0.5 mg/dL (0.2-1.3); Blood Urea Nitrogen 34 mg/dL (7-17); Calcium 9.3 mg/dL (8.4-10.2); Carbon Dioxide 27 mmol/L (22-32); Chloride 106 mmol/L (98-107); Estimated Glomerular Filt Rate 28.8 mL/min (>60); Globulin 3.5 g/dL (1.7-4.1); Glucose 113 mg/dL (80-110); HEMOLYSIS < 15 (0-50); Magnesium 2.1 mg/dL (1.6-2.3); Potassium 4.2 mmol/L (3.4-5.1); Sodium 141 mmol/L (137-145); Total Protein 7.5 g/dL (6.3-8.2)
[2019-07-22 09:39] LABS: Lipoprofile NMR SEE SEPARATE REPORTS
== END ==
PROVIDERS: Family Provider Student in an Organized Health Care Education/Training Program; PCP Student in an Organized Health Care Education/Training Program; Referring Provider Specialist; Visit Provider Specialist
DX: I48.0 Paroxysmal atrial fibrillation (principal); E78.2 Mixed hyperlipidemia
CPT/HCPCS: 36415; 80053; 83704; 83735

== ENCOUNTER → 2019-07-30 10:57 | Outpatient (CLI) | payer MEDICARE, OTHER, SELFPAY ==
[2019-05-20 12:02] VITALS: BMI 25.6
--- NOTE | 2019-07-30 10:58 | DI.RAD.S_ITS ---
PROCEDURE: XR HIP W PEL IF DONE RT 2V INDICATIONS: Right hip pain TECHNIQUE: AP pelvis with lateral view(s) of the right hip. COMPARISON: [facility], , HIP 2V RIGHT, 09/29/2013, 11:21. FINDINGS: Bones: No fractures or dislocations. Pelvic ring appears intact. No suspicious bony lesions. Soft tissues: The visualized bowel gas pattern is normal. No suspicious soft tissue calcifications. IMPRESSION: No trauma found. Dictated by: Heri Zhou M.D. on 07/30/2019 at 13:21 Approved by: Heri Zhou M.D. on 07/30/2019 at 13:21
== END ==
PROVIDERS: Family Provider Student in an Organized Health Care Education/Training Program; PCP Student in an Organized Health Care Education/Training Program; Referring Provider Student in an Organized Health Care Education/Training Program; Visit Provider Student in an Organized Health Care Education/Training Program
DX: M25.551 Pain in right hip (principal)
CPT/HCPCS: 73502

== ENCOUNTER → 2019-09-11 14:08 | Outpatient (CLI) | payer MEDICARE, OTHER, SELFPAY ==
[2019-05-20 12:02] VITALS: BMI 25.6
[2019-09-11 14:16] LABS: Bacteria Urine None Seen; RBC Urine None Seen (0-5/HPF)
[2019-09-11 15:14] LABS: Add Manual Diff / Slide Review NO; Basophils Absolute Auto 0 /uL (0-100); Basophils Percent Auto 0.6 % (0-2); Eosinophils Absolute Auto 100 /uL (0-450); Eosinophils Percent Auto 1.4 % (2-4); Hematocrit 40.7 % (36-46); Hemoglobin 13.4 g/dL (12.0-16.0); Lymphocytes Absolute Auto 1600 /uL (1100-4500); Lymphocytes Percent Auto 25.8 % (25-40); Mean Corpuscular HGB Conc 32.9 % (30-36); Mean Corpuscular Hemoglobin 29.7 PG (26-34); Mean Corpuscular Volume 90.4 fL (80-100); Monocytes Absolute Auto 600 /uL (0-900); Monocytes Percent Auto 8.9 % (3-14); Neutrophils Absolute Auto 4000 /uL (1500-7000); Neutrophils Percent Auto 63.3 % (50-75); Platelet Count 253 X10^3/uL (150-400); Red Blood Cell Count 4.51 X10^6/uL (4.0-5.2); Red Cell Distribution Width 15.3 % (11.6-14.8); White Blood Cell Count 6.4 X10^3/uL (4.5-11.0)
[2019-09-11 15:33] LABS: BUN Creatinine Ratio 26.1 (6-22); Blood Urea Nitrogen 43 mg/dL (7-17); Calcium 9.6 mg/dL (8.4-10.2); Carbon Dioxide 25 mmol/L (22-32); Chloride 105 mmol/L (98-107); Estimated Glomerular Filt Rate 29.8 mL/min (>60); Glucose 93 mg/dL (80-110); HEMOLYSIS < 15 (0-50); Phosphorous 4.4 mg/dL (2.8-4.1); Potassium 4.7 mmol/L (3.4-5.1); Sodium 139 mmol/L (137-145)
[2019-09-11 15:57] LABS: Appearance Urine UA CLEAR; Bilirubin Urine UA NEGATIVE (NEGATIVE); Color Urine UA YELLOW; Glucose Urine UA NEGATIVE (Negative); Ketones Urine UA NEGATIVE (NEGATIVE); Leukocyte Esterase Urine UA NEGATIVE (NEGATIVE); Nitrite Urine UA NEGATIVE (Negative); Occult Blood Urine UA NEGATIVE (Negative); Protein Urine UA TRACE (Negative); Specific Gravity Urine UA 1.025 (1.000-1.035); Urobilinogen Urine UA 0.2 E.U./dL (0.2)
[2019-09-11 16:04] LABS: Thyroid Stimulating Hormone 1.83 uIU/mL (0.47-4.68)
[2019-09-11 16:27] LABS: Culture Indicated Urine Cult Not Indicated; Hyaline Casts Urine 1-5/LPF; Squamous Epithelial Cell Urine 1-5 /HPF (0-5/HPF); WBC Urine 0-1/HPF (0-5/HPF)
[2019-09-12 07:45] LABS: Parathyroid Hormone Int 76 pg/mL (15-65)
== END ==
PROVIDERS: Family Provider Student in an Organized Health Care Education/Training Program; PCP Student in an Organized Health Care Education/Training Program; Referring Provider Internal Medicine Nephrology; Visit Provider Internal Medicine Nephrology
DX: Z51.81 Encounter for therapeutic drug level monitoring (principal); Z79.899 Other long term (current) drug therapy; R30.0 Dysuria; N18.4 Chronic kidney disease, stage 4 (severe)
CPT/HCPCS: 36415; 80069; 81001; 83970; 84443; 85025

== ENCOUNTER → 2019-10-08 12:22 | Outpatient (CLI) | payer MEDICARE, OTHER, SELFPAY ==
[2019-05-20 12:02] VITALS: BMI 25.6
[2019-10-08 14:53] LABS: HEMOLYSIS < 15 (0-50); Potassium 4.7 mmol/L (3.4-5.1)
[2019-10-08 14:54] LABS: BUN Creatinine Ratio 21.7 (6-22); Blood Urea Nitrogen 36 mg/dL (7-17); Calcium 9.1 mg/dL (8.4-10.2); Carbon Dioxide 25 mmol/L (22-32); Chloride 107 mmol/L (98-107); Estimated Glomerular Filt Rate 29.6 mL/min (>60); Glucose 98 mg/dL (80-110); Sodium 138 mmol/L (137-145)
== END ==
PROVIDERS: Family Provider Student in an Organized Health Care Education/Training Program; PCP Student in an Organized Health Care Education/Training Program; Referring Provider Internal Medicine Nephrology; Visit Provider Internal Medicine Nephrology
DX: N18.4 Chronic kidney disease, stage 4 (severe) (principal)
CPT/HCPCS: 36415; 80048

== ENCOUNTER 2019-10-20 16:59 | Emergency (ER) | payer MEDICARE, OTHER, SELFPAY ==
[2019-05-20 12:02] VITALS: BMI 25.6
[2019-10-20 17:10] VITALS: BP 169/85; PULSE 83; RESP 16; TEMP 36.6; O2SAT 97; BMI 25.6
--- NOTE | 2019-10-20 17:42 | PC.NURSE ---
patient complains of headache but does not have any notable ding on her scalp around the injury site.
--- NOTE | 2019-10-20 18:15 | ED.WOUNDLAC ---
HPI - Wound/Laceration General Chief Complaint: Wound/Laceration Stated Complaint: wound over bridge of nose Time Seen by Provider: 10/20/19 18:15 Source: patient and family Mode of arrival: Ambulatory Limitations: no limitations History of Present Illness HPI narrative: 84F nonsmoker with history of heart block, anxiety and hypertension presents with a family friend in the chief complaint of head injury just prior to her arrival. She was on a deck when a osiris of wind blew an umbrella over which struck her on the bridge of her nose. She thinks it may have also hit her on the forehead and she has increasing headache on the left side of her head. She has been at her normal baseline in terms of mental status per her family friend. She had no loss of consciousness, nausea, vomiting or confusion. She does have an abrasion on the bridge of her nose which bled a bit but denies any actual epistaxis. She does not take any blood thinners. She denies any other injury Related Data Home Medications Medication Instructions Recorded Confirmed acetaminophen [Tylenol Extra 500 mg PO PRN PRN #0 04/19/16 07/30/19 Strength] cholecalciferol (vitamin D3) 5,000 unit PO DAILY 12/04/18 07/30/19 [Vitamin D3] ferrous sulfate 325 mg (65 mg 325 mg PO Q OTHER DAY tab 12/11/18 07/30/19 iron) tablet,delayed release trospium 20 mg tablet 20 mg PO BID 04/10/19 07/30/19 amiodarone 200 mg tablet 100 mg PO DAILY #0 tab 07/30/19 07/30/19 lisinopril 5 mg tablet 5 mg PO DAILY tab 07/30/19 07/30/19 oxybutynin chloride 10 mg 10 mg PO DAILY 07/30/19 07/30/19 tablet,extended release 24 hr Previous Rx's Medication Instructions Recorded meclizine 12.5 mg tablet 12.5 mg PO TID PRN #30 tab 03/05/19 sertraline 100 mg tablet 100 mg PO DAILY #90 tab 05/21/19 gabapentin 100 mg capsule 100 mg PO TID #90 cap 07/30/19 Allergies Allergy/AdvReac Type Severity Reaction Status Date / Time latex Allergy Severe THROAT Verified 10/20/19 17:40 SWELLING prednisone [PREDNISONE] Allergy Intermediate rash Verified 10/20/19 17:40 amoxicillin Allergy Mild ITCH Verified 10/20/19 17:40 cephalexin Allergy Mild ITCHY ALL Verified 10/20/19 17:40 OVER HER BODY ciprofloxacin Allergy Mild ITCH Verified 10/20/19 17:40 clavulanic acid Allergy Mild RASH Verified 10/20/19 17:40 hydromorphone Allergy Mild ITCHING Verified 10/20/19 17:40 nitrofurantoin Allergy Mild ABD Verified 10/20/19 17:40 PAIN/SEVERE ITCHING oxycodone Allergy Mild ITCH Verified 10/20/19 17:40 Penicillins Allergy Mild BLISTERS Verified 10/20/19 17:40 Sulfa (Sulfonamide Allergy Mild ITCH Verified 10/20/19 17:40 Antibiotics) levofloxacin [From LEVAQUIN] AdvReac Severe DISTURBING Verified 10/20/19 17:40 HALLUCINATIONS lorazepam [From ATIVAN] AdvReac Intermediate Verified 10/20/19 17:40 morphine AdvReac Mild HALLUCINATI Verified 10/20/19 17:40 ONS Review of Systems Constitutional Constitutional: Denies chills, Denies fatigue, Denies fever(s), Denies frequent falls, Reports headache(s), Denies lethargy and Denies weakness Eyes Eyes: Denies change in vision, Denies eye discharge, Denies irritation and Denies loss of vision ENT Ears, Nose, Mouth, and Throat: Denies change in voice, Denies dizziness, Reports headache(s), Reports nasal trauma, Denies neck pain, Denies sore throat and Denies throat swelling Cardiovascular Cardiovascular: Denies chest pain, Denies irregular heart rhythm, Denies lightheadedness, Denies palpitations, Denies dyspnea, Denies dyspnea on exertion and Denies orthopnea Respiratory Respiratory: Denies cough, Denies dyspnea, Denies dyspnea on exertion and Denies wheezing Gastrointestinal Gastrointestinal: Denies abdominal pain, Denies change in bowel habits, Denies diarrhea, Denies nausea and Denies vomiting Musculoskeletal Musculoskeletal: Denies neck pain and Denies numbness Integumentary/Breasts Skin/Breast: Denies pruritus, Denies erythema, Denies rash and Denies wounds Neurologic Neurologic: Denies behavioral changes, Denies confusion, Denies dizziness, Denies frequent falls, Reports headache(s), Denies loss of vision, Denies numbness and Denies weakness Psychiatric Psychiatric: Denies anxiety, Denies behavioral changes, Denies confusion, Denies depression, Denies homicidal ideation and Denies suicidal ideation Endocrine Endocrine: Denies fatigue, Denies flushing and Denies palpitations Hematologic/Lymphatic Hematologic/Lymphatic: Denies easy bruising Allergic/Immunologic Allergic/Immunologic: Denies urticaria, Denies throat swelling and Denies wheezing Patient History Medical History Anxiety (Chronic 12/08/15) Atypical chest pain (Chronic) C. difficile colitis (Resolved 07/2015) C. 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) Mumps (Resolved ~1939) Osteoporosis, unspecified (Chronic 03/22/11) Paraesophageal hernia (Resolved) Paroxysmal atrial fibrillation (Chronic ~2013) RLS (restless legs syndrome) (Chronic) Second degree AV block, Mobitz type I (Chronic) Shoulder pain (Chronic) Sinusitis (Acute) Skin cancer (Resolved 2009) Sleep apnea (Chronic 2012) 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) Surgical History Anesthesia (Resolved) History of bladder surgery (Resolved ~1967) History of cholecystectomy (Resolved) History of nephrectomy (Resolved) History of spinal fusion (Resolved 2005) S/P repair of paraesophageal hernia (Resolved) Status post hysterectomy with oophorectomy (Resolved) Family History Brother CAD (coronary artery disease) Hyperlipidemia High cholesterol Lung cancer Colon cancer Brother Cancer High cholesterol Lung disease Father Colon cancer CAD (coronary artery disease) High cholesterol Mother CVA (cerebral vascular accident) Hyperlipidemia Sister Age: 84 CAD (coronary artery disease) Hyperlipidemia Ulcer Essential hypertension High cholesterol Heart attack Grandfather Throat cancer Grandmother Heart disease Family/Other Lung disease Social History household members: none Smoking Status: Never smoker Smoking Status: Never smoker alcohol intake frequency: holidays/special occasions only Substance Use Type: does not use Exam Narrative Exam Narrative: GENERAL 84 year old patient appears stated age. Well-nourished, well-developed patient, in mild distress. GCS 15 HEAD: Atraumatic. Normocephalic. EYES: Pupils equal round and reactive. Extraocular motions intact. No scleral icterus. No injection or drainage. ENT: Superficial abrasion on bridge of the nose, no nasal septal hematoma Nose without bleeding, purulent drainage. Throat without erythema, tonsillar hypertrophy or exudate. Airway patent. NECK: Trachea midline. Non tender CARDIOVASCULAR: Regular rate and rhythm without murmurs, gallops, or rubs. RESPIRATORY: Clear to auscultation. Breath sounds equal bilaterally. No wheezes, rales, or rhonchi. GASTROINTESTINAL: Abdomen soft, non-tender, nondistended. EXTREMITIES: No edema or joint tenderness. BACK: Nontender without deformity or crepitance. No flank tenderness. NEURO: AOx3. SKIN: No rash or erythema of visible areas Initial Vital Signs Initial Vital Signs: Vital Signs Temperature 98 F 10/20/19 17:10 Pulse Rate 83 10/20/19 17:10 Respiratory Rate 16 10/20/19 17:10 Blood Pressure 169/85 H 10/20/19 17:10 Pulse Oximetry 97 10/20/19 17:10 Course Orders Ordered: Discontinued Medications Acetaminophen (Tylenol) 650 mg PO NOW ONE Stop: 10/20/19 18:23 Last Admin: 10/20/19 18:28 Dose: 650 mg Documented by: ALESSIO Vital Signs Vital signs: Vital Signs - 8 hr 10/20/19 17:10 Temperature 98 F Pulse Rate 83 Respiratory Rate 16 Blood Pressure 169/85 H Pulse Oximetry 97 MDM - Wound/Laceration Imaging Data CT scan - head: Radiologist's Impression: Chart Viewer Diagnostics DATE TYPE STATUS REF RANGE/AUTHOR Hx 10/20/19 18:16 Deion Ibanez 07/30/19 10:58 Heri Zhou 05/31/19 12:35 Santi Lerma 04/15/19 13:44 Pedro Irene 03/28/19 14:46 David Wilsonence 03/11/19 00:00 YordyAbigail 02/14/19 12:56 Lorenzo Paul 01/10/19 00:00 Call,Deion 12/18/18 10:44 LazaroCain 12/05/18 14:10 CherylNatalyJeffery 12/04/18 19:46 12/04/18 18:03 Call,Deion 12/04/18 16:16 JaclynIdaniachristianelynne 12/03/18 15:52 Clay Crenshaw 09/20/18 12:06 Lorenzo Paul 08/27/18 08:36 Katie,Rochelle 08/27/18 08:36 Brian Hernandez 08/27/18 07:49 07/03/18 17:07 Lorenzo Paul 06/19/18 12:17 Flower,Clay 05/25/18 15:47 Florentin,Santi 05/25/18 15:47 [place],Santi 05/24/18 05:44 05/22/18 00:00 Juan Villarreal 03/10/18 00:00 Surya Carpenter 03/01/18 10:42 Rochelle Wilson 02/07/18 08:14 Sheri De Leon 01/13/18 13:26 01/13/18 09:57 01/13/18 09:49 Kathryn Coronado Doris E 84, F0 1935 [facility] ER, [facility] 157.48cm 63.503kg BMI: 25.6kg/m? Wound/Laceration Search Chart No Data to Display THROAT SWELLING rash ITCH ITCHY ALL OVER HER BODY ITCH RASH ITCHING ABD PAIN/SEVERE ITCHING ITCH BLISTERS ITCH DISTURBING HALLUCINATIONS HALLUCINATIONS ONSET ~201312/08/15 12/08/15 08/31/16 03/22/11 03/22/11 10/20/19 19:05 Valery Yeh 84 F [address] [address] [address] Scan Report Signed Patient: Valery Yeh EMR#: [id number] : [id number]:[id number] Age/Sex: 84 / FDate of Service: 10/20/19 Loc: ED Accession Number: [id number] Procedure: CT head/brain wo con Ordering Provider: Dave Marie D.O. PROCEDURE: CT HEAD/BRAIN WO CON INDICATIONS: head injury TECHNIQUE: Noncontrast 4.5 mm thick angled axial sections acquired from the foramen magnum to the vertex, with coronal and sagittal reformats. For radiation dose reduction, the following was used: automated exposure control, adjustment of mA and/or kV according to patient size. COMPARISON: [facility], CT, CT HEAD/BRAIN WO CON, 08/27/2018, 8:49. FINDINGS: Image quality: Excellent. CSF spaces: Basal cisterns are patent. No extra-axial fluid collections. Ventricles are normal in size and shape. Brain: No midline shift. No intracranial masses or hemorrhage. Estrada-white matter interface is normal. Skull and face: Calvarium and visualized facial bones are intact, without suspicious lesions. Sinuses: Visualized sinuses and mastoids are clear. IMPRESSION: No acute intracranial abnormality. Dictated by: Deion Ibanez M.D. on 10/20/2019 at 18:36 Approved by: Deion Ibanez M.D. on 10/20/2019 at 18:38 Discharge Plan Departure Patient Disposition: Home Clinical Impression: Contusion of nose Qualifiers: Encounter type: initial encounter Qualified Code(s): S00.33XA - Contusion of nose, initial encounter Discharge Date/Time: 10/20/19 19:09 Instructions: DI for Minor Laceration Activity Restrictions/Additional Instructions: *You have been diagnosed with [minor abrasion to bridge of nose, no sutures needed] *What to do: *Take medications as directed: Tylenol or Motrin for aches and pains *Follow up with your primary care provider in 2-3 days, call for an appointment. Let them know you were seen in the Emergency Department and that we ask that you be seen in follow up *Return to ER if you should have any new, worsening or concerning symptoms Prescriptions: No Action acetaminophen [Tylenol Extra Strength] 500 MG tablet 500 mg PO PRN PRN (Reason: Pain, Mild) Qty: 0 RF: 0 trospium 20 mg tablet 20 mg PO BID RF: 0 lisinopril 5 mg tablet 5 mg PO DAILY RF: 0 amiodarone 200 mg tablet 100 mg PO DAILY Qty: 0 RF: 0 ferrous sulfate 325 mg (65 mg iron) tablet,delayed release (DR/EC) 325 mg PO Q OTHER DAY RF: 0 sertraline 100 mg tablet 100 mg PO DAILY Qty: 90 RF: 3 oxybutynin chloride 10 mg tablet extended release 24hr 10 mg PO DAILY RF: 0 gabapentin 100 mg capsule 100 mg PO TID Qty: 90 RF: 0 meclizine 12.5 mg tablet 12.5 mg PO TID PRN (Reason: dizziness) Qty: 30 RF: 0 cholecalciferol (vitamin D3) [Vitamin D3] 5,000 unit Tablet 5,000 unit PO DAILY RF: 0 Referrals: Scooter Salgado MD [Primary Care Provider] -
[2019-10-20] MEDS: ACETAMINOPHEN 325 MG TABLET 650 MG PO (18:28)
[2019-10-20 19:05] VITALS: PULSE 70; RESP 16; O2SAT 96
--- NOTE | 2019-10-20 19:06 | PC.NURSE ---
patient was alert and oriented at time of discharge. She was not in any acute distress at time of discharge. A copy of her image report was given to her and she was reassured that she did not have any intracranial abnormalities. She was ambulatory at time of discharge.
== END 2019-10-20 19:09 | disposition home or self-care (01) ==
PROVIDERS: Emergency Provider Emergency Medicine; Family Provider Student in an Organized Health Care Education/Training Program; PCP Student in an Organized Health Care Education/Training Program
DX: S00.33XA Contusion of nose, initial encounter (principal); S09.90XA Unspecified injury of head, initial encounter; W22.8XXA Striking against or struck by other objects, initial encounter; I10 Essential (primary) hypertension
CPT/HCPCS: 70450; 99283; 99284

== ENCOUNTER 2019-10-30 11:47 | Inpatient (IN) | payer MEDICARE, OTHER, SELFPAY ==
[2019-05-20 12:02] VITALS: BMI 25.6
[2019-10-30] VITALS (14 sets, daily range): BP systolic 118–213; BP diastolic 59–90; PULSE 71–86; RESP 16–27; TEMP 36.9–37.6; O2SAT 93–98; BMI 27.1
--- NOTE | 2019-10-30 12:05 | ED_ITS ---
HPI - General Adult General Chief complaint: Fever Stated complaint: HIGH FEVER/ CHILLS Time Seen by Provider: 10/30/19 12:03 Source: patient Mode of arrival: Ambulatory Limitations: no limitations History of Present Illness HPI narrative: 84-year-old female. History of stage 4 chronic kidney disease. Not on dialysis. Here for evaluation of fevers, chills, foul-smelling urine, urinary frequency for the past 24 hours. Patient states she has not felt well for the past several days and potentially for the past week. Does have left- sided abdominal pain. No change in bowel habits. No vomiting. Also describes left-sided flank pain. She did have her right kidney removed in the past secondary to an injury following bladder surgery. Has not tried anything for symptoms prior to arrival Related Data Home Medications Medication Instructions Recorded Confirmed acetaminophen [Tylenol Extra 500 mg PO PRN PRN #0 04/19/16 10/30/19 Strength] cholecalciferol (vitamin D3) 5,000 unit PO DAILY 12/04/18 10/30/19 [Vitamin D3] ferrous sulfate 325 mg (65 mg 325 mg PO Q OTHER DAY tab 12/11/18 10/30/19 iron) tablet,delayed release trospium 20 mg tablet 20 mg PO BID 04/10/19 10/30/19 amiodarone 200 mg tablet 100 mg PO DAILY #0 tab 07/30/19 10/30/19 lisinopril 5 mg tablet 5 mg PO DAILY tab 07/30/19 10/30/19 oxybutynin chloride 10 mg 10 mg PO DAILY 07/30/19 10/30/19 tablet,extended release 24 hr Previous Rx's Medication Instructions Recorded meclizine 12.5 mg tablet 12.5 mg PO TID PRN #30 tab 03/05/19 sertraline 100 mg tablet 100 mg PO DAILY #90 tab 05/21/19 gabapentin 100 mg capsule 100 mg PO TID #90 cap 07/30/19 Allergies Allergy/AdvReac Type Severity Reaction Status Date / Time latex Allergy Severe THROAT Verified 10/30/19 12:04 SWELLING prednisone [PREDNISONE] Allergy Intermediate rash Verified 10/30/19 12:04 amoxicillin Allergy Mild ITCH Verified 10/30/19 12:04 cephalexin Allergy Mild ITCHY ALL Verified 10/30/19 12:04 OVER HER BODY ciprofloxacin Allergy Mild ITCH Verified 10/30/19 12:04 clavulanic acid Allergy Mild RASH Verified 10/30/19 12:04 hydromorphone Allergy Mild ITCHING Verified 10/30/19 12:04 nitrofurantoin Allergy Mild ABD Verified 10/30/19 12:04 PAIN/SEVERE ITCHING oxycodone Allergy Mild ITCH Verified 10/30/19 12:04 Penicillins Allergy Mild BLISTERS Verified 10/30/19 12:04 Sulfa (Sulfonamide Allergy Mild ITCH Verified 10/30/19 12:04 Antibiotics) levofloxacin [From LEVAQUIN] AdvReac Severe DISTURBING Verified 10/30/19 12:04 HALLUCINATIONS lorazepam [From ATIVAN] AdvReac Intermediate Verified 10/30/19 12:04 morphine AdvReac Mild HALLUCINATI Verified 10/30/19 12:04 ONS Review of Systems Constitutional Constitutional: Reports body ache(s), Reports chills, Reports fatigue, Reports fever(s) and Reports lethargy ENT Ears, Nose, Mouth, and Throat: Denies sore throat Cardiovascular Cardiovascular: Denies chest pain Respiratory Respiratory: Reports cough Gastrointestinal Gastrointestinal: Reports abdominal pain, Denies change in bowel habits, Denies diarrhea, Denies nausea and Denies vomiting Genitourinary Genitourinary: Reports dysuria Genitourinary: Reports dysuria Comments: Foul-smelling urine, left-sided flank pain Musculoskeletal Musculoskeletal: Denies arthralgias and Reports myalgias Integumentary/Breasts Skin/Breast: Denies lesions and Denies rash Neurologic Neurologic: Denies behavioral changes and Denies confusion Psychiatric Psychiatric: Denies behavioral changes and Denies confusion Endocrine Endocrine: Reports fatigue Hematologic/Lymphatic Hematologic/Lymphatic: Denies easy bleeding and Denies easy bruising Allergic/Immunologic Allergic/Immunologic: Denies urticaria Patient History Medical History Anxiety (Chronic 12/08/15) Atypical chest pain (Chronic) C. difficile colitis (Resolved 07/2015) C. 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) Mumps (Resolved ~1939) Osteoporosis, unspecified (Chronic 03/22/11) Paraesophageal hernia (Resolved) Paroxysmal atrial fibrillation (Chronic ~2013) RLS (restless legs syndrome) (Chronic) Second degree AV block, Mobitz type I (Chronic) Shoulder pain (Chronic) Sinusitis (Acute) Skin cancer (Resolved 2009) Sleep apnea (Chronic 2012) 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) Surgical History Anesthesia (Resolved) History of bladder surgery (Resolved ~1967) History of cholecystectomy (Resolved) History of nephrectomy (Resolved) History of spinal fusion (Resolved 2005) S/P repair of paraesophageal hernia (Resolved) Status post hysterectomy with oophorectomy (Resolved) Family History Brother CAD (coronary artery disease) Hyperlipidemia High cholesterol Lung cancer Colon cancer Brother Cancer High cholesterol Lung disease Father Colon cancer CAD (coronary artery disease) High cholesterol Mother CVA (cerebral vascular accident) Hyperlipidemia Sister Age: 84 CAD (coronary artery disease) Hyperlipidemia Ulcer Essential hypertension High cholesterol Heart attack Grandfather Throat cancer Grandmother Heart disease Family/Other Lung disease Social History household members: none Smoking Status: Never smoker Smoking Status: Never smoker alcohol intake frequency: holidays/special occasions only Substance Use Type: does not use Exam Initial Vital Signs Initial Vital Signs: Vital Signs Temperature 99.6 F 10/30/19 11:50 Pulse Rate 77 10/30/19 11:50 Respiratory Rate 17 10/30/19 11:50 Blood Pressure 195/86 H 10/30/19 11:50 Pulse Oximetry 95 10/30/19 11:50 Const General: cooperative, comfortable, well developed and well groomed Limitations: mental status not altered HENMT Head: normal to inspection and normocephalic Ears: TM's normal bilaterally Resp Effort & Inspection: normal respiratory effort and tachypneic Auscultation: clear to auscultation bilaterally Cardio Rate: regular rate Rhythm: regular rhythm GI Inspection: non-distended Palpation: soft and tender (Left-sided abdominal pain) Back/Spine/Pelvis Back: CVA tenderness left Skin Lesions: no lesions Rashes: no rashes Neuro General: patient alert and patient awake Cognition: normal cognition Speech: speech normal Extrem General: normal to inspection and capillary refill normal Psych Appearance: grossly normal and well kempt Scores GCS [place] coma scale eye opening: Spontaneous [place] coma scale verbal response: Orientated [place] coma scale motor response: Obey commands [place] coma scale total score: 15 Course Orders Ordered: ED Orders 10/30/19 11:56 Urine Culture Stat Urine Microscopic Stat 10/30/19 12:00 Complete Blood Count AUTO DIFF Stat Comprehensive Metabolic Panel Stat Lactate (Lactic Acid) Stat Lipase Stat Procalcitonin Stat 10/30/19 12:34 CT abdomen pelvis wo con Stat 10/30/19 12:36 XR chest 1V Stat 10/30/19 13:14 Blood Culture Stat Sodium Chloride (Normal Saline 0.9%) 1,000 mls @ 125 mls/hr IV CONT ROME Last Admin: 10/30/19 12:47 Dose: 125 mls/hr Documented by: ARLETH Discontinued Medications Acetaminophen (Tylenol) 650 mg PO NOW ONE Stop: 10/30/19 12:35 Last Admin: 10/30/19 12:46 Dose: 650 mg Documented by: ARLETH Imipenem/Cilastatin Sodium 250 (mg/ Sodium Chloride) 100 mls @ 200 mls/hr IV NOW ONE Stop: 10/30/19 14:32 Last Infusion: 10/30/19 16:09 Dose: 0 mls/hr Documented by: Admin: 10/30/19 14:43 Dose: 200 mls/hr Documented by: ARLETH Vital Signs Vital signs: Vital Signs - 8 hr 10/30/19 11:50 10/30/19 12:00 10/30/19 12:30 Temperature 99.6 F Pulse Rate 77 75 74 Respiratory Rate 17 22 23 Blood Pressure 195/86 H Blood Pressure [Right Arm] 182/80 H 177/76 H Pulse Oximetry 95 94 94 10/30/19 13:30 10/30/19 13:59 10/30/19 14:00 Temperature 98.8 F 98.8 F Pulse Rate 71 Respiratory Rate 16 Blood Pressure Blood Pressure [Right Arm] 146/68 H Pulse Oximetry 96 10/30/19 14:30 10/30/19 16:00 Temperature Pulse Rate 71 75 Respiratory Rate 22 27 H Blood Pressure Blood Pressure [Right Arm] 138/61 118/59 L Pulse Oximetry 98 95 Medical Decision Making Lab Data Lab results reviewed: Yes I reviewed the patient's lab results. Result diagrams: 10/30/19 12:00 10/30/19 12:00 Labs: Lab Results 10/30/19 10/30/19 10/30/19 Range/Units 11:56 12:00 12:00 WBC 13.1 H (4.5-11.0) X10^3/uL RBC 4.00 (4.0-5.2) X10^6/uL Hgb 12.0 (12.0-16.0) g/dL Hct 35.7 L (36-46) % MCV 89.4 (80-100) fL MCH 30.1 (26-34) PG MCHC 33.6 (30-36) % RDW 15.2 H (11.6-14.8) % Plt Count 231 (150-400) X10^3/uL Neut % (Auto) 85.1 H (50-75) % Lymph % (Auto) 7.3 L (25-40) % [place] % (Auto) 7.1 (3-14) % Eos % (Auto) 0.1 L (2-4) % Baso % (Auto) 0.4 (0-2) % Neut # (Auto) 72867 H (1714-9781) /uL Lymph # (Auto) 1000 L (1326-0485) /uL [place] # (Auto) 900 (0-900) /uL Eos # (Auto) 0 (0-450) /uL Baso # (Auto) 100 (0-100) /uL Sodium (137-145) mmol/L Potassium (3.4-5.1) mmol/L Chloride (98-107) mmol/L Carbon Dioxide (22-32) mmol/L BUN (7-17) mg/dL Creatinine (0.52-1.04) mg/dL Estimated GFR (>60) mL/min BUN/Creatinine Ratio (6-22) Glucose (80-110) mg/dL Lactate (0.7-2.1) mmol/L Calcium (8.4-10.2) mg/dL Total Bilirubin (0.2-1.3) mg/dL AST (14-36) IU/L ALT (<35) IU/L Alkaline Phosphatase (38-126) U/L Total Protein (6.3-8.2) g/dL Albumin (3.5-5.0) g/dL Globulin (1.7-4.1) g/dL Albumin/Globulin Ratio (1.0-2.8) Lipase (23-300) U/L Procalcitonin 1.33 H (<0.5) ng/mL Urine RBC 1-5/hpf (0-5/HPF) Urine WBC >100/hpf H (0-5/HPF) Ur Squamous Epith Cells 1-5 /hpf (0-5/HPF) Ur Transition Epith Cell 1-5/hpf (0-5/HPF) Urine Bacteria Many (>30) H (None) Ur Culture Indicated? Specimen cultured 10/30/19 10/30/19 Range/Units 12:00 12:00 WBC (4.5-11.0) X10^3/uL RBC (4.0-5.2) X10^6/uL Hgb (12.0-16.0) g/dL Hct (36-46) % MCV (80-100) fL MCH (26-34) PG MCHC (30-36) % RDW (11.6-14.8) % Plt Count (150-400) X10^3/uL Neut % (Auto) (50-75) % Lymph % (Auto) (25-40) % [place] % (Auto) (3-14) % Eos % (Auto) (2-4) % Baso % (Auto) (0-2) % Neut # (Auto) (3356-0224) /uL Lymph # (Auto) (1688-4509) /uL [place] # (Auto) (0-900) /uL Eos # (Auto) (0-450) /uL Baso # (Auto) (0-100) /uL Sodium 135 L (137-145) mmol/L Potassium 3.9 (3.4-5.1) mmol/L Chloride 103 (98-107) mmol/L Carbon Dioxide 27 (22-32) mmol/L BUN 33 H (7-17) mg/dL Creatinine 1.45 H (0.52-1.04) mg/dL Estimated GFR 34.6 L (>60) mL/min BUN/Creatinine Ratio 22.8 H (6-22) Glucose 139 H (80-110) mg/dL Lactate 1.1 (0.7-2.1) mmol/L Calcium 9.2 (8.4-10.2) mg/dL Total Bilirubin 0.7 (0.2-1.3) mg/dL AST 35 (14-36) IU/L ALT 16 (<35) IU/L Alkaline Phosphatase 72 (38-126) U/L Total Protein 7.4 (6.3-8.2) g/dL Albumin 4.0 (3.5-5.0) g/dL Globulin 3.4 (1.7-4.1) g/dL Albumin/Globulin Ratio 1.2 (1.0-2.8) Lipase 60 (23-300) U/L Procalcitonin (<0.5) ng/mL Urine RBC (0-5/HPF) Urine WBC (0-5/HPF) Ur Squamous Epith Cells (0-5/HPF) Ur Transition Epith Cell (0-5/HPF) Urine Bacteria (None) Ur Culture Indicated? Urine Dip Bedside Urine Glucose Negative Bedside Urine Bilirubin - Negative Bedside Urine Ketone - Negative Urine Specific [place] 1.020 Bedside Urine Occult Blood + Bedside Urine pH 6.0 Bedside Urine Protein + 30 Bedside Urine Urobilinogen - Negative Bedside Urine Nitrite + Positive Bedside Urine Leukocytes +++ 500 Esterase Point of care testing: Urine Dip Bedside Urine Glucose Negative Bedside Urine Bilirubin - Negative Bedside Urine Ketone - Negative Urine Specific [place] 1.020 Bedside Urine Occult Blood + Bedside Urine pH 6.0 Bedside Urine Protein + 30 Bedside Urine Urobilinogen - Negative Bedside Urine Nitrite + Positive Bedside Urine Leukocytes +++ [address] scan - abdomen/pelvis: Radiologist's Impression: Valery Yeh 84 F [address] [address] [address] Scan Report Signed Patient: Valery Yeh EMR#: [id number] : 8Acct:[id number] Age/Sex: 84 / FDate of Service: 10/30/19 Loc: ED Accession Number: [id number] Procedure: CT abdomen pelvis wo con Ordering Provider: Dirk Ribeiro D.O. PROCEDURE: CT ABDOMEN PELVIS WO CON INDICATIONS: Left-sided abdominal pain eval for diverticulitis TECHNIQUE: Noncontrast 5 mm thick sections acquired from the diaphragms to the symphysis. 5 mm coronal and sagittal reformats were then performed. For radiation dose reduction, the following was used: automated exposure control, adjustment of mA and/or kV according to patient size. COMPARISON: [facility], CT, CT KIDNEY URETER BLADDER (KUB), 01/10/2019, 14:21. [facility], CT, CT ABDOMEN PELVIS WO CON, 12/04/2018, 18:16. FINDINGS: Image quality: Excellent. ABDOMEN: Lung bases: Lung bases are clear. Heart size is normal. Small, chronic hiatal hernia containing small amount of hyperdense material. Solid organs: Liver is normal in size. Gallbladder is surgically absent. There is ill-definition and fatty transformation of the pancreas. Pancreas is normal in contours. Spleen is normal in size. No adrenal nodules. The right kidney is surgically absent. There is a small amount of inflammatory change around the caudal aspect of the left kidney and thickening of the left pararenal fascia. There is no hydronephrosis or definite focal hypodensity in the parenchyma of the left kidney. No evidence of hydroureter or urolithiasis. Peritoneum and bowel: There are occasional diverticula in the descending colon without surrounding inflammation. Extensive sigmoid diverticulosis with slight wall thickening, but again no pericolonic inflammatory changes. Unenhanced bowel loops demonstrate normal wall thickness and caliber. No free fluid or air. Nodes and vessels: No retroperitoneal or mesenteric adenopathy by size criteria. Aorta and inferior vena cava are normal in caliber. Moderate aortic and iliac atherosclerosis. Miscellaneous: Multiple tiny fat containing ventral hernias without inflammation of the herniated fat. PELVIS: Genitourinary: Bladder wall thickness is normal. The uterus is surgically absent. Miscellaneous: There is pelvic floor laxity with sent to the rectum and urinary bladder. No significant change compared to the prior study. No inguinal hernias or adenopathy. Bones: There is posterior fusion hardware causing scatter artifact at the L4 and L5 level. Degenerative changes at the L2-3 disc level. No suspicious bony lesions. No vertebral body compression fractures. IMPRESSION: 1. There is mild inflammation surrounding the caudal aspect of the left kidney thickening of the pararenal fascia. There is no evidence for obstruction and assess pyelonephritis should be considered. Alternatively, this may indicate there has been a recently passed calculus. 2. Diverticulosis without acute diverticulitis. 3. Postcholecystectomy and hysterectomy. 4. Chronic hiatal hernia. Dictated by: Abigail Scales M.D. on 10/30/2019 at 13:54 Approved by: Abigail Scales M.D. on 10/30/2019 at 14:04 Chest x-ray: Radiologist's Impression: [address] [address] XRay Report Signed Patient: Valery Yeh EMR#: [id number] : 8Acct:[id number] Age/Sex: 84 / FDate of Service: 10/30/19 Loc: ED Accession Number: [id number] Procedure: XR chest 1V Ordering Provider: Dirk Ribeiro D.O. PROCEDURE: XR CHEST 1V INDICATIONS: Eval for pneumonia TECHNIQUE: One view of the chest was acquired. COMPARISON: [facility], , XR CHEST 1V, 03/28/2019, 14:51. FINDINGS: Surgical changes and devices: Leadless pacemaker projects over the left hemithorax. Lungs and pleura: Lungs are hyperinflated and hyperlucent but clear. No pleural effusions or pneumothorax. Mediastinum: Mediastinal contours appear normal. Heart size is normal. Bones and chest wall: No suspicious bony lesions. Overlying soft tissues appear unremarkable. IMPRESSION: 1. Hyperinflated lungs suggesting emphysema or reactive airways disease. 2. No evidence of pneumonia. 3. Pacemaker in place. Dictated by: Abigail Scales M.D. on 10/30/2019 at 13:37 Approved by: Abigail Scales M.D. on 10/30/2019 at 13:38 MDM Narrative Medical decision making narrative: Physical exam consistent with pyelonephritis. She does have a nitrite positive urine. Review of her prior urine cultures show a pansensitive E coli. CT scan also shows pyelonephritis without abscess. Patient has multiple allergies. Discussed the case with Pharmacy. Decision made to place the patient on imipenem secondary to her allergies. Given the need for IV antibiotics and also her solitary kidney feel the admitting for antibiotics is warranted. Discussed the case with Dr. raya with medicine who will admit. Discussed admission with the patient. She expressed understanding and agreement. Discharge Plan Departure Patient Disposition: Admitted As Inpatient Clinical Impression: Pyelonephritis Admit Date/Time: 10/30/19 16:02 Admit Provider: Veronica Raya
--- NOTE | 2019-10-30 12:34 | DI.CT.S_ITS ---
PROCEDURE: CT ABDOMEN PELVIS WO CON INDICATIONS: Left-sided abdominal pain eval for diverticulitis TECHNIQUE: Noncontrast 5 mm thick sections acquired from the diaphragms to the symphysis. 5 mm coronal and sagittal reformats were then performed. For radiation dose reduction, the following was used: automated exposure control, adjustment of mA and/or kV according to patient size. COMPARISON: [facility], CT, CT KIDNEY URETER BLADDER (KUB), 01/10/2019, 14:21. [facility], CT, CT ABDOMEN PELVIS WO CON, 12/04/2018, 18:16. FINDINGS: Image quality: Excellent. ABDOMEN: Lung bases: Lung bases are clear. Heart size is normal. Small, chronic hiatal hernia containing small amount of hyperdense material. Solid organs: Liver is normal in size. Gallbladder is surgically absent. There is ill-definition and fatty transformation of the pancreas. Pancreas is normal in contours. Spleen is normal in size. No adrenal nodules. The right kidney is surgically absent. There is a small amount of inflammatory change around the caudal aspect of the left kidney and thickening of the left pararenal fascia. There is no hydronephrosis or definite focal hypodensity in the parenchyma of the left kidney. No evidence of hydroureter or urolithiasis. Peritoneum and bowel: There are occasional diverticula in the descending colon without surrounding inflammation. Extensive sigmoid diverticulosis with slight wall thickening, but again no pericolonic inflammatory changes. Unenhanced bowel loops demonstrate normal wall thickness and caliber. No free fluid or air. Nodes and vessels: No retroperitoneal or mesenteric adenopathy by size criteria. Aorta and inferior vena cava are normal in caliber. Moderate aortic and iliac atherosclerosis. Miscellaneous: Multiple tiny fat containing ventral hernias without inflammation of the herniated fat. PELVIS: Genitourinary: Bladder wall thickness is normal. The uterus is surgically absent. Miscellaneous: There is pelvic floor laxity with sent to the rectum and urinary bladder. No significant change compared to the prior study. No inguinal hernias or adenopathy. Bones: There is posterior fusion hardware causing scatter artifact at the L4 and L5 level. Degenerative changes at the L2-3 disc level. No suspicious bony lesions. No vertebral body compression fractures. IMPRESSION: 1. There is mild inflammation surrounding the caudal aspect of the left kidney thickening of the pararenal fascia. There is no evidence for obstruction and assess pyelonephritis should be considered. Alternatively, this may indicate there has been a recently passed calculus. 2. Diverticulosis without acute diverticulitis. 3. Postcholecystectomy and hysterectomy. 4. Chronic hiatal hernia. Dictated by: Abigail Scales M.D. on 10/30/2019 at 13:54 Approved by: Abigail Scales M.D. on 10/30/2019 at 14:04
--- NOTE | 2019-10-30 12:36 | DI.RAD.S_ITS ---
PROCEDURE: XR CHEST 1V INDICATIONS: Eval for pneumonia TECHNIQUE: One view of the chest was acquired. COMPARISON: [facility], CR, XR CHEST 1V, 03/28/2019, 14:51. FINDINGS: Surgical changes and devices: Leadless pacemaker projects over the left hemithorax. Lungs and pleura: Lungs are hyperinflated and hyperlucent but clear. No pleural effusions or pneumothorax. Mediastinum: Mediastinal contours appear normal. Heart size is normal. Bones and chest wall: No suspicious bony lesions. Overlying soft tissues appear unremarkable. IMPRESSION: 1. Hyperinflated lungs suggesting emphysema or reactive airways disease. 2. No evidence of pneumonia. 3. Pacemaker in place. Dictated by: Abigail Scales M.D. on 10/30/2019 at 13:37 Approved by: Abigail Scales M.D. on 10/30/2019 at 13:38
[2019-10-30 12:44] LABS: Add Manual Diff / Slide Review NO; Basophils Absolute Auto 100 /uL (0-100); Basophils Percent Auto 0.4 % (0-2); Eosinophils Absolute Auto 0 /uL (0-450); Eosinophils Percent Auto 0.1 % (2-4); Hematocrit 35.7 % (36-46); Lymphocytes Absolute Auto 1000 /uL (1100-4500); Lymphocytes Percent Auto 7.3 % (25-40); Mean Corpuscular HGB Conc 33.6 % (30-36); Mean Corpuscular Hemoglobin 30.1 PG (26-34); Mean Corpuscular Volume 89.4 fL (80-100); Monocytes Absolute Auto 900 /uL (0-900); Monocytes Percent Auto 7.1 % (3-14); Neutrophils Absolute Auto 11200 /uL (1500-7000); Neutrophils Percent Auto 85.1 % (50-75); Platelet Count 231 X10^3/uL (150-400); Red Cell Distribution Width 15.2 % (11.6-14.8); White Blood Cell Count 13.1 X10^3/uL (4.5-11.0)
[2019-10-30] MEDS: ACETAMINOPHEN 325 MG TABLET 650 MG PO ×2 (12:46→17:51)
[2019-10-30] MEDS: SODIUM CHLORIDE 0.9% 1,000 ML 125 ML IV (12:47)
[2019-10-30 12:51] LABS: Lactate (Lactic Acid) 1.1 mmol/L (0.7-2.1)
[2019-10-30 12:52] LABS: Bacteria Urine Many (>30); Culture Indicated Urine Specimen Cultured; RBC Urine 1-5/HPF (0-5/HPF); Squamous Epithelial Cell Urine 1-5 /HPF (0-5/HPF); Transitional Epi Cells Urine 1-5/HPF (0-5/HPF); WBC Urine >100/HPF (0-5/HPF)
[2019-10-30 12:53] LABS: Alanine Aminotransferase 16 IU/L (<35); Albumin Globulin Ratio 1.2 (1.0-2.8); Alkaline Phosphatase 72 U/L (38-126); Aspartate Aminotransferase 35 IU/L (14-36); BUN Creatinine Ratio 22.8 (6-22); Bilirubin Total 0.7 mg/dL (0.2-1.3); Blood Urea Nitrogen 33 mg/dL (7-17); Calcium 9.2 mg/dL (8.4-10.2); Carbon Dioxide 27 mmol/L (22-32); Chloride 103 mmol/L (98-107); Estimated Glomerular Filt Rate 34.6 mL/min (>60); Globulin 3.4 g/dL (1.7-4.1); Glucose 139 mg/dL (80-110); HEMOLYSIS < 15 (0-50); Lipase 60 U/L (23-300); Potassium 3.9 mmol/L (3.4-5.1); Sodium 135 mmol/L (137-145); Total Protein 7.4 g/dL (6.3-8.2)
[2019-10-30 13:43] LABS: Procalcitonin 1.33 ng/mL (<0.5)
[2019-10-30] MEDS: SODIUM CHLORIDE 0.9% IV (14:43)
[2019-10-30] MEDS: CILASTATIN IV (14:43)
[2019-10-30] MEDS: IMIPENEM IV (14:43)
[2019-10-30] MEDS: SODIUM CHLORIDE 0.9% 1,000 ML 100 ML IV (18:24)
[2019-10-30 19:02] LABS: COVID19 -Nasal RAPID Negative (Negative)
--- NOTE | 2019-10-30 20:49 | P.HP_ITS ---
History of Present Illness History of Present Illness Date Patient Seen: 10/30/19 Chief complaint: HIGH FEVER/ CHILLS Narrative: Patient is an 84-year-old female with a history of persistent atrial fibrillation, hypertension, restless leg syndrome, with a remote history of nephrectomy who was admitted to the hospital in May of this year for acute pyelonephritis. Patient recovered from that. But she states for the past several weeks she has not felt well. For the past few days she has had difficulty urinating. She has felt like she has been unable to empty her bladder. Last evening she developed fever and chills. She had a fever to 101. She also reports kidney pain which has been present for few days. She denies any dysuria hematuria or pyuria. She does have back pain as well. Patient reports having a headache. She has had no associated nausea or vomiting. Patient reports no chest pain. She called her physician regarding her symptoms and was directed to the emergency room for evaluation. In the emergency department the patient was found to have a markedly positive urinalysis. CT scan of the abdomen and pelvis confirmed stranding around the left kidney con sistent with acute pyelonephritis. Patient is admitted to the hospital at this time for inpatient management of pyelonephritis. She has multiple drug allergies. During her last hospitalization she was treated with ertapenem for pansensitive E coli. She tolerated this without difficulty. Patient was given 1 dose of imipenem in the emergency department and admitted to the hospital for further evaluation. Patient History Medical History Anxiety (Chronic 12/08/15) Atypical chest pain (Chronic) C. difficile colitis (Resolved 07/2015) C. 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) Mumps (Resolved ~1939) Osteoporosis, unspecified (Chronic 03/22/11) Paraesophageal hernia (Resolved) Paroxysmal atrial fibrillation (Chronic ~2013) RLS (restless legs syndrome) (Chronic) Second degree AV block, Mobitz type I (Chronic) Shoulder pain (Chronic) Sinusitis (Acute) Skin cancer (Resolved 2009) Sleep apnea (Chronic 2012) 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) Surgical History Anesthesia (Resolved) History of bladder surgery (Resolved ~1967) History of cholecystectomy (Resolved) History of nephrectomy (Resolved) History of spinal fusion (Resolved 2005) S/P repair of paraesophageal hernia (Resolved) Status post hysterectomy with oophorectomy (Resolved) Family & Social History Family History Brother CAD (coronary artery disease) Hyperlipidemia High cholesterol Lung cancer Colon cancer Brother Cancer High cholesterol Lung disease Father Colon cancer CAD (coronary artery disease) High cholesterol Mother CVA (cerebral vascular accident) Hyperlipidemia Sister Age: 84 CAD (coronary artery disease) Hyperlipidemia Ulcer Essential hypertension High cholesterol Heart attack Grandfather Throat cancer Grandmother Heart disease Family/Other Lung disease Social History: household members none Prior Living Arrangements House Safety & Behavioral: Feels Safe in Current Yes Environment Been Physically Hurt or No Threatened By a Person Suicidal Ideation Description None Suicide Plan Description No Plan Tobacco & Substance use: Smoking Status Never smoker alcohol intake frequency holiday/special occasion Substance Use Type does not use Meds Home Medications and Allergies Home Medications Medication Instructions Recorded Confirmed Type acetaminophen [Tylenol Extra 500 mg PO PRN PRN #0 04/19/16 10/30/19 History Strength] cholecalciferol (vitamin D3) 5,000 unit PO DAILY 12/04/18 10/30/19 History [Vitamin D3] ferrous sulfate 325 mg (65 mg 325 mg PO Q OTHER DAY tab 12/11/18 10/30/19 History iron) tablet,delayed release meclizine 12.5 mg tablet 12.5 mg PO TID PRN #30 tab 03/05/19 10/30/19 Rx trospium 20 mg tablet 20 mg PO BID 04/10/19 10/30/19 History sertraline 100 mg tablet 100 mg PO DAILY #90 tab 05/21/19 10/30/19 Rx amiodarone 200 mg tablet 100 mg PO DAILY #0 tab 07/30/19 10/30/19 History gabapentin 100 mg capsule 100 mg PO TID #90 cap 07/30/19 10/30/19 Rx lisinopril 5 mg tablet 5 mg PO DAILY tab 07/30/19 10/30/19 History oxybutynin chloride 10 mg 10 mg PO DAILY 07/30/19 10/30/19 History tablet,extended release 24 hr Allergies Allergy/AdvReac Type Severity Reaction Status Date / Time latex Allergy Severe THROAT Verified 10/30/19 12:04 SWELLING prednisone [PREDNISONE] Allergy Intermediate rash Verified 10/30/19 12:04 amoxicillin Allergy Mild ITCH Verified 10/30/19 12:04 cephalexin Allergy Mild ITCHY ALL Verified 10/30/19 12:04 OVER HER BODY ciprofloxacin Allergy Mild ITCH Verified 10/30/19 12:04 clavulanic acid Allergy Mild RASH Verified 10/30/19 12:04 hydromorphone Allergy Mild ITCHING Verified 10/30/19 12:04 nitrofurantoin Allergy Mild ABD Verified 10/30/19 12:04 PAIN/SEVERE ITCHING oxycodone Allergy Mild ITCH Verified 10/30/19 12:04 Penicillins Allergy Mild BLISTERS Verified 10/30/19 12:04 Sulfa (Sulfonamide Allergy Mild ITCH Verified 10/30/19 12:04 Antibiotics) levofloxacin [From LEVAQUIN] AdvReac Severe DISTURBING Verified 10/30/19 12:04 HALLUCINATIONS lorazepam [From ATIVAN] AdvReac Intermediate Verified 10/30/19 12:04 morphine AdvReac Mild HALLUCINATI Verified 10/30/19 12:04 ONS Review of Systems Review of Systems ROS: Yes All systems reviewed with the patient and are negative except as otherwise documented Exam Vital Signs (past 8 hours): - 10/30/19 13:30 10/30/19 13:59 10/30/19 14:00 Temperature 98.8 F 98.8 F Pulse Rate 71 Respiratory Rate 16 Blood Pressure Blood Pressure [Right Arm] 146/68 H Pulse Oximetry 96 10/30/19 14:30 10/30/19 16:00 10/30/19 16:20 Temperature 98.4 F Pulse Rate 71 75 72 Respiratory Rate 22 27 H 18 Blood Pressure 128/59 L Blood Pressure [Right Arm] 138/61 118/59 L Pulse Oximetry 98 95 95 10/30/19 16:47 10/30/19 18:12 Temperature 98.8 F 98.8 F Pulse Rate 77 Respiratory Rate 18 Blood Pressure 128/59 L Blood Pressure [Right Arm] Pulse Oximetry 93 Oxygen Delivery Method Room Air Oxygen Flow Rate 0 Narrative Exam Narrative: Pleasant elderly female resting comfortably in no obvious distress HEENT: Normocephalic atraumatic, extraocular muscles are intact, oropharynx is clear, neck is supple without adenopathy Lungs: Clear to auscultation without rhonchi crackles or wheezes Cardiac exam: Regular rate and rhythm normal S1-S2 with a 2/6 systolic ejection Abdomen: Soft, nontender, nondistended, well-healed midline surgical incision, left CVA tenderness is noted no board-like rigidity, or palpable mass Extremities: No edema Neuro exam: Cranial nerves 2-12 are intact, strength is symmetric and equal, sensation is grossly intact, reflexes are brisk and equal Skin exam: No lesions noted Objective Labs Result Diagrams: 10/30/19 12:00 10/30/19 12:00 Labs: Laboratory Results - last 24 hr 10/30/19 10/30/19 10/30/19 11:56 12:00 12:00 WBC 13.1 H RBC 4.00 Hgb 12.0 Hct 35.7 L MCV 89.4 MCH 30.1 MCHC 33.6 RDW 15.2 H Plt Count 231 Neut % (Auto) 85.1 H Lymph % (Auto) 7.3 L [place] % (Auto) 7.1 Eos % (Auto) 0.1 L Baso % (Auto) 0.4 Neut # (Auto) 43265 H Lymph # (Auto) 1000 L [place] # (Auto) 900 Eos # (Auto) 0 Baso # (Auto) 100 Sodium Potassium Chloride Carbon Dioxide BUN Creatinine Estimated GFR BUN/Creatinine Ratio Glucose Lactate Calcium Total Bilirubin AST ALT Alkaline Phosphatase Total Protein Albumin Globulin Albumin/Globulin Ratio Lipase Procalcitonin 1.33 H Urine RBC 1-5/hpf Urine WBC >100/hpf H Ur Squamous Epith Cells 1-5 /hpf Ur Transition Epith Cell 1-5/hpf Urine Bacteria Many (>30) H Ur Culture Indicated? Specimen cultured Nasal Screen MRSA (PCR) COVID-19 PCR 10/30/19 10/30/19 10/30/19 12:00 12:00 13:55 WBC RBC Hgb Hct MCV MCH MCHC RDW Plt Count Neut % (Auto) Lymph % (Auto) [place] % (Auto) Eos % (Auto) Baso % (Auto) Neut # (Auto) Lymph # (Auto) [place] # (Auto) Eos # (Auto) Baso # (Auto) Sodium 135 L Potassium 3.9 Chloride 103 Carbon Dioxide 27 BUN 33 H Creatinine 1.45 H Estimated GFR 34.6 L BUN/Creatinine Ratio 22.8 H Glucose 139 H Lactate 1.1 Calcium 9.2 Total Bilirubin 0.7 AST 35 ALT 16 Alkaline Phosphatase 72 Total Protein 7.4 Albumin 4.0 Globulin 3.4 Albumin/Globulin Ratio 1.2 Lipase 60 Procalcitonin Urine RBC Urine WBC Ur Squamous Epith Cells Ur Transition Epith Cell Urine Bacteria Ur Culture Indicated? Nasal Screen MRSA (PCR) COVID-19 PCR Cancelled 10/30/19 10/30/19 18:00 18:00 WBC RBC Hgb Hct MCV MCH MCHC RDW Plt Count Neut % (Auto) Lymph % (Auto) [place] % (Auto) Eos % (Auto) Baso % (Auto) Neut # (Auto) Lymph # (Auto) [place] # (Auto) Eos # (Auto) Baso # (Auto) Sodium Potassium Chloride Carbon Dioxide BUN Creatinine Estimated GFR BUN/Creatinine Ratio Glucose Lactate Calcium Total Bilirubin AST ALT Alkaline Phosphatase Total Protein Albumin Globulin Albumin/Globulin Ratio Lipase Procalcitonin Urine RBC Urine WBC Ur Squamous Epith Cells Ur Transition Epith Cell Urine Bacteria Ur Culture Indicated? Nasal Screen MRSA (PCR) Negative for mrsa COVID-19 PCR Negative Assessment & Plan Assessment & Plan narrative: Impression 1. 84-year-old female admitted to the hospital with recurrent acute pyelonephritis -patient presents with a white count of 13.1, fever to 101, UA markedly positive -serum lactate 1.1, procalcitonin elevated at 1.33 -CT of the abdomen and pelvis confirms acute pyelonephritis -patient with multiple drug allergies and will be treated with ertapenem for which she tolerated during her last admission in May -patient indicates difficulty with emptying her bladder. Consider urology co nsultation as an outpatient given her recurrent pyelonephritis -patient currently taking oxybutynin which will be continued 2. Stage 3 chronic kidney disease -serum creatinine 1.45 today -will continue her lisinopril, but avoid other nephrotoxic agent -will continue IV hydration -follow electrolytes and labs daily 3. Depression -continue Zoloft 4. Persistent atrial fibrillation -continue amiodarone -patient currently not on anticoagulation, would discuss with PCP as to why she is not taking it giving her chads Vasc score of greater than 2 5. Hypertension -continue lisinopril Patient's daughter is her DPOA Patient indicates she is a full code and will note that her record accordingly Given her significant infection patient will be made an inpatient anticipate hospitalization for greater than 2 days
[2019-10-30] MEDS: MORPHINE 2 MG/ML INJ IV (20:52)
[2019-10-30] MEDS: LACTATED RINGERS 1,000 ML 100 ML IV (20:53)
[2019-10-30] MEDS: TRAMADOL 50 MG TABLET PO (21:01)
[2019-10-30] MEDS: HEPARIN 5,000 UNIT/ML VIAL 5000 UNIT SUBCUT (21:07)
[2019-10-30] MEDS: SERTRALINE 50 MG TABLET 100 MG PO (21:07)
[2019-10-30] MEDS: ERTAPENEM 0.5 GM in SODIUM CHLORIDE 0.9% 100 ML 200 ML IV (21:20)
[2019-10-30] MEDS: GABAPENTIN 100 MG CAPSULE PO (21:21)
--- NOTE | 2019-10-30 21:52 | PC.NURSE ---
Pt was ordered Morphine for flank pain, prepared to give to pt and pt stated that she hallucinates when given Morphine, due to this ADR morphine was not administered and tramadol was given instead. Per the pt request the morphine order was stopped. Bed low and locked, call light within reach, will continue to monitor.
[2019-10-31] VITALS (11 sets, daily range): BP systolic 127–184; BP diastolic 58–77; PULSE 69–80; RESP 17–19; TEMP 36.3–37.6; O2SAT 92–96; BMI 26.9
[2019-10-31 05:08] LABS: Add Manual Diff / Slide Review NO; Basophils Absolute Auto 100 /uL (0-100); Basophils Percent Auto 0.9 % (0-2); Eosinophils Absolute Auto 0 /uL (0-450); Eosinophils Percent Auto 0.3 % (2-4); Hematocrit 33.4 % (36-46); Hemoglobin 11.3 g/dL (12.0-16.0); Lymphocytes Absolute Auto 1000 /uL (1100-4500); Lymphocytes Percent Auto 9.9 % (25-40); Mean Corpuscular HGB Conc 33.8 % (30-36); Mean Corpuscular Hemoglobin 30.3 PG (26-34); Mean Corpuscular Volume 89.8 fL (80-100); Monocytes Absolute Auto 1100 /uL (0-900); Monocytes Percent Auto 10.6 % (3-14); Neutrophils Absolute Auto 8100 /uL (1500-7000); Neutrophils Percent Auto 78.3 % (50-75); Platelet Count 182 X10^3/uL (150-400); Red Blood Cell Count 3.72 X10^6/uL (4.0-5.2); Red Cell Distribution Width 15.6 % (11.6-14.8); White Blood Cell Count 10.4 X10^3/uL (4.5-11.0)
[2019-10-31 05:20] LABS: BUN Creatinine Ratio 17.9 (6-22); Blood Urea Nitrogen 20 mg/dL (7-17); Calcium 8.7 mg/dL (8.4-10.2); Carbon Dioxide 26 mmol/L (22-32); Chloride 104 mmol/L (98-107); Estimated Glomerular Filt Rate 46.6 mL/min (>60); Glucose 127 mg/dL (80-110); HEMOLYSIS < 15 (0-50); Potassium 3.8 mmol/L (3.4-5.1); Sodium 135 mmol/L (137-145)
[2019-10-31 05:25] LABS: Acinetobacter baumannii Not Detected (Not Detect); Enterobacteriaceae species Detected (Not Detect); Enterococcus species Not Detected (Not Detect); KPC (carbapenem-resist gene) Not Detected (Not Detect); Listeria monocytogenes Not Detected (Not Detect); Staphylococcus species Not Detected (Not Detect); Streptococcus agalactiae (Gr B Not Detected (Not Detect); Streptococcus pneumonia Not Detected (Not Detect); Streptococcus pyogenes (Gr A) Not Detected (Not Detect); Streptococcus species Not Detected (Not Detect)
[2019-10-31 05:26] LABS: Candida albicans Not Detected (Not Detect); Candida glabrata Not Detected (Not Detect); Candida krusei Not Detected (Not Detect); Candida parapsilosis Not Detected (Not Detect); Candida tropicalis Not Detected (Not Detect); E. coli Detected (Not Detect); Enterobacter cloacae complex Not Detected (Not Detect); Haemophilus influenzae Not Detected (Not Detect); Neisseria meningitidis Not Detected (Not Detect); Proteus species Not Detected (Not Detect); Pseudomonas aeruginosa Not Detected (Not Detect); Serratia marcescens Not Detected (Not Detect)
--- NOTE | 2019-10-31 06:41 | PC.NURSE ---
Lab called this am with a result of + E coli on the anaerobic blood culture.
[2019-10-31] MEDS: TRAMADOL 50 MG TABLET PO (08:00)
[2019-10-31] MEDS: LACTATED RINGERS 1,000 ML 100 ML IV (08:02)
[2019-10-31] MEDS: lisinopriL 5 MG TABLET PO (08:45)
[2019-10-31] MEDS: GABAPENTIN 100 MG CAPSULE PO ×3 (08:45→20:46)
[2019-10-31] MEDS: OXYBUTYNIN 5 MG TABLET 10 MG PO (08:46)
[2019-10-31] MEDS: AMIODARONE 100 MG TABLET PO (08:46)
[2019-10-31] MEDS: ACETAMINOPHEN 325 MG TABLET 650 MG PO ×2 (08:49→21:05)
[2019-10-31] MEDS: HEPARIN 5,000 UNIT/ML VIAL 5000 UNIT SUBCUT ×2 (08:49→20:44)
--- NOTE | 2019-10-31 09:26 | PM.PN.1 ---
Subjective Subjective Date Patient Seen: 10/31/19 Interval history: Valery Yeh is an 84-year-old female with a past medical history significant for hypertension, hyperlipidemia, paroxysmal atrial fibrillation not on anticoagulation due to previous GI bleed, chronic kidney disease stage 3 with solitary left kidney status post right nephrectomy due to surgical complication, vertigo, overactive bladder and anxiety who presented to the ED with left flank pain, fevers, chills and rigors. The patient is resting in bedside chair comfortably. Informed patient that blood cultures were positive for E coli. She had an episode of regurgitation of medications this morning due to gag reflex. She denies nausea. She continues to have left flank pain. She endorses headache. She has no other complaints and denies cough, shortness of breath, chest pain, abdominal pain, nausea, vomiting, fever, chills, dysuria, diarrhea or constipation. She is voiding and eliminating without difficulty. She is up ambulating without assistance. Exam Vital Signs (past 8 hours): - 10/31/19 04:30 10/31/19 07:35 10/31/19 08:10 Temperature 99.4 F 99.1 F Pulse Rate 79 71 Respiratory Rate 19 18 Blood Pressure 167/71 H 165/70 H Pulse Oximetry 92 92 95 Oxygen Delivery Method Room Air Oxygen Flow Rate 0 Narrative Exam Narrative: General: Older female resting in bedside chair and in no acute distress, well-developed, well-nourished, appropriately interactive. HEENT: Normocephalic, atraumatic. External ears without defect. Pupils equal, round, and reactive to light. Anicteric sclerae, moist conjunctivae, and no lid lag. Oropharynx free of erythema and cobble stoning with moist mucosa. Neck: Supple with full range of motion. No lymphadenopathy or thyromegaly. Cardiovascular: Regular rate and rhythm without murmurs, rubs, or gallops appreciated. Pulmonary: Clear to auscultation bilaterally without crackles, wheezes, or rhonchi. Normal respiratory effort with no use of accessory muscles. Abdomen: Soft, bowel tones present, nondistended, tenderness to palpation at CVA and left flank/back. No hepatosplenomegaly or masses appreciated. Extremities: No clubbing, cyanosis, or edema. Skin: Normal temperature, turgor, and texture; no rash, ulcers, or subcutaneous nodules appreciated. Neurological: Cranial nerves grossly intact. Psychiatric: Mildly anxious mood and normal affect. Alert and oriented to person, place, and time. Objective Labs Result Diagrams: 10/31/19 04:51 10/31/19 04:51 Labs: Laboratory Results - last 24 hr 10/30/19 10/30/19 10/30/19 11:56 12:00 12:00 WBC 13.1 H RBC 4.00 Hgb 12.0 Hct 35.7 L MCV 89.4 MCH 30.1 MCHC 33.6 RDW 15.2 H Plt Count 231 Neut % (Auto) 85.1 H Lymph % (Auto) 7.3 L [place] % (Auto) 7.1 Eos % (Auto) 0.1 L Baso % (Auto) 0.4 Neut # (Auto) 20436 H Lymph # (Auto) 1000 L [place] # (Auto) 900 Eos # (Auto) 0 Baso # (Auto) 100 Sodium Potassium Chloride Carbon Dioxide BUN Creatinine Estimated GFR BUN/Creatinine Ratio Glucose Lactate Calcium Total Bilirubin AST ALT Alkaline Phosphatase Total Protein Albumin Globulin Albumin/Globulin Ratio Lipase Procalcitonin 1.33 H Urine RBC 1-5/hpf Urine WBC >100/hpf H Ur Squamous Epith Cells 1-5 /hpf Ur Transition Epith Cell 1-5/hpf Urine Bacteria Many (>30) H Ur Culture Indicated? Specimen cultured Nasal Screen MRSA (PCR) A. baumannii (PCR) Ese albicans (PCR) C. glabrata (PCR) C. krusei (PCR) C. parapsilosis (PCR) C. tropicalis (PCR) COVID-19 PCR Enterobacteriac sp PCR E. cloacae complex PCR Enterococcus sp PCR E. coli (PCR) H. influenzae (PCR) Klebsiella oxytoca PCR Klebsiella pneumoniae List. monocytogenes PCR N. meningitidis (PCR) Proteus species (PCR) Serratia marcescens PCR Staphylococcus sp PCR Staph aureus (PCR) mecA-Methicil Res Gene Streptococcus sp PCR Group A Strep (PCR) Strep agalactiae (PCR) Strep pneumoniae (PCR) P. aeruginosa (PCR) Swathi/B-Vanco Res Genes KPC-Carbap Res Gene PCR 10/30/19 10/30/19 10/30/19 12:00 12:00 12:05 WBC RBC Hgb Hct MCV MCH MCHC RDW Plt Count Neut % (Auto) Lymph % (Auto) [place] % (Auto) Eos % (Auto) Baso % (Auto) Neut # (Auto) Lymph # (Auto) [place] # (Auto) Eos # (Auto) Baso # (Auto) Sodium 135 L Potassium 3.9 Chloride 103 Carbon Dioxide 27 BUN 33 H Creatinine 1.45 H Estimated GFR 34.6 L BUN/Creatinine Ratio 22.8 H Glucose 139 H Lactate 1.1 Calcium 9.2 Total Bilirubin 0.7 AST 35 ALT 16 Alkaline Phosphatase 72 Total Protein 7.4 Albumin 4.0 Globulin 3.4 Albumin/Globulin Ratio 1.2 Lipase 60 Procalcitonin Urine RBC Urine WBC Ur Squamous Epith Cells Ur Transition Epith Cell Urine Bacteria Ur Culture Indicated? Nasal Screen MRSA (PCR) A. baumannii (PCR) Not detected Ese albicans (PCR) Not detected C. glabrata (PCR) Not detected C. krusei (PCR) Not detected C. parapsilosis (PCR) Not detected C. tropicalis (PCR) Not detected COVID-19 PCR Enterobacteriac sp PCR Detected H E. cloacae complex PCR Not detected Enterococcus sp PCR Not detected E. coli (PCR) Detected H H. influenzae (PCR) Not detected Klebsiella oxytoca PCR Not detected Klebsiella pneumoniae Not detected List. monocytogenes PCR Not detected N. meningitidis (PCR) Not detected Proteus species (PCR) Not detected Serratia marcescens PCR Not detected Staphylococcus sp PCR Not detected Staph aureus (PCR) Not detected mecA-Methicil Res Gene Not Reportable Streptococcus sp PCR Not detected Group A Strep (PCR) Not detected Strep agalactiae (PCR) Not detected Strep pneumoniae (PCR) Not detected P. aeruginosa (PCR) Not detected Swathi/B-Vanco Res Genes Not Reportable KPC-Carbap Res Gene PCR Not detected 10/30/19 10/30/19 10/30/19 13:55 18:00 18:00 WBC RBC Hgb Hct MCV MCH MCHC RDW Plt Count Neut % (Auto) Lymph % (Auto) [place] % (Auto) Eos % (Auto) Baso % (Auto) Neut # (Auto) Lymph # (Auto) [place] # (Auto) Eos # (Auto) Baso # (Auto) Sodium Potassium Chloride Carbon Dioxide BUN Creatinine Estimated GFR BUN/Creatinine Ratio Glucose Lactate Calcium Total Bilirubin AST ALT Alkaline Phosphatase Total Protein Albumin Globulin Albumin/Globulin Ratio Lipase Procalcitonin Urine RBC Urine WBC Ur Squamous Epith Cells Ur Transition Epith Cell Urine Bacteria Ur Culture Indicated? Nasal Screen MRSA (PCR) Negative for mrsa A. baumannii (PCR) Ese albicans (PCR) C. glabrata (PCR) C. krusei (PCR) C. parapsilosis (PCR) C. tropicalis (PCR) COVID-19 PCR Cancelled Negative Enterobacteriac sp PCR E. cloacae complex PCR Enterococcus sp PCR E. coli (PCR) H. influenzae (PCR) Klebsiella oxytoca PCR Klebsiella pneumoniae List. monocytogenes PCR N. meningitidis (PCR) Proteus species (PCR) Serratia marcescens PCR Staphylococcus sp PCR Staph aureus (PCR) mecA-Methicil Res Gene Streptococcus sp PCR Group A Strep (PCR) Strep agalactiae (PCR) Strep pneumoniae (PCR) P. aeruginosa (PCR) Swathi/B-Vanco Res Genes KPC-Carbap Res Gene PCR 10/31/19 10/31/19 04:51 04:51 WBC 10.4 RBC 3.72 L Hgb 11.3 L Hct 33.4 L MCV 89.8 MCH 30.3 MCHC 33.8 RDW 15.6 H Plt Count 182 Neut % (Auto) 78.3 H Lymph % (Auto) 9.9 L [place] % (Auto) 10.6 Eos % (Auto) 0.3 L Baso % (Auto) 0.9 Neut # (Auto) 8100 H Lymph # (Auto) 1000 L [place] # (Auto) 1100 H Eos # (Auto) 0 Baso # (Auto) 100 Sodium 135 L Potassium 3.8 Chloride 104 Carbon Dioxide 26 BUN 20 H Creatinine 1.12 H Estimated GFR 46.6 L BUN/Creatinine Ratio 17.9 Glucose 127 H Lactate Calcium 8.7 Total Bilirubin AST ALT Alkaline Phosphatase Total Protein Albumin Globulin Albumin/Globulin Ratio Lipase Procalcitonin Urine RBC Urine WBC Ur Squamous Epith Cells Ur Transition Epith Cell Urine Bacteria Ur Culture Indicated? Nasal Screen MRSA (PCR) A. baumannii (PCR) Ese albicans (PCR) C. glabrata (PCR) C. krusei (PCR) C. parapsilosis (PCR) C. tropicalis (PCR) COVID-19 PCR Enterobacteriac sp PCR E. cloacae complex PCR Enterococcus sp PCR E. coli (PCR) H. influenzae (PCR) Klebsiella oxytoca PCR Klebsiella pneumoniae List. monocytogenes PCR N. meningitidis (PCR) Proteus species (PCR) Serratia marcescens PCR Staphylococcus sp PCR Staph aureus (PCR) mecA-Methicil Res Gene Streptococcus sp PCR Group A Strep (PCR) Strep agalactiae (PCR) Strep pneumoniae (PCR) P. aeruginosa (PCR) Swathi/B-Vanco Res Genes KPC-Carbap Res Gene PCR Assessment & Plan Assessment & Plan narrative: Valery Yeh is an 84-year-old female with a past medical history significant for hypertension, hyperlipidemia, paroxysmal atrial fibrillation not on anticoagulation due to previous GI bleed, chronic kidney disease stage 3 with solitary left kidney status post right nephrectomy due to surgical complication, vertigo, overactive bladder and anxiety who presented to the ED with left flank pain, fevers, chills and rigors. 1. Acute left-sided E. coli pyelonephritis and bacteremia, present on admission. Active. -Patient presented with left flank pain, fever, chills and rigors. -Initial WBC 13.1 and trended down and normalized now 10.4. Procalcitonin initially elevated at 1.33 and trending down now 1.22. Continue to trend WBC and procalcitonin. -Urine culture preliminarily growing gram-negative bacilli which are likely major account representative of E. coli as blood culture 1:4 bottles are positive for E coli. Ordered repeat blood culture, pending to assure clearance of blood stream. Note, patient previously has had pansensitive E.coli and Klebsiella UTI's. -Received imipenem in ED. Continue renally dosed ertapenem 500 mg daily due multiple antibiotic allergies and renally dosed at 500 mg every 24 hours. -Continued IV fluids until adequately hydrated then discontinued. -Continue supportive care including: Zofran 4 mg every 6 hours as needed for nausea and Tylenol 650 mg every 4 hours as needed for pain or fever. -Patient endorsed difficulty with emptying her bladder in addition to recurrent pyelonephritis and recommend referral to urology as an outpatient to further evaluate and defer to PCP. 2. Chronic kidney disease stage 3, present on admission. Stable. 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 -Initial creatinine 1.65 which is at baseline of creatinine of 1.6-1.9. -Continued IV fluids until adequately hydrated then discontinued. -Continue to avoid nephrotoxic agents and renally dosed medications. -Continue to monitor creatinine daily. 3. Paroxysmal atrial fibrillation, chronic, present on admission. Stable. -Currently in normal sinus rhythm. -[id number] indicative of high risk of VTE, however, patient previously had life threatening GI bleed and warfarin and aspirin discontinued. Could consider restarting and recommend discussion with PCP. -Continue home amiodarone 200 mg daily and lisinopril 5 mg daily. 4. Hypertension, chronic, present on admission. Stable. -Continue home lisinopril 5 mg daily. 5. Anxiety, chronic, present on admission. Stable. -Continue home sertraline 100 mg daily. 6. Overactive bladder, chronic, present on admission. Stable. -Continue oxybutynin 10 mg daily and trospium 20 mg twice daily. Code status: Full code. Patient's daughter is her DPOA. VTE prophylaxis: SQ heparin Disposition: Patient likely to discharge home in the next 1-2 days once urine culture and blood cultures identification and sensitivities resulted.
[2019-10-31 09:51] LABS: Procalcitonin 1.22 ng/mL (<0.5)
[2019-10-31] MEDS: AMLODIPINE 5 MG TABLET PO (12:08)
[2019-10-31] MEDS: SERTRALINE 50 MG TABLET 100 MG PO (20:44)
[2019-10-31] MEDS: ERTAPENEM 0.5 GM in SODIUM CHLORIDE 0.9% 100 ML IV (20:46)
[2019-10-31] MEDS: SODIUM CHLORIDE 0.9% FLUSH 10 ML IV (22:27)
[2019-11-01] VITALS (7 sets, daily range): BP systolic 146–178; BP diastolic 66–89; PULSE 61–83; RESP 18–25; TEMP 36.1–36.6; O2SAT 94–97
[2019-11-01] MEDS: ACETAMINOPHEN 325 MG TABLET 650 MG PO ×2 (02:48→09:36)
[2019-11-01 05:38] LABS: Add Manual Diff / Slide Review NO; Basophils Absolute Auto 100 /uL (0-100); Basophils Percent Auto 0.9 % (0-2); Eosinophils Absolute Auto 100 /uL (0-450); Eosinophils Percent Auto 1.6 % (2-4); Hematocrit 32.3 % (36-46); Hemoglobin 10.8 g/dL (12.0-16.0); Lymphocytes Absolute Auto 1300 /uL (1100-4500); Mean Corpuscular HGB Conc 33.6 % (30-36); Mean Corpuscular Volume 89.2 fL (80-100); Monocytes Absolute Auto 900 /uL (0-900); Monocytes Percent Auto 14.2 % (3-14); Neutrophils Absolute Auto 4200 /uL (1500-7000); Neutrophils Percent Auto 64.3 % (50-75); Platelet Count 186 X10^3/uL (150-400); Red Blood Cell Count 3.62 X10^6/uL (4.0-5.2); Red Cell Distribution Width 15.4 % (11.6-14.8); White Blood Cell Count 6.6 X10^3/uL (4.5-11.0)
[2019-11-01 05:44] LABS: BUN Creatinine Ratio 13.2 (6-22); Blood Urea Nitrogen 17 mg/dL (7-17); Calcium 8.9 mg/dL (8.4-10.2); Carbon Dioxide 27 mmol/L (22-32); Chloride 104 mmol/L (98-107); Estimated Glomerular Filt Rate 39.6 mL/min (>60); Glucose 105 mg/dL (80-110); HEMOLYSIS < 15 (0-50); Hemoglobin A1C% w Est Avg Glu 5.4 % (4.0-6.0); Magnesium 2.2 mg/dL (1.6-2.3); Sodium 135 mmol/L (137-145)
[2019-11-01 06:03] LABS: Procalcitonin 0.98 ng/mL (<0.5)
[2019-11-01] MEDS: OXYBUTYNIN 5 MG TABLET 10 MG PO (07:53)
[2019-11-01] MEDS: GABAPENTIN 100 MG CAPSULE PO (07:53)
[2019-11-01] MEDS: AMIODARONE 100 MG TABLET PO (07:53)
[2019-11-01] MEDS: lisinopriL 5 MG TABLET PO (07:53)
[2019-11-01] MEDS: HEPARIN 5,000 UNIT/ML VIAL 5000 UNIT SUBCUT (07:55)
--- NOTE | 2019-11-01 09:21 | CM.DANOTE ---
Addendum entered by Shantell Gibson LPN 11/01/19 11:17: LEO Morton has provided a fax # to try for the Infusion Center after she conferred with a colleague who works there. will also now fax to [phone]. A check shows no d/c specific order are in yet so will need to table the rest of this until have Dr. Baker's information. Addendum entered by hSantell Gibson LPN 11/01/19 10:45: Met as planned again today in Team Bedside Rounds with Dr. Baker reporting that pt's cultures came back more quickly than anticipated. She plans to change pt's antibiotic to IV ceftriaxone for first dose this afternoon and then d/c to home with 7 more doses needed. Midline will be placed. Discussed the Infusion Center process with RN Coordinator Selene Troncoso. Have now called the infusion Center and left a vm with scheduling re this referral (they are currently not open [facility] so Infusion services are handled by RN coordinator on the acute care floor.) Will also fax the referral information to the Infusion room fax: [phone]. Am still waiting for Dr. Baker to put in the specific orders so that these can be faxed. The d/c order is placed but no d/c summary or specific d/c orders are in yet. Went over all this with pt. She will have her friend and furniture delivery driver Roger Vela cell: [phone] drive her to all the appointments. Jossiecatrachito will also be the person who picks her up today when the d/c paperwork is completed. Pt says she wishes her daughter could be here but she is currently out of state. She reports family has a plan to help pt to move to [place] in next few months so as to be closer to family and pt says she is thankful for this. She notes it has been difficult to be in [place] since her passed and, especially now, she feels very isolated. Addendum entered by Shantell Gibson LPN 11/01/19 09:29: Looked at pt's prior stay: November 2018. At that time she did d/c to home with 4 days of IV Rocephin once a day and she successfully did this at the Infusion Center. Original Note: Discharge Planning/Care Management DCP: assessment: case received yesterday and met with pt at that time during Team Bedside Rounds. Introduced self and role. Pt is a 29 year old female who admitted yesterday to care of hospitalist team. PCP: Dr. Effie Salgado Payer: Medicare and [employer] [place] [employer] Admission status: INPT: confirmed by UR RN Diane Pt is and lives alone in [place]. Dr. Baker stated yesterday that pt is currently needing IV antibiotics to treat kidney infection and with cultures pending urine and blood. She anticipates that pt may need IV antibiotic at d/c. Pt reports she needed this last year and did drive herself to the Infusion Center. Will be following. Advanced directive, confirm from FAMILY Start: 10/30/19 16:40 Freq: Q24H Status: Active Protocol: Document 10/31/19 16:40 RUMA (Rec: 10/31/19 17:18 RUMA [id number]) Advance Directive, confirm on record Time 17:00 Person contacted patient Copy received No CM Discharge Assessment Start: 11/01/19 09:19 Freq: Status: Active Protocol: Document 11/01/19 09:19 ITV (Rec: 11/01/19 09:21 ITV [id number]) Discharge Planning Assessment Advance Directives? Yes Advance Directives on File No History Provided By Patient,Medical Record Prior Living Arrangements House Household Members none Type of transporation used prior to Drives own vehicle admit Independent with ADL's Yes Is patient alert and oriented? Yes Whiteboard Updated in Patient Room with Yes name and ext. 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
--- NOTE | 2019-11-01 10:54 | PC.NURSE ---
Addendum entered by Pauly Bryan R.N. 11/01/19 11:08: Bed bath done with RN. Original Note: Am shift Pt is a/o x4, pleasant and cooperative with all care. Bp better controlled today with 150/71 cbg improved at 182 with breakfast. Daughter will be in later today and review POC re:d/c.
--- NOTE | 2019-11-01 11:24 | PC.NURSE ---
Addendum entered by Pauly Bryan R.N. 11/01/19 14:58: PICC placed to RUE, daily ABX infusions x7 days. D/c teaching with patient, and education about new BP medication. w/c to vehicle with friend. 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 Original Note: AM shift Pt is feeling improved, no further chills/or rigors. Reviewing results of labs with patient, and poc for outpatient IV abx daily for 7 additional days. PICC to be placed prior to d/c home.
--- NOTE | 2019-11-01 11:32 | PM.DS.1 ---
History of Present Illness History of Present Illness Date Patient Seen: 10/30/19 Chief complaint: HIGH FEVER/ CHILLS Narrative: Written by Dr. Phoneix: Patient is an 84-year-old female with a history of persistent atrial fibrillation, hypertension, restless leg syndrome, with a remote history of nephrectomy who was admitted to the hospital in May of this year for acute pyelonephritis. Patient recovered from that. But she states for the past several weeks she has not felt well. For the past few days she has had difficulty urinating. She has felt like she has been unable to empty her bladder. Last evening she developed fever and chills. She had a fever to 101. She also reports kidney pain which has been present for few days. She denies any dysuria hematuria or pyuria. She does have back pain as well. Patient reports having a headache. She has had no associated nausea or vomiting. Patient reports no chest pain. She called her physician regarding her symptoms and was directed to the emergency room for evaluation. In the emergency department the patient was found to have a markedly positive urinalysis. CT scan of the abdomen and pelvis confirmed stranding around the left kidney consistent with acute pyelonephritis. Patient is admitted to the hospital at this time for inpatient management of pyelonephritis. She has multiple drug allergies. During her last hospitalization she was treated with ertapenem for pansensitive E coli. She tolerated this without difficulty. Patient was given 1 dose of imipenem in the emergency department and admitted to the hospital for further evaluation. Discharge Providers Provider Date of admission: 10/30/19 16:02 Discharge Date: 11/01/19 Primary care physician: Scooter Salgado MD Discharge provider: Veronica Baker DO Summary Hospital Course Discharge Diagnosis: 1. Acute left-sided E. coli pyelonephritis and bacteremia, present on admission. Resolving. 2. Chronic kidney disease stage 3, present on admission. Stable. 3. Paroxysmal atrial fibrillation, chronic, present on admission. Stable. 4. Hypertension, chronic, present on admission. Stable. 5. Anxiety, chronic, present on admission. Stable. 6. Overactive bladder, chronic, present on admission. Stable. 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 1. Acute left-sided E. coli pyelonephritis and bacteremia, present on admission. Resolving. -Patient presented with left flank pain, fever, chills and rigors. -Initial WBC 13.1 and trended down and normalized now 10.4. Procalcitonin initially elevated at 1.33 and trending down now 1.22. Continue to trend WBC and procalcitonin. -Continued IV fluids until adequately hydrated then discontinued. -Continued supportive care including: Zofran 4 mg every 6 hours as needed for nausea and Tylenol 650 mg every 4 hours as needed for pain or fever. -Urine and blood culture (1:4 bottles) are positive for pansensitive E coli. Repeat blood culture has no growth to date. -Received imipenem in ED. Continued renally dosed ertapenem 500 mg daily due multiple antibiotic allergies. Unaware that the patient previously was placed on ceftriaxone at previous hospital discharge which she tolerated well and patient was switched to ceftriaxone 1 g IV daily for 7 additional days to complete 10 day course of treatment. -Patient endorsed difficulty with emptying her bladder in addition to recurrent pyelonephritis and recommend she follow-up with previous urologist as an outpatient to further evaluate possible underlying nidus for recurrent UTI/pyelonephritis. 2. Chronic kidney disease stage 3, present on admission. Stable. 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 -Initial creatinine 1.45 and at baseline. Baseline creatinine variable and between 1.4-1.9. Creatinine now 1.29 and likely falsely low due to IV fluid. -Continued IV fluids until adequately hydrated then discontinued. -Continued to avoid nephrotoxic agents and renally dosed medications. -Continued to monitor creatinine daily. 3. Paroxysmal atrial fibrillation, chronic, present on admission. Stable. -Currently in normal sinus rhythm. -[id number] 4 indicative of high risk of VTE, however, patient previously had life threatening GI bleed and warfarin and aspirin discontinued. Could consider restarting and recommend discussion with PCP. -Continued home amiodarone 200 mg daily. 4. Hypertension, chronic, present on admission. Stable. -Patient's blood pressure was elevated throughout hospitalization and SBP ranged from 140s to 190s on average throughout hospitalization. -Continued home lisinopril increased from 5 mg to 10 daily and added amlodipine 10 mg daily to better control blood pressure for which patient tolerated well and SBP improved to 120s 130s 5. Anxiety, chronic, present on admission. Stable. -Continued home sertraline 100 mg daily. 6. Overactive bladder, chronic, present on admission. Stable. -Continued oxybutynin 10 mg daily and trospium 20 mg twice daily. Exam Vital Signs (past 8 hours): - 11/01/19 03:56 11/01/19 07:00 11/01/19 07:45 Temperature 98 F Pulse Rate 62 72 Respiratory Rate 19 25 H Blood Pressure 159/70 H 178/81 H Pulse Oximetry 97 94 11/01/19 07:53 Temperature Pulse Rate 72 Respiratory Rate Blood Pressure 178/89 H Pulse Oximetry Oxygen Delivery Method Nasal Cannula Oxygen Flow Rate 0 Narrative Exam Narrative: General: Older female resting in bedside chair and in no acute distress, well-developed, well-nourished, appropriately interactive. HEENT: Normocephalic, atraumatic. External ears without defect. Pupils equal, round, and reactive to light. Anicteric sclerae, moist conjunctivae, and no lid lag. Oropharynx free of erythema and cobble stoning with moist mucosa. Neck: Supple with full range of motion. No lymphadenopathy or thyromegaly. Cardiovascular: Regular rate and rhythm without murmurs, rubs, or gallops appreciated. Pulmonary: Clear to auscultation bilaterally without crackles, wheezes, or rhonchi. Normal respiratory effort with no use of accessory muscles. Abdomen: Soft, bowel tones present, nondistended, tenderness to palpation at CVA and left flank/back slightly improved. No hepatosplenomegaly or masses appreciated. Extremities: No clubbing, cyanosis, or edema. Skin: Normal temperature, turgor, and texture; no rash, ulcers, or subcutaneous nodules appreciated. Neurological: Cranial nerves grossly intact. Psychiatric: Mildly anxious mood and normal affect. Alert and oriented to person, place, and time. Objective Labs Result Diagrams: 11/01/19 05:05 11/01/19 05:05 Labs: Laboratory Results - last 24 hr 11/01/19 11/01/19 11/01/19 05:05 05:05 05:05 WBC 6.6 RBC 3.62 L Hgb 10.8 L Hct 32.3 L MCV 89.2 MCH 30.0 MCHC 33.6 RDW 15.4 H Plt Count 186 Neut % (Auto) 64.3 Lymph % (Auto) 19.0 L [place] % (Auto) 14.2 H Eos % (Auto) 1.6 L Baso % (Auto) 0.9 Neut # (Auto) 4200 Lymph # (Auto) 1300 [place] # (Auto) 900 Eos # (Auto) 100 Baso # (Auto) 100 Sodium 135 L Potassium 4.0 Chloride 104 Carbon Dioxide 27 BUN 17 Creatinine 1.29 H Estimated GFR 39.6 L BUN/Creatinine Ratio 13.2 Glucose 105 Hemoglobin A1c Calcium 8.9 Magnesium 2.2 Procalcitonin 0.98 H 11/01/19 05:05 WBC RBC Hgb Hct MCV MCH MCHC RDW Plt Count Neut % (Auto) Lymph % (Auto) [place] % (Auto) Eos % (Auto) Baso % (Auto) Neut # (Auto) Lymph # (Auto) [place] # (Auto) Eos # (Auto) Baso # (Auto) Sodium Potassium Chloride Carbon Dioxide BUN Creatinine Estimated GFR BUN/Creatinine Ratio Glucose Hemoglobin A1c 5.4 Calcium Magnesium Procalcitonin Discharge Plan Discharge Plan Patient Disposition: Home Discharge comment: You are being discharged home. You have a kidney infection that got into your bloodstream. You have been prescribed ceftriaxone 1 g daily for 7 additional days to complete 10 days total of antibiotics. Ceftriaxone is an IV antibiotic you received previously and you will need to come to the hospital for an infusion daily. Please follow-up with your primary care provider, Dr. Salgado, in the next 1-2 weeks regarding your hospitalization. Discharge orders & Medications Prescriptions: New ceftriaxone in dextrose,iso-os 1 gram/50 mL Piggyback 1 gm IV Q24H Qty: 7 RF: 0 amlodipine 10 mg tablet 10 mg PO DAILY Qty: 30 RF: 0 Continued acetaminophen [Tylenol Extra Strength] 500 MG tablet 500 mg PO PRN PRN (Reason: Pain, Mild) Qty: 0 RF: 0 trospium 20 mg tablet 20 mg PO BID RF: 0 amiodarone 200 mg tablet 100 mg PO DAILY Qty: 0 RF: 0 ferrous sulfate 325 mg (65 mg iron) tablet,delayed release (DR/EC) 325 mg PO Q OTHER DAY RF: 0 sertraline 100 mg tablet 100 mg PO DAILY Qty: 90 RF: 3 oxybutynin chloride 10 mg tablet extended release 24hr 10 mg PO DAILY RF: 0 gabapentin 100 mg capsule 100 mg PO TID Qty: 90 RF: 0 meclizine 12.5 mg tablet 12.5 mg PO TID PRN (Reason: dizziness) Qty: 30 RF: 0 cholecalciferol (vitamin D3) [Vitamin D3] 5,000 unit Tablet 5,000 unit PO DAILY RF: 0 Changed lisinopril 5 mg tablet 10 mg PO DAILY Qty: 0 RF: 0 Follow up/Referrals: Scooter Salgado MD [Primary Care Provider] - Diet/Activity/Treatments Diet: Low-fat, Low-sodium and Low-cholesterol Activity: Activity as tolerated Visit Report/Discharge Packet Instructions: The DASH Diet, Essential Hypertension, DI for Kidney Infection, DI for Bacteremia--Child Visit Report Forms: Patient Portal/API, Stroke Signs & Symptoms Discharge Data Primary Care Provider: Scooter Salgado
--- NOTE | 2019-11-01 12:23 | DI.RAD.S_ITS ---
PROCEDURE: XR CHEST 1V INDICATIONS: confirm picc placement TECHNIQUE: One view of the chest was acquired. COMPARISON: [facility], CR, XR CHEST 1V, 10/30/2019, 11:51. [facility], CR, XR CHEST 1V, 03/28/2019, 14:51. FINDINGS: Surgical changes and devices: PICC line from right sided approach extends into the distal SVC.. Lungs and pleura: Lungs are abnormal with a mild interstitial prominence, chronic, and a calcified granuloma at the right midlung. No pleural effusions or pneumothorax. Mediastinum: Mediastinal contours appear normal. Heart size is at the upper limits of normal. Bones and chest wall: No suspicious bony lesions. Overlying soft tissues appear unremarkable. IMPRESSION: Normal distal SVC PICC line positioning from right sided approach. Chronic mild interstitial prominence, old granuloma right lower lung near its junction with the middle third. Dictated by: Heri Zhou M.D. on 11/01/2019 at 13:30 Approved by: Heri Zhou M.D. on 11/01/2019 at 13:31
[2019-11-01] MEDS: CEFTRIAXONE 1 GM/50 ML FROZ.PIGGY IV (13:06)
[2019-11-01] MEDS: AMLODIPINE 5 MG TABLET 10 MG PO (14:24)
== END 2019-11-01 15:00 | disposition home or self-care (01) | DRG 690 ==
LOC: ED 14:32 → AC 16:04 → ICU 16:10
PROVIDERS: Internal Medicine; Admitting Provider Internal Medicine; Emergency Provider Emergency Medicine; Family Provider Student in an Organized Health Care Education/Training Program; PCP Student in an Organized Health Care Education/Training Program; Referring Provider Emergency Medicine; Visit Provider Internal Medicine
DX: N10 Acute pyelonephritis (principal); R78.81 Bacteremia; I12.9 Hypertensive chronic kidney disease with stage 1 through stage 4 chronic kidney disease, or unspecified chronic kidney disease; N18.3 Chronic kidney disease, stage 3 (moderate); B96.20 Unspecified Escherichia coli [E. coli] as the cause of diseases classified elsewhere; I48.0 Paroxysmal atrial fibrillation; F41.9 Anxiety disorder, unspecified; F32.9 Major depressive disorder, single episode, unspecified; Z90.5 Acquired absence of kidney; N32.81 Overactive bladder; Z11.59 Encounter for screening for other viral diseases
CPT/HCPCS: 36415; 36569; 71045; 74176; 80048; 80053; 81003; 81015; 83036; 83605; 83690; 83735; 84145; 85025; 87040; 87077; 87086; 87150; 87186; 87205; 87635; 87797; 96361; 96365; 99285; J0743; J1335; J1644; J2270

== ENCOUNTER 2019-11-01 21:28 | Emergency (ER) | payer MEDICARE, OTHER, SELFPAY ==
[2019-10-31 13:51] VITALS: BMI 26.9
[2019-11-01 22:05] VITALS: BP 150/68; PULSE 74; RESP 18; TEMP 37.2; O2SAT 96
== END 2019-11-01 23:28 | disposition left against medical advice (07) ==
LOC: ED 21:29
PROVIDERS: Emergency Provider Emergency Medicine; Family Provider Student in an Organized Health Care Education/Training Program; PCP Student in an Organized Health Care Education/Training Program
CPT/HCPCS: 99281

== ENCOUNTER → 2019-11-02 12:25 | Outpatient (RCR) | payer MEDICARE, OTHER, SELFPAY ==
[2019-10-31 13:51] VITALS: BMI 26.9
[2019-11-02 12:35] VITALS: BP 127/67; PULSE 16; RESP 16; TEMP 36.8; O2SAT 96
[2019-11-02] MEDS: CEFTRIAXONE 1 GM/50 ML FROZ.PIGGY IV (12:43)
[2019-11-03] MEDS: CEFTRIAXONE 1 GM/50 ML FROZ.PIGGY IV (13:06)
[2019-11-03 13:07] VITALS: BP 141/51; PULSE 79; RESP 15; TEMP 36.6; O2SAT 96
[2019-11-03] MEDS: SODIUM CHLORIDE 0.9% FLUSH 10 ML IV ×2 (13:07→13:50)
--- NOTE | 2019-11-03 14:22 | PC.NURSE ---
Picc line drsg changed per protocol. Insertion site without erythema or edema. Patient without complaints.
== END ==
LOC: INF 12:25
PROVIDERS: Family Provider Student in an Organized Health Care Education/Training Program; PCP Student in an Organized Health Care Education/Training Program; Referring Provider Internal Medicine; Visit Provider Internal Medicine
DX: N10 Acute pyelonephritis (principal)
CPT/HCPCS: 96365; J1642

== ENCOUNTER → 2019-11-07 15:00 | Oncology outpatient (ONC) | payer MEDICARE, OTHER, SELFPAY ==
[2018-07-03 15:42] VITALS: BMI 28.0
[2018-09-06] MEDS: GENTAMICIN 400 MG in SODIUM CHLORIDE 0.9% 100 ML 110 ML IV (11:23)
[2018-09-06 12:58] VITALS: BP 145/63; PULSE 67; RESP 12; TEMP 36.7
[2018-09-08 11:52] VITALS: BP 151/79; PULSE 71; RESP 17; TEMP 36.9; O2SAT 98
[2018-09-08] MEDS: GENTAMICIN 400 MG in SODIUM CHLORIDE 0.9% 100 ML 110 ML IV (12:22)
--- NOTE | 2018-09-08 13:33 | PC.NURSE ---
difficult iv start. 2 nurses needed two attempts each. patient tolerated abx infusion well. ambulatory. no distress. reports continues w/ urgency of urination. iv dc'd intact s/p infusion.
[2018-09-10 09:18] VITALS: BP 143/72; PULSE 60; RESP 18; TEMP 36.8; O2SAT 95
[2018-09-10 10:50] LABS: BUN Creatinine Ratio 19.4 (6-22); Blood Urea Nitrogen 31 mg/dL (7-17); Calcium 8.8 mg/dL (8.4-10.2); Carbon Dioxide 26 mmol/L (22-32); Chloride 102 mmol/L (98-107); Estimated Glomerular Filt Rate 30.9 mL/min (>60); Glucose 119 mg/dL (80-110); HEMOLYSIS < 15 (0-50); Potassium 4.6 mmol/L (3.4-5.1); Sodium 136 mmol/L (137-145)
[2018-09-10 10:56] LABS: Gentamicin Trough 0.9 ug/mL (0.0-2.0)
[2018-09-10] MEDS: diphenhydrAMINE 50 MG/ML VIAL 25 MG IV (11:20)
[2018-09-10] MEDS: GENTAMICIN 400 MG in SODIUM CHLORIDE 0.9% 100 ML 110 ML IV (12:02)
[2018-11-21] VITALS (8 sets, daily range): BP systolic 130–195; BP diastolic 61–96; PULSE 67–70; RESP 18–20; TEMP 36.7–36.8
[2018-11-21] MEDS: SODIUM CHLORIDE 0.9% 250 ML 21 ML IV (15:09)
--- NOTE | 2018-11-21 16:13 | PC.NURSE ---
Pt with elevated BP post one unit of blood, vital documented. spoke with Dr. Salgado; alcira to give 500mls of fluid tomorrow instead of today. Pt aware and agreeable to plan. Scheduled for 11:00 tomorrow.
--- NOTE | 2018-11-21 16:14 | PC.NURSE ---
Triage nurse spoke with patient's physician re elevated blood pressure (last measurement 192/85) and Doctor gave verbal order for patient to receive the 500 ml NS tomorrow instead of now due to elevated blood pressure post transfusion.
[2018-11-22] MEDS: SODIUM CHLORIDE 0.9% 500 ML IV (11:23)
[2018-11-22 11:29] VITALS: BP 160/84; PULSE 70; RESP 18; TEMP 36.5
--- NOTE | 2018-12-11 09:31 | ONC.SCHED ---
Called Patient to Schedule infusions for Ceftriaxone. Patient informed me she is getting her infusions in the hospital
[2019-11-04] MEDS: CEFTRIAXONE 1 GM/50 ML FROZ.PIGGY IV (15:03)
[2019-11-04 15:08] VITALS: BP 124/74; PULSE 71; RESP 18; TEMP 37; O2SAT 93
[2019-11-05] MEDS: CEFTRIAXONE 1 GM/50 ML FROZ.PIGGY IV (15:15)
--- NOTE | 2019-11-05 15:41 | PC.NURSE ---
pt reports not feeling well and sleeps all the time. reports burning sensation medial of picc site. no swelling noted. Dr. Lazaro's office called and left message with Emily about pt not feeling well.
[2019-11-06] MEDS: CEFTRIAXONE 1 GM/50 ML FROZ.PIGGY IV (15:09)
[2019-11-06 15:20] VITALS: BP 113/61; PULSE 83; RESP 16; TEMP 36.8; O2SAT 94
[2019-11-07] MEDS: CEFTRIAXONE 1 GM/50 ML FROZ.PIGGY IV (15:24)
[2019-11-08] MEDS: CEFTRIAXONE 1 GM/50 ML FROZ.PIGGY IV (14:45)
[2019-11-08 14:46] VITALS: BP 127/61; PULSE 76; RESP 16; TEMP 36.9; O2SAT 97
--- NOTE | 2019-11-08 14:53 | PC.NURSE ---
Addendum entered by Goldie Castro R.N. 11/08/19 15:11: Called Dr. Salgado's clinic, spoke with Doreen, his nurse. Described patient's current sx's and recent hx w/ abx regimen. Discussed leaving Picc line in, until they evaluate her at her 1615 appointment. Suggested concern for possible c-diff r/t abx, and may need to be worked up for same. Doreen will discuss w/ Dr. Salgado and call back. Original Note: Patient reports she doesn't feel well today. States she almost cancelled coming. She was able to take a 45min nap prior to coming. States she feels very weak. States she has been having stomach upset, diarrhea and feels nauseated. VSS, afebrile, eyes reddened. States today is her last day of abx, and that her picc line is due to be dc'd after this infusion.
[2019-11-08] MEDS: SODIUM CHLORIDE 0.9% FLUSH 10 ML IV (15:31)
== END ==
PROVIDERS: Family Provider Student in an Organized Health Care Education/Training Program; PCP Student in an Organized Health Care Education/Training Program; Visit Provider Student in an Organized Health Care Education/Training Program
DX: N10 Acute pyelonephritis (principal)
CPT/HCPCS: 36415; 36430; 80048; 80170; 86850; 86900; 86901; 96360; 96365; 96375; 96523; P9016; J1200

== ENCOUNTER → 2019-11-14 14:18 | Outpatient (CLI) | payer MEDICARE, OTHER, SELFPAY ==
[2019-05-20 12:02] VITALS: BMI 25.6
[2019-10-31 13:51] VITALS: BMI 26.9
== END ==
PROVIDERS: Family Provider Student in an Organized Health Care Education/Training Program; PCP Student in an Organized Health Care Education/Training Program; Referring Provider Student in an Organized Health Care Education/Training Program; Visit Provider Student in an Organized Health Care Education/Training Program
DX: M62.50 Muscle wasting and atrophy, not elsewhere classified, unspecified site (principal); R20.2 Paresthesia of skin
CPT/HCPCS: 95886; 95908

== ENCOUNTER 2019-11-22 14:54 | Observation (INO) | payer MEDICARE, OTHER, SELFPAY ==
[2019-10-31 13:51] VITALS: BMI 26.9
[2019-11-22 15:04] VITALS: BP 135/69; PULSE 75; RESP 16; TEMP 36.7; O2SAT 98; BMI 24.7
--- NOTE | 2019-11-22 15:08 | ED.GIBLEED ---
HPI - GI Bleed General Chief complaint: GI Bleed Stated complaint: thinks she has an ulcer, stomach pain Time Seen by Provider: 11/22/19 14:59 Source: patient Mode of arrival: Ambulatory Limitations: no limitations History of Present Illness HPI Narrative: 84-year-old female nonsmoker with history of hypertension, peripheral neuropathy paroxysmal AFib, TIA, and kidney disease presents with a chief complaint of burning epigastric pain over the course of the day, being dizzy, weak and lightheaded upon standing, feeling near syncopal and the passage of dark and tarry stools. She denies the use of blood thinners other than aspirin. She denies chest pain or shortness of breath. She has had no fever or chills. She has been scheduled for colonoscopies in the past but is canceled she states 3 times Related Data Home Medications Medication Instructions Recorded Confirmed acetaminophen [Tylenol Extra 500 mg PO PRN PRN #0 04/19/16 11/08/19 Strength] cholecalciferol (vitamin D3) 5,000 unit PO DAILY 12/04/18 11/08/19 [Vitamin D3] ferrous sulfate 325 mg (65 mg 325 mg PO Q OTHER DAY tab 12/11/18 11/08/19 iron) tablet,delayed release amiodarone 200 mg tablet 100 mg PO DAILY #0 tab 07/30/19 11/08/19 oxybutynin chloride 10 mg 10 mg PO DAILY 07/30/19 11/08/19 tablet,extended release 24 hr Previous Rx's Medication Instructions Recorded meclizine 12.5 mg tablet 12.5 mg PO TID PRN #30 tab 03/05/19 sertraline 100 mg tablet 100 mg PO DAILY #90 tab 05/21/19 amlodipine 10 mg PO DAILY #30 tab 11/01/19 lisinopril 10 mg PO DAILY #0 tab 11/01/19 Allergies Allergy/AdvReac Type Severity Reaction Status Date / Time latex Allergy Severe THROAT Verified 11/08/19 16:00 SWELLING prednisone [PREDNISONE] Allergy Intermediate rash Verified 11/08/19 16:00 amoxicillin Allergy Mild ITCH Verified 11/08/19 16:00 cephalexin Allergy Mild ITCHY ALL Verified 11/08/19 16:00 OVER HER BODY ciprofloxacin Allergy Mild ITCH Verified 11/08/19 16:00 clavulanic acid Allergy Mild RASH Verified 11/08/19 16:00 hydromorphone Allergy Mild ITCHING Verified 11/08/19 16:00 nitrofurantoin Allergy Mild ABD Verified 11/08/19 16:00 PAIN/SEVERE ITCHING oxycodone Allergy Mild ITCH Verified 11/08/19 16:00 Penicillins Allergy Mild BLISTERS Verified 11/08/19 16:00 Sulfa (Sulfonamide Allergy Mild ITCH Verified 11/08/19 16:00 Antibiotics) levofloxacin [From LEVAQUIN] AdvReac Severe DISTURBING Verified 11/08/19 16:00 HALLUCINATIONS lorazepam [From ATIVAN] AdvReac Intermediate Verified 11/08/19 16:00 morphine AdvReac Mild HALLUCINATI Verified 11/08/19 16:00 ONS Review of Systems Constitutional Constitutional: Denies chills, Reports fatigue, Denies fever(s), Denies frequent falls, Denies lethargy and Denies weakness Comments: lightheaded Eyes Eyes: Denies change in vision, Denies eye discharge, Denies irritation and Denies loss of vision ENT Ears, Nose, Mouth, and Throat: Denies change in voice, Denies dizziness, Denies neck pain, Denies sore throat and Denies throat swelling Cardiovascular Cardiovascular: Denies chest pain, Denies irregular heart rhythm, Denies lightheadedness, Denies palpitations, Denies dyspnea, Denies dyspnea on exertion and Denies orthopnea Respiratory Respiratory: Denies cough, Denies dyspnea, Denies dyspnea on exertion and Denies wheezing Gastrointestinal Gastrointestinal: Reports abdominal pain, Reports melena, Denies change in bowel habits, Denies diarrhea, Denies nausea and Denies vomiting Musculoskeletal Musculoskeletal: Denies neck pain and Denies numbness Integumentary/Breasts Skin/Breast: Denies pruritus, Denies erythema, Denies rash and Denies wounds Neurologic Neurologic: Denies behavioral changes, Denies confusion, Denies dizziness, Denies frequent falls, Denies loss of vision, Denies numbness and Denies weakness Psychiatric Psychiatric: Denies anxiety, Denies behavioral changes, Denies confusion, Denies depression, Denies homicidal ideation and Denies suicidal ideation Endocrine Endocrine: Reports fatigue, Denies flushing and Denies palpitations Hematologic/Lymphatic Hematologic/Lymphatic: Denies easy bruising Allergic/Immunologic Allergic/Immunologic: Denies urticaria, Denies throat swelling and Denies wheezing Patient History Medical History Anxiety (Chronic 12/08/15) Atypical chest pain (Chronic) C. difficile colitis (Resolved 07/2015) C. 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) Mumps (Resolved ~1939) Osteoporosis, unspecified (Chronic 03/22/11) Paraesophageal hernia (Resolved) Paroxysmal atrial fibrillation (Chronic ~2013) Pyelonephritis (Resolved) RLS (restless legs syndrome) (Chronic) Second degree AV block, Mobitz type I (Chronic) Shoulder pain (Chronic) Skin cancer (Resolved 2009) Sleep apnea (Chronic 2012) 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) Surgical History Anesthesia (Resolved) History of bladder surgery (Resolved ~1967) History of cholecystectomy (Resolved) History of nephrectomy (Resolved) History of spinal fusion (Resolved 2005) S/P repair of paraesophageal hernia (Resolved) Status post hysterectomy with oophorectomy (Resolved) Family History Brother CAD (coronary artery disease) Hyperlipidemia High cholesterol Lung cancer Colon cancer Brother Cancer High cholesterol Lung disease Father Colon cancer CAD (coronary artery disease) High cholesterol Mother CVA (cerebral vascular accident) Hyperlipidemia Sister Age: 84 CAD (coronary artery disease) Hyperlipidemia Ulcer Essential hypertension High cholesterol Heart attack Grandfather Throat cancer Grandmother Heart disease Family/Other Lung disease Social History household members: none Smoking Status: Never smoker Smoking Status: Never smoker alcohol intake frequency: holidays/special occasions only Substance Use Type: does not use Exam Narrative Exam Narrative: GENERAL: [82 to] year old patient appears stated age. Well-nourished, well-developed patient, in mild distress. HEAD: Atraumatic. Normocephalic. EYES: Pupils equal round and reactive. Extraocular motions intact. No scleral icterus. No injection or drainage. ENT: Nose without bleeding, purulent drainage. Throat without erythema, tonsillar hypertrophy or exudate. Airway patent. NECK: Trachea midline. Non tender CARDIOVASCULAR: Regular rate and rhythm without murmurs, gallops, or rubs. RESPIRATORY: Clear to auscultation. Breath sounds equal bilaterally. No wheezes, rales, or rhonchi. GASTROINTESTINAL: Abdomen soft, mild epigastric tenderness, nondistended. RECTAL: deferred as she produced a BM which was black, tarry, and Heme + EXTREMITIES: No edema or joint tenderness. BACK: Nontender without deformity or crepitance. No flank tenderness. NEURO: AOx3. SKIN: No rash or erythema of visible areas Initial Vital Signs Initial Vital Signs: Vital Signs Temperature 98.0 F 11/22/19 15:04 Pulse Rate 75 11/22/19 15:04 Respiratory Rate 16 11/22/19 15:04 Blood Pressure 135/69 11/22/19 15:04 Pulse Oximetry 98 11/22/19 15:04 Course Orders Ordered: ED Orders 11/22/19 15:09 EKG-12 Lead Stat 11/22/19 15:15 Complete Blood Count AUTO DIFF Stat Comprehensive Metabolic Panel Stat Partial Thromboplastin Time Stat Prothrombin Time INR Stat Type and Screen Stat Pantoprazole Sodium 80 mg/ (Sodium Chloride) 100 mls @ 10 mls/hr IV CONT ROME Last Admin: 11/22/19 17:49 Dose: 8 mg/hr, 10 mls/hr Documented by: YONATAN Discontinued Medications Sodium Chloride (Normal Saline 0.9%) 500 mls @ 1,000 mls/hr IV BOLUS ONE Stop: 11/22/19 16:51 Last Infusion: 11/22/19 17:38 Dose: 0 mls/hr Documented by: Admin: 11/22/19 17:06 Dose: 1,000 mls/hr Documented by: YONATAN Ceftriaxone Sodium/Dextrose (Rocephin) 1 gm in 50 mls @ 100 mls/hr IV NOW ONE Stop: 11/22/19 17:05 Last Infusion: 11/22/19 17:35 Dose: 0 mls/hr Documented by: Admin: 11/22/19 17:06 Dose: 100 mls/hr Documented by: YONATAN Ondansetron HCl (Zofran) 4 mg IV NOW ONE Stop: 11/22/19 15:09 Last Admin: 11/22/19 15:21 Dose: 4 mg Documented by: YONATAN Pantoprazole Sodium (Protonix) 40 mg IV NOW ONE Stop: 11/22/19 15:09 Last Admin: 11/22/19 15:21 Dose: 40 mg Documented by: YONATAN Vital Signs Vital signs: Vital Signs - 8 hr 11/22/19 15:04 Temperature 98.0 F Pulse Rate 75 Respiratory Rate 16 Blood Pressure 135/69 Pulse Oximetry 98 MDM - GI Bleed Lab Data Result diagrams: 11/22/19 15:15 11/22/19 15:15 Labs: Lab Results 11/22/19 11/22/19 11/22/19 Range/Units 15:15 15:15 15:15 WBC 7.7 (4.5-11.0) X10^3/uL RBC 4.11 (4.0-5.2) X10^6/uL Hgb 11.9 L (12.0-16.0) g/dL Hct 36.5 (36-46) % MCV 88.9 (80-100) fL MCH 29.0 (26-34) PG MCHC 32.6 (30-36) % RDW 15.0 H (11.6-14.8) % Plt Count 280 (150-400) X10^3/uL Neut % (Auto) 75.0 (50-75) % Lymph % (Auto) 15.9 L (25-40) % [place] % (Auto) 7.3 (3-14) % Eos % (Auto) 0.8 L (2-4) % Baso % (Auto) 1.0 (0-2) % Neut # (Auto) 5800 (2778-2722) /uL Lymph # (Auto) 1200 (5898-4621) /uL [place] # (Auto) 600 (0-900) /uL Eos # (Auto) 100 (0-450) /uL Baso # (Auto) 100 (0-100) /uL PT 11.2 (10.1-12.7) SECONDS INR 1.0 (0.9-1.3) APTT 28 (26.4-36.2) SECONDS Sodium 138 (137-145) mmol/L Potassium 4.6 (3.4-5.1) mmol/L Chloride 107 (98-107) mmol/L Carbon Dioxide 25 (22-32) mmol/L BUN 32 H (7-17) mg/dL Creatinine 1.86 H (0.52-1.04) mg/dL Estimated GFR 25.9 L (>60) mL/min BUN/Creatinine Ratio 17.2 (6-22) Glucose 113 H (80-110) mg/dL Calcium 9.4 (8.4-10.2) mg/dL Total Bilirubin 0.5 (0.2-1.3) mg/dL AST 34 (14-36) IU/L ALT 20 (<35) IU/L Alkaline Phosphatase 72 (38-126) U/L Total Protein 7.1 (6.3-8.2) g/dL Albumin 3.9 (3.5-5.0) g/dL Globulin 3.2 (1.7-4.1) g/dL Albumin/Globulin Ratio 1.2 (1.0-2.8) Blood Type Antibody Screen 11/22/19 Range/Units 15:15 WBC (4.5-11.0) X10^3/uL RBC (4.0-5.2) X10^6/uL Hgb (12.0-16.0) g/dL Hct (36-46) % MCV (80-100) fL MCH (26-34) PG MCHC (30-36) % RDW (11.6-14.8) % Plt Count (150-400) X10^3/uL Neut % (Auto) (50-75) % Lymph % (Auto) (25-40) % [place] % (Auto) (3-14) % Eos % (Auto) (2-4) % Baso % (Auto) (0-2) % Neut # (Auto) (0345-8039) /uL Lymph # (Auto) (3245-3066) /uL [place] # (Auto) (0-900) /uL Eos # (Auto) (0-450) /uL Baso # (Auto) (0-100) /uL PT (10.1-12.7) SECONDS INR (0.9-1.3) APTT (26.4-36.2) SECONDS Sodium (137-145) mmol/L Potassium (3.4-5.1) mmol/L Chloride (98-107) mmol/L Carbon Dioxide (22-32) mmol/L BUN (7-17) mg/dL Creatinine (0.52-1.04) mg/dL Estimated GFR (>60) mL/min BUN/Creatinine Ratio (6-22) Glucose (80-110) mg/dL Calcium (8.4-10.2) mg/dL Total Bilirubin (0.2-1.3) mg/dL AST (14-36) IU/L ALT (<35) IU/L Alkaline Phosphatase (38-126) U/L Total Protein (6.3-8.2) g/dL Albumin (3.5-5.0) g/dL Globulin (1.7-4.1) g/dL Albumin/Globulin Ratio (1.0-2.8) Blood Type AB Negative Antibody Screen Negative Point of Care Testing Stool Occult Blood Positive Urine Dip Bedside Urine Glucose Negative Bedside Urine Bilirubin + 1 Bedside Urine Ketone +/- 5 Urine Specific [place] 1.020 Bedside Urine Occult Blood - Negative Bedside Urine pH 6.0 Bedside Urine Protein + 30 Bedside Urine Urobilinogen - Negative Bedside Urine Nitrite - Negative Bedside Urine Leukocytes + 70 Esterase Discharge Plan Departure Patient Disposition: Admitted as Observation Clinical Impression: Acute kidney injury, Acute upper gastrointestinal bleeding Discharge Date/Time: 11/22/19 17:46 Referrals: Scooter Salgado MD [Primary Care Provider] - Admit Date/Time: 11/22/19 17:44 Admit Provider: [place]
[2019-11-22] MEDS: ONDANSETRON 4 MG/2 ML INJ IV (15:21)
[2019-11-22] MEDS: PANTOPRAZOLE 40 MG VIAL IV (15:21)
[2019-11-22 15:22] LABS: Add Manual Diff / Slide Review NO; Basophils Absolute Auto 100 /uL (0-100); Eosinophils Absolute Auto 100 /uL (0-450); Eosinophils Percent Auto 0.8 % (2-4); Hematocrit 36.5 % (36-46); Hemoglobin 11.9 g/dL (12.0-16.0); Lymphocytes Absolute Auto 1200 /uL (1100-4500); Lymphocytes Percent Auto 15.9 % (25-40); Mean Corpuscular HGB Conc 32.6 % (30-36); Mean Corpuscular Volume 88.9 fL (80-100); Monocytes Absolute Auto 600 /uL (0-900); Monocytes Percent Auto 7.3 % (3-14); Neutrophils Absolute Auto 5800 /uL (1500-7000); Platelet Count 280 X10^3/uL (150-400); Red Blood Cell Count 4.11 X10^6/uL (4.0-5.2); White Blood Cell Count 7.7 X10^3/uL (4.5-11.0)
[2019-11-22 15:31] LABS: Prothrombin Time 11.2 SECONDS (10.1-12.7)
[2019-11-22 15:33] LABS: PTT Partial Thromboplastin Tim 28 SECONDS (26.4-36.2)
[2019-11-22 15:36] LABS: Alanine Aminotransferase 20 IU/L (<35); Albumin 3.9 g/dL (3.5-5.0); Albumin Globulin Ratio 1.2 (1.0-2.8); Alkaline Phosphatase 72 U/L (38-126); Aspartate Aminotransferase 34 IU/L (14-36); BUN Creatinine Ratio 17.2 (6-22); Bilirubin Total 0.5 mg/dL (0.2-1.3); Blood Urea Nitrogen 32 mg/dL (7-17); Calcium 9.4 mg/dL (8.4-10.2); Carbon Dioxide 25 mmol/L (22-32); Chloride 107 mmol/L (98-107); Estimated Glomerular Filt Rate 25.9 mL/min (>60); Globulin 3.2 g/dL (1.7-4.1); Glucose 113 mg/dL (80-110); HEMOLYSIS < 15 (0-50); Potassium 4.6 mmol/L (3.4-5.1); Sodium 138 mmol/L (137-145); Total Protein 7.1 g/dL (6.3-8.2)
[2019-11-22] MEDS: SODIUM CHLORIDE 0.9% 500 ML 1000 ML IV (17:06)
[2019-11-22] MEDS: CEFTRIAXONE 1 GM/50 ML FROZ.PIGGY IV (17:06)
[2019-11-22 17:30] VITALS: BP 138/72; PULSE 72; RESP 16; O2SAT 96
[2019-11-22] MEDS: PANTOPRAZOLE 80 MG in SODIUM CHLORIDE 0.9% 100 ML 10 ML IV (17:49)
[2019-11-22 19:11] VITALS: BMI 24.7
[2019-11-22 19:15] VITALS: BP 199/82; PULSE 73; RESP 19; TEMP 37.1; O2SAT 95
[2019-11-22 20:38] LABS: COVID19 -Nasal RAPID Negative (Negative)
--- NOTE | 2019-11-22 22:15 | PC.NURSE ---
Admission note: patient arrived to floor via WC. Patient was able to ambulate from wheelchair to bed but with difficulty. Patient states sometimes I have a hard time getting my leg to work and my back pain flairs up. Patient is A&Ox4, pleasant and cooperative and is able to make needs known when nec. Patient orientated to room and states awareness to use call light w/ needs. Call light w/ in reach, bed in low pos. and bed alarm active.
[2019-11-22] MEDS: SODIUM CHLORIDE 0.9% 1,000 ML 100 ML IV (22:26)
[2019-11-22 23:59] VITALS: BP 161/70; PULSE 78; RESP 18; TEMP 36.5; O2SAT 92
[2019-11-23] VITALS (12 sets, daily range): BP systolic 108–175; BP diastolic 43–93; PULSE 53–60; RESP 12–18; TEMP 36.4–36.8; O2SAT 92–97
--- NOTE | 2019-11-23 00:19 | PM.HP.1 ---
History of Present Illness History of Present Illness Date Patient Seen: 11/22/19 Time Patient Seen: 21:00 Chief complaint: thinks she has an ulcer, stomach pain Narrative: Valery Yeh is an 84-year-old female with a past medical history significant for hypertension, hyperlipidemia, paroxysmal atrial fibrillation not on anticoagulation due to previous GI bleed, chronic kidney disease stage 3 with solitary left kidney status post right nephrectomy due to surgical complication, vertigo, overactive bladder and anxiety who presented to the ED with epigastric pain and a recent history passing formed black tarry stools. She initially thought that it was a result of eating many fresh cherries as she has been having 3-5 BMs a day. She denies fevers sweats or chills, she recently had a upper right tooth pulled, denies difficulty swallowing, denies shortness of breath, chest pain, she does endorse having mid epigastric pain with a sensation of passing gas, she states she has concerns about the redness of her skin she attributes to past use of antibiotics, denies dysuria though has recently had urinary tract infections and pyelonephritis, she states she has had easy bruising although this is been chronic. Patient has had 2 episodes of admissions for pyelonephritis the last 1 occurring on October 31 of this year. In the emergency department they consult to Dr. Moore of General Surgery and then I spoke to him and he agreed to see her in the morning. He did have a concern because the patient had declined scoping 3 times in the past. The patient had a temperature of 97.7?, blood pressure 161/70, heart rate 78, respiratory rate of 18, oxygen saturation of 92% on room air, she weighs 63.5 kilos and has a BMI of 24.7. WBC was 7.7, RBC 4.11 hemoglobin 11.9, hematocrit 36.5, platelet count 280, sodium 138, potassium 4.6, chloride 107, CO2 25, creatinine 1.86 which is higher than her baseline, BUN 32, EGFR 25.9, glucose 113, calcium 9.4, liver enzymes were all normal, COVID-19 is negative. Patient History Medical History Anxiety (Chronic 12/08/15) Atypical chest pain (Chronic) C. difficile colitis (Resolved 07/2015) C. 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) Mumps (Resolved ~1939) Osteoporosis, unspecified (Chronic 03/22/11) Paraesophageal hernia (Resolved) Paroxysmal atrial fibrillation (Chronic ~2013) Pyelonephritis (Resolved) RLS (restless legs syndrome) (Chronic) Second degree AV block, Mobitz type I (Chronic) Shoulder pain (Chronic) Skin cancer (Resolved 2009) Sleep apnea (Chronic 2012) 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) Surgical History Anesthesia (Resolved) History of bladder surgery (Resolved ~1967) History of cholecystectomy (Resolved) History of nephrectomy (Resolved) History of spinal fusion (Resolved 2005) S/P repair of paraesophageal hernia (Resolved) Status post hysterectomy with oophorectomy (Resolved) Family & Social History Family History Brother CAD (coronary artery disease) Hyperlipidemia High cholesterol Lung cancer Colon cancer Brother Cancer High cholesterol Lung disease Father Colon cancer CAD (coronary artery disease) High cholesterol Mother CVA (cerebral vascular accident) Hyperlipidemia Sister Age: 84 CAD (coronary artery disease) Hyperlipidemia Ulcer Essential hypertension High cholesterol Heart attack Grandfather Throat cancer Grandmother Heart disease Family/Other Lung disease Social History: household members none Prior Living Arrangements House Safety & Behavioral: Feels Safe in Current Yes Environment Been Physically Hurt or No Threatened By a Person Suicidal Ideation Description None Suicide Plan Description No Plan Tobacco & Substance use: Smoking Status Never smoker alcohol intake frequency holiday/special occasion Substance Use Type does not use Meds Home Medications and Allergies Home Medications Medication Instructions Recorded Confirmed Type acetaminophen [Tylenol Extra 500 mg PO PRN PRN #0 04/19/16 11/22/19 History Strength] cholecalciferol (vitamin D3) 5,000 unit PO DAILY 12/04/18 11/22/19 History [Vitamin D3] ferrous sulfate 325 mg (65 mg 325 mg PO Q OTHER DAY tab 12/11/18 11/22/19 History iron) tablet,delayed release sertraline 100 mg tablet 100 mg PO DAILY #90 tab 05/21/19 11/22/19 Rx amiodarone 200 mg tablet 100 mg PO DAILY #0 tab 07/30/19 11/22/19 History lisinopril 10 mg PO DAILY #0 tab 11/01/19 11/22/19 Rx Allergies Allergy/AdvReac Type Severity Reaction Status Date / Time latex Allergy Severe THROAT Verified 11/08/19 16:00 SWELLING prednisone [PREDNISONE] Allergy Intermediate rash Verified 11/08/19 16:00 amoxicillin Allergy Mild ITCH Verified 11/08/19 16:00 cephalexin Allergy Mild ITCHY ALL Verified 11/08/19 16:00 OVER HER BODY ciprofloxacin Allergy Mild ITCH Verified 11/08/19 16:00 clavulanic acid Allergy Mild RASH Verified 11/08/19 16:00 hydromorphone Allergy Mild ITCHING Verified 11/08/19 16:00 nitrofurantoin Allergy Mild ABD Verified 11/08/19 16:00 PAIN/SEVERE ITCHING oxycodone Allergy Mild ITCH Verified 11/08/19 16:00 Penicillins Allergy Mild BLISTERS Verified 11/08/19 16:00 Sulfa (Sulfonamide Allergy Mild ITCH Verified 11/08/19 16:00 Antibiotics) levofloxacin [From LEVAQUIN] AdvReac Severe DISTURBING Verified 11/08/19 16:00 HALLUCINATIONS lorazepam [From ATIVAN] AdvReac Intermediate Verified 11/08/19 16:00 morphine AdvReac Mild HALLUCINATI Verified 11/08/19 16:00 ONS Review of Systems Review of Systems ROS: Yes All systems reviewed with the patient and are negative except as otherwise documented Exam Vital Signs (past 8 hours): - 11/22/19 17:30 11/22/19 19:15 11/22/19 23:59 Temperature 98.8 F 97.7 F Pulse Rate 72 73 78 Respiratory Rate 16 19 18 Blood Pressure 138/72 199/82 H 161/70 H Pulse Oximetry 96 95 92 Oxygen Delivery Method Room Air Oxygen Flow Rate 0 Narrative Exam Narrative: Gen: Alert, oriented, well-developed 84 y.o. female, mildly anxious HEENT: normocephalic, atraumatic, conjunctiva clear, sclera non-icteric, oral mucosa pink and moist Neck: supple, full ROM, no JVD, trachea is midline Resp: Lungs CTA, non-labored breathing CV: Irregularly irregular, no murmur or rubs Abd: soft, non-tender, normoactive BTs Skin: Flushed with bronze cast to her skin, no lesions or rashes, dry and intact Neuro: Alert and oriented X 4 w/no focal deficits. Speech clear and coherent. Extremities: moves all 4 extremities, is ambulatory, negative Moises?s sign Psyche: normal mood and affect. Objective Labs Result Diagrams: 11/22/19 15:15 11/22/19 15:15 Labs: Laboratory Results - last 24 hr 11/22/19 11/22/19 11/22/19 15:15 15:15 15:15 WBC 7.7 RBC 4.11 Hgb 11.9 L Hct 36.5 MCV 88.9 MCH 29.0 MCHC 32.6 RDW 15.0 H Plt Count 280 Neut % (Auto) 75.0 Lymph % (Auto) 15.9 L [place] % (Auto) 7.3 Eos % (Auto) 0.8 L Baso % (Auto) 1.0 Neut # (Auto) 5800 Lymph # (Auto) 1200 [place] # (Auto) 600 Eos # (Auto) 100 Baso # (Auto) 100 PT 11.2 INR 1.0 APTT 28 Sodium 138 Potassium 4.6 Chloride 107 Carbon Dioxide 25 BUN 32 H Creatinine 1.86 H Estimated GFR 25.9 L BUN/Creatinine Ratio 17.2 Glucose 113 H Calcium 9.4 Total Bilirubin 0.5 AST 34 ALT 20 Alkaline Phosphatase 72 Total Protein 7.1 Albumin 3.9 Globulin 3.2 Albumin/Globulin Ratio 1.2 COVID-19 PCR Blood Type Antibody Screen 11/22/19 11/22/19 15:15 19:41 WBC RBC Hgb Hct MCV MCH MCHC RDW Plt Count Neut % (Auto) Lymph % (Auto) [place] % (Auto) Eos % (Auto) Baso % (Auto) Neut # (Auto) Lymph # (Auto) [place] # (Auto) Eos # (Auto) Baso # (Auto) PT INR APTT Sodium Potassium Chloride Carbon Dioxide BUN Creatinine Estimated GFR BUN/Creatinine Ratio Glucose Calcium Total Bilirubin AST ALT Alkaline Phosphatase Total Protein Albumin Globulin Albumin/Globulin Ratio COVID-19 PCR Negative Blood Type AB Negative Antibody Screen Negative Assessment & Plan Assessment & Plan narrative: Valery Yeh will be observed overnight and workup performed to assess for an upper GI bleed. Suspected upper GI bleed, acute, unknown if present on admission -patient was on a clear liquid diet up until midnight and then NPO after midnight except chips and medications -Dr. Moore, general surgery to see the patient in the morning, consult is appreciated Acute kidney injury on chronic kidney disease stage III, present on admission -Creatinine is 1.8 which is higher than her normal baseline -patient had a right nephrectomy due to a surgical complication and has a left solitary kidney -She will see receive IV fluids overnight -I have held her lisinopril, renally dose other medications Paroxysmal atrial fibrillation, chronic, present on admission -she has a Chads Vasc 2 score of 4 and previously anticoagulated on warfarin and not currently anticoagulated due to history of a GI bleed -she is initiated on a beta-blayne today -continue home dose of amiodarone 100 mg p.o. daily Hypertension, not well controlled, present on admission -blood pressure is 161/70 -due to TOBIAS her lisinopril is being held -start metoprolol tartrate 25 mg p.o. b.i.d. Anxiety/depression, chronic -Continue home dose of sertraline 100 mg p.o. daily Consults: Dr. Moore, General surgery consult and involvement is appreciated. Patient is observation status as [] stay is not likely to exceed 2 midnights. FEN: IV NS at 100 ml/hour, NPO, BMP in the am. VTE prophylaxis: Bilateral SCDs Dispo: likely discharge to home Code Status: Full code as discussed with patient Scores CHADS-VASc Congestive heart failure: no Hypertension: yes Age 75 years or older: yes Diabetes mellitus: no Stroke, TIA, or TE: no Vascular disease: no Age 65 to 74 years: no Sex category (female): Female CHADS-VASc Score: 4 Quality VTE Deep Vein Thrombosis/Pulmonary Embolism Present on Admission: No
[2019-11-23] MEDS: METOPROLOL IR 25 MG TABLET PO ×2 (00:54→08:52)
[2019-11-23] MEDS: SODIUM CHLORIDE 0.9% 1,000 ML 100 ML IV ×2 (06:18→09:04)
[2019-11-23] MEDS: AMIODARONE 100 MG TABLET PO (08:52)
--- NOTE | 2019-11-23 08:57 | P.CONS_ITS ---
History of Present Illness Consult details Date Patient Seen: 11/23/19 Time Patient Seen: 08:57 Chief complaint: thinks she has an ulcer, stomach pain Reason for consult: GI bleeding Narrative: 84-year-old white female patient admitted last night through the emergency department with melena no hematochezia and no hematemesis she has had vague abdominal pain for about a month. She was admitted to this hospital about a month ago with the same symptom complex. She is not on any anticoagulation but does take aspirin daily. Evidently she refused endoscopy a month ago. She is 84 Meds Home Medications and Allergies Home Medications Medication Instructions Recorded Confirmed Type acetaminophen [Tylenol Extra 500 mg PO PRN PRN #0 04/19/16 11/22/19 History Strength] cholecalciferol (vitamin D3) 5,000 unit PO DAILY 12/04/18 11/22/19 History [Vitamin D3] ferrous sulfate 325 mg (65 mg 325 mg PO Q OTHER DAY tab 12/11/18 11/22/19 History iron) tablet,delayed release sertraline 100 mg tablet 100 mg PO DAILY #90 tab 05/21/19 11/22/19 Rx amiodarone 200 mg tablet 100 mg PO DAILY #0 tab 07/30/19 11/22/19 History lisinopril 10 mg PO DAILY #0 tab 11/01/19 11/22/19 Rx Allergies Allergy/AdvReac Type Severity Reaction Status Date / Time latex Allergy Severe THROAT Verified 11/08/19 16:00 SWELLING prednisone [PREDNISONE] Allergy Intermediate rash Verified 11/08/19 16:00 amoxicillin Allergy Mild ITCH Verified 11/08/19 16:00 cephalexin Allergy Mild ITCHY ALL Verified 11/08/19 16:00 OVER HER BODY ciprofloxacin Allergy Mild ITCH Verified 11/08/19 16:00 clavulanic acid Allergy Mild RASH Verified 11/08/19 16:00 hydromorphone Allergy Mild ITCHING Verified 11/08/19 16:00 nitrofurantoin Allergy Mild ABD Verified 11/08/19 16:00 PAIN/SEVERE ITCHING oxycodone Allergy Mild ITCH Verified 11/08/19 16:00 Penicillins Allergy Mild BLISTERS Verified 11/08/19 16:00 Sulfa (Sulfonamide Allergy Mild ITCH Verified 11/08/19 16:00 Antibiotics) levofloxacin [From LEVAQUIN] AdvReac Severe DISTURBING Verified 11/08/19 16:00 HALLUCINATIONS lorazepam [From ATIVAN] AdvReac Intermediate Verified 11/08/19 16:00 morphine AdvReac Mild HALLUCINATI Verified 11/08/19 16:00 ONS Exam Vital Signs (past 8 hours): - 11/23/19 05:14 11/23/19 08:08 Temperature 98.1 F 97.6 F Pulse Rate 59 L 55 L Respiratory Rate 16 18 Blood Pressure 142/77 H 175/74 H Pulse Oximetry 95 95 Oxygen Delivery Method Room Air Oxygen Flow Rate 0 Narrative Exam Narrative: Patient is asymptomatic very pleasant stable vital signs and alert and oriented. Lungs are clear with no rales or wheezes Heart regular rhythm no murmur Abdomen generally soft however there is mild to moderate mid abdominal tenderness and some epigastric tenderness. Pelvic and rectal were deferred at t his time Objective Labs Result Diagrams: 11/22/19 15:15 11/22/19 15:15 Labs: Laboratory Results - last 24 hr 11/22/19 11/22/19 11/22/19 15:15 15:15 15:15 WBC 7.7 RBC 4.11 Hgb 11.9 L Hct 36.5 MCV 88.9 MCH 29.0 MCHC 32.6 RDW 15.0 H Plt Count 280 Neut % (Auto) 75.0 Lymph % (Auto) 15.9 L [place] % (Auto) 7.3 Eos % (Auto) 0.8 L Baso % (Auto) 1.0 Neut # (Auto) 5800 Lymph # (Auto) 1200 [place] # (Auto) 600 Eos # (Auto) 100 Baso # (Auto) 100 PT 11.2 INR 1.0 APTT 28 Sodium 138 Potassium 4.6 Chloride 107 Carbon Dioxide 25 BUN 32 H Creatinine 1.86 H Estimated GFR 25.9 L BUN/Creatinine Ratio 17.2 Glucose 113 H Calcium 9.4 Total Bilirubin 0.5 AST 34 ALT 20 Alkaline Phosphatase 72 Total Protein 7.1 Albumin 3.9 Globulin 3.2 Albumin/Globulin Ratio 1.2 COVID-19 PCR Blood Type Antibody Screen 11/22/19 11/22/19 15:15 19:41 WBC RBC Hgb Hct MCV MCH MCHC RDW Plt Count Neut % (Auto) Lymph % (Auto) [place] % (Auto) Eos % (Auto) Baso % (Auto) Neut # (Auto) Lymph # (Auto) [place] # (Auto) Eos # (Auto) Baso # (Auto) PT INR APTT Sodium Potassium Chloride Carbon Dioxide BUN Creatinine Estimated GFR BUN/Creatinine Ratio Glucose Calcium Total Bilirubin AST ALT Alkaline Phosphatase Total Protein Albumin Globulin Albumin/Globulin Ratio COVID-19 PCR Negative Blood Type AB Negative Antibody Screen Negative Assessment & Plan Assessment & Plan narrative: 84-year-old white female patient with very likely upper GI bleeding. Hemoglobin is 11.9. This bleeding may be secondary to her aspirin therapy patient has been on PPI therapy is stable and we will do upper endoscopy this morning. I will employ services of an anesthesiologist because of the patient's age and comorbidities. She is on amiodarone and a beta- blayne.
--- NOTE | 2019-11-23 09:07 | PC.NURSE ---
Addendum entered by Doug Grover R.N. 11/23/19 11:28: Pt continues in OR. Addendum entered by Doug Grover R.N. 11/23/19 10:34: Pt transfered to endoscopy with [facility] via w/c. Original Note: Pt wakes alert and oriented,pleasant and cooperative. Pt aware of pending EGD this morning. Asking appropriate questions, speaking with Dr. Moore who will be doing procedure. Pt readied for morning continues NPO. Per Dr. Moore gave Pt's morning Amiodarone and Metoprolol B/p 175/74 Hr 55 left 140/108 Right
--- NOTE | 2019-11-23 10:24 | SUR.HOLD ---
Pt brought to holding, stretcher low locked and call melendez in reach, pt aware how to use.
--- NOTE | 2019-11-23 11:23 | PM.OP.ENDO ---
Operative Date/Time/Diagnoses Date of procedure: 11/23/19 Time of procedure: 11:23 Pre-op diagnosis: Upper GI bleed Post-op diagnosis: other (No evidence of upper GI bleeding patient does have a hiatal hernia with no ulceration no bleeding) Procedure & Clinicians Study performed: Esophagogastroduodenoscopy Same procedure as scheduled: Yes Indications: Patient with a history of recent melena Surgeon: Romero Moore Procedure Notes SCOAP/Timeout: This was done Procedure in detail: The patient was properly identified during surgical pause given conscious sedation by the anesthesiologist in attendance who was utilized because of the patient's cardiac comorbidities. After adequate sedation the patient was placed in the left lateral decubitus position the flexible fiberoptic gastroscope easily passed from the hypopharynx into the 2nd portion the duodenum patient has a history of hiatal hernia repair and the EG junction today is at 35 cm with persistence of some degree of hiatal hernia. Careful inspection of the hernia and herniated stomach reveals no evidence of ulceration the scope was retroflexed looking at the gastric side of the EG junction there was no bleeding and no ulceration there with the gastric body and antrum are normal with no bleeding the pylorus 1st and 2nd portions of duodenum were normal with no blood no ulceration and no bleeding the scope was removed without difficulty of procedures well tolerated Scope withdrawal time: 5 Sedation minutes: 10 Findings: hiatal hernia Specimen(s): none sent Complications: none Impression: Recurrent hiatal hernia with no evidence of ulceration or GI bleeding
--- NOTE | 2019-11-23 12:00 | PC.NURSE ---
Day shift: Pt back on AC unit from OR. This engineering writer taking over Pt's care now from LEO Camacho.
--- NOTE | 2019-11-23 12:13 | SUR.PHASEI ---
Late entry: Stable PACU stay, Dr. Juarez to bedside, spoke with pt. Report called to Doug, and pt transported to room and left in stable condition. Pt had silver metal ring with white stones on, on arrival and discharge from surgical area.
--- NOTE | 2019-11-23 12:45 | PC.NURSE ---
Day shift: Per Dr Phoenix Pt to d/c today and does not need IV fluids or to be on telemetry at this time.
--- NOTE | 2019-11-23 13:19 | P.DS_ITS ---
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 She initially thought that it was a result of eating many fresh cherries as she has been h aving 3-5 BMs a day. She denies fevers sweats or chills, she recently had a upper right tooth pulled, denies difficulty swallowing, denies shortness of breath, chest pain, she does endorse having mid epigastric pain with a sensation of passing gas, she states she has concerns about the redness of her skin she attributes to past use of antibiotics, denies dysuria though has recently had urinary tract infections and pyelonephritis, she states she has had easy bruising although this is been chronic. Patient has had 2 episodes of admissions for pyelonephritis the last 1 occurring on October 31 of this year. In the emergency department they consult to Dr. Moore of General Surgery and then I spoke to him and he agreed to see her in the morning. He did have a concern because the patient had declined scoping 3 times in the past. The patient had a temperature of 97.7?, blood pressure 161/70, heart rate 78, respiratory rate of 18, oxygen saturation of 92% on room air, she weighs 63.5 kilos and has a BMI of 24.7. WBC was 7.7, RBC 4.11 hemoglobin 11.9, hematocrit 36.5, platelet count 280, sodium 138, potassium 4.6, chloride 107, CO2 25, creatinine 1.86 which is higher than her baseline, BUN 32, EGFR 25.9, glucose 113, calcium 9.4, liver enzymes were all normal, COVID-19 is negative. Discharge Providers Provider Date of admission: 11/22/19 17:44 Discharge Date: 11/23/19 Primary care physician: Scooter Salgado MD Consults: 11/22/19 21:56 Consult to General Surgery Routine Comment: Consulting Provider: Romero Moore Reason for consultation: Suspected upper gi bleed Has provider been notified: Yes Discharge provider: Snow Phoenix MD Summary Hospital Course Discharge Diagnosis: 1. Melena, no evidence of upper GI bleeding 2. Status post upper endoscopy, revealing hiatal hernia but no source of bleeding 3. Guaiac-positive stool 4. Hypertension 5. History of recurrent urinary tract infection 6. Hyperlipidemia 7. History of paroxysmal atrial fibrillation Hospital Course: Patient was admitted to the hospital for evaluation of melanotic stool. She did have a guaiac-positive stool during her hospital stay. The patient underwent upper endoscopy. This showed no evidence of bleeding. It did reveal hiatal hernia. There was no source of bleeding identified. The patient had no further significant melena. She had no diarrhea. We discussed the possibility of colonoscopy during this hospital stay. The patient was reluctant and preferred an outpatient colonoscopy for further evaluation. The patient did complain of some abdominal discomfort. Given her history of guaiac- positive stool and abdominal pain I recommended abdominal CT for further evaluation. The patient initially agreed to this CT but subsequently changed her mind and requested discharge home so that she could follow-up with her primary care provider for further evaluation. The patient was able to tolerate her diet without difficulty. Her initial hemoglobin was 11. She was adamant that she wanted to go home no further testing was obtained and arrangements were made for her to discharge home. The patient does have a family history of colon cancer, given her history of atrial fibrillation, hypertension hyperlipidemia this combination does make the possibility of Ischemic colitis/possible colon cancer possible. However after multiple discussions with the patient both by myself and Dr. Moore she says respectfully requests to discharge home for an outpatient workup. Patient was discharged home in satisfactory condition. Exam Vital Signs (past 8 hours): - 11/23/19 07:00 11/23/19 08:08 11/23/19 09:36 Temperature 97.6 F Pulse Rate 55 L Respiratory Rate 18 Blood Pressure 175/74 H 148/71 H Pulse Oximetry 93 95 11/23/19 10:25 11/23/19 11:24 11/23/19 11:29 Temperature 97.9 F 97.9 F Pulse Rate 60 53 L 55 L Respiratory Rate 18 13 12 Blood Pressure 150/72 H 108/43 L 112/53 L Pulse Oximetry 95 93 94 11/23/19 11:34 11/23/19 11:50 11/23/19 12:16 Temperature 98.1 F 98.2 F Pulse Rate 56 L 57 L 54 L Respiratory Rate 16 16 16 Blood Pressure 128/58 L 135/57 L 135/93 H Pulse Oximetry 93 96 94 11/23/19 12:49 Temperature Pulse Rate 56 L Respiratory Rate 18 Blood Pressure 141/67 H Pulse Oximetry 97 Oxygen Delivery Method Room Air Oxygen Flow Rate 0 Narrative Exam Narrative: Pleasant female in no obvious distress+ Lungs: Clear to auscultation Cardiac exam: Regular rate and rhythm normal S1-S2 with a 2/6 systolic ejection murmur Abdomen: Soft, mildly tender in the right lower quadrant, no rebound tenderness, no board-like rigidity Extremities: No edema Objective Labs Result Diagrams: 11/22/19 15:15 11/22/19 15:15 Labs: Laboratory Results - last 24 hr 11/22/19 11/22/19 11/22/19 15:15 15:15 15:15 WBC 7.7 RBC 4.11 Hgb 11.9 L Hct 36.5 MCV 88.9 MCH 29.0 MCHC 32.6 RDW 15.0 H Plt Count 280 Neut % (Auto) 75.0 Lymph % (Auto) 15.9 L [place] % (Auto) 7.3 Eos % (Auto) 0.8 L Baso % (Auto) 1.0 Neut # (Auto) 5800 Lymph # (Auto) 1200 [place] # (Auto) 600 Eos # (Auto) 100 Baso # (Auto) 100 PT 11.2 INR 1.0 APTT 28 Sodium 138 Potassium 4.6 Chloride 107 Carbon Dioxide 25 BUN 32 H Creatinine 1.86 H Estimated GFR 25.9 L BUN/Creatinine Ratio 17.2 Glucose 113 H Calcium 9.4 Total Bilirubin 0.5 AST 34 ALT 20 Alkaline Phosphatase 72 Total Protein 7.1 Albumin 3.9 Globulin 3.2 Albumin/Globulin Ratio 1.2 COVID-19 PCR Blood Type Antibody Screen 11/22/19 11/22/19 15:15 19:41 WBC RBC Hgb Hct MCV MCH MCHC RDW Plt Count Neut % (Auto) Lymph % (Auto) [place] % (Auto) Eos % (Auto) Baso % (Auto) Neut # (Auto) Lymph # (Auto) [place] # (Auto) Eos # (Auto) Baso # (Auto) PT INR APTT Sodium Potassium Chloride Carbon Dioxide BUN Creatinine Estimated GFR BUN/Creatinine Ratio Glucose Calcium Total Bilirubin AST ALT Alkaline Phosphatase Total Protein Albumin Globulin Albumin/Globulin Ratio COVID-19 PCR Negative Blood Type AB Negative Antibody Screen Negative Discharge Plan Discharge Plan Discharge Problem: Acute kidney injury, Acute upper gastrointestinal bleeding Patient Disposition: Home Discharge orders & Medications Prescriptions: Continued acetaminophen [Tylenol Extra Strength] 500 MG tablet 500 mg PO PRN PRN (Reason: Pain, Mild) Qty: 0 RF: 0 amiodarone 200 mg tablet 100 mg PO DAILY Qty: 0 RF: 0 ferrous sulfate 325 mg (65 mg iron) tablet,delayed release (DR/EC) 325 mg PO Q OTHER DAY RF: 0 sertraline 100 mg tablet 100 mg PO DAILY Qty: 90 RF: 3 cholecalciferol (vitamin D3) [Vitamin D3] 5,000 unit Tablet 5,000 unit PO DAILY RF: 0 lisinopril 5 mg tablet 10 mg PO DAILY Qty: 0 RF: 0 Follow up/Referrals: Scooter Salgado MD [Primary Care Provider] - Discharge Health Status Health Concerns: Patient needs outpatient Colonoscopy for evaluation of melena Diet/Activity/Treatments Diet: Low-fat and Low-sodium Activity: as tolerated Discharge Data Primary Care Provider: Scooter Salgado Attending Provider: Snow Phoenix Admit Date/Time: 11/22/19 17:44 Quality VTE Deep Vein Thrombosis/Pulmonary Embolism Present on Admission: No
[2019-11-23 13:37] LABS: Add Manual Diff / Slide Review NO; Basophils Absolute Auto 100 /uL (0-100); Basophils Percent Auto 1.1 % (0-2); Eosinophils Absolute Auto 100 /uL (0-450); Eosinophils Percent Auto 1.7 % (2-4); Hematocrit 37.1 % (36-46); Hemoglobin 11.9 g/dL (12.0-16.0); Lymphocytes Absolute Auto 1100 /uL (1100-4500); Lymphocytes Percent Auto 20.5 % (25-40); Mean Corpuscular Hemoglobin 28.8 PG (26-34); Mean Corpuscular Volume 89.9 fL (80-100); Monocytes Absolute Auto 400 /uL (0-900); Monocytes Percent Auto 6.7 % (3-14); Neutrophils Absolute Auto 3800 /uL (1500-7000); Platelet Count 250 X10^3/uL (150-400); Red Blood Cell Count 4.12 X10^6/uL (4.0-5.2); Red Cell Distribution Width 15.1 % (11.6-14.8); White Blood Cell Count 5.4 X10^3/uL (4.5-11.0)
[2019-11-23 13:47] LABS: Blood Urea Nitrogen 21 mg/dL (7-17); Calcium 8.9 mg/dL (8.4-10.2); Carbon Dioxide 29 mmol/L (22-32); Chloride 106 mmol/L (98-107); Estimated Glomerular Filt Rate 33.2 mL/min (>60); Glucose 179 mg/dL (80-110); HEMOLYSIS < 15 (0-50); Potassium 4.2 mmol/L (3.4-5.1); Sodium 138 mmol/L (137-145)
--- NOTE | 2019-11-23 14:06 | PC.NURSE ---
Day shift: Pt left unit via WC to car driven by her sister. Paperwork signed and all questions answered. No new MD scrips. Pt has all personal belongings.
--- NOTE | 2019-11-23 15:04 | CM.DANOTE ---
Discharge Planning/Care Management DCP: assessment: case received, EMR reviewed and met with pt during Team Bedside Rounds. Introduced self and role. Pt is an 84 year old female who admitted to care of hospitalist team. PCP: Scooter Salgado Payer: Medicare and [facility] Dr. Juarez consulted and plan was for Endoscopy today. Pt stated she was very hopeful she could go home today and Dr. Phoenix stated she would let her know after seeing the results of the procedure. a check in now shows that pt was cleared for d/c to home and she left for home setting in company of another. 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 CM Discharge Assessment Start: 11/23/19 15:02 Freq: Status: Active Protocol: Document 11/23/19 15:02 ITV (Rec: 11/23/19 15:04 ITV [id number]) Discharge Planning Assessment Advance Directives? No Advance Directives on File No History Provided By Patient,Medical Record Prior Living Arrangements House Household Members none Independent with ADL's Yes Is patient alert and oriented? Yes Discharge Plan Home Review Status In Process
== END 2019-11-23 14:07 | disposition home or self-care (01) ==
LOC: ED 16:22 → AC 17:45
PROVIDERS: Surgery; Admitting Provider Internal Medicine; Emergency Provider Emergency Medicine; Family Provider Student in an Organized Health Care Education/Training Program; PCP Student in an Organized Health Care Education/Training Program; Referring Provider Emergency Medicine; Visit Provider Internal Medicine
PROC: 0DJ08ZZ Inspection of Upper Intestinal Tract, Via Natural or Artificial Opening Endoscopic (ICD-10-PCS; CPT 43235; principal; 2019-11-23 09:05)
DX: K92.1 Melena (principal); I10 Essential (primary) hypertension; G62.9 Polyneuropathy, unspecified; I48.0 Paroxysmal atrial fibrillation; Z86.73 Personal history of transient ischemic attack (TIA), and cerebral infarction without residual deficits; N18.3 Chronic kidney disease, stage 3 (moderate); F41.9 Anxiety disorder, unspecified; F32.9 Major depressive disorder, single episode, unspecified; Z87.440 Personal history of urinary (tract) infections; Z11.59 Encounter for screening for other viral diseases; K44.9 Diaphragmatic hernia without obstruction or gangrene
CPT/HCPCS: 43235; 36415; 36592; 80048; 80053; 81003; 82272; 85025; 85610; 85730; 86850; 86900; 86901; 87635; 93005; 93010; 96361; 96365; 96375; 99284; G0378; C9113; J2405; J2704

== ENCOUNTER → 2019-12-13 15:02 | Outpatient (CLI) | payer MEDICARE, OTHER, SELFPAY ==
[2019-11-22 19:11] VITALS: BMI 24.7
[2019-12-13 16:19] LABS: Appearance Urine UA CLOUDY; Bilirubin Urine UA NEGATIVE (NEGATIVE); Color Urine UA YELLOW; Glucose Urine UA NEGATIVE (Negative); Ketones Urine UA TRACE (NEGATIVE); Leukocyte Esterase Urine UA 2+ (NEGATIVE); Nitrite Urine UA NEGATIVE (Negative); Occult Blood Urine UA TRACE-INTACT (Negative); Protein Urine UA TRACE (Negative); Specific Gravity Urine UA 1.025 (1.000-1.035); Urobilinogen Urine UA 0.2 E.U./dL (0.2)
[2019-12-13 16:34] LABS: Amorphous Sediment Urine 1+; Bacteria Urine Few (2-10); RBC Urine 0-1/HPF (0-5/HPF); Renal Epithelial Cells Urine 0-1/HPF (0-1/HPF); Squamous Epithelial Cell Urine 0-1 /HPF (0-5/HPF); WBC Urine 30-100/HPF (0-5/HPF)
[2019-12-13 16:35] LABS: Culture Indicated Urine Specimen Cultured; Mucus Urine 1+ (Negative)
== END ==
PROVIDERS: Family Provider Student in an Organized Health Care Education/Training Program; PCP Student in an Organized Health Care Education/Training Program; Referring Provider Student in an Organized Health Care Education/Training Program; Visit Provider Student in an Organized Health Care Education/Training Program
DX: R30.0 Dysuria (principal)
CPT/HCPCS: 81001; 87086

== ENCOUNTER 2019-12-18 11:59 | Emergency (ER) | payer MEDICARE, OTHER, SELFPAY ==
[2019-12-18] VITALS (10 sets, daily range): BP systolic 170–219; BP diastolic 73–97; PULSE 67–80; RESP 18; TEMP 36.9; O2SAT 95–98; BMI 24.0
--- NOTE | 2019-12-18 12:25 | ED_ITS ---
HPI - Female Genitourinary <ROSETTA Milton - Last Filed: 12/18/19 14:57> General Chief complaint: Urogenital-Female Stated complaint: sent by doc for kidney infection Time Seen by Provider: 12/18/19 12:03 Source: patient Mode of arrival: Ambulatory Limitations: no limitations History of Present Illness HPI Narrative: This is a 84 year female, nonsmoker, who has history of urosepsis , hypertension, AFib was not on anticoagulant due to history of GI bleed, TIA, stage III kidney disease, right side kidney resection, bladder surgery, hysterectomy and cholecystectomy presents to ED with chief complain of urinary frequency, odorous urine this morning, malaise, low-grade fever with T-max of 99.7? at home, mild low abdominal pain and left flank pain despite currently taking azithromycin for cystitis for last 5 days. Patient has multiple allergies to antibiotic medications including Keflex, Cipro, Augmentin, nitrofurantoin, penicillin, sulfa, Levofloxacin. UA test on 12/13/19 shows trace protein, ketones, 2+ leukocytes esterase and 30-100/hpf urine WBC with few bacteria and +1 mucus. Urine culture was done and no growth was appreciated. Dr. Salgado had prescribed fosfomycin but this medication was to pricy and she called the clinic and Dr. Santamaria (automation machine builder) change the medication as azithromycin. Related Data Home Medications Medication Instructions Recorded Confirmed acetaminophen [Tylenol Extra 500 mg PO PRN PRN #0 04/19/16 11/22/19 Strength] cholecalciferol (vitamin D3) 5,000 unit PO DAILY 12/04/18 11/22/19 [Vitamin D3] ferrous sulfate 325 mg (65 mg 325 mg PO Q OTHER DAY tab 12/11/18 11/22/19 iron) tablet,delayed release amiodarone 200 mg tablet 100 mg PO DAILY #0 tab 07/30/19 11/22/19 Previous Rx's Medication Instructions Recorded sertraline 100 mg tablet 100 mg PO DAILY #90 tab 05/21/19 lisinopril 10 mg PO DAILY #0 tab 11/01/19 Akorn Lidocaine Hydrochloride #1 ea 12/06/19 Jelly 2% Allergies Allergy/AdvReac Type Severity Reaction Status Date / Time latex Allergy Severe THROAT Verified 11/08/19 16:00 SWELLING prednisone [PREDNISONE] Allergy Intermediate rash Verified 11/08/19 16:00 amoxicillin Allergy Mild ITCH Verified 11/08/19 16:00 cephalexin Allergy Mild ITCHY ALL Verified 11/08/19 16:00 OVER HER BODY ciprofloxacin Allergy Mild ITCH Verified 11/08/19 16:00 clavulanic acid Allergy Mild RASH Verified 11/08/19 16:00 hydromorphone Allergy Mild ITCHING Verified 11/08/19 16:00 nitrofurantoin Allergy Mild ABD Verified 11/08/19 16:00 PAIN/SEVERE ITCHING oxycodone Allergy Mild ITCH Verified 11/08/19 16:00 Penicillins Allergy Mild BLISTERS Verified 11/08/19 16:00 Sulfa (Sulfonamide Allergy Mild ITCH Verified 11/08/19 16:00 Antibiotics) levofloxacin [From LEVAQUIN] AdvReac Severe DISTURBING Verified 11/08/19 16:00 HALLUCINATIONS lorazepam [From ATIVAN] AdvReac Intermediate Verified 11/08/19 16:00 morphine AdvReac Mild HALLUCINATI Verified 11/08/19 16:00 ONS Review of Systems <ROSETTA Milton - Last Filed: 12/18/19 14:57> Review of Systems Narrative: General: See HPI HEENT: Denies sinus pain, ear pain, sore throat, difficulty swallowing, dizziness. Respiratory: Denies dyspnea, cough, wheezing, hemoptysis, sputum. Cardiovascular: Denies chest pain, palpitations, orthopnea, edema. Gastrointestinal: Denies nausea, vomiting, abdominal pain, (+) diarrhea but frequent bowel movements, constipation, melena. : See HPI Musculoskeletal: See HPI Skin: Denies rash, skin lesions, or other. Neurologic: Denies weakness, headache, numbness, change in speech, confusion, seizures, incoordination. Psychiatric: No concerning psychosocial issues. 12-point review of systems is negative except for those stated above. Patient History <ROSETTA Milton - Last Filed: 12/18/19 14:57> Medical History Anxiety (Chronic 12/08/15) Atypical chest pain (Chronic) C. difficile colitis (Resolved 07/2015) C. 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) Mumps (Resolved ~1939) Osteoporosis, unspecified (Chronic 03/22/11) Paraesophageal hernia (Resolved) Paroxysmal atrial fibrillation (Chronic ~2013) Pyelonephritis (Resolved) RLS (restless legs syndrome) (Chronic) Second degree AV block, Mobitz type I (Chronic) Shoulder pain (Chronic) Skin cancer (Resolved 2009) Sleep apnea (Chronic 2012) 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) Surgical History Anesthesia (Resolved) History of bladder surgery (Resolved ~1967) History of cholecystectomy (Resolved) History of nephrectomy (Resolved) History of spinal fusion (Resolved 2005) S/P repair of paraesophageal hernia (Resolved) Status post hysterectomy with oophorectomy (Resolved) Family History Brother CAD (coronary artery disease) Hyperlipidemia High cholesterol Lung cancer Colon cancer Brother Cancer High cholesterol Lung disease Father Colon cancer CAD (coronary artery disease) High cholesterol Mother CVA (cerebral vascular accident) Hyperlipidemia Sister Age: 84 CAD (coronary artery disease) Hyperlipidemia Ulcer Essential hypertension High cholesterol Heart attack Grandfather Throat cancer Grandmother Heart disease Family/Other Lung disease alcohol intake frequency: holidays/special occasions only Substance Use Type: does not use Exam <ROSETTA Milton - Last Filed: 12/18/19 14:57> Narrative Exam Narrative: GEN: Alert, oriented x 3, well appearing and nourished, and in no acute distress but anxious. Head: Normal cephalic, atraumatic. No scalp or temporal tenderness, palpable mass or rash. EYES: Pupils are equal, round, and reactive to light and accommodation. Extraocular muscles are intact bilaterally. There is no subconjunctival hemorrhage, exudate and sclera non-icteric. ENT: Hearing grossly intact. Nose without bleeding, purulent discharge. Mucous membrane moist, no mucosal lesion. Throat without erythema, tonsillar hypertrophy or exudate. Uvula in midline, airway patent. Neck: Trachea in midline. No JVD, non-tender without lymphadenopathy. No masses or thyroid megaly. Supple, non-tender and no meningeal signs. CARDIAC: Normal regular rate and rhythm without murmurs, gallops, or rubs. No chest wall tenderness. No peripheral edema, cyanosis or pallor. Capillary refill is less than 2 seconds. RESPIRATORY: Lungs are clear to auscultate bilaterally. No cough, wheezes, rales, or rhonchi. No stridor, respiratory distress, increase work of breathing, or accessary muscle used. ABD: Abdomen soft, nontender and non-distended. No guarding or rebound tenderness to palpate. Bowel sounds are normal in all 4 quadrants. There is no palpable masses or organomegaly. EXT: Full painless ROM of all extremities with no loss of sensation, strength, effusion or edema. SKIN: Warm, dry, normal color for patient. No erythema, lesions or rash over visible areas. BACK: Nontender without deformity or crepitance. Mild left flank discomfort to percuss. NEUROLOGICAL: Alert and oriented to place, time and person. Sensation and motor function intact bilaterally. No facial droops, dysphasia. PSYCHIATRIC: Good judgement and reason, without hallucinations, abnormal affect or abnormal behaviors during the examination. Patient is not suicidal. Initial Vital Signs Initial Vital Signs: Vital Signs Temperature 98.4 F 12/18/19 12:08 Pulse Rate 80 12/18/19 12:08 Respiratory Rate 18 12/18/19 12:08 Blood Pressure 186/97 H 12/18/19 12:08 Pulse Oximetry 95 12/18/19 12:08 <Glendy Kim DO - Last Filed: 12/19/19 08:24> Initial Vital Signs Initial Vital Signs: Vital Signs Temperature 98.4 F 12/18/19 12:08 Pulse Rate 80 12/18/19 12:08 Respiratory Rate 18 12/18/19 12:08 Blood Pressure 186/97 H 12/18/19 12:08 Pulse Oximetry 95 12/18/19 12:08 Scores <ROSETTA Milton - Last Filed: 12/18/19 14:57> GCS Addis coma scale eye opening: Spontaneous [place] coma scale verbal response: Orientated [place] coma scale motor response: Obey commands [place] coma scale total score: 15 qSOFA Altered Mental Status (GCS <15): No Respiratory rate greater than/equal to 22: No Systolic blood pressure less than or equal to 100: No qSOFA Total: 0 0-1 Not High Risk 1-3 High risk Course <ROSETTA Milton - Last Filed: 12/18/19 14:57> Course Course Narrative: Informed patient of lab test and urine tests result, appears to be patient has another cystitis/UTI. Patient states she is not able to filler picker fosfomycin since it was expensive and can't do it when explained very limited options to treat patient's UTI/cystitis. Orders Ordered: Discontinued Medications Fosfomycin Tromethamine (Monurol) 3 gm PO NOW ONE Stop: 12/18/19 13:12 Last Admin: 12/18/19 13:41 Dose: 3 gm Documented by: AUEMY Consultations Consultation #1: Dr. Salgado contacted to discuss lab finding and physical exam and to discuss options to treat patient with antibiotic medication. Given patient's prior medical history, he was recommended for observation admission for IV antibiotic medication. Time: 13:00 Consultation #2: Consulted Dr. Wagoner and it was recommended to use one time d ose of fosfomycin to treat cystitis/UTI. He was informed that patient is not meeting admission criteria for a week to treat simple UTI with IV medication since patient is not septic and she is able to tolerate p.o. fluids/medications. Time: 13:06 Vital Signs Vital signs: Vital Signs - 8 hr 12/18/19 12:08 12/18/19 12:19 12/18/19 12:31 Temperature 98.4 F Pulse Rate 80 69 74 Respiratory Rate 18 Blood Pressure 186/97 H 176/77 H 170/73 H Pulse Oximetry 95 96 96 12/18/19 13:00 12/18/19 13:03 12/18/19 13:04 Temperature Pulse Rate 67 68 69 Respiratory Rate Blood Pressure 193/90 H 187/91 H Pulse Oximetry 97 97 96 12/18/19 13:30 12/18/19 13:55 12/18/19 14:00 Temperature Pulse Rate 73 72 70 Respiratory Rate Blood Pressure 184/84 H 206/86 H 219/95 H Pulse Oximetry 96 96 97 12/18/19 14:05 Temperature Pulse Rate 69 Respiratory Rate Blood Pressure 201/83 H Pulse Oximetry 98 <Glendy Kim DO - Last Filed: 12/19/19 08:24> Orders Ordered: Discontinued Medications Fosfomycin Tromethamine (Monurol) 3 gm PO NOW ONE Stop: 12/18/19 13:12 Last Admin: 12/18/19 13:41 Dose: 3 gm Documented by: ELAINE Vital Signs Vital signs: Vital Signs - 8 hr 12/18/19 12:08 12/18/19 12:19 12/18/19 12:31 Temperature 98.4 F Pulse Rate 80 69 74 Respiratory Rate 18 Blood Pressure 186/97 H 176/77 H 170/73 H Pulse Oximetry 95 96 96 12/18/19 13:00 12/18/19 13:03 12/18/19 13:04 Temperature Pulse Rate 67 68 69 Respiratory Rate Blood Pressure 193/90 H 187/91 H Pulse Oximetry 97 97 96 12/18/19 13:30 12/18/19 13:55 12/18/19 14:00 Temperature Pulse Rate 73 72 70 Respiratory Rate Blood Pressure 184/84 H 206/86 H 219/95 H Pulse Oximetry 96 96 97 12/18/19 14:05 Temperature Pulse Rate 69 Respiratory Rate Blood Pressure 201/83 H Pulse Oximetry 98 MDM - Female Genitourinary <ROSETTA Milton - Last Filed: 12/18/19 14:57> Differential Diagnosis Differential diagnosis: Likely urinary tract infection, cystitis and other (Urosepsis) Medical Records Attestation: I reviewed the patient's medical records. Lab Data Attestation: I reviewed the patient's lab results. Result diagrams: 12/18/19 12:18 12/18/19 12:18 Labs: Lab Results 12/18/19 12/18/19 12/18/19 Range/Units 12:18 12:18 12:18 WBC (4.5-11.0) X10^3/uL RBC (4.0-5.2) X10^6/uL Hgb (12.0-16.0) g/dL Hct (36-46) % MCV (80-100) fL MCH (26-34) PG MCHC (30-36) % RDW (11.6-14.8) % Plt Count (150-400) X10^3/uL Neut % (Auto) (50-75) % Lymph % (Auto) (25-40) % Starke % (Auto) (3-14) % Eos % (Auto) (2-4) % Baso % (Auto) (0-2) % Neut # (Auto) (5804-7568) /uL Lymph # (Auto) (3470-8051) /uL Starke # (Auto) (0-900) /uL Eos # (Auto) (0-450) /uL Baso # (Auto) (0-100) /uL PT 10.9 (10.1-12.7) SECONDS INR 1.0 (0.9-1.3) APTT 29 (26.4-36.2) SECONDS Sodium (137-145) mmol/L Potassium (3.4-5.1) mmol/L Chloride (98-107) mmol/L Carbon Dioxide (22-32) mmol/L BUN (7-17) mg/dL Creatinine (0.52-1.04) mg/dL Estimated GFR (>60) mL/min BUN/Creatinine Ratio (6-22) Glucose (80-110) mg/dL Lactate 0.9 (0.7-2.1) mmol/L Calcium (8.4-10.2) mg/dL Total Bilirubin (0.2-1.3) mg/dL AST (14-36) IU/L ALT (<35) IU/L Alkaline Phosphatase (38-126) U/L Total Protein (6.3-8.2) g/dL Albumin (3.5-5.0) g/dL Globulin (1.7-4.1) g/dL Albumin/Globulin Ratio (1.0-2.8) Procalcitonin < 0.05 (<0.5) ng/mL Urine Color Urine Appearance Urine pH (4.5-8.0) Ur Specific Hancock (1.000-1.035) Urine Protein (Negative) Urine Glucose (UA) (Negative) g/dL Urine Ketones (NEGATIVE) Urine Occult Blood (Negative) Urine Nitrate (Negative) Urine Bilirubin (NEGATIVE) Urine Urobilinogen (0.2) E.U./dL Ur Leukocyte Esterase (NEGATIVE) Urine RBC (0-5/HPF) Urine WBC (0-5/HPF) Ur Squamous Epith Cells (0-5/HPF) Urine Bacteria (None) Ur Culture Indicated? 12/18/19 12/18/19 12/18/19 Range/Units 12:18 12:18 12:18 WBC 7.7 (4.5-11.0) X10^3/uL RBC 4.03 (4.0-5.2) X10^6/uL Hgb 11.7 L (12.0-16.0) g/dL Hct 35.7 L (36-46) % MCV 88.7 (80-100) fL MCH 28.9 (26-34) PG MCHC 32.6 (30-36) % RDW 15.1 H (11.6-14.8) % Plt Count 270 (150-400) X10^3/uL Neut % (Auto) 64.8 (50-75) % Lymph % (Auto) 24.2 L (25-40) % Starke % (Auto) 8.6 (3-14) % Eos % (Auto) 1.4 L (2-4) % Baso % (Auto) 1.0 (0-2) % Neut # (Auto) 5000 (5538-3051) /uL Lymph # (Auto) 1900 (6243-8582) /uL Starke # (Auto) 700 (0-900) /uL Eos # (Auto) 100 (0-450) /uL Baso # (Auto) 100 (0-100) /uL PT (10.1-12.7) SECONDS INR (0.9-1.3) APTT (26.4-36.2) SECONDS Sodium 136 L (137-145) mmol/L Potassium 4.4 (3.4-5.1) mmol/L Chloride 104 (98-107) mmol/L Carbon Dioxide 26 (22-32) mmol/L BUN 28 H (7-17) mg/dL Creatinine 1.60 H (0.52-1.04) mg/dL Estimated GFR 30.9 L (>60) mL/min BUN/Creatinine Ratio 17.5 (6-22) Glucose 109 (80-110) mg/dL Lactate (0.7-2.1) mmol/L Calcium 9.4 (8.4-10.2) mg/dL Total Bilirubin 0.6 (0.2-1.3) mg/dL AST 33 (14-36) IU/L ALT 20 (<35) IU/L Alkaline Phosphatase 77 (38-126) U/L Total Protein 7.5 (6.3-8.2) g/dL Albumin 4.1 (3.5-5.0) g/dL Globulin 3.4 (1.7-4.1) g/dL Albumin/Globulin Ratio 1.2 (1.0-2.8) Procalcitonin (<0.5) ng/mL Urine Color Yellow Urine Appearance Clear Urine pH 5.5 (4.5-8.0) Ur Specific Hancock 1.015 (1.000-1.035) Urine Protein Trace H (Negative) Urine Glucose (UA) Negative (Negative) g/dL Urine Ketones Negative (NEGATIVE) Urine Occult Blood Negative (Negative) Urine Nitrate Positive H (Negative) Urine Bilirubin Negative (NEGATIVE) Urine Urobilinogen 0.2 (0.2) E.U./dL Ur Leukocyte Esterase Trace H (NEGATIVE) Urine RBC None seen (0-5/HPF) Urine WBC 5-10/hpf H (0-5/HPF) Ur Squamous Epith Cells 0-1 /hpf (0-5/HPF) Urine Bacteria Many (>30) H (None) Ur Culture Indicated? Specimen cultured MDM Narrative Medical decision making narrative: This is a 84-year-old female who has chronic stage 3 kidney disease and one kidney (left side) who were treated for septic pyelonephritis recently presents to ED with ongoing urinary symptoms after she was treated with azithromycin about 5 days ago. Patient has multiple antibiotic medication for cystitis/UTI, mostly severe itching, and was not able to afford fosfomycin that was prescribed by her primary care physician last week. Today's lab tests are assuring. No signs of sepsis. Patient is afebrile with within normal vital signs. Urine test again shows positive for urine nitrate, esterase, WBC (5-10/hpf), and many bacteria. Urine culture is pending. I spoke with Dr. Salgado and Dr. Wagoner for options to treat patient's cystitis/UTI. It was recommended to try fosfomycin 1 time dose in ED before discharging patient and to follow-up with primary care physician. Advised patient to increase oral hydration since elevated BUN, CR and decreased eGFR. Discussed the plan with patient and patient verbalized understanding and agreement with the treatment plan. <Glendy Kim, - Last Filed: 12/19/19 08:24> Lab Data Labs: Lab Results 12/18/19 12/18/19 12/18/19 Range/Units 12:18 12:18 12:18 WBC (4.5-11.0) X10^3/uL RBC (4.0-5.2) X10^6/uL Hgb (12.0-16.0) g/dL Hct (36-46) % MCV (80-100) fL MCH (26-34) PG MCHC (30-36) % RDW (11.6-14.8) % Plt Count (150-400) X10^3/uL Neut % (Auto) (50-75) % Lymph % (Auto) (25-40) % Starke % (Auto) (3-14) % Eos % (Auto) (2-4) % Baso % (Auto) (0-2) % Neut # (Auto) (9519-1065) /uL Lymph # (Auto) (8059-5022) /uL Starke # (Auto) (0-900) /uL Eos # (Auto) (0-450) /uL Baso # (Auto) (0-100) /uL PT 10.9 (10.1-12.7) SECONDS INR 1.0 (0.9-1.3) APTT 29 (26.4-36.2) SECONDS Sodium (137-145) mmol/L Potassium (3.4-5.1) mmol/L Chloride (98-107) mmol/L Carbon Dioxide (22-32) mmol/L BUN (7-17) mg/dL Creatinine (0.52-1.04) mg/dL Estimated GFR (>60) mL/min BUN/Creatinine Ratio (6-22) Glucose (80-110) mg/dL Lactate 0.9 (0.7-2.1) mmol/L Calcium (8.4-10.2) mg/dL Total Bilirubin (0.2-1.3) mg/dL AST (14-36) IU/L ALT (<35) IU/L Alkaline Phosphatase (38-126) U/L Total Protein (6.3-8.2) g/dL Albumin (3.5-5.0) g/dL Globulin (1.7-4.1) g/dL Albumin/Globulin Ratio (1.0-2.8) Procalcitonin < 0.05 (<0.5) ng/mL Urine Color Urine Appearance Urine pH (4.5-8.0) Ur Specific Hancock (1.000-1.035) Urine Protein (Negative) Urine Glucose (UA) (Negative) g/dL Urine Ketones (NEGATIVE) Urine Occult Blood (Negative) Urine Nitrate (Negative) Urine Bilirubin (NEGATIVE) Urine Urobilinogen (0.2) E.U./dL Ur Leukocyte Esterase (NEGATIVE) Urine RBC (0-5/HPF) Urine WBC (0-5/HPF) Ur Squamous Epith Cells (0-5/HPF) Urine Bacteria (None) Ur Culture Indicated? 12/18/19 12/18/19 12/18/19 Range/Units 12:18 12:18 12:18 WBC 7.7 (4.5-11.0) X10^3/uL RBC 4.03 (4.0-5.2) X10^6/uL Hgb 11.7 L (12.0-16.0) g/dL Hct 35.7 L (36-46) % MCV 88.7 (80-100) fL MCH 28.9 (26-34) PG MCHC 32.6 (30-36) % RDW 15.1 H (11.6-14.8) % Plt Count 270 (150-400) X10^3/uL Neut % (Auto) 64.8 (50-75) % Lymph % (Auto) 24.2 L (25-40) % Starke % (Auto) 8.6 (3-14) % Eos % (Auto) 1.4 L (2-4) % Baso % (Auto) 1.0 (0-2) % Neut # (Auto) 5000 (6217-3692) /uL Lymph # (Auto) 1900 (2012-0631) /uL Starke # (Auto) 700 (0-900) /uL Eos # (Auto) 100 (0-450) /uL Baso # (Auto) 100 (0-100) /uL PT (10.1-12.7) SECONDS INR (0.9-1.3) APTT (26.4-36.2) SECONDS Sodium 136 L (137-145) mmol/L Potassium 4.4 (3.4-5.1) mmol/L Chloride 104 (98-107) mmol/L Carbon Dioxide 26 (22-32) mmol/L BUN 28 H (7-17) mg/dL Creatinine 1.60 H (0.52-1.04) mg/dL Estimated GFR 30.9 L (>60) mL/min BUN/Creatinine Ratio 17.5 (6-22) Glucose 109 (80-110) mg/dL Lactate (0.7-2.1) mmol/L Calcium 9.4 (8.4-10.2) mg/dL Total Bilirubin 0.6 (0.2-1.3) mg/dL AST 33 (14-36) IU/L ALT 20 (<35) IU/L Alkaline Phosphatase 77 (38-126) U/L Total Protein 7.5 (6.3-8.2) g/dL Albumin 4.1 (3.5-5.0) g/dL Globulin 3.4 (1.7-4.1) g/dL Albumin/Globulin Ratio 1.2 (1.0-2.8) Procalcitonin (<0.5) ng/mL Urine Color Yellow Urine Appearance Clear Urine pH 5.5 (4.5-8.0) Ur Specific Hancock 1.015 (1.000-1.035) Urine Protein Trace H (Negative) Urine Glucose (UA) Negative (Negative) g/dL Urine Ketones Negative (NEGATIVE) Urine Occult Blood Negative (Negative) Urine Nitrate Positive H (Negative) Urine Bilirubin Negative (NEGATIVE) Urine Urobilinogen 0.2 (0.2) E.U./dL Ur Leukocyte Esterase Trace H (NEGATIVE) Urine RBC None seen (0-5/HPF) Urine WBC 5-10/hpf H (0-5/HPF) Ur Squamous Epith Cells 0-1 /hpf (0-5/HPF) Urine Bacteria Many (>30) H (None) Ur Culture Indicated? Specimen cultured Discharge Plan Departure Patient Disposition: Home Clinical Impression: Urinary tract infection Qualifiers: Urinary tract infection type: site unspecified Hematuria presence: without hematuria Qualified Code(s): N39.0 - Urinary tract infection, site not specified Discharge Date/Time: 12/18/19 14:19 Instructions: DI for Urinary Tract Infection (UTI) Activity Restrictions/Additional Instructions: You have been diagnosed with [cystitis/UTI. Your lab tests are assuring. Urine culture is pending.]. What to do: *Take your medications as directed. You were medicated with 1 dose of fosfomycin in ED before discharge to home. This medication does not need to be taken additional does at home. *Follow up with your primary care provider in 2-3 days, call for an appointment. Let them know you were seen in the ED and that we asked you to be seen in follow up. *Return to ED if you have any new, worsening, or concerning symptoms, such as [fever, increasing back pain, unable to tolerate fluids, chest pain, breathing difficulty, or any acute concerns]. Prescriptions: No Action acetaminophen [Tylenol Extra Strength] 500 MG tablet 500 mg PO PRN PRN (Reason: Pain, Mild) Qty: 0 RF: 0 amiodarone 200 mg tablet 100 mg PO DAILY Qty: 0 RF: 0 (DME) Akorn Lidocaine Hydrochloride Jelly 2% 30ml Qty: 1 RF: 0 ferrous sulfate 325 mg (65 mg iron) tablet,delayed release (DR/EC) 325 mg PO Q OTHER DAY RF: 0 sertraline 100 mg tablet 100 mg PO DAILY Qty: 90 RF: 3 cholecalciferol (vitamin D3) [Vitamin D3] 5,000 unit Tablet 5,000 unit PO DAILY RF: 0 lisinopril 5 mg tablet 10 mg PO DAILY Qty: 0 RF: 0 Referrals: Scooter Salgado MD [Primary Care Provider] - <Glendy Kim DO - Last Filed: 12/19/19 08:24> Cosign ED Attending Aramisature Attestation: I was immediately available in the department for consultation. Documentation has been reviewed. I agree with assessment and plan.
[2019-12-18 12:26] LABS: RBC Urine None Seen (0-5/HPF)
[2019-12-18 12:28] LABS: Add Manual Diff / Slide Review NO; Basophils Absolute Auto 100 /uL (0-100); Eosinophils Absolute Auto 100 /uL (0-450); Eosinophils Percent Auto 1.4 % (2-4); Hematocrit 35.7 % (36-46); Hemoglobin 11.7 g/dL (12.0-16.0); Lymphocytes Absolute Auto 1900 /uL (1100-4500); Lymphocytes Percent Auto 24.2 % (25-40); Mean Corpuscular HGB Conc 32.6 % (30-36); Mean Corpuscular Hemoglobin 28.9 PG (26-34); Mean Corpuscular Volume 88.7 fL (80-100); Monocytes Absolute Auto 700 /uL (0-900); Monocytes Percent Auto 8.6 % (3-14); Neutrophils Absolute Auto 5000 /uL (1500-7000); Neutrophils Percent Auto 64.8 % (50-75); Platelet Count 270 X10^3/uL (150-400); Red Blood Cell Count 4.03 X10^6/uL (4.0-5.2); Red Cell Distribution Width 15.1 % (11.6-14.8); White Blood Cell Count 7.7 X10^3/uL (4.5-11.0)
[2019-12-18 12:30] LABS: Appearance Urine UA CLEAR; Bilirubin Urine UA NEGATIVE (NEGATIVE); Color Urine UA YELLOW; Glucose Urine UA NEGATIVE (Negative); Ketones Urine UA NEGATIVE (NEGATIVE); Leukocyte Esterase Urine UA TRACE (NEGATIVE); Nitrite Urine UA POSITIVE (Negative); Occult Blood Urine UA NEGATIVE (Negative); Protein Urine UA TRACE (Negative); Specific Gravity Urine UA 1.015 (1.000-1.035); Urobilinogen Urine UA 0.2 E.U./dL (0.2)
[2019-12-18 12:32] LABS: pH Urine UA 5.5 (4.5-8.0)
[2019-12-18 12:34] LABS: Bacteria Urine Many (>30); Culture Indicated Urine Specimen Cultured; Squamous Epithelial Cell Urine 0-1 /HPF (0-5/HPF); WBC Urine 5-10/HPF (0-5/HPF)
[2019-12-18 12:35] LABS: Prothrombin Time 10.9 SECONDS (10.1-12.7)
[2019-12-18 12:37] LABS: PTT Partial Thromboplastin Tim 29 SECONDS (26.4-36.2)
[2019-12-18 12:39] LABS: Alanine Aminotransferase 20 IU/L (<35); Albumin 4.1 g/dL (3.5-5.0); Albumin Globulin Ratio 1.2 (1.0-2.8); Alkaline Phosphatase 77 U/L (38-126); Aspartate Aminotransferase 33 IU/L (14-36); BUN Creatinine Ratio 17.5 (6-22); Bilirubin Total 0.6 mg/dL (0.2-1.3); Blood Urea Nitrogen 28 mg/dL (7-17); Calcium 9.4 mg/dL (8.4-10.2); Carbon Dioxide 26 mmol/L (22-32); Chloride 104 mmol/L (98-107); Estimated Glomerular Filt Rate 30.9 mL/min (>60); Globulin 3.4 g/dL (1.7-4.1); Glucose 109 mg/dL (80-110); HEMOLYSIS < 15 (0-50); Lactate (Lactic Acid) 0.9 mmol/L (0.7-2.1); Potassium 4.4 mmol/L (3.4-5.1); Sodium 136 mmol/L (137-145); Total Protein 7.5 g/dL (6.3-8.2)
[2019-12-18 12:53] LABS: Procalcitonin < 0.05 ng/mL (<0.5)
[2019-12-18] MEDS: FOSFOMYCIN 3 GM PACKET PO (13:41)
--- NOTE | 2019-12-18 14:06 | PC.NURSE ---
No reaction to PO antbx
--- NOTE | 2019-12-18 14:10 | PC.NURSE ---
Provider ;okay with pt going home with BP as is d/t pt not have taking her home BP medication this AM. Pt instructed to take med as soon as she gets home
== END 2019-12-18 14:19 | disposition home or self-care (01) ==
PROVIDERS: Emergency Provider Nurse Practitioner Family; Family Provider Student in an Organized Health Care Education/Training Program; PCP Student in an Organized Health Care Education/Training Program
DX: N39.0 Urinary tract infection, site not specified (principal); R50.9 Fever, unspecified; R10.30 Lower abdominal pain, unspecified
CPT/HCPCS: 36415; 80053; 81001; 83605; 84145; 85025; 85610; 85730; 87040; 87077; 87086; 87186; 99283; 99284

== ENCOUNTER 2019-12-30 12:30 | Emergency (ER) | payer MEDICARE, BC, SELFPAY ==
--- NOTE | 2019-12-30 12:37 | DI.RAD.S_ITS ---
PROCEDURE: XR KNEE RT 3V INDICATIONS: pain sp glf TECHNIQUE: 3 views of the knee were acquired. COMPARISON: [facility], , KNEE 3V LEFT, 08/10/2016, 14:37. FINDINGS: Bones: There is a subtle lucency in the inferior aspect of the patella. No dislocations. No suspicious bony lesions. Soft tissues: No joint effusion. No suspicious soft tissue calcifications. Mild infrapatellar soft tissue swelling. IMPRESSION: Possible nondisplaced fracture of the inferior patella. A differential diagnosis is bipartite patella. Please correlate with focal pain and tenderness. If clinical symptoms persist or clinical suspicion for pathology is high, a repeat examination in 7-10 days, or advanced imaging such as CT or MRI is suggested for further evaluation. Dictated by: Sherri Anaya M.D. on 12/30/2019 at 11:56 Approved by: Sherri Anaya M.D. on 12/30/2019 at 12:17
[2019-12-30 12:38] VITALS: BP 201/89; PULSE 70; RESP 20; TEMP 36.8; O2SAT 100
--- NOTE | 2019-12-30 12:42 | DI.RAD.S_ITS ---
PROCEDURE: XR HAND RT MIN 3V INDICATIONS: pain sp fall TECHNIQUE: 3 views of the hand(s) acquired. COMPARISON: None. FINDINGS: Bones: No fractures or dislocations. Carpal bones are normally aligned. No suspicious bony lesions. There is moderately severe degenerative osteoarthritic change at the distal interphalangeal joints and the metacarpal-phalangeal articulations especially at the 2nd digit, but no trauma found. Soft tissues: No suspicious soft tissue calcifications. IMPRESSION: Moderately severe degenerative osteoarthritis Dictated by: Heri Zhou M.D. on 12/30/2019 at 13:01 Approved by: Heri Zhou M.D. on 12/30/2019 at 13:03
--- NOTE | 2019-12-30 12:48 | ED_ITS ---
HPI - Extremity Injury (Lower) <Flor Kauffman, GAMING ASSOCIATE-BC - Last Filed: 12/30/19 16:56> General Chief Complaint: Extremity Injury, Lower Stated Complaint: fall last night, right knee pain Time Seen by Provider: 12/30/19 12:31 Source: patient Mode of arrival: Ambulatory Limitations: no limitations History of Present Illness HPI Narrative: The patient is an 84-year-old female nonsmoker with history of vertigo who presents with a chief complaint of right knee pain right hand pain after ground level fall last night. She is moving to [place] and has been packing in her house. She got up to go to the bathroom and tripped over her belongings and landed on her knees. She did not hit her head or neck or back. She denies any head neck or back pain. She states she landed fully on her knees, and now has bilateral knee pain, right much worse than left. She also complains of right hand pain. She took 1 Tylenol at 7:00 a.m. this morning. She denies any loss of consciousness. 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 She does complain of bruising on bilateral knees. Related Data Home Medications Medication Instructions Recorded Confirmed acetaminophen [Tylenol Extra 500 mg PO PRN PRN #0 04/19/16 12/20/19 Strength] cholecalciferol (vitamin D3) 5,000 unit PO DAILY 12/04/18 12/20/19 [Vitamin D3] ferrous sulfate 325 mg (65 mg 325 mg PO Q OTHER DAY tab 12/11/18 12/20/19 iron) tablet,delayed release amiodarone 200 mg tablet 100 mg PO DAILY #0 tab 07/30/19 12/20/19 Previous Rx's Medication Instructions Recorded sertraline 100 mg tablet 100 mg PO DAILY #90 tab 05/21/19 Akorn Lidocaine Hydrochloride #1 ea 12/06/19 Jelly 2% acetaminophen-codeine 1 tab PO Q8H PRN #10 tab 12/30/19 Allergies Allergy/AdvReac Type Severity Reaction Status Date / Time latex Allergy Severe THROAT Verified 12/20/19 14:16 SWELLING prednisone [PREDNISONE] Allergy Intermediate rash Verified 12/20/19 14:16 amoxicillin Allergy Mild ITCH Verified 12/20/19 14:16 cephalexin Allergy Mild ITCHY ALL Verified 12/20/19 14:16 OVER HER BODY ciprofloxacin Allergy Mild ITCH Verified 12/20/19 14:16 clavulanic acid Allergy Mild RASH Verified 12/20/19 14:16 hydromorphone Allergy Mild ITCHING Verified 12/20/19 14:16 nitrofurantoin Allergy Mild ABD Verified 12/20/19 14:16 PAIN/SEVERE ITCHING oxycodone Allergy Mild ITCH Verified 12/20/19 14:16 Penicillins Allergy Mild BLISTERS Verified 12/20/19 14:16 Sulfa (Sulfonamide Allergy Mild ITCH Verified 12/20/19 14:16 Antibiotics) levofloxacin [From LEVAQUIN] AdvReac Severe DISTURBING Verified 12/20/19 14:16 HALLUCINATIONS lorazepam [From ATIVAN] AdvReac Intermediate Verified 12/20/19 14:16 morphine AdvReac Mild HALLUCINATI Verified 12/20/19 14:16 ONS Review of Systems <DWIGHT Oneill - Last Filed: 12/30/19 16:56> Review of Systems Narrative: GENERAL: Denies chills, fatigue, malaise, fever, sweats. HEENT: Denies sinus pain, ear pain, sore throat, difficulty swallowing, dizziness. RESPIRATORY: Denies dyspnea, cough, wheezing, hemoptysis, sputum. CARDIOVASCULAR: Denies chest pain, palpitations, orthopnea, edema, GASTROINTESTINAL: Denies nausea, vomiting, abdominal pain, diarrhea, constipation, melena. : Denies dysuria, frequency, incontinence, hematuria, urinary retention. MUSCULOSKELETAL: See HPI SKIN: See HPI NEUROLOGIC: Denies weakness, headache, numbness, change in speech, confusion, seizures, incoordination. PSYCHIATRIC: No concerning psychosocial issues. 12 point review of systems is negative except for those stated above Patient History <DWIGHT Oneill - Last Filed: 12/30/19 16:56> Medical History Anxiety (Chronic 12/08/15) Atypical chest pain (Chronic) C. difficile colitis (Resolved 07/2015) C. 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) Mumps (Resolved ~1939) Osteoporosis, unspecified (Chronic 03/22/11) Paraesophageal hernia (Resolved) Paroxysmal atrial fibrillation (Chronic ~2013) Pyelonephritis (Resolved) RLS (restless legs syndrome) (Chronic) Second degree AV block, Mobitz type I (Chronic) Shoulder pain (Chronic) Skin cancer (Resolved 2009) Sleep apnea (Chronic 2012) 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) Surgical History Anesthesia (Resolved) History of bladder surgery (Resolved ~1967) History of cholecystectomy (Resolved) History of nephrectomy (Resolved) History of spinal fusion (Resolved 2005) S/P repair of paraesophageal hernia (Resolved) Status post hysterectomy with oophorectomy (Resolved) Family History Brother CAD (coronary artery disease) Hyperlipidemia High cholesterol Lung cancer Colon cancer Brother Cancer High cholesterol Lung disease Father Colon cancer CAD (coronary artery disease) High cholesterol Mother CVA (cerebral vascular accident) Hyperlipidemia Sister Age: 84 CAD (coronary artery disease) Hyperlipidemia Ulcer Essential hypertension High cholesterol Heart attack Grandfather Throat cancer Grandmother Heart disease Family/Other Lung disease Social History household members: none Smoking Status: Never smoker Smoking Status: Never smoker alcohol intake frequency: holidays/special occasions only Substance Use Type: does not use Exam <DWIGHT Oneill - Last Filed: 12/30/19 16:56> Narrative Exam Narrative: GENERAL: This is a well-nourished, well-developed patient, in no acute distress HEAD: Atraumatic. Normocephalic. No temporal or scalp tenderness. EYES: Pupils equal round and reactive. Extraocular motions intact. No scleral icterus. No injection or drainage. ENT: Nose without bleeding, purulent drainage or septal hematoma. Throat without erythema, tonsillar hypertrophy or exudate. Uvula midline. Airway patent. NECK: Trachea midline. No JVD or lymphadenopathy. Supple, nontender, no meningeal signs. CARDIOVASCULAR: Regular rate and regular rhythm RESPIRATORY: Clear to auscultation. Breath sounds equal bilaterally. No wheezes, rales, or rhonchi. No cough. No increased respiratory effort. No accessory muscle use. GASTROINTESTINAL: Abdomen soft, non-tender, nondistended. No hepato- splenomegaly, or palpable masses. No guarding. EXTREMITIES: Skin exam is noted, slight swelling noted prepatellar area right knee. Pain to palpation prepatellar right knee. Able to lift entire right leg off stretcher. Able to flex leg slightly, pain with full extension. Pain to palpation base of 4th and 5th digits right hand. No snuffbox pain to palpation right wrist. Peripheral pulses intact throughout. All extremities warm. BACK: Nontender without deformity or crepitance. No flank tenderness. NEURO: AOx3. SKIN: Ecchymosis noted bilateral prepatellar area. Initial Vital Signs Initial Vital Signs: Vital Signs Temperature 98.2 F 12/30/19 12:38 Pulse Rate 70 12/30/19 12:38 Respiratory Rate 12/30/19 12:38 Blood Pressure 201/89 H 12/30/19 12:38 Pulse Oximetry 100 12/30/19 12:38 <Glendy Kim DO - Last Filed: 12/30/19 20:38> Initial Vital Signs Initial Vital Signs: Vital Signs Temperature 98.2 F 12/30/19 12:38 Pulse Rate 70 12/30/19 12:38 Respiratory Rate 12/30/19 12:38 Blood Pressure 201/89 H 12/30/19 12:38 Pulse Oximetry 100 12/30/19 12:38 Procedures <MAYUR Oneill-NEAL - Last Filed: 12/30/19 16:56> Orthopedic Splinting/Casting Injury #1: Side: right Lower Extremity Immobilizer: knee immobilizer Other Orthopedic Equipment: walker Post splinting neuro exam: intact Post splinting vascular exam: intact Placed by: Nursing Scores <DWIGHT Oneill - Last Filed: 12/30/19 16:56> GCS [facility] coma scale eye opening: Spontaneous [facility] coma scale verbal response: Orientated [place] coma scale motor response: Obey commands [facility] coma scale total score: 15 Nexus Score for C-Spine Focal Neurologic deficit present: No Midline spinal tenderness present: No Altered level of conciousness present: No Intoxication present: No Distracting Injury Present: No Nexus Criteria for C-spine: 0 Course <SPENSER OneillBC - Last Filed: 12/30/19 16:56> Orders Ordered: ED Orders 12/30/19 12:37 XR knee RT 3V Stat 12/30/19 12:42 XR hand RT min 3V Stat 12/30/19 13:46 CT LE RT wo con Stat Discontinued Medications Acetaminophen (Tylenol) 650 mg PO NOW ONE Stop: 12/30/19 12:43 Last Admin: 12/30/19 12:53 Dose: 650 mg Documented by: KAREN Lidocaine (Lidoderm) 1 each TOP NOW ONE Stop: 12/30/19 12:43 Last Admin: 12/30/19 12:54 Dose: 1 each Documented by: KAREN Reevaluation(s) Reevaluation #1: Patient's x-ray results with possible patellar fracture. Will order CT for closer evaluation as patient is still in a great deal of pain, trouble moving etcetera. Patient states understanding. Time: 13:30 Vital Signs Vital signs: Vital Signs - 8 hr 12/30/19 13:57 12/30/19 15:23 Pulse Rate 65 63 Respiratory Rate 17 14 Blood Pressure 169/70 H 167/77 H Pulse Oximetry 100 100 <Glendy Kim DO - Last Filed: 12/30/19 20:38> Orders Ordered: ED Orders 12/30/19 12:37 XR knee RT 3V Stat 12/30/19 12:42 XR hand RT min 3V Stat 12/30/19 13:46 CT LE RT wo con Stat Discontinued Medications Acetaminophen (Tylenol) 650 mg PO NOW ONE Stop: 12/30/19 12:43 Last Admin: 12/30/19 12:53 Dose: 650 mg Documented by: KAREN Lidocaine (Lidoderm) 1 each TOP NOW ONE Stop: 12/30/19 12:43 Last Admin: 12/30/19 12:54 Dose: 1 each Documented by: KAREN Vital Signs Vital signs: Vital Signs - 8 hr 12/30/19 13:57 12/30/19 15:23 Pulse Rate 65 63 Respiratory Rate 17 14 Blood Pressure 169/70 H 167/77 H Pulse Oximetry 100 100 MDM - Extremity Injury (Lower) <DWIGHT Oneill - Last Filed: 12/30/19 16:56> Imaging Data Extremity x-ray #1: Radiologist's Impression: [address] [place] [id number] XRay Report Signed Patient: Valery Yeh EMR#: [id number] : 8Acct:[id number] Age/Sex: 84 / FDate of Service: 12/30/19 Loc: ED Accession Number: [id number] Procedure: XR hand RT min 3V Ordering Provider: Flor Kauffman PROCEDURE: XR HAND RT MIN 3V INDICATIONS: pain sp fall TECHNIQUE: 3 views of the hand(s) acquired. COMPARISON: None. FINDINGS: Bones: No fractures or dislocations. Carpal bones are normally aligned. No suspicious bony lesions. There is moderately severe degenerative osteoarthritic change at the distal interphalangeal joints and the metacarpal-phalangeal articulations especially at the 2nd digit, but no trauma found. Soft tissues: No suspicious soft tissue calcifications. IMPRESSION: Moderately severe degenerative osteoarthritis Dictated by: Heri Zhou M.D. on 12/30/2019 at 13:01 Approved by: Heri Zhou M.D. on 12/30/2019 at 13:03 Extremity x-ray #2: Radiologist's Impression: [address] [place] [id number] XRay Report Signed Patient: Valery Yeh EMR#: [id number] : 8Acct:[id number] Age/Sex: 84 / FDate of Service: 12/30/19 Loc: ED Accession Number: [id number] Procedure: XR knee RT 3V Ordering Provider: Flor Kauffman PROCEDURE: XR KNEE RT 3V INDICATIONS: pain sp glf TECHNIQUE: 3 views of the knee were acquired. COMPARISON: [facility], KNEE 3V LEFT, 08/10/2016, 14:37. FINDINGS: Bones: There is a subtle lucency in the inferior aspect of the patella. No dislocations. No suspicious bony lesions. Soft tissues: No joint effusion. No suspicious soft tissue calcifications. Mild infrapatellar soft tissue swelling. IMPRESSION: Possible nondisplaced fracture of the inferior patella. A differential diagnosis is bipartite patella. Please correlate with focal pain and tenderness. If clinical symptoms persist or clinical suspicion for pathology is high, a repeat examination in 7-10 days, or advanced imaging such as CT or MRI is suggested for further evaluation. Dictated by: Sherri Anaya M.D. on 12/30/2019 at 11:56 Approved by: Sherri Anaya M.D. on 12/30/2019 at 12:17 CT right leg : Radiologist's Impression: [address] [place] [address] CT Scan Report Signed Patient: Valery Yeh EMR#: [id number] : 8Acct:[id number] Age/Sex: 84 / FDate of Service: 12/30/19 Loc: ED Accession Number: [id number] Procedure: CT LE RT wo con Ordering Provider: Flor Kauffman PROCEDURE: CT LE RT WO CON INDICATIONS: fall, ? fx patella TECHNIQUE: Noncontrast 1-1.5 mm axial sections acquired from the mid-patella to the proximal tibia, with coronal and sagittal reformats. COMPARISON: [facility], CR, XR KNEE RT 3V, 12/30/2019, 12:28. FINDINGS: Image quality: Excellent. Bones: There is an incomplete fracture involving the anterior cortex of the inferior patella. There is no displacement. There is mild degenerative joint disease. Soft tissues: Mild infrapatellar soft tissue swelling. IMPRESSION: Incomplete fracture of patella. Dictated by: Sherri Anaya M.D. on 12/30/2019 at 13:17 Approved by: Sherri Anaya M.D. on 12/30/2019 at 13:[address] [facility] Narrative Medical decision making narrative: The patient is a 84-year-old female who presents with a chief complaint of knee pain after ground level fall as well as hand pain. Hand x-ray comes back no acute findings, she is neurovascularly intact with no snuffbox tenderness to palpation. Right knee x-ray was inconclusive, obtained a CT which showed an incomplete patellar fracture. Spoke with Dr Kim and patient was placed in a knee immobilizer with plan for ortho follow-up. Patient is resting intact before and after her knee immobilizer application. I discussed at length the importance of following up with primary care provider as well as [facility]. Encouraged rest ice compression elevation, wearing the knee immobilizer etcetera. Patient daughter no questions or concerns upon discharge and states understanding return precautions as well as follow-up care. Did discuss at length that the patient was prescribed acetaminophen with codeine, codeine can be constipating etcetera. Patient is able to ambulate with a steady gait and has no questions or concerns upon discharge Discharge Plan Departure Patient Disposition: Home Clinical Impression: Fall from ground level Fracture, patella Qualifiers: Encounter type: initial encounter Fracture type: closed Fracture morphology: unspecified fracture morphology Fracture alignment: nondisplaced Laterality: right Qualified Code(s): S82.001A - Unspecified fracture of right patella, initial encounter for closed fracture Hand pain Qualifiers: Laterality: right Qualified Code(s): M79.641 - Pain in right hand Discharge Date/Time: 12/30/19 16:27 Instructions: DI for Patella Fracture, How To Perform RICE (Rest, Ice, Compress, Elevate), How to Use a Knee Immobilizer Activity Restrictions/Additional Instructions: Thank you for trusting us care today. Unfortunately you have an incomplete fracture of your patella or kneecap. We have placed you in a knee immobilizer. I sent a prescription of Tylenol with codeine to [facility]. I have given you a prescription of a narcotic for pain. Be aware that this can be constipating and sedating. I encouraged taking with a stool softener, pushing fluids and fiber. Do not take and drive, operate heavy machinery, etc. Do not combine it with any other sedating substances such as alcohol. The combination of narcotics and alcohol and/or other sedatives can be lethal. Prescriptions: New acetaminophen-codeine 300-30 mg tablet 1 tab PO Q8H PRN (Reason: pain) Qty: 10 RF: 0 No Action acetaminophen [Tylenol Extra Strength] 500 MG tablet 500 mg PO PRN PRN (Reason: Pain, Mild) Qty: 0 RF: 0 amiodarone 200 mg tablet 100 mg PO DAILY Qty: 0 RF: 0 (DME) Akorn Lidocaine Hydrochloride Jelly 2% 30ml Qty: 1 RF: 0 ferrous sulfate 325 mg (65 mg iron) tablet,delayed release (DR/EC) 325 mg PO Q OTHER DAY RF: 0 sertraline 100 mg tablet 100 mg PO DAILY Qty: 90 RF: 3 cholecalciferol (vitamin D3) [Vitamin D3] 5,000 unit Tablet 5,000 unit PO DAILY RF: 0 Referrals: [facility] [Provider Group] Scooter Salgado MD [Primary Care Provider] - <Glendy Kim DO - Last Filed: 12/30/19 20:38> Cosign ED Attending Cosignature Attestation: I was immediately available in the department for consultation. Documentation has been reviewed. I agree with assessment and plan.
[2019-12-30] MEDS: ACETAMINOPHEN 325 MG TABLET 650 MG PO (12:53)
[2019-12-30] MEDS: LIDOCAINE PATCH 1 EACH ADH..PATCH TOP (12:54)
--- NOTE | 2019-12-30 13:46 | DI.CT.S_ITS ---
PROCEDURE: CT LE RT WO CON INDICATIONS: fall, ? fx patella TECHNIQUE: Noncontrast 1-1.5 mm axial sections acquired from the mid-patella to the proximal tibia, with coronal and sagittal reformats. COMPARISON: [facility], CR, XR KNEE RT 3V, 12/30/2019, 12:28. FINDINGS: Image quality: Excellent. Bones: There is an incomplete fracture involving the anterior cortex of the inferior patella. There is no displacement. There is mild degenerative joint disease. Soft tissues: Mild infrapatellar soft tissue swelling. IMPRESSION: Incomplete fracture of patella. Dictated by: Sherri Anaya M.D. on 12/30/2019 at 13:17 Approved by: Sherri Anaya M.D. on 12/30/2019 at 13:22
[2019-12-30 13:57] VITALS: BP 169/70; PULSE 65; RESP 17; O2SAT 100
--- NOTE | 2019-12-30 14:01 | PC.NURSE ---
Pt states lidocaine patch is making her skin burn, states I am so allergic to everything. At patient's request I removed the patch. No discoloration of skin noted.
[2019-12-30 15:23] VITALS: BP 167/77; PULSE 63; RESP 14; O2SAT 100
== END 2019-12-30 16:27 | disposition home or self-care (01) ==
PROVIDERS: Emergency Provider Nurse Practitioner Family; Family Provider Student in an Organized Health Care Education/Training Program; PCP Student in an Organized Health Care Education/Training Program; Referring Provider Student in an Organized Health Care Education/Training Program
DX: S82.001A Unspecified fracture of right patella, initial encounter for closed fracture (principal); M79.641 Pain in right hand; W01.0XXA Fall on same level from slipping, tripping and stumbling without subsequent striking against object, initial encounter
CPT/HCPCS: 73130; 73562; 73700; 99283; 99284

== ENCOUNTER → 2020-01-03 17:12 | Outpatient (CLI) | payer MEDICARE, BC, SELFPAY ==
[2020-01-03 17:31] LABS: Bacteria Urine None Seen
[2020-01-03 18:38] LABS: Appearance Urine UA CLEAR; Bilirubin Urine UA NEGATIVE (NEGATIVE); Color Urine UA YELLOW; Glucose Urine UA NEGATIVE (Negative); Ketones Urine UA NEGATIVE (NEGATIVE); Leukocyte Esterase Urine UA NEGATIVE (NEGATIVE); Nitrite Urine UA NEGATIVE (Negative); Occult Blood Urine UA NEGATIVE (Negative); Protein Urine UA NEGATIVE (Negative); Urobilinogen Urine UA 0.2 E.U./dL (0.2)
[2020-01-03 18:41] LABS: pH Urine UA 5.5 (4.5-8.0)
[2020-01-03 18:45] LABS: Culture Indicated Urine Cult Not Indicated; RBC Urine 0-1/HPF (0-5/HPF); Squamous Epithelial Cell Urine 1-5 /HPF (0-5/HPF); Transitional Epi Cells Urine 0-1/HPF (0-5/HPF); WBC Urine 0-1/HPF (0-5/HPF)
== END ==
PROVIDERS: Family Provider Student in an Organized Health Care Education/Training Program; PCP Student in an Organized Health Care Education/Training Program; Referring Provider Student in an Organized Health Care Education/Training Program; Visit Provider Student in an Organized Health Care Education/Training Program
DX: R30.0 Dysuria (principal); Z87.440 Personal history of urinary (tract) infections
CPT/HCPCS: 81001

== ENCOUNTER → 2020-01-09 13:37 | Outpatient (CLI) | payer MEDICARE, BC, SELFPAY ==
[2019-05-20 12:02] VITALS: BMI 25.6
--- NOTE | 2020-01-09 13:54 | DI.ECHO.S_ITS ---
Echocardiogram Report + + :Name: PARVEEN CABALLERO Study Date: 01/09/2020 Height: 63 in : :[facility] Weight: 145 lb : : Gender: Female BSA: 1.7 m2 : :: 1935 Age: 84 yrs BP: 145/82 mmHg: :Reason For Study: FATIGUE : :Ordering Physician: Dr. Martinez : :Phil Performed By: Sissy Fernando : :Referring: TATO BRUNO : + + Interpretation Summary Left ventricular systolic function remains normal with an estimated ejection fraction of 65 to 70% without any focal wall motion abnormality. There is mild LVH. While diastolic function is challenging to assess, filling pressures are likely lower compared to the previous study. Otherwise, there has been no significant change. The right ventricle appears normal. Right ventricular systolic pressure is estimated at 34 mmHg with a CVP of 3 mmHg, and is likely significantly lower compared to the previous exam. There is borderline left atrial enlargement with normal right atrial size. Both have decreased in size since the previous study. There is mild mitral regurgitation that is less prominent compared to the previous study. There is mild to moderate tricuspid regurgitation and mild aortic valve regurgitation that are unchanged. The ascending aorta is mildly enlarged and the aortic arch is borderline enlarged but both are unchanged from the previous study. Procedure: A two-dimensional transthoracic echocardiogram with color flow and Doppler was performed. The study quality was technically adequate. Comparison is made with the echocardiogram of 12/06/2018. The heart rate ranged between 65-75 bpm during the study. Left Ventricle: The left ventricle is normal in size. There is mild concentric left ventricular hypertrophy. Left ventricular systolic function is normal without focal wall motion abnormalities. The ejection fraction is estimated to be 65-70%. Diastolic function could not be accurately assessed due to contradictory data. This is lower compared to the previous study. There has been no significant change since the previous study. Right Ventricle: The right ventricle is normal in size and function. This is unchanged compared to the previous study. Atria: The left atrium is borderline dilated. Both atria have significantly decreased in size since the prior echo exam. Right atrial size is normal. There is no Doppler evidence for an interatrial shunt. Mitral Valve: There is mild mitral annular calcification. There is mild mitral regurgitation. This is less prominent compared to the previous study. Aortic Valve: The aortic valve is trileaflet. The aortic valve is slightly calcified. The aortic valve opens well. There is mild aortic regurgitation. This is unchanged compared to the previous study. Tricuspid Valve: The tricuspid valve is normal in structure and function. There is mild to moderate tricuspid regurgitation. This is unchanged compared to the previous study. The right ventricular systolic pressure is estimated to be at least 34 mmHg based on an estimated right atrial pressure of 3 mm Hg. Pulmonic Valve: The pulmonic valve leaflets are thin and pliable; valve motion is normal. There is trace pulmonic regurgitation. Great Vessels: The aortic root is normal size. The ascending aorta is mildly enlarged. The aortic arch is at the upper limits of normal in size. This is unchanged compared to the previous study. The IVC is of normal diameter and collapses greater than 50% with a sniff. This suggests a low right atrial pressure of 3 mm Hg. Pericardium/ Pleura There is no pericardial effusion. There is no pleural effusion. MMode/2D Measurements & Calculations LVIDd: 3.9 cm LVOT diam: 2.1 cm LVIDs: 2.5 cm Ao root diam: 2.9 cm FS: 36.9 % asc Aorta Diam: 3.5 cm EPSS: 0.55 cm Ao Arch Diam (Prox Trans): 3.0 cm IVSd: 1.2 cm LVPWd: 1.1 cm LV green. diameter/BSA (cm/m^2): 2.3 LV sys. diameter/BSA (cm/m^2): 1.5 LA A2 area: 17.4 cm2 RA long axis: 4.6 cm LA A4 area: 19.2 cm2 RA area: 13.7 cm2 LA length (vol): 5.0 cm RA vol: 34.3 ml LA vol: 57.1 ml RA : 20.4 ml/m2 LA vol index: 33.8 ml/m2 IVC diam: 1.3 cm RVD1 (basal): 3.1 cm TAPSE: 2.2 cm Doppler Measurements & Calculations Ao V2 max: 174.5 cm/sec LVOT Max Trevin: 78.0 cm/sec Ao V2 mean: 116.6 cm/sec LV V1 max P.4 mmHg Ao max P.2 mmHg LV V1 VTI: 16.8 cm Ao mean P.3 mmHg JACKLYN(I,D): 1.7 cm2 Ao V2 VTI: 36.4 cm JACKLYN(V,D): 1.6 cm2 sev ratio: 0.46 JACKLYN indexed to BSA (cm^2/m^2): 0.98 AI P1/2t: 743.2 msec AI dec slope: 182.5 cm/sec2 MV E max trevin: 78.8 cm/sec TR max trevin: 280.3 cm/sec MV A max trevin: 58.9 cm/sec TR max P.4 mmHg MV E/A: 1.3 PA V2 max: 111.0 cm/sec Med Peak E' Trevin: 4.7 cm/sec PA V2 mean: 67.7 cm/sec E/E' med: 16.9 PA mean P.2 mmHg Lat Peak E' Trevin: 6.9 cm/sec PA pr(Accel): 13.9 mmHg E/E' lat: 11.4 E/e' average: 14.1 MV dec time: 0.18 sec SV(LVOT): 60.1 ml Reading Physician:07:03 AM
== END ==
PROVIDERS: Family Provider Student in an Organized Health Care Education/Training Program; PCP Student in an Organized Health Care Education/Training Program; Referring Provider Specialist; Visit Provider Specialist
DX: I08.3 Combined rheumatic disorders of mitral, aortic and tricuspid valves (principal); I77.89 Other specified disorders of arteries and arterioles; R53.83 Other fatigue
CPT/HCPCS: 93306